=== PATIENT | male | born 1960 | race Caucasian/White ===

== ENCOUNTER → 2023-04-05 | Outpatient (CLI) | payer BC, SELFPAY ==
[2023-04-05 16:04] LABS: Absolute Lymphocyte Count 1.67 X10^3/uL (0.83-4.51); Absolute Neutrophil Count 5.8 X10^3/uL (2.0-7.7); Basophil# 0.06 X10^3/uL; Basophil% 0.7 % (0-1); Eosinophil# 0.36 X10^3/uL; Eosinophils% 4.2 % (0-5); Hematocrit 50.4 % (40-54); Hemoglobin 16.5 g/dL (13.0-16.5); Lymphocyte # 1.67 X10^3/ul (0.83-4.51); Lymphocyte % 19.3 % (19-41); Mean Corp Hgb Conc 32.7 g/dL (32-36); Mean Corpuscular Volume 97.9 fL (80-94); Mean Platelet Vol. 8.7 fl (6.2-12.0); Monocyte# 0.72 X10^3/uL; Monocyte% 8.3 % (0-10); NRBC Flagged by Analyzer 0 % (0-5); Neutrophil # 5.84 X10^3/uL (2.7-7.7); Neutrophil % 67.3 % (47-70); Platelet Count 215 K/mm3 (150-450); RBC Distribution Width CV 11.4 % (11.6-14.6); RBC Distribution Width SD 41.7 fl (35.1-43.9); Red Blood Count 5.15 M/mm3 (4.6-6.2); White Blood Count 8.7 K/mm3 (4.4-11.0)
[2023-04-05 16:28] LABS: ALB/GLOB Ratio 0.9 RATIO (0.9-2.4); AST(SGOT) 78 U/L (15-37); Alanine Aminotransfer ALT/SGPT 111 U/L (16-61); Albumin, Serum 3.5 g/dL (3.2-5.0); Alkaline Phosphatase 135 U/L (45-117); Anion Gap 4 (5-15); BUN 13 mg/dL (7-18); BUN/Creat Ratio 13.1 RATIO (10-20); Calcium,Total 9.5 mg/dL (8.5-10.1); Chloride 103 mmol/L (98-107); Creatinine, Serum 0.99 mg/dL (0.70-1.30); EST Glomerular Filtration Rate 81 mL/min (>60); Est Glom Filt Rate - Afr Amer 98 mL/min (>60); Globulin 4.1 g/dL (2.2-4.2); Glucose 123 mg/dL (74-106); PSA,Total - Annual Screen 1.31 ng/mL (0.00-4.00); Potassium 4.1 mmol/L (3.5-5.1); Protein, Total 7.6 g/dL (6.4-8.2); Sodium Level 138 mmol/L (136-145)
[2023-04-05 18:06] LABS: Hepatitis C Antibody Non-Reactive (Nonreactive); Vitamin D,25 Hydroxy 21.9 ng/mL
== END | disposition home or self-care (01) ==
PROVIDERS: PCP Family Medicine Geriatric Medicine; Visit Provider Family Medicine Geriatric Medicine
DX: E11.65 Type 2 diabetes mellitus with hyperglycemia (principal); I10 Essential (primary) hypertension
CPT/HCPCS: 36415; 80053; 82306; 84153; 84443; 85025; 86803; G0103

== ENCOUNTER → 2023-10-06 | Outpatient (CLI) | payer BC, SELFPAY ==
[2023-10-06 10:44] LABS: Absolute Lymphocyte Count 1.44 X10^3/uL (0.83-4.51); Absolute Neutrophil Count 4.3 X10^3/uL (2.0-7.7); Basophil# 0.06 X10^3/uL; Basophil% 0.9 % (0-1); Eosinophil# 0.22 X10^3/uL; Eosinophils% 3.3 % (0-5); Hematocrit 48.3 % (40-54); Hemoglobin 16.2 g/dL (13.0-16.5); Lymphocyte # 1.44 X10^3/ul (0.83-4.51); Lymphocyte % 21.8 % (19-41); Mean Corp Hgb Conc 33.5 g/dL (32-36); Mean Corpuscular Hgb 31.2 pg (27.0-32.0); Mean Corpuscular Volume 92.9 fL (80-94); Mean Platelet Vol. 8.9 fl (6.2-12.0); Monocyte# 0.62 X10^3/uL; Monocyte% 9.4 % (0-10); NRBC Flagged by Analyzer 0 % (0-5); Neutrophil # 4.25 X10^3/uL (2.7-7.7); Neutrophil % 64.4 % (47-70); Platelet Count 191 K/mm3 (150-450); RBC Distribution Width CV 11.4 % (11.6-14.6); RBC Distribution Width SD 38.7 fl (35.1-43.9); White Blood Count 6.6 K/mm3 (4.4-11.0)
[2023-10-06 11:25] LABS: AST(SGOT) 40 U/L (15-37); Alanine Aminotransfer ALT/SGPT 53 U/L (16-61); Albumin, Serum 3.8 g/dL (3.2-5.0); Alkaline Phosphatase 134 U/L (45-117); Anion Gap 5 (5-15); BUN 12 mg/dL (7-18); BUN/Creat Ratio 11.1 RATIO (10-20); Calcium,Total 9.4 mg/dL (8.5-10.1); Chloride 98 mmol/L (98-107); Creatinine, Serum 1.08 mg/dL (0.70-1.30); EST Glomerular Filtration Rate 73 mL/min (>60); Est Glom Filt Rate - Afr Amer 88 mL/min (>60); Globulin 3.8 g/dL (2.2-4.2); Glucose 127 mg/dL (74-106); Potassium 3.8 mmol/L (3.5-5.1); Protein, Total 7.6 g/dL (6.4-8.2); Sodium Level 132 mmol/L (136-145); Thyroid Stim Hormone (TSH) 1.97 uIU/mL (0.358-3.74)
== END | disposition home or self-care (01) ==
LOC: LAB 10:10
PROVIDERS: PCP Family Medicine Geriatric Medicine; Visit Provider Family Medicine Geriatric Medicine
DX: I10 Essential (primary) hypertension (principal); E11.65 Type 2 diabetes mellitus with hyperglycemia
CPT/HCPCS: 36415; 80053; 84443; 85025

== ENCOUNTER → 2023-12-19 | Outpatient (CLI) | payer BC, SELFPAY ==
[2023-12-19 11:24] LABS: Absolute Lymphocyte Count 0.96 X10^3/uL (0.83-4.51); Absolute Neutrophil Count 4.2 X10^3/uL (2.0-7.7); Basophil# 0.03 X10^3/uL; Basophil% 0.5 % (0-1); Eosinophil# 0.15 X10^3/uL; Eosinophils% 2.5 % (0-5); Hematocrit 46.8 % (40-54); Hemoglobin 16.1 g/dL (13.0-16.5); Lymphocyte # 0.96 X10^3/ul (0.83-4.51); Lymphocyte % 16.1 % (19-41); Mean Corp Hgb Conc 34.4 g/dL (32-36); Mean Corpuscular Hgb 32.2 pg (27.0-32.0); Mean Corpuscular Volume 93.6 fL (80-94); Monocyte# 0.55 X10^3/uL; Monocyte% 9.2 % (0-10); NRBC Flagged by Analyzer 0 % (0-5); Neutrophil # 4.23 X10^3/uL (2.7-7.7); Neutrophil % 71.2 % (47-70); Platelet Count 188 K/mm3 (150-450); RBC Distribution Width CV 11.7 % (11.6-14.6); RBC Distribution Width SD 40.3 fl (35.1-43.9)
[2023-12-19 11:49] LABS: AST(SGOT) 37 U/L (15-37); Alanine Aminotransfer ALT/SGPT 50 U/L (16-61); Albumin, Serum 3.7 g/dL (3.2-5.0); Alkaline Phosphatase 130 U/L (45-117); Anion Gap 7 (5-15); BUN 13 mg/dL (7-18); BUN/Creat Ratio 11.9 RATIO (10-20); Calcium,Total 9.5 mg/dL (8.5-10.1); Chloride 102 mmol/L (98-107); Creatinine, Serum 1.09 mg/dL (0.70-1.30); EST Glomerular Filtration Rate 72 mL/min (>60); Est Glom Filt Rate - Afr Amer 87 mL/min (>60); Globulin 3.7 g/dL (2.2-4.2); Glucose 141 mg/dL (74-106); Potassium 3.9 mmol/L (3.5-5.1); Protein, Total 7.4 g/dL (6.4-8.2); Sodium Level 136 mmol/L (136-145); Thyroid Stim Hormone (TSH) 2.19 uIU/mL (0.358-3.74)
== END | disposition home or self-care (01) ==
LOC: POLAB3 10:20
PROVIDERS: PCP Family Medicine Geriatric Medicine; Visit Provider Family Medicine Geriatric Medicine
DX: I10 Essential (primary) hypertension (principal); E11.65 Type 2 diabetes mellitus with hyperglycemia
CPT/HCPCS: 36415; 80053; 84443; 85025

== ENCOUNTER → 2024-06-06 | Outpatient (CLI) | payer BC, SELFPAY ==
[2024-06-06 10:29] LABS: Absolute Lymphocyte Count 1.24 X10^3/uL (0.83-4.51); Absolute Neutrophil Count 3.7 X10^3/uL (2.0-7.7); Basophil# 0.04 X10^3/uL; Basophil% 0.7 % (0-1); Eosinophil# 0.16 X10^3/uL; Eosinophils% 2.9 % (0-5); Hematocrit 48.4 % (40-54); Hemoglobin 16.7 g/dL (13.0-16.5); Lymphocyte # 1.24 X10^3/ul (0.83-4.51); Lymphocyte % 22.4 % (19-41); Mean Corp Hgb Conc 34.5 g/dL (32-36); Mean Corpuscular Hgb 32.8 pg (27.0-32.0); Mean Corpuscular Volume 95.1 fL (80-94); Mean Platelet Vol. 8.6 fl (6.2-12.0); Monocyte# 0.35 X10^3/uL; Monocyte% 6.3 % (0-10); NRBC Flagged by Analyzer 0 % (0-5); Neutrophil # 3.72 X10^3/uL (2.7-7.7); Neutrophil % 67.3 % (47-70); Platelet Count 206 K/mm3 (150-450); RBC Distribution Width CV 11.3 % (11.6-14.6); RBC Distribution Width SD 39.8 fl (35.1-43.9); Red Blood Count 5.09 M/mm3 (4.6-6.2); White Blood Count 5.5 K/mm3 (4.4-11.0)
[2024-06-06 11:05] LABS: ALB/GLOB Ratio 0.9 RATIO (0.9-2.4); AST(SGOT) 35 U/L (15-37); Alanine Aminotransfer ALT/SGPT 64 U/L (16-61); Albumin, Serum 3.5 g/dL (3.2-5.0); Alkaline Phosphatase 126 U/L (45-117); Anion Gap 5 (5-15); BUN 7 mg/dL (7-18); BUN/Creat Ratio 6.8 RATIO (10-20); Calcium,Total 9.4 mg/dL (8.5-10.1); Chloride 101 mmol/L (98-107); Creatinine, Serum 1.03 mg/dL (0.70-1.30); EST Glomerular Filtration Rate 77 mL/min (>60); Est Glom Filt Rate - Afr Amer 93 mL/min (>60); Globulin 3.8 g/dL (2.2-4.2); Glucose 140 mg/dL (74-106); Potassium 4.3 mmol/L (3.5-5.1); Protein, Total 7.3 g/dL (6.4-8.2); Sodium Level 136 mmol/L (136-145)
[2024-06-07 00:34] LABS: Vitamin D,25 Hydroxy 19.4 ng/mL
== END | disposition home or self-care (01) ==
LOC: POLAB3 10:11
PROVIDERS: PCP Family Medicine Geriatric Medicine; Visit Provider Family Medicine Geriatric Medicine
DX: E11.65 Type 2 diabetes mellitus with hyperglycemia (principal); I10 Essential (primary) hypertension; E55.9 Vitamin D deficiency, unspecified; Z12.5 Encounter for screening for malignant neoplasm of prostate
CPT/HCPCS: 36415; 80053; 82306; 84153; 84443; 85025; G0103

== ENCOUNTER → 2024-07-17 | Outpatient (CLI) | payer MEDICARE, SELFPAY ==
--- NOTE | 2024-07-17 07:37 | CT_ITS ---
EXAM: CT CHEST, LUNG CANCER SCREENING WITHOUT INTRAVENOUS CONTRAST CLINICAL INDICATION: NICOTINE DEPENDENCE-CURRENT SMOKER X 1 PPD, USE TO SMOKE 4 PPD, HTN, COPD TECHNIQUE: Helically acquired images were obtained of the chest without intravenous contrast using low dose (LDCT) lung cancer screening protocol. This CT exam was performed using one or more of the following dose reduction techniques: automated exposure control, adjustment of the mA and/or kV according to patient size, and/or use of iterative reconstruction technique. COMPARISON: No relevant prior studies available. FINDINGS: LUNGS AND PLEURAL SPACES: There are emphysematous bulla in the lung apices with minimal biapical scarring. There is a 4 mm subpleural nodule in the right upper lobe laterally seen on series 2 image 143. There is a small pleural-based nodule in the right middle lobe that measures 2 mm. No pneumothorax. HEART: Unremarkable. Heart size is normal. No pericardial effusion. No significant coronary artery calcifications. MEDIASTINUM: Unremarkable. No mediastinal or hilar adenopathy. Esophagus is unremarkable. No hiatal hernia. THYROID: Unremarkable. No thyroid lesions. BONES/JOINTS: Unremarkable. No suspicious lytic or blastic abnormality. VASCULATURE: Unremarkable. Thoracic aorta is non-dilated. LYMPH NODES: Unremarkable. No enlarged lymph nodes. CT/Low Dose CT Lung Screening IMPRESSION: Noncalcified nodule in the right upper lobe. There are emphysematous changes in the lung apices with pleural scarring. There is no acute abnormality in the chest. Lung-RADS score: 3 - Probably Benign. Recommend low-dose CT (LDCT) in 6 months. Electronically Signed: Shane Garland MD at 0:00 [facility] ,
== END | disposition home or self-care (01) ==
PROVIDERS: PCP Family Medicine Geriatric Medicine; Referring Provider Family Medicine Geriatric Medicine; Visit Provider Family Medicine Geriatric Medicine
DX: Z12.2 Encounter for screening for malignant neoplasm of respiratory organs (principal); F17.210 Nicotine dependence, cigarettes, uncomplicated
CPT/HCPCS: 71271

== ENCOUNTER → 2024-12-19 | Outpatient (CLI) | payer MEDICARE, SELFPAY ==
[2024-12-19 11:35] LABS: Hematocrit 47.4 % (40-54); Hemoglobin 16.2 g/dL (13.0-16.5); Immature Granulocytes Count 0.040 X10^3/uL (0.0-0.0); Mean Corp Hgb Conc 34.2 g/dL (32-36); Mean Corpuscular Volume 93.3 fL (80-94); Mean Platelet Vol. 9.2 fl (6.2-12.0); NRBC Flagged by Analyzer 0 % (0-5); Platelet Count 208 K/mm3 (150-450); RBC Distribution Width CV 11.5 % (11.6-14.6); RBC Distribution Width SD 39.4 fl (35.1-43.9); Red Blood Count 5.08 M/mm3 (4.6-6.2); White Blood Count 7.1 K/mm3 (4.4-11.0)
[2024-12-19 12:37] LABS: Vitamin D,25 Hydroxy 35.3 ng/mL (30-100)
[2024-12-19 12:42] LABS: Albumin, Serum 4.4 g/dL (3.4-4.8); BUN 16 mg/dL (4-19); BUN/Creat Ratio 16.1 RATIO (10-20); Glucose 162 mg/dL (70-99)
[2024-12-19 12:43] LABS: AST(SGOT) 31 U/L (<=37); Alanine Aminotransfer ALT/SGPT 37 U/L (<=46); Alkaline Phosphatase 131 U/L (40-129); Anion Gap 12 (5-15); Calcium,Total 9.8 mg/dL (7.6-11.0); Carbon Dioxide 26.1 mmol/L (21.0-32.0); Chloride 98 mmol/L (98-108); Globulin 2.9 g/dL (2.2-4.2); Potassium 4.5 mmol/L (3.3-5.1)
== END | disposition home or self-care (01) ==
LOC: LAB 10:20
PROVIDERS: PCP Family Medicine Geriatric Medicine; Referring Provider Family Medicine Geriatric Medicine; Visit Provider Family Medicine Geriatric Medicine
DX: E11.65 Type 2 diabetes mellitus with hyperglycemia (principal); E55.9 Vitamin D deficiency, unspecified; I10 Essential (primary) hypertension
CPT/HCPCS: 36415; 80053; 82306; 84443; 85025

== ENCOUNTER → 2025-02-11 | Outpatient (CLI) | payer MEDICARE, SELFPAY ==
--- NOTE | 2025-02-11 12:22 | RAD_ITS ---
PROCEDURE: FINGER(S) MIN 2 VIEWS 02/11/2025 REASON FOR EXAM: PAIN IN LEFT THUMB TECHNIQUE: FINGER(S) MIN 2 VIEWS Laterality: Left thumb COMPARISON: None FINDINGS: Bones: There is evidence of bony destruction of the distal portion of the distal phalanx of the thumb. Joints: Normal alignment. Soft tissues: Soft tissue swelling overlying the thumb. Other: RAD/Finger(s) Min 2 Views IMPRESSION: Bony destruction of the distal portion of the distal phalanx of the thumb with overlying soft tissue swelling. Osteomyelitis should be ruled out. Reading Location: [id number]
== END | disposition home or self-care (01) ==
LOC: RAD 12:17
PROVIDERS: PCP Family Medicine Geriatric Medicine; Referring Provider Family Medicine Geriatric Medicine; Visit Provider Family Medicine Geriatric Medicine
DX: M79.645 Pain in left finger(s) (principal)
CPT/HCPCS: 73140

== ENCOUNTER 2025-02-13 09:54 | Inpatient (IN) | payer MEDICARE, SELFPAY ==
[2025-02-13] VITALS (7 sets, daily range): BP systolic 148–173; BP diastolic 71–86; PULSE 72–80; RESP 16–18; TEMP 36–36.8; O2SAT 94–100; BMI 24.1; BMI 24.3
--- NOTE | 2025-02-13 10:13 | EDS_ITS ---
HPI History of Present Illness Chief Complaint: Upper Extremity Injury Narrative Narrative: 64-year-old male past medical history of hypertension, [id number], states that he hit his left thumb with a hammer approximately 1 month ago. He had a cut on his hand and underneath his nail that he never had evaluated. It healed, but he states that the tip of his left thumb is swollen, and whenever he hits it on something, he gets pain. He denies any fevers or chills, no nausea or vomiting, no other symptoms. 2 days ago he saw his primary care provider, Dr. Susi Patrick, who put him on 2 antibiotics, and had an x-ray performed as an outpatient. He was called with the results today stating that he needed to come to the emergency department for IV antibiotics. [facility] Medical History HTN (hypertension) Home Medications ?Medication ?Instructions ?Recorded ?Last Taken ?Type albuterol sulfate 90 mcg/actuation inhalation 02/13/25 Unknown History aerosol inhaler atorvastatin 40 mg tablet 40 mg PO QHS 02/13/25 Unknow n History cephalexin 500 mg capsule 500 mg PO TID 02/13/25 Unkno wn History fluticasone 250 mcg-salmeterol 50 1 ea inhalation BID 02/13/25 Unknown History mcg/dose blistr powdr for inhalation metoprolol succinate 50 mg 50 mg PO DAILY 02/13/25 Unk nown History tablet,extended release 24 hr omeprazole 40 mg capsule,delayed 40 mg PO DAILY Unknown History release sertraline 50 mg tablet 50 mg PO DAILY 02/13/25 Unkn own History sulfamethoxazole 800 1 tab PO Q12.TCU 02/13/25 Un known History mg-trimethoprim 160 mg tablet tamsulosin 0.4 mg capsule 0.8 mg PO QHS 02/13/25 Unkno wn History valsartan 320 1 tab PO DAILY 02/13/25 Unkn own History mg-hydrochlorothiazide 25 mg tablet Allergy/AdvReac Type Severity Reaction Status Date / Time No Known Allergies Allergy Verified 02/13/25 09:56 Social History Smoking Status: Never smoker ROS ROS ED ROS Narrative Review of systems positive for left thumb swelling and pain with palpation. No fevers or chills, no purulent drainage, denies other symptoms. EXAM Physical Exam Narrative Exam Narrative: Afebrile. Vital signs noted. Nontoxic-appearing. Cardiovascular examination of is a regular rate and rhythm. Lungs are clear to auscultation bilaterally. Abdomen is soft and nontender with positive bowel sounds. Focused examination of the left thumb does show a subungual hematoma covering most of the nail. There is noted swelling with minimal erythema. Minimal tenderness on the thumb pad. Patient states that with palpation it is more numb. Const Vital Signs: 02/13/25 09:55 02/13/25 09:59 Temperature 96.8 F L 96.8 F L Temperature Source Temporal Temporal Pulse Rate 80 80 Respiratory Rate 17 17 Blood Pressure 173/83 H 173/83 H Blood Pressure Mean 113 113 Pulse Ox 99 99 Oxygen Delivery Method Room Air Room Air MDM MDM MDM Narrative Medical decision making narrative: Differential diagnosis includes but not limited to sepsis versus osteomyelitis versus fracture. I reviewed the outpatient x-rays, and the radiology read states there is bony destruction with concern for osteomyelitis. I started the pursuit of sepsis workup including blood cultures and ordered vancomycin as well as Zosyn. I had a discussion with the patient regarding admission for IV antibiotics as well as need for possible/probable amputation because of the osteomyelitis. Patient states that his is to have a colonoscopy later today. He is agreeable to workup and IV antibiotics, however he states he cannot be admitted today and wishes to sign out AGAINST MEDICAL ADVICE. I do feel he has the capacity to make this decision. He was told of the risk of permanent disability and as well as other endorgan failure from sepsis and loss of limb or life. He acknowledges an understanding. I did order blood work and blood cultures as well as laboratory work and 1 round of IV antibiotics. I informed his primary care provider, Dr. Patrick. He was told that he could change his mind at any time and return to the emergency department for admission and further management. History & Record Review Discussion w/independent historian: Patient Discharge Plan Triage Chief Complaint: Upper Extremity Injury ED Provider: Shad Lancaster Dx/Rx/DC Orders Prescriptions: No Action atorvastatin 40 mg tablet 40 mg PO QHS fluticasone propion-salmeterol 250-50 mcg/dose blister with device 1 ea INHALATION BID metoprolol succinate 50 mg tablet extended release 24 hr 50 mg PO DAILY sulfamethoxazole-trimethoprim 800-160 mg tablet 1 tab PO Q12.TCU omeprazole 40 mg capsule,delayed release(DR/EC) 40 mg PO DAILY tamsulosin 0.4 mg capsule 0.8 mg PO QHS cephalexin 500 mg capsule 500 mg PO TID albuterol sulfate 90 mcg/actuation HFA aerosol inhaler inhalation sertraline 50 mg tablet 50 mg PO DAILY valsartan-hydrochlorothiazide 320-25 mg tablet 1 tab PO DAILY Primary Care Provider: Raul Patrick Chi Referrals: Raul Patrick Chi, MD [Primary Care Provider] - Print Language: Greek
[2025-02-13 10:21] LABS: Hematocrit 45.7 % (40-54); Hemoglobin 16.0 g/dL (13.0-16.5); Immature Granulocytes Count 0.020 X10^3/uL (0.0-0.0); Mean Corp Hgb Conc 35.0 g/dL (32-36); Mean Corpuscular Volume 92.0 fL (80-94); Mean Platelet Vol. 8.3 fl (6.2-12.0); NRBC Flagged by Analyzer 0 % (0-5); Platelet Count 211 K/mm3 (150-450); RBC Distribution Width CV 11.5 % (11.6-14.6); RBC Distribution Width SD 39.0 fl (35.1-43.9); Red Blood Count 4.97 M/mm3 (4.6-6.2); White Blood Count 6.6 K/mm3 (4.4-11.0)
[2025-02-13] MEDS: Piperacil/Tazobactam 3.375 GM in 0.9% Normal Saline (50mL MB+) 50 ML IV ×2 (10:29→21:12)
[2025-02-13 10:49] LABS: AST(SGOT) 29 U/L (<=37); Alanine Aminotransfer ALT/SGPT 30 U/L (<=46); Albumin, Serum 4.5 g/dL (3.4-4.8); Alkaline Phosphatase 130 U/L (40-129); Anion Gap 14 (5-15); BUN 12 mg/dL (4-19); BUN/Creat Ratio 11.6 RATIO (10-20); Calcium,Total 10.0 mg/dL (7.6-11.0); Carbon Dioxide 22.1 mmol/L (21.0-32.0); Chloride 98 mmol/L (98-108); Estimated Creatinine Clearance 68.83 ml/min (50-250); Globulin 3.4 g/dL (2.2-4.2); Glucose 129 mg/dL (70-99); Potassium 4.1 mmol/L (3.3-5.1)
[2025-02-13] MEDS: Vancomycin HCl 1,250 MG in 0.9% Normal Saline (250mL Bag) 250 ML 167 MG IV (11:01)
--- NOTE | 2025-02-13 12:19 | EX.PCM.CON.S ---
Assessment & Plan Assessment/Plan (1) Subungual hematoma of finger of left hand: (2) Osteomyelitis of finger of left hand: PLAN: Plan N.p.o. at midnight (possible nail removal and bone biopsy if exposed bone) Agree with admission and continued antibiotics Recommend infectious disease consultation and an MRI to see the extent of the osteomyelitis for surgical consideration/planning and for definitive diagnosis Plastics will follow HPI Consult Data Date of Consult: 02/13/25 HPI Narrative HPI Narrative: COREY TIRADO is a 64-year-old [id number] male who presents to the emergency department after being referred by Dr. Patrick out of concern for osteomyelitis of the left thumb. Patient reports that he hit his left thumb approximately 1 month ago with a hammer and did not seek medical attention. He subsequently developed a subungual hematoma. He presented to Dr. Patrick's office a few days ago for thumb pain and swelling up to 2 weeks duration, and the x-ray was performed as an outpatient. He was placed on antibiotics which he reports improved the pain over the past couple of days (Bactrim). Today in the emergency department he reports sharp severe pain in the left thumb, worsened by movements and palpation and improved with rest and elevation. He has stable vital signs and is afebrile. He has a normal white blood cell count. Patient reports that he is a pack per day smoker and also drinks beer heavily (this information was relayed to the emergency department physician). [facility] Medical History HTN (hypertension) Home Medications ?Medication ?Instructions ?Recorded ?Last Taken ?Type albuterol sulfate 90 mcg/actuation inhalation 02/13/25 Unknown History aerosol inhaler atorvastatin 40 mg tablet 40 mg PO QHS 02/13/25 Unknown History cephalexin 500 mg capsule 500 mg PO TID 02/13/25 Unknown History fluticasone 250 mcg-salmeterol 50 1 ea inhalation BID 02/13/25 Unknown History mcg/dose blistr powdr for inhalation metoprolol succinate 50 mg 50 mg PO DAILY 02/13/25 Unknown History tablet,extended release 24 hr omeprazole 40 mg capsule,delayed 40 mg PO DAILY 02/13/25 Unknown History release sertraline 50 mg tablet 50 mg PO DAILY 02/13/25 Unknown History sulfamethoxazole 800 1 tab PO Q12.TCU 02/13/25 Unknown History mg-trimethoprim 160 mg tablet tamsulosin 0.4 mg capsule 0.8 mg PO QHS 02/13/25 Unknown History valsartan 320 1 tab PO DAILY 02/13/25 Unknown History mg-hydrochlorothiazide 25 mg tablet Allergy/AdvReac Type Severity Reaction Status Date / Time No Known Allergies Allergy Verified 02/13/25 09:56 Social History Smoking Status: Never smoker Physical Exam Narrative Left upper Extremity Inspection: Subungual hematoma. Distal finger swelling but no fluid collection within the fingertip pulp (there is no felon) . There is no active purulent drainage or any exposed bone on my exam (albeit nail left in place). Palpation: Tenderness to palpation of the distal fingertip Motor: Able to bend and extend all MP, PIP, and DIP joints/IP joints. No pain in the joint of the thumb Sensory: Intact to light touch on the radial and ulnar borders. Vascular: Finger tips are warm and well perfused with <2 second capillary refill. Lab / Micro Data 02/13/25 10:05 02/13/25 10:05 Labs: Laboratory Results - last 24 hr 02/13/25 10:05: WBC 6.6, RBC 4.97, Hgb 16.0, Hct 45.7, MCV 92.0, MCH 32.2 H, MCHC 35.0, RDW Std Deviation 39.0, RDW Coeff of [place] 11.5 L, Plt Count 211, MPV 8.3, Immature Gran % (Auto) 0.300, Neut % (Auto) 64.6, Lymph % (Auto) 22.3, [place] % (Auto) 9.3, Eos % (Auto) 2.7, Baso % (Auto) 0.8, Absolute Neuts (auto) 4.3, Absolute Lymphs (auto) 1.47, Nucleated RBC % 0, Sodium 134, Potassium 4.1, Chloride 98, Carbon Dioxide 22.1, Anion Gap 14, BUN 12, Creatinine 1.07, Estim Creat Clear Calc 68.83, Est GFR (MDRD) Non-Af 77, BUN/Creatinine Ratio 11.6, Glucose 129 H, Lactic Acid 1.5, Calcium 10.0, Total Bilirubin 0.72, AST 29, ALT 30, Alkaline Phosphatase 130 H, Total Protein 7.9, Albumin 4.5, Globulin 3.4, Albumin/Globulin Ratio 1.3 Imaging X-ray of the thumb reviewed and demonstrates lytic distal tuft lesion underneath the zone of injury consistent with osteomyelitis Charges/Coding Visit Charges Office Visits / Consults: 46147 OV L3 New 30min
--- NOTE | 2025-02-13 12:47 | PCM.HP.STD ---
HPI - General General Date of Admission: 02/13/25 HPI Narrative COREY TIRADO, is a 64 M who presents approximately 1 month after hitting his left thumb with a hammer. He did have a cut on his hand and had a hematoma under his left nail. He went to his PCP who put him on Keflex and Bactrim 2 days ago. During that appointment he had an x-ray obtained which demonstrates bony destruction on his distal phalanx of his left thumb consistent with osteomyelitis. No leukocytosis or signs of sepsis however plastic surgery was consulted recommending an MRI with IV antibiotics for evaluation of possible debridement versus amputation. [facility] Medical History (Updated 02/13/25 @ 11:46 by Shad Lancaster MD) HTN (hypertension) Home Medications ?Medication ?Instructions ?Recorded ?Last Taken ?Type albuterol sulfate 90 mcg/actuation 2 puff inhalation Q4H PRN copd 02/13/25 Unknown History aerosol inhaler atorvastatin 40 mg tablet 40 mg PO QHS 02/13/25 Unknown History cephalexin 500 mg capsule 500 mg PO TID 02/13/25 Unknown History fluticasone 250 mcg-salmeterol 50 1 ea inhalation BID 02/13/25 Unknown History mcg/dose blistr powdr for inhalation metoprolol succinate 50 mg 50 mg PO DAILY 02/13/25 Unknown History tablet,extended release 24 hr omeprazole 40 mg capsule,delayed 40 mg PO DAILY 02/13/25 Unknown History release sertraline 50 mg tablet 50 mg PO DAILY 02/13/25 Unknown History sulfamethoxazole 800 1 tab PO Q12.TCU 02/13/25 Unknown History mg-trimethoprim 160 mg tablet tamsulosin 0.4 mg capsule 0.8 mg PO QHS 02/13/25 Unknown History valsartan 320 1 tab PO DAILY 02/13/25 Unknown History mg-hydrochlorothiazide 25 mg tablet Allergy/AdvReac Type Severity Reaction Status Date / Time No Known Allergies Allergy Verified 02/13/25 09:56 Family History (Updated 02/13/25 @ 13:[address] Eric Nichols MD) Other Diabetes Surgical History (Updated 02/13/25 @ 13:[address] Eric Nichols MD) History of back surgery Social History (Updated 02/13/25 @ 13:[address] Eric Nichols MD) Smoking Status: Current every day smoker tobacco type: cigarettes alcohol intake: current alcohol intake frequency: 3 or more drinks per day Alcohol type: beer ROS Constitutional Constitutional: Denies chills, fatigue, fever(s) or malaise Eyes Eyes: Denies blurry vision ENT HEENT: Denies headache(s) or nasal discharge Cardiovascular Cardiovascular: Denies chest pain, dyspnea on exertion or syncope Respiratory/Chest Respiratory/Chest: Denies cough, shortness of breath at rest or shortness of breath with exertion Gastrointestinal Gastrointestinal: Denies constipation, diarrhea, nausea or vomiting Genitourinary Genitourinary: Denies dysuria Musculoskeletal Musculoskeletal: Reports other Details: Left thumb swelling Neurologic Neurologic: Denies focal weakness, numbness or tremor(s) Psychiatric Psychiatric: Denies anxiety or depression Vital Signs Vital Signs Vital Signs: 02/13/25 09:55 02/13/25 09:59 02/13/25 11:04 Temperature 96.8 F L 96.8 F L 97 F L Temperature Source Temporal Temporal Temporal Pulse Rate 80 80 72 Respiratory Rate 17 17 18 Blood Pressure 173/83 H 173/83 H 161/75 H Blood Pressure Mean 113 113 103 Pulse Ox 99 99 96 Oxygen Delivery Method Room Air Room Air 02/13/25 11:33 Temperature 98.1 F Temperature Source Pulse Rate 78 Respiratory Rate 16 Blood Pressure 152/75 H Blood Pressure Mean 100 Pulse Ox 100 Oxygen Delivery Method Weight Weight: 166 lb Body Mass Index (BMI) 24.1 Physical Exam Narrative General: Alert, Oriented x3, Cooperative, No apparent distress HEENT: Atraumatic, PERRLA, EOMI, Normocephalic Oral: Moist Mucosa Neck: Supple, No JVD Lungs: Clear to auscultation, Normal air movement, No rhonchi, No wheeze, No rales Cardiovascular: Regular rate, Regular Rhythm, Normal S1, Normal S2, No murmurs Abdomen: Soft, Non Tender, Non-Distended, No Hepato-splenomegaly Extremities: No edema, Capillary Refill Less than 3 Seconds Skin: No rashes, No breakdown Musculoskeletal: Left thumb is swollen and red with subungual hematoma Neurological: No focal neurological deficits, Motor Exam 5/5 strength throughout, Sensory exam intact to light touch and pain Psych/Mental Status: Normal Affect, Appropriate Results Lab / Micro Data 02/13/25 10:05 02/13/25 10:05 Labs: Laboratory Results - last 24 hr 02/13/25 10:05: WBC 6.6, RBC 4.97, Hgb 16.0, Hct 45.7, MCV 92.0, MCH 32.2 H, MCHC 35.0, RDW Std Deviation 39.0, RDW Coeff of Roseanna 11.5 L, Plt Count 211, MPV 8.3, Immature Gran % (Auto) 0.300, Neut % (Auto) 64.6, Lymph % (Auto) 22.3, [place] % (Auto) 9.3, Eos % (Auto) 2.7, Baso % (Auto) 0.8, Absolute Neuts (auto) 4.3, Absolute Lymphs (auto) 1.47, Nucleated RBC % 0, Sodium 134, Potassium 4.1, Chloride 98, Carbon Dioxide 22.1, Anion Gap 14, BUN 12, Creatinine 1.07, Estim Creat Clear Calc 68.83, Est GFR (MDRD) Non-Af 77, BUN/Creatinine Ratio 11.6, Glucose 129 H, Lactic Acid 1.5, Calcium 10.0, Total Bilirubin 0.72, AST 29, ALT 30, Alkaline Phosphatase 130 H, Total Protein 7.9, Albumin 4.5, Globulin 3.4, Albumin/Globulin Ratio 1.3 Assessment & Plan Assessment/Plan (1) Subungual hematoma of finger of left hand: (2) Osteomyelitis of finger of left hand: PLAN: Plan 1. Subungual hematoma with osteomyelitis of the left hand ? Will get an MRI to confirm osteomyelitis ? Appreciate plastic surgery's assistance ? Continue with IV Zosyn and vancomycin ? If it demonstrates osteomyelitis on the MRI then will obtain consultation by infectious disease for outpatient antibiotics if necessary 2. Essential HTN/HLD ? Blood pressure stable?continue with his home blood pressure medications ? Will monitor and make adjustments as necessary?continue Lipitor 3. Anxiety/depression ? Stable ? Continue with his home medications 4. GERD ? Stable ? 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 Continue with Flomax DVT: Lovenox 75 minutes was spent on direct patient care, including documentation as well as chart review and collaboration with colleagues Charges/Coding Visit Charges Inpatient E&M: 25004 Init Hosp L3
--- NOTE | 2025-02-13 12:48 | MRI_ITS ---
PROCEDURE: UPPER EXT NO JOINT W/WO CONT 02/13/2025 REASON FOR EXAM: LEFT THUMB osteomyelitis CONCERN TECHNIQUE: UPPER EXT NO JOINT W/WO CONT CONTRAST: Clariscan VOLUME: 14 mL intravenous COMPARISON: Left thumb series of 02/11/2025. FINDINGS: Examination somewhat limited by metallic artifact at the dorsal and distal aspects of the left 1st distal phalanx. Additionally, this results in loss of fat suppression on fat suppressed images. Marked osseous edema as well as postcontrast enhancement is seen throughout large portions of the distal phalanx, extending from the distal portion thereof, concerning for the presence of osteomyelitis of the left 1st distal phalanx. Adjacent areas of soft tissue enhancement are seen, concerning for soft tissue extension of this process. In visualized areas, no additional area of acute osseous signal changes are seen. No joint effusion is evident. MRI/Upper Ext No Joint W/WO Cont IMPRESSION: Findings concerning for osteomyelitis of the left thumb distal phalanx. Reading Location: [place] [id number]
--- NOTE | 2025-02-13 13:19 | PHA.PHARE_ITS ---
Consult Antibiotic Management Pharmacy has been consulted to manage selected antibiotic: Vancomycin Type of Intervention Type of Consult: New start Suspected Infection Suspected Infection: Osteomyelitis Prior Doses of Antibiotics Prior Doses of Antibiotics Received/Current Regimen: received vanc 1250mg IV x1 in E.R. today starting at 11:01 Labs Labs: Sodium 134 mmol/L (133-145) 02/13/25 10:05 Potassium 4.1 mmol/L (3.3-5.1) 02/13/25 10:05 Chloride 98 mmol/L (98-108) 02/13/25 10:05 Carbon Dioxide 22.1 mmol/L (21.0-32.0) 02/13/25 10:05 Anion Gap 14 (5-15) 02/13/25 10:05 BUN 12 mg/dL (4-19) 02/13/25 10:05 Creatinine 1.07 mg/dL (0.70-1.20) 02/13/25 10:05 Est GFR (MDRD) Non-Af 77 (>60) 02/13/25 10:05 BUN/Creatinine Ratio 11.6 RATIO (10-20) 02/13/25 10:05 Glucose 129 mg/dL (70-99) H 02/13/25 10:05 Dosing Weight Weight used for dosin lb 5.547 oz Estimated Creatinine Clearance Estimated Creatinine Clearance: 69ml/min Goal Trough Goal Trough: 15-20 mcg/mL Pharmacy Plan for Drug Dosing Pharmacy Plan for Drug Dosing: Starting 12 hours after the E.R. dose, continue with vanc 1000mg IV q12h per [facility] dosing protocol. Check a trough before the 4th overall dose tomorrow night. Pharmacy Service will continue to monitor and adjust dosing as required. Follow-Up Labs Follow-Up Labs: Trough: Vancomycin Date/Time Labs Ordered Labs to be done on [date and time ordered]: 02/14/25 22:30
[2025-02-13] MEDS: 0.9% Saline Lock 10 ML Syringe IV (21:11)
[2025-02-13] MEDS: 0.9% Normal Saline (250mL Bag) 250 ML 15 ML IV (21:12)
--- OUTSIDE RECORDS SUMMARY | 2025-02-13 21:38 | XMS RPT_ITS | CCD ---
Author Organization [facility]ini[facility] Care Team Providers Care Traffic Administrator Name Role Phone Carine Canales PA-C Primary Care Provider Carine CANALES Referring Unavailable CANALESCarine Primary Care Unavailable Carnie CANALES Referring Unavailable CANALESCarine Primary Care Unavailable CANALESCarine Attending Unavailable CANALESCarine Primary Care Unavailable CANALESCarine Referring Unavailable CANALES, Carine NICOLE Primary Care Unavailable Canales Carine BARAJAS Primary Care Provider [phone] Darnell MORGAN, Dr. Raul Strong Primary Care Provider Darnell MORGAN, Dr. Raul Strong Attending Provider Darnell MORGAN, Dr. Raul Strong Referring Provider Darnell, Raul Chi Attending Unavailable Darnell, Raul Chi Primary Care Unavailable Darnell, Raul Chi Attending Unavailable Darnell, Raul Chi Referring Unavailable Darnell, Raul Chi Primary Care Unavailable Darnell, Raul Chi Attending Unavailable Darnell, Raul Chi Referring Unavailable Darnell, Raul Chi Primary Care Unavailable Darnell, Raul Chi Referring Unavailable Darnell, Raul Chi Primary Care Unavailable Darnell, Raul Chi Attending Unavailable Shad Lancaster MD Emergency Provider Simone MORGAN, Dr. Eric Morgan Admit Provider Dr. Eric Nichols MD Attending Provider Dr. Eric Nichols MD Other Provider Dr. Pranay Light MD Attending Provider Medications Current Medications Medication Drug Class(es) Dates Sig (Normalized) Sig (Original) [id number] 200 actuat albuterol 0.09 mg/actuat metered dose inhaler (17 sources) beta2-Adrenergic Agonist Start: 02-13-2025 Albuterol Sulfate 90 mcg/actuation HFA aerosol inhaler Active INHALATION February 13, 2025 12:00am Start: 02-26-2021 End: 01-11-2022 take 2 puff(s) by inhalation every six hours as needed albuterol HFA (PROVENTIL HFA, VENTOLIN HFA) 90 mcg/actuation inhaler Indications: COPD with chronic bronchitis (HCC) Inhale 2 Puffs as instructed every 6 hours as needed. 18 g 1 01/11/2022 Active Comment on above: Inhale 2 Puffs as in structed every 6 hours as needed. atorvastatin 40 mg oral tablet (1 source) HMG-CoA Reductase Inhibitor Start: 02-14-20 take 1 tablet by mouth at bedtime Atorvastatin 40 mg tablet Active 40 mg PO AT BEDTIME February 13, 2025 12:00am cephalexin 500 mg oral capsule (1 source) Cephalosporin Antibacterial Start: 02-14-20 take 1 capsule by mouth three times daily Cephalexin 500 mg capsule Active 500 mg PO THREE TIMES A DAY February 13, 2025 12:00am Fluticasone Propion-Salmeterol (17 sources) Corticosteroid, beta2-Adrenergic Agonist Start: 02-14-20 Fluticasone Propion-Salmeterol 250-50 mcg/dose blister with device Active 1 NMA INHALATION TWICE A DAY February 13, 2025 12:00am Start: 01-11-2022 take 1 puff(s) by in halation twice daily fluticasone-salmeterol (ADVAIR, WIXELA) 250-50 mcg/dose inhaler Indications: COPD with chronic bronchitis (HCC) Inhale 1 Puff as instructed twice daily. 1 Each 5 01/11/2022 Active Start: 02-26-2021 End: 01-11-2022 take 1 puff(s) by inhalation twice daily fluticasone-salmeterol (ADVAIR, WIXELA) 250-50 mcg/dose inhaler Indications: COPD with chronic bronchitis (HCC) Inhale 1 Puff as instructed twice daily. 1 Each 5 02/26/2021 01/11/2022 Discontinued Start: 02-26-2021 take 1 puff(s) by in halation twice daily fluticasone-salmeterol (ADVAIR, WIXELA) 250-50 mcg/dose inhaler Indications: COPD with chronic bronchitis (HCC) Inhale 1 Puff as instructed twice daily. 1 Each 5 02/26/2021 Active Comment on above: Inhale 1 Puff as ins tructed twice daily. hydroCHLOROthiazide 25 mg / valsartan 320 mg oral tablet (1 source) Thiazide Diuretic, Angiotensin 2 Receptor Kim Start: Valsartan-Hydrochl orothiazide 320-25 mg tablet Active 1 {tbl} PO DAILY February 13, 2025 12:00am metFORMIN hydrochloride 1000 mg oral tablet (4 sources) Biguanide Start: End: take 1 tablet by mouth once daily at breakfast metFORMIN (GLUCOPHAGE) 1,000 mg tablet Take 1 tablet by mouth daily with breakfast. 90 tablet 1 02/01/2022 04/08/2022 Discontinued Comment on above: Take 1 tablet by ariel daily with breakfast. 24 hr metoprolol succinate 50 mg extended release oral tablet (19 sources) beta-Adrenergic Kim Start: take 1 tablet by mouth once daily Metoprolol Succinate 50 mg tablet extended release 24 hr Active 50 mg PO DAILY February 13, 2025 12:00am Start: 02-26-2021 End: 12-02-2022 take 1 tablet by mouth once daily metoprolol succinate ER (TOPROL XL) 50 mg 24 hr tablet Indications: Essential hypertension Take 1 tablet by mouth once daily. 30 tablet 5 12/02/2022 Active Comment on above: Take 1 tablet by ariel once daily. omeprazole 40 mg delayed release oral capsule (17 sources) Proton Pump Inhibitor Start: 02-13-2025 take 1 capsule by mouth once daily Omeprazole 40 mg capsule,delayed release(DR/EC) Active 40 mg PO DAILY February 13, 2025 12:00am Start: 04-14-2021 End: 01-11-2022 take 1 capsule by mouth once daily omeprazole (PRILOSEC) 40 mg capsule Take 1 capsule by mouth once daily. 90 capsule 3 01/11/2022 Active Comment on above: Take 1 capsule by mo [facility] once daily. sertraline 50 mg oral tablet (19 sources) Serotonin Reuptake Inhibitor Start: 02-13-2025 take 1 tablet by mouth once daily Sertraline 50 mg tablet Active 50 mg PO DAILY February 13, 2025 12:00am Start: 04-23-2022 End: 05-01-2023 take 1 tablet by mouth once daily sertraline (ZOLOFT) 50 mg tablet Indications: Adjustment disorder with other symptom Take 1 tablet by mouth once daily. 90 tablet 1 11/02/2022 05/01/2023 Active Start: 02-26-2021 End: 04-21-2022 take 1 tablet by mouth once daily sertraline (ZOLOFT) 50 mg tablet Indications: Adjustment disorder with other symptom Take 1 tablet by mouth once daily. 90 tablet 1 10/15/2021 04/21/2022 Discontinued Comment on above: Take 1 tablet by ariel th once daily. sulfamethoxazole 800 mg / trimethoprim 160 mg oral tablet (1 source) Dihydrofolate Reductase Inhibitor Antibacterial, Sulfonamide Antimicrobial Start: 02-14-20 Sulfamethoxazole- Trimethoprim 800-160 mg tablet Active 1 {tbl} PO Q12 February 13, 2025 12:00am tamsulosin hydrochloride 0.4 mg oral capsule (1 source) alpha-Adrenergic Kim Start: 02-14-20 take 2 capsules by mouth at bedtime Tamsulosin 0.4 mg capsule Active 0.8 mg PO AT BEDTIME February 13, 2025 12:00am Completed/Discontinued Medications Medication Drug Class(es) Dates Sig (Normalized) Sig (Original) glipiZIDE 5 mg oral tablet (3 sources) Sulfonylurea Start: 04-08-2022 End: 05-31-2022 take 1 tablet by mouth once daily glipiZIDE (GLUCOTROL) 5 mg tablet Take 1 tablet by mouth once daily. 30 tablet 5 04/08/2022 05/31/2022 Discontinued (Side Effects) Comment on above: Take 1 tablet by ariel th once daily. hydroCHLOROthiazide 25 mg / lisinopril 20 mg oral tablet (17 sources) Thiazide Diuretic, Angiotensin Converting Enzyme Inhibitor Start: 07-26-2022 End: 11-16-2022 take 1 tablet by mouth once daily lisinopril-hydroC HLOROthiazide (ZESTORETIC) 20-25 mg per tablet Indications: Essential hypertension Take 1 tablet by mouth once daily. 30 tablet 5 11/17/2022 Active Start: 02-26-2021 End: 01-11-2022 take 1 tablet by mouth once daily lisinopril-hydroCHLOROthiazide (PRINZIDE , ZESTORETIC) 20-25 mg per tablet Indications: Essential hypertension Take 1 tablet by mouth once daily. 30 tablet 5 01/11/2022 Active Comment on above: Take 1 tablet by ariel th once daily. meloxicam 15 mg oral tablet (4 sources) Nonsteroidal Anti-inflammatory Drug Start: 09-29-19 End: 02-02-20 22 take 1 tablet by mouth once daily at mealtime meloxicam (MOBIC) 15 mg tablet Indications: Pain in both hands Take 1 tablet by mouth once daily. With food. 20 tablet 0 09/28/2018 02/01/2022 Discontinued (Course of therapy completed) Comment on above: Take 1 tablet by ariel th once daily. With food. SITagliptin 25 mg oral tablet (8 sources) Dipeptidyl Peptidase 4 Inhibitor Start: 01-18-20 23 take 1 tablet by mouth once daily SITagliptin phosphate (JANUVIA) 25 mg tablet Take 1 tablet by mouth once daily. 90 tablet 0 01/17/2023 Active Start: 05-31-2022 End: 01-15-2023 take 1 tablet by mouth once daily SITagliptin phosphate (JANUVIA) 25 mg tablet Take 1 tablet by mouth once daily. 90 tablet 1 05/31/2022 01/15/2023 Discontinued Comment on above: Take 1 tablet by ariel th once daily. Problems Active Problems Problem Classification Problem Date Documented Date Episodic/Chronic Adjustment disorders (6 sources) Adjustment disorder; Translations: [Adjustment disorder with other symptoms] Onset: 02-01-2022 Chronic Alcohol-related disorders (3 sources) Alcohol abuse; Translations: [Alcohol abuse, uncomplicated] Onset: 04-03-2022 Chronic Chronic obstructive pulmonary disease and bronchiectasis (18 sources) Emphysematous bronchitis; Translations: [Chronic obstructive pulmonary disease, unspecified] Onset: 12-17-2015 12-17-2015 Chronic Diabetes mellitus with complications (1 source) Type 2 diabetes mellitus with hyperglycemia; Translations: [Type 2 diabetes mellitus with hyperglycemia] Onset: 12-24-2024 Chronic Disorders of lipid metabolism (3 sources) Mixed hyperlipidemia; Translations: [Mixed hyperlipidemia] Onset: 01-26-2022 Chronic Esophageal disorders (17 sources) Gastroesophageal reflux disease without esophagitis; Translations: [Gastro-esophageal reflux disease without esophagitis] Onset: 02-27-2021 02-26-2021 Chronic Essential hypertension (9 sources) Essential hypertension; Translations: [Essential (primary) hypertension] Onset: 01-26-2022 Chronic Infective arthritis and osteomyelitis (except that caused by tuberculosis or sexually transmitted disease) (2 sources) Osteomyelitis of left hand; Translations: [Osteomyelitis, unspecified] 02-13-2025 Chronic Other aftercare (1 source) Drug therapy finding; 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] Episodic Other and unspecified benign neoplasm (16 sources) History of polyp of colon; Translations: [Personal history of colonic polyps] 02-26-2021 Episodic Other connective tissue disease (1 source) Pain in left finger(s); Translations: [Pain in left finger(s)] Onset: 02-11-2025 Episodic Other liver diseases (2 sources) Elevated liver enzymes level; Translations: [Abnormal levels of other serum enzymes] Episodic Other lower respiratory disease (16 sources) Nodule of lung; Translations: [Solitary pulmonary nodule] 03-29-2018 Episodic Other non-traumatic joint disorders (1 source) Shoulder pain; Translations: [Pain in right shoulder] Episodic Superficial injury; contusion (2 sources) Subungual hematoma, hand; Translations: [Contusion of unspecified finger with damage to nail, initial encounter] 02-13-2025 Episodic Past or Other Problems Problem Classification Problem Date Documented Da te Episodic/Chronic Diabetes mellitus without complication (20 sources) Hyperglycemia; Translations: [Hyperglycemia, unspecified] Onset: 03-26-2016 03-26-2016 Episodic Other aftercare (1 source) Other fdc (current) drug therapy; Translations: [Current use of proton pump inhibitor] Onset: 01-26-2022 Episodic Other and unspecified benign neoplasm (1 source) Personal history of colonic polyps; Translations: [History of colon polyps] Onset: 02-27-2021 Episodic Other disorders of stomach and duodenum (15 sources) Nonulcer dyspepsia; Translations: [Functional dyspepsia] Onset: 10-31-2017 10-31-2017 Episodic Other liver diseases (1 source) Abnormal levels of other serum enzymes; Translations: [Elevated liver enzymes] Onset: 04-03-2022 Episodic Other lower respiratory disease (1 source) Solitary pulmonary nodule; Translations: [Pulmonary nodule, left] Onset: 03-29-2018 Episodic Other screening for suspected conditions (not mental disorders or infectious disease) (1 source) Encounter for screening for malignant neoplasm of respiratory organs; Translations: [Encounter for screening for malignant neoplasm of respiratory organs] Onset: 07-31-2024 Episodic Pneumonia (except that caused by tuberculosis or sexually transmitted disease) (15 sources) Infective pneumonia; Translations: [Pneumonia, unspecified organism] Onset: 12-17-2015 09-21-2017 Episodic Results Test Name Value Interpretation Reference Range Facility Absolute lymphocyte countOrd ered By: Shad Lancaster on 02-13-2025 Lymphocytes Auto (Unsp spec) [#/Vol] 1.47 10*3/uL 0.83-4.51 [facility] Absolute neutrophil countOrd ered By: Shad Lancaster on 02-13-2025 Neutrophils (Bld) [#/Vol] 4.3 10*3/uL 2.0-7.7 [facility] Anion gap in Serum or Plasma Ordered By: Shad Lancaster on 02-13-2025 Anion gap [Moles/Vol] 14 mmol/L 5-15 [facility] Automated lymphocyte count a s percentage of total leukocytesOrdered By: Shad Lancaster on 02-13-2025 Lymphocytes/100 WBC Auto (Unsp spec) 22.3 % 19-41 [facility] BUN/creatinine ratioOrdered By: Shad Lancaster on 02-13-2025 Urea nitrogen/Creatinine [Mass ratio] 11.6 mg/mg 10-20 [facility] Basophil percentageOrdered B y: Shad Lancaster on 02-13-2025 Basophils/100 WBC (Bld) 0.8 % 0-1 [facility] Bilirubin, totalOrdered By: Shad Lancaster on 02-13-2025 Bilirubin [Mass/Vol] 0.72 mg/dL 0.00-1.30 [facility] Carbon dioxide, total [Moles /volume] in Central venous bloodOrdered By: Shad Lancaster on 02-13-2025 CO2 [Moles/Vol] 22.1 mmol/L 21.0-32.0 [facility] Chloride assayOrdered By: Alok Lancaster on 02-13-2025 Chloride [Moles/Vol] 98 mmol/L 98-108 [facility] Eosinophil percentageOrdered By: Shad Lancaster on 02-13-2025 Eosinophils/100 WBC (Bld) 2.7 % 0-5 [facility] Erythrocyte distribution wid th ratioOrdered By: Shad Lancaster on 02-13-2025 Erythrocyte distribution width (RBC) [Ratio] 11.5 % Low 11.6-14.6 [facility] Erythrocyte distribution wid th standard deviationOrdered By: Shad Lancaster on 02-13-2025 Erythrocyte distribution width (RBC) [Ratio] 39.0 fl 35.1-43.9 [facility] Glomerular filtration rate ( GFR) estimation/1.73 sq m using serum, plasma, or whole bOrdered By: Shad Lancaster on 02-13-2025 GFR/1.73 sq M.predicted among non-blacks MDRD (S/P/Bld) [Vol rate/Area] 77 mL/min/{1.73_m2} >60 [facility] Comment on above: mL/min/1.73m2 CKD-EP I Creatinine Equation (2020) Hematocrit Auto (Bld) [Volum e fraction]Ordered By: Shad Lancaster on 02-13-2025 Hematocrit (Bld) [Volume fraction] 45.7 % 40-54 [facility] Hemoglobin measurementOrdere d By: Shad Lancaster on 02-13-2025 Hemoglobin (Bld) [Mass/Vol] 16.0 g/dL 13.0-16.5 [facility] Immature granulocytes/100 WB C Auto (Bld)Ordered By: Shad Lancaster on 02-13-2025 Immature granulocytes/100 WBC (Bld) 0.300 % 0.0-0.9 [facility] Comment on above: IG% - Immature Granu locytes (promyelocytes, myelocytes and metamyelocytes) > 1% indicates that a LEFT SHIFT is Present. Laboratory - Chemistry and C hemistry - challengeOrdered By: Shad Lancaster on 02-13-2025 AST [Catalytic activity/Vol] 29 U/L <38 [facility] Lactic acid measurementOrder ed By: Shad Lancaster on 02-13-2025 Lactate [Moles/Vol] 1.5 mmol/L 0.0-2.0 [facility] MCV (mean corpuscular volume ) determinationOrdered By: Shad Lancaster on 02-13-2025 MCV (RBC) [Entitic vol] 92.0 fL 80-94 [facility] Mean corpuscular hemoglobin (MCH) determinationOrdered By: Shad Lancaster on 02-13-2025 MCH (RBC) [Entitic mass] 32.2 pg High 27.0-32.0 [facility] Mean corpuscular hemoglobin concentration (MCHC) determinationOrdered By: Shad Lancaster on 02-13-2025 MCHC (RBC) [Mass/Vol] 35.0 g/dL 32-36 [facility] Mean platelet volume determi nationOrdered By: Shad Lancaster on 02-13-2025 Platelet mean volume (Bld) [Entitic vol] 8.3 fL 6.2-12.0 [facility] Monocyte percentageOrdered B y: Shad Lancaster on 02-13-2025 Monocytes/100 WBC (Bld) 9.3 % 0-10 [facility] Neutrophil percentageOrdered By: Shad Lancaster on 02-13-2025 Neutrophils/100 WBC (Bld) 64.6 % 47-70 [facility] Nucleated red blood cell per centageOrdered By: Shad Lancaster on 02-13-2025 Nucleated RBC/100 WBC (Bld) [Ratio] 0 % 0-5 [facility] Platelet countOrdered By: Alok Lancaster on 02-13-2025 Platelets (Bld) [#/Vol] 211 10*3/uL 150-450 [facility] Potassium measurement (mass/ volume)Ordered By: Shad Lancaster on 02-13-2025 Potassium (Unsp spec) [Mass/Vol] 4.1 mmol/L 3.3-5.1 [facility] RBC Auto (Bld) [#/Vol]Ordere d By: Shad Lancaster on 02-13-2025 RBC (Bld) [#/Vol] 4.97 10*6/uL 4.6-6.2 [facility] Serum creatinine measurement (mass/volume)Ordered By: Shad Lancaster on 02-13-2025 Creatinine [Mass/Vol] 1.07 mg/dL 0.70-1.20 [facility] Serum globulin measurementOr dered By: Shad Lancaster on 02-13-2025 Globulin (S) [Mass/Vol] 3.4 g/dL 2.2-4.2 [facility] Serum glucose measurement (m ass/volume)Ordered By: Shad Lancaster on 02-13-2025 Glucose [Mass/Vol] 129 mg/dL High 70-99 [facility] Serum or plasma alanine mcwilliams otransferase (ALT) measurementOrdered By: Shad Lancaster on 02-13-2025 ALT [Catalytic activity/Vol] 30 U/L <47 [facility] Serum or plasma albumin primo urement (mass/volume)Ordered By: Shad Lancaster on 02-13-2025 Albumin [Mass/Vol] 4.5 g/dL 3.4-4.8 [facility] Serum or plasma albumin/glob ulin mass ratioOrdered By: Shad Lancaster on 02-13-2025 Albumin/Globulin [Mass ratio] 1.3 {ratio} 0.9-2.4 [facility] Serum or plasma alkaline kristina sphatase measurementOrdered By: Shad Lancaster on 02-13-2025 ALP [Catalytic activity/Vol] 130 U/L High 40-129 [facility] Serum or plasma calcium primo urement (mass/volume)Ordered By: Shad Lancaster on 02-13-2025 Calcium [Mass/Vol] 10.0 mg/dL 7.6-11.0 [facility] Serum or plasma urea nitroge n measurement (mass/volume)Ordered By: Shad Lancaster on 02-13-2025 Urea nitrogen [Mass/Vol] 12 mg/dL 4-19 [facility] Sodium levelOrdered By: Shad Lancaster on 02-13-2025 Sodium [Moles/Vol] 134 mmol/L 133-145 [facility] Total proteinOrdered By: Karolyn Lancaster on 02-13-2025 Protein [Mass/Vol] 7.9 g/dL 5.9-8.4 [facility] White blood cell (WBC) count Ordered By: Shad Lancaster on 02-13-2025 WBC (Bld) [#/Vol] 6.6 10*3/uL 4.4-11.0 [facility] Finger(s) Min 2 Viewson 01-19 Finger(s) Min 2 Views [facility] [address] [place], [place] [address] ([phone] Finger(s) Min 2 Views MR#: [id number] Acct: [id number] Name: COREY NEVILLE Rep #: [id number] : 1960 M 64 From: Darvin sahni MD PCP: Dr. Raul Patrick MD Status: REG CLI Study: Finger(s) Min 2 Views Date of Exam: 02/11/25 Exam# [id number] Ordering Dr: Raul Patrick MD PROCEDURE: FINGER(S) MIN 2 VIEWS 02/11/2025 REASON FOR EXAM: PAIN IN LEFT THUMB TECHNIQUE: FINGER(S) MIN 2 VIEWS Laterality: Left thumb COMPARISON: None FINDINGS: Bones: There is evidence of bony destruction of the distal portion of the distal phalanx of the thumb. Joints: Normal alignment. Soft tissues: Soft tissue swelling overlying the thumb. Other: RAD/Finger(s) Min 2 Views IMPRESSION: Bony destruction of the distal portion of the distal phalanx of the thumb with overlying soft tissue swelling. Osteomyelitis should be ruled out. Reading Location: [facility] CC: Dr. Raul Patrick MD Repairer Maintenance Building: Signed Normal [facility] Absolute lymphocyte countOrd ered By: Raul Patrick on 12-19-2024 Lymphocytes Auto (Unsp spec) [#/Vol] 1.47 10*3/uL 0.83-4.51 [facility] Absolute neutrophil countOrd ered By: Raul Patrick on 12-19-2024 Neutrophils (Bld) [#/Vol] 4.8 10*3/uL 2.0-7.7 [facility] Anion gap in Serum or Plasma Ordered By: Raul Patrick on 12-19-2024 Anion gap [Moles/Vol] 12 mmol/L 5-15 [facility] Automated lymphocyte count a s percentage of total leukocytesOrdered By: Raul Patrick on 12-19-2024 Lymphocytes/100 WBC Auto (Unsp spec) 20.7 % 19- [facility] BUN/creatinine ratioOrdered By: Raul Patrick on 12-19-2024 Urea nitrogen/Creatinine [Mass ratio] 16.1 mg/mg 10-20 [facility] Basophil percentageOrdered B y: Raul Darnell on 12-19-2024 Basophils/100 WBC (Bld) 0.7 % 0-1 [facility] Bilirubin, totalOrdered By: Raul Darnell on 12-19-2024 Bilirubin [Mass/Vol] 0.33 mg/dL 0.00-1.30 [facility] CBC W/Diff, Automatedon Absolute Lymph 1.47 X10 3/uL Normal 0.83-4.51 [facility] Comment on above: Performed By: #### L 506.1001, L501.9520, L100.0100, L500.4050 #### [facility] [address] [place], [address] Absolute Neut 4.8 X10 3/uL Normal 2.0-7.7 [facility] Comment on above: Performed By: #### L 506.1001, L501.9520, L100.0100, L500.4050 #### [facility] [address] [place], [address] Basophils/100 WBC (Bld) 0.7 % Normal 0-1 [facility] Comment on above: Performed By: #### L 506.1001, L501.9520, L100.0100, L500.4050 #### [facility] [address] [place], [address] Eosinophils/100 WBC (Bld) 3.2 % Normal 0-5 [facility] Comment on above: Performed By: #### L 506.1001, L501.9520, L100.0100, L500.4050 #### [facility] [address] [place], [address] Erythrocyte distribution width (RBC) [Ratio] 11.5 % Low 11.6-14.6 [facility] Comment on above: Performed By: #### L 506.1001, L501.9520, L100.0100, L500.4050 #### [facility] [address] [place], [address] Hematocrit (Bld) [Volume fraction] 47.4 % Normal 40-54 [facility] Comment on above: Performed By: #### L 506.1001, L501.9520, L100.0100, L500.4050 #### [facility] [address] [place], [address] Hemoglobin (Bld) [Mass/Vol] 16.2 g/dL Normal 13.0-16.5 [facility] Comment on above: Performed By: #### L 506.1001, L501.9520, L100.0100, L500.4050 #### [facility] [address] [place], [address] IG% 0.600 Normal 0.0-0.9 [facility] Comment on above: Result Comment: IG% - Immature Granulocytes (promyelocytes, myelocytes and metamyelocytes) > 1% indicates that a LEFT SHIFT is Present. Performed By: #### L 506.1001, L501.9520, L100.0100, L500.4050 #### [facility] [address] [place], [address] Lymphocytes/100 WBC (Bld) 20.7 % Normal 19-41 [facility] Comment on above: Performed By: #### L 506.1001, L501.9520, L100.0100, L500.4050 #### [facility] [address] [place], [address] MCH (RBC) [Entitic mass] 31.9 pg Normal 27.0-32.0 [facility] Comment on above: Performed By: #### L 506.1001, L501.9520, L100.0100, L500.4050 #### [facility] [address] [place], [address] MCHC (RBC) [Mass/Vol] 34.2 g/dL Normal 32-36 [facility] Comment on above: Performed By: #### L 506.1001, L501.9520, L100.0100, L500.4050 #### [facility] [address] [place], [address] MCV (RBC) [Entitic vol] 93.3 fL Normal 80-94 [facility] Comment on above: Performed By: #### L 506.1001, L501.9520, L100.0100, L500.4050 #### [facility] [address] [place], [address] Monocytes/100 WBC (Bld) 6.6 % Normal 0-10 [facility] Comment on above: Performed By: #### L 506.1001, L501.9520, L100.0100, L500.4050 #### [facility] [address] [place], [address] Neutrophils/100 WBC (Bld) 68.2 % Normal 47-70 [facility] Comment on above: Performed By: #### L 506.1001, L501.9520, L100.0100, L500.4050 #### [facility] [address] [place], [address] Nucleated RBC (Bld) [#/Vol] 0 10*3/uL Normal 0-5 [facility] Comment on above: Performed By: #### L 506.1001, L501.9520, L100.0100, L500.4050 #### [facility] [address] [place], [address] Platelet mean volume (Bld) [Entitic vol] 9.2 fL Normal 6.2-12.0 [facility] Comment on above: Performed By: #### L 506.1001, L501.9520, L100.0100, L500.4050 #### [facility] [address] [place], [address] Platelets (Bld) [#/Vol] 208 10*3/uL Normal 150-450 [facility] Comment on above: Performed By: #### L 506.1001, L501.9520, L100.0100, L500.4050 #### [facility] [address] [place], [address] RBC (Bld) [#/Vol] 5.08 10*6/uL Normal 4.6-6.2 [facility] Comment on above: Performed By: #### L 506.1001, L501.9520, L100.0100, L500.4050 #### [facility] [address] [place], [address] RDW SD 39.4 fl Normal 35.1-43.9 [facility] Comment on above: Performed By: #### L 506.1001, L501.9520, L100.0100, L500.4050 #### [facility] [address] [place], [address] WBC (Bld) [#/Vol] 7.1 10*3/uL Normal 4.4-11.0 [facility] Comment on above: Performed By: #### L 506.1001, L501.9520, L100.0100, L500.4050 #### [facility] [address] [place], [address] Carbon dioxide, total [Moles /volume] in Central venous bloodOrdered By: Raul Patrick on 12-19-2024 CO2 [Moles/Vol] 26.1 mmol/L 21.0-32.0 [facility] Chloride assayOrdered By: Onofre Patrick on 12-19-2024 Chloride [Moles/Vol] 98 mmol/L 98-108 [facility] Comprehensive Metabolic Prof ilon 12-19-2024 Albumin/Globulin [Mass ratio] 1.5 {ratio} Normal 0.9-2.4 [facility] Comment on above: Performed By: #### L 506.1001, L501.9520, L100.0100, L500.4050 #### [facility] [address] [place], [address] ALK PHOS 131 U/L High 40-129 [facility] Comment on above: Performed By: #### L 506.1001, L501.9520, L100.0100, L500.4050 #### [facility] [address] [place], [address] ALT [Catalytic activity/Vol] 37 U/L Normal <=46 [facility] Comment on above: Performed By: #### L 506.1001, L501.9520, L100.0100, L500.4050 #### [facility] [address] [place], [address] AST [Catalytic activity/Vol] 31 U/L Normal <=37 [facility] Comment on above: Result Comment: Hemo lysis present, Results??could be affected. ?? Performed By: #### L 506.1001, L501.9520, L100.0100, L500.4050 #### [facility] [address] [place], [address] Bilirubin [Mass/Vol] 0.33 mg/dL Normal 0.00-1.30 [facility] Comment on above: Performed By: #### L 506.1001, L501.9520, L100.0100, L500.4050 #### [facility] [address] [place], [address] Calcium [Mass/Vol] 9.8 mg/dL Normal 7.6-11.0 [facility] Comment on above: Performed By: #### L 506.1001, L501.9520, L100.0100, L500.4050 #### [facility] [address] [place], [address] Chloride [Moles/Vol] 98 mmol/L Normal 98-108 [facility] Comment on above: Performed By: #### L 506.1001, L501.9520, L100.0100, L500.4050 #### [facility] [address] [place], [address] CO2 [Moles/Vol] 26.1 mmol/L Normal 21.0-32.0 [facility] Comment on above: Performed By: #### L 506.1001, L501.9520, L100.0100, L500.4050 #### [facility] [address] [place], [address] GAP 12 Normal 5-15 [facility] Comment on above: Performed By: #### L 506.1001, L501.9520, L100.0100, L500.4050 #### [facility] [address] [place], [address] Globulin (S) [Mass/Vol] 2.9 g/dL Normal 2.2-4.2 [facility] Comment on above: Performed By: #### L 506.1001, L501.9520, L100.0100, L500.4050 #### [facility] [address] [place], [address] Potassium [Moles/Vol] 4.5 mmol/L Normal 3.3-5.1 [facility] Comment on above: Result Comment: Hemo lysis present, Results??could be affected. ?? Performed By: #### L 506.1001, L501.9520, L100.0100, L500.4050 #### [facility] [address] [place], [address] Sodium [Moles/Vol] 136 mmol/L Normal 133-145 [facility] Comment on above: Performed By: #### L 506.1001, L501.9520, L100.0100, L500.4050 #### [facility] [address] [place], [address] Albumin [Mass/Vol] 4.4 g/dL Normal 3.4-4.8 [facility] Comment on above: Performed By: #### L 506.1001, L501.9520, L100.0100, L500.4050 #### [facility] [address] [place], [address] BUN/CRE 16.1 RATIO Normal 10-20 [facility] Comment on above: Performed By: #### L 506.1001, L501.9520, L100.0100, L500.4050 #### [facility] [address] [place], [address] Creatinine [Mass/Vol] 1.00 mg/dL Normal 0.70-1.20 [facility] Comment on above: Performed By: #### L 506.1001, L501.9520, L100.0100, L500.4050 #### [facility] [address] [place], [address] GFR/1.73 sq M.predicted among non-blacks MDRD (S/P/Bld) [Vol rate/Area] 84 mL/min/{1.73_m2} Normal >60 [facility] Comment on above: Result Comment: mL/m in/1.73m2 CKD-EPI Creatinine Equation (2020) Performed By: #### L 506.1001, L501.9520, L100.0100, L500.4050 #### [facility] [address] [place], [address] Glucose [Mass/Vol] 162 mg/dL High 70-99 [facility] Comment on above: Performed By: #### L 506.1001, L501.9520, L100.0100, L500.4050 #### [facility] [address] [place], [address] T PROT 7.3 g/dL Normal 5.9-8.4 [facility] Comment on above: Performed By: #### L 506.1001, L501.9520, L100.0100, L500.4050 #### [facility] [address] [place], [address] Urea nitrogen [Mass/Vol] 16 mg/dL Normal 4-19 [facility] Comment on above: Performed By: #### L 506.1001, L501.9520, L100.0100, L500.4050 #### [facility] [address] [place], [address] Eosinophil percentageOrdered By: Raul Patrick on 12-19-2024 Eosinophils/100 WBC (Bld) 3.2 % 0-5 [facility] Erythrocyte distribution wid th ratioOrdered By: Raul Patrick on 12-19-2024 Erythrocyte distribution width (RBC) [Ratio] 11.5 % Low 11.6-14.6 [facility] Erythrocyte distribution wid th standard deviationOrdered By: Raul Patrick on 12-19-2024 Erythrocyte distribution width (RBC) [Ratio] 39.4 fl 35.1-43.9 [facility] Glomerular filtration rate ( GFR) estimation/1.73 sq m using serum, plasma, or whole bOrdered By: Raul Patrick on 12-19-2024 GFR/1.73 sq M.predicted among non-blacks MDRD (S/P/Bld) [Vol rate/Area] 84 mL/min/{1.73_m2} >60 [facility] Comment on above: mL/min/1.73m2 CKD-EP I Creatinine Equation (2020) Hematocrit Auto (Bld) [Volum e fraction]Ordered By: Raul Patrick on 12-19-2024 Hematocrit (Bld) [Volume fraction] 47.4 % 40-54 [facility] Hemoglobin measurementOrdere d By: Raul Patrick on 12-19-2024 Hemoglobin (Bld) [Mass/Vol] 16.2 g/dL 13.0-16.5 [facility] Immature granulocytes/100 WB C Auto (Bld)Ordered By: Raul Patrick on 12-19-2024 Immature granulocytes/100 WBC (Bld) 0.600 % 0.0-0.9 [facility] Comment on above: IG% - Immature Granu locytes (promyelocytes, myelocytes and metamyelocytes) > 1% indicates that a LEFT SHIFT is Present. Laboratory - Chemistry and C hemistry - challengeOrdered By: Raul Patrick on 12-19-2024 AST [Catalytic activity/Vol] 31 U/L <38 [facility] Comment on above: Hemolysis present, R esults could be affected. MCV (mean corpuscular volume ) determinationOrdered By: Raul Patrick on 12-19-2024 MCV (RBC) [Entitic vol] 93.3 fL 80-94 [facility] Mean corpuscular hemoglobin (MCH) determinationOrdered By: Raul Patrick 12-19-2024 MCH (RBC) [Entitic mass] 31.9 pg 27.0-32.0 [facility] Mean corpuscular hemoglobin concentration (MCHC) determinationOrdered By: Raul Patrick 12-19-2024 MCHC (RBC) [Mass/Vol] 34.2 g/dL 32-36 [facility] Mean platelet volume determi nationOrdered By: Raul Patrick on 12-19-2024 Platelet mean volume (Bld) [Entitic vol] 9.2 fL 6.2-12.0 [facility] Monocyte percentageOrdered B y: Raul Patrick on 12-19-2024 Monocytes/100 WBC (Bld) 6.6 % 0-10 [facility] Neutrophil percentageOrdered By: Raul Patrick on 12-19-2024 Neutrophils/100 WBC (Bld) 68.2 % 47-70 [facility] Nucleated red blood cell per centageOrdered By: Raul Patrick on 12-19-2024 Nucleated RBC/100 WBC (Bld) [Ratio] 0 % 0-5 [facility] Platelet countOrdered By: Onofre Patrick on 12-19-2024 Platelets (Bld) [#/Vol] 208 10*3/uL 150-450 [facility] Potassium measurement (mass/ volume)Ordered By: Raul Patrick on 12-19-2024 Potassium (Unsp spec) [Mass/Vol] 4.5 mmol/L 3.3-5.1 [facility] Comment on above: Hemolysis present, R esults could be affected. RBC Auto (Bld) [#/Vol]Ordere d By: Raul Patrick on 12-19-2024 RBC (Bld) [#/Vol] 5.08 10*6/uL 4.6-6.2 [facility] Serum creatinine measurement (mass/volume)Ordered By: Raul Patrick on 12-19-2024 Creatinine [Mass/Vol] 1.00 mg/dL 0.70-1.20 [facility] Serum globulin measurementOr dered By: Raul Patrick on 12-19-2024 Globulin (S) [Mass/Vol] 2.9 g/dL 2.2-4.2 [facility] Serum glucose measurement (m ass/volume)Ordered By: Raul Patrick on 12-19-2024 Glucose [Mass/Vol] 162 mg/dL High 70-99 [facility] Serum or plasma alanine mcwilliams otransferase (ALT) measurementOrdered By: Raul Patrick 12-19-2024 ALT [Catalytic activity/Vol] 37 U/L <47 [facility] Serum or plasma albumin primo urement (mass/volume)Ordered By: Raul Patrick on 12-19-2024 Albumin [Mass/Vol] 4.4 g/dL 3.4-4.8 [facility] Serum or plasma albumin/glob ulin mass ratioOrdered By: Raul Patrick 12-19-2024 Albumin/Globulin [Mass ratio] 1.5 {ratio} 0.9-2.4 [facility] Serum or plasma alkaline kristina sphatase measurementOrdered By: Raul Patrick 12-19-2024 ALP [Catalytic activity/Vol] 131 U/L High 40-129 [facility] Serum or plasma calcium primo urement (mass/volume)Ordered By: Raul Patrick on 12-19-2024 Calcium [Mass/Vol] 9.8 mg/dL 7.6-11.0 [facility] Serum or plasma urea nitroge n measurement (mass/volume)Ordered By: Raul Patrick on 12-19-2024 Urea nitrogen [Mass/Vol] 16 mg/dL 4-19 [facility] Sodium levelOrdered By: Raul Patrick on 12-19-2024 Sodium [Moles/Vol] 136 mmol/L 133-145 [facility] TSH DL <= 0.005 mIU/L QnOrde red By: Raul Patrick on 12-19-2024 TSH Qn 1.660 uIU/mL 0.300-4.200 [facility] Thyroid Stim Hormone (TSH)on 12-19-2024 TSH 1.660 uIU/mL Normal 0.300-4.200 [facility] Comment on above: Performed By: #### L 506.1001, L501.9520, L100.0100, L500.4050 #### [facility] [address] [place], [place], [address] Total proteinOrdered By: Raul Patrick on 12-19-2024 Protein [Mass/Vol] 7.3 g/dL 5.9-8.4 [facility] Vitamin D,25 Hydroxyon 12-19 Vitamin D 25-OH 35.3 ng/mL Normal 30-100 [facility] Comment on above: Result Comment: Sherri min D Status Deficiency: <20 ng/mL (50nmol/L) Insufficiency: 20-30 ng/mL (50-75 nmol/L) Sufficiency: 30-100 ng/mL (75-250 nmol/L) Toxicity: >100 ng/mL (>250 nmol/L) Performed By: #### L 506.1001, L501.9520, L100.0100, L500.4050 #### [facility] [address] [place], [address] White blood cell (WBC) count Ordered By: Raul Patrick on 12-19-2024 WBC (Bld) [#/Vol] 7.1 10*3/uL 4.4-11.0 [facility] Low Dose CT Lung Screeningon 07-17-[address] Lung Screening [facility] [address] [place] [address] Lung Screening MR#: [id number] Acct: [id number] Name: COREY NEVILLE Rep #: [id number] : 1960 M 64 From: Shane Garland MD PCP: Dr. Raul Patrick MD Status: REG CL Study: Low Dose CT Lung Screening Date of Exam: 07/17 Exam# [id number] Ordering Dr: Raul Patrick MD [id number] EXAM: CT CHEST, LUNG CANCER SCREENING WITHOUT INTRAVENOUS CONTRAST CLINICAL INDICATION: NICOTINE DEPENDENCE-CURRENT SMOKER X 1 PPD, USE TO SMOKE 4 PPD, HTN, COPD TECHNIQUE: Helically acquired images were obtained of the chest without intravenous contrast using low dose (LDCT) lung cancer screening protocol. This CT exam was performed using one or more of the following dose reduction techniques: automated exposure control, adjustment of the mA and/or kV according to patient size, and/or use of iterative reconstruction technique. COMPARISON: No relevant prior studies available. FINDINGS: LUNGS AND PLEURAL SPACES: There are emphysematous bulla in the lung apices with minimal biapical scarring. There is a 4 mm subpleural nodule in the right upper lobe laterally seen on series 2 image 143. There is a small pleural-based nodule in the right middle lobe that measures 2 mm. No pneumothorax. HEART: Unremarkable. Heart size is normal. No pericardial effusion. No significant coronary artery calcifications. MEDIASTINUM: Unremarkable. No mediastinal or hilar adenopathy. Esophagus is unremarkable. No hiatal hernia. THYROID: Unremarkable. No thyroid lesions. BONES/JOINTS: Unremarkable. No suspicious lytic or blastic abnormality. VASCULATURE: Unremarkable. Thoracic aorta is non-dilated. LYMPH NODES: Unremarkable. No enlarged lymph nodes. CT/Low Dose CT Lung Screening IMPRESSION: Noncalcified nodule in the right upper lobe. There are emphysematous changes in the lung apices with pleural scarring. There is no acute abnormality in the chest. Lung-RADS score: 3 - Probably Benign. Recommend low-dose CT (LDCT) in 6 months. Electronically Signed: Shane Garland MD at 0:00 EST , CC: Dr. Raul Patrick MD [employer]: Signed Normal [facility] Vitamin D,25 Hydroxyon 06-07 Vitamin D 25-OH 19.4 ng/mL Normal [facility] Comment on above: Result Comment: Sherri min D 25(OH) Status Range Deficiency <20 ng/mL (50nmol/L) Insufficiency 20 - 30 ng/mL (50 - 75 nmol/L) Sufficiency 30 - 100 ng/mL (75 - 250 nmol/L) Toxicity >100 ng/mL (>250 nmol/L) Performed By: #### L 501.9910, L506.1000, L500.4050, L100.0100, L501.9520 #### [facility] [address] [place], [address] CBC W/Diff, Automatedon 05-20 Absolute Lymph 1.24 X10 3/uL Normal 0.83-4.51 [facility] Comment on above: Performed By: #### L 501.9910, L506.1000, L500.4050, L100.0100, L501.9520 #### [facility] [address] [place], [address] Absolute Neut 3.7 X10 3/uL Normal 2.0-7.7 [facility] Comment on above: Performed By: #### L 501.9910, L506.1000, L500.4050, L100.0100, L501.9520 #### [facility] [address] [place], [address] Basophils/100 WBC (Bld) 0.7 % Normal 0-1 [facility] Comment on above: Performed By: #### L 501.9910, L506.1000, L500.4050, L100.0100, L501.9520 #### [facility] [address] [place], [address] Eosinophils/100 WBC (Bld) 2.9 % Normal 0-5 [facility] Comment on above: Performed By: #### L 501.9910, L506.1000, L500.4050, L100.0100, L501.9520 #### [facility] [address] [place], [address] Erythrocyte distribution width (RBC) [Ratio] 11.3 % Low 11.6-14.6 [facility] Comment on above: Performed By: #### L 501.9910, L506.1000, L500.4050, L100.0100, L501.9520 #### [facility] [address] [place], [address] Hematocrit (Bld) [Volume fraction] 48.4 % Normal 40-54 [facility] Comment on above: Performed By: #### L 501.9910, L506.1000, L500.4050, L100.0100, L501.9520 #### [facility] [address] [place], [address] Hemoglobin (Bld) [Mass/Vol] 16.7 g/dL High 13.0-16.5 [facility] Comment on above: Performed By: #### L 501.9910, L506.1000, L500.4050, L100.0100, L501.9520 #### [facility] [address] [place], [address] IG% 0.400 Normal 0.0-0.9 [facility] Comment on above: Result Comment: IG% - Immature Granulocytes (promyelocytes, myelocytes and metamyelocytes) > 1% indicates that a LEFT SHIFT is Present. Performed By: #### L 501.9910, L506.1000, L500.4050, L100.0100, L501.9520 #### [facility] [address] [place], [address] Lymphocytes/100 WBC (Bld) 22.4 % Normal 19-41 [facility] Comment on above: Performed By: #### L 501.9910, L506.1000, L500.4050, L100.0100, L501.9520 #### [facility] [address] [place], [address] MCH (RBC) [Entitic mass] 32.8 pg High 27.0-32.0 [facility] Comment on above: Performed By: #### L 501.9910, L506.1000, L500.4050, L100.0100, L501.9520 #### [facility] [address] [place], [address] MCHC (RBC) [Mass/Vol] 34.5 g/dL Normal 32-36 [facility] Comment on above: Performed By: #### L 501.9910, L506.1000, L500.4050, L100.0100, L501.9520 #### [facility] [address] [place], [address] MCV (RBC) [Entitic vol] 95.1 fL High 80-94 [facility] Comment on above: Performed By: #### L 501.9910, L506.1000, L500.4050, L100.0100, L501.9520 #### [facility] [address] [place], [address] Monocytes/100 WBC (Bld) 6.3 % Normal 0-10 [facility] Comment on above: Performed By: #### L 501.9910, L506.1000, L500.4050, L100.0100, L501.9520 #### [facility] [address] [place], [address] Neutrophils/100 WBC (Bld) 67.3 % Normal 47-70 [facility] Comment on above: Performed By: #### L 501.9910, L506.1000, L500.4050, L100.0100, L501.9520 #### [facility] [address] [place], [address] Nucleated RBC (Bld) [#/Vol] 0 10*3/uL Normal 0-5 [facility] Comment on above: Performed By: #### L 501.9910, L506.1000, L500.4050, L100.0100, L501.9520 #### [facility] [address] [place], [address] Platelet mean volume (Bld) [Entitic vol] 8.6 fL Normal 6.2-12.0 [facility] Comment on above: Performed By: #### L 501.9910, L506.1000, L500.4050, L100.0100, L501.9520 #### [facility] [address] [place], [address] Platelets (Bld) [#/Vol] 206 10*3/uL Normal 150-450 [facility] Comment on above: Performed By: #### L 501.9910, L506.1000, L500.4050, L100.0100, L501.9520 #### [facility] [address] [place], [address] RBC (Bld) [#/Vol] 5.09 10*6/uL Normal 4.6-6.2 [facility] Comment on above: Performed By: #### L 501.9910, L506.1000, L500.4050, L100.0100, L501.9520 #### [facility] [address] [place], [address] RDW SD 39.8 fl Normal 35.1-43.9 [facility] Comment on above: Performed By: #### L 501.9910, L506.1000, L500.4050, L100.0100, L501.9520 #### [facility] [address] [place], [address] WBC (Bld) [#/Vol] 5.5 10*3/uL Normal 4.4-11.0 [facility] Comment on above: Performed By: #### L 501.9910, L506.1000, L500.4050, L100.0100, L501.9520 #### [facility] [address] [place], [address] Comprehensive Metabolic [facility] 06-06-2024 Albumin [Mass/Vol] 3.5 g/dL Normal 3.2-5.0 [facility] Comment on above: Performed By: #### L 501.9910, L506.1000, L500.4050, L100.0100, L501.9520 #### [facility] [address] [place], [address] Albumin/Globulin [Mass ratio] 0.9 {ratio} Normal 0.9-2.4 [facility] Comment on above: Performed By: #### L 501.9910, L506.1000, L500.4050, L100.0100, L501.9520 #### [facility] [address] [place], [address] ALK P 126 U/L High 45-117 [facility] Comment on above: Performed By: #### L 501.9910, L506.1000, L500.4050, L100.0100, L501.9520 #### [facility] [address] [place], [address] ALT [Catalytic activity/Vol] 64 U/L High 16-61 [facility] Comment on above: Performed By: #### L 501.9910, L506.1000, L500.4050, L100.0100, L501.9520 #### [facility] [address] [place], [address] AST [Catalytic activity/Vol] 35 U/L Normal 15-37 [facility] Comment on above: Performed By: #### L 501.9910, L506.1000, L500.4050, L100.0100, L501.9520 #### [facility] [address] [place], [address] Bilirubin [Mass/Vol] 0.50 mg/dL Normal 0.20-1.00 [facility] Comment on above: Result Comment: For patients on eltrombopag therapy, use of Dimension [place] TBIL is not recommended. Performed By: #### L 501.9910, L506.1000, L500.4050, L100.0100, L501.9520 #### [facility] [address] [place], [address] BUN/CRE 6.8 RATIO Low 10-20 [facility] Comment on above: Performed By: #### L 501.9910, L506.1000, L500.4050, L100.0100, L501.9520 #### [facility] [address] [place], [address] CA,Total 9.4 mg/dL Normal 8.5-10.1 [facility] Comment on above: Performed By: #### L 501.9910, L506.1000, L500.4050, L100.0100, L501.9520 #### [facility] [address] [place], [address] Chloride [Moles/Vol] 101 mmol/L Normal 98-107 [facility] Comment on above: Performed By: #### L 501.9910, L506.1000, L500.4050, L100.0100, L501.9520 #### [facility] [address] [place], [address] CO2 [Moles/Vol] 30.0 mmol/L Normal 21.0-32.0 [facility] Comment on above: Performed By: #### L 501.9910, L506.1000, L500.4050, L100.0100, L501.9520 #### [facility] [address] [place], [address] Creatinine [Mass/Vol] 1.03 mg/dL Normal 0.70-1.30 [facility] Comment on above: Result Comment: The validity of the calculated GFR GFRAA in patients over 70 years has not been determined. Clinical correlation is essential. Performed By: #### L 501.9910, L506.1000, L500.4050, L100.0100, L501.9520 #### [facility] [address] [place], [address] EST GFR - AA 93 mL/min Normal >60 [facility] Comment on above: Result Comment: Afri can Swazi GFR Calc Performed By: #### L 501.9910, L506.1000, L500.4050, L100.0100, L501.9520 #### [facility] [address] [place], [address] GAP 5 Normal 5-15 [facility] Comment on above: Performed By: #### L 501.9910, L506.1000, L500.4050, L100.0100, L501.9520 #### [facility] [address] [place], [address] GFR/1.73 sq M.predicted among non-blacks MDRD (S/P/Bld) [Vol rate/Area] 77 mL/min/{1.73_m2} Normal >60 [facility] Comment on above: Result Comment: Non- GFR Calc Performed By: #### L 501.9910, L506.1000, L500.4050, L100.0100, L501.9520 #### [facility] [address] [place], [address] Globulin (S) [Mass/Vol] 3.8 g/dL Normal 2.2-4.2 [facility] Comment on above: Performed By: #### L 501.9910, L506.1000, L500.4050, L100.0100, L501.9520 #### [facility] [address] [place], [address] Glucose [Mass/Vol] 140 mg/dL High 74-106 [facility] Comment on above: Result Comment: Fast ing Glucose result greater than or equal to 126 mg/dL suggests DIABETES MELLITUS per A.D.A. criteria. Performed By: #### L 501.9910, L506.1000, L500.4050, L100.0100, L501.9520 #### [facility] [address] [place], [address] Potassium [Moles/Vol] 4.3 mmol/L Normal 3.5-5.1 [facility] Comment on above: Performed By: #### L 501.9910, L506.1000, L500.4050, L100.0100, L501.9520 #### [facility] [address] [place], [address] Sodium [Moles/Vol] 136 mmol/L Normal 136-145 [facility] Comment on above: Performed By: #### L 501.9910, L506.1000, L500.4050, L100.0100, L501.9520 #### [facility] [address] [place], [address] T PROT 7.3 g/dL Normal 6.4-8.2 [facility] Comment on above: Performed By: #### L 501.9910, L506.1000, L500.4050, L100.0100, L501.9520 #### [facility] [address] [place], [address] Urea nitrogen [Mass/Vol] 7 mg/dL Normal 7-18 [facility] Comment on above: Performed By: #### L 501.9910, L506.1000, L500.4050, L100.0100, L501.9520 #### [facility] [address] [place], [address] PSA,Total - Annual Screenon 06-06-2024 PSA,TOT SCREEN 1.40 ng/mL Normal 0.00-4.00 [facility] Comment on above: Result Comment: This test was performed using the TPSA assay method for the Praedicat chemistry system. Values obtained with different assay methods cannot be used interchangably. When changing PSA assays in the course of monitoring a patient, additional sequential testing should be carried out to confirm baseline values. Performed By: #### L 501.9910, L506.1000, L500.4050, L100.0100, L501.9520 #### [facility] [address] [place], [address] Thyroid Stim Hormone (TSH)on 06-06-2024 TSH 1.980 uIU/mL Normal 0.358-3.740 [facility] Comment on above: Performed By: #### L 501.9910, L506.1000, L500.4050, L100.0100, L501.9520 #### [facility] [address] [place], [address] Absolute lymphocyte countOrd ered By: Raul Patrick on 10-06-2023 Lymphocytes Auto (Unsp spec) [#/Vol] 1.44 10*3/uL 0.83-4.51 [facility] Automated lymphocyte count a s percentage of total leukocytesOrdered By: Raul Patrick on 10-06-2023 Lymphocytes/100 WBC Auto (Unsp spec) 21.8 % 19-41 [facility] Basophil percentageOrdered B y: Raul Patrick on 10-06-2023 Basophils/100 WBC (Bld) 0.9 % 0-1 [facility] Bilirubin [Mass/Vol] 1.00 mg/dL 0.20-1.00 [facility] Comment on above: For patients on eltr ombopag therapy, use of Dimension [place] TBIL is not recommended. Chloride [Moles/Vol] 98 mmol/L 98-107 [facility] Eosinophils/100 WBC (Bld) 3.3 % 0-5 [facility] Glucose [Mass/Vol] 127 mg/dL 74-106 [facility] Comment on above: Fasting Glucose resu lt greater than or equal to 126 mg/dL suggests DIABETES MELLITUS per A.D.A. criteria. Hemoglobin (Bld) [Mass/Vol] 16.2 g/dL 13.0-16.5 [facility] Monocytes/100 WBC (Bld) 9.4 % 0-10 [facility] Neutrophils (Bld) [#/Vol] 4.3 10*3/uL 2.0-7.7 [facility] Neutrophils/100 WBC (Bld) 64.4 % 47-70 [facility] Potassium [Moles/Vol] 3.8 mmol/L 3.5-5.1 [facility] Protein [Mass/Vol] 7.6 g/dL 6.4-8.2 [facility] Sodium [Moles/Vol] 132 mmol/L 136-145 [facility] WBC (Bld) [#/Vol] 6.6 10*3/uL 4.4-11.0 [facility] Determination of erythrocyte mean corpuscular volume (MCV)Ordered By: Raul Patrick on 10-06-2023 MCV (RBC) [Entitic vol] 92.9 fL 80-94 [facility] Erythrocyte distribution wid th ratioOrdered By: Raul Casperok on 10-06-2023 Erythrocyte distribution width (RBC) [Ratio] 11.4 % 11.6-14.6 [facility] Erythrocyte distribution wid th standard deviationOrdered By: Raul Patrick on 10-06-2023 Erythrocyte distribution width (RBC) [Entitic vol] 38.7 fL 35.1-43.9 [facility] Hematocrit Auto (Bld) [Volum e fraction]Ordered By: Raul Patrick on 10-06-2023 Hematocrit (Bld) [Volume fraction] 48.3 % 40-54 [facility] Immature granulocytes/100 WB C Auto (Bld)Ordered By: Raul Patrick on 10-06-2023 Immature granulocytes/100 WBC (Bld) 0.200 % 0.0-0.9 [facility] Comment on above: IG% - Immature Granu locytes (promyelocytes, myelocytes and metamyelocytes) > 1% indicates that a LEFT SHIFT is Present. Laboratory - Chemistry and C hemistry - challengeOrdered By: Raul Patrick on 10-06-2023 Albumin/Globulin [Mass ratio] 1.0 {ratio} 0.9-2.4 [facility] ALP [Catalytic activity/Vol] 134 U/L 45-117 [facility] ALT [Catalytic activity/Vol] 53 U/L 16-61 [facility] CO2 [Moles/Vol] 29.0 mmol/L 21.0-32.0 [facility] Globulin (S) [Mass/Vol] 3.8 g/dL 2.2-4.2 [facility] Urea nitrogen/Creatinine [Mass ratio] 11.1 mg/mg 10-20 [facility] - Hematology and Cell countsOrdered By: Raul Patrick on 10-06-2023 MCH (RBC) [Entitic mass] 31.2 pg 27.0-32.0 [facility] MCHC (RBC) [Mass/Vol] 33.5 g/dL 32-36 [facility] Nucleated RBC/100 WBC (Bld) [Ratio] 0 % 0-5 [facility] Platelet mean volume (Bld) [Entitic vol] 8.9 fL 6.2-12.0 [facility] Platelets (Bld) [#/Vol] 191 10*3/uL 150-450 [facility] No Panel InformationOrdered By: Raul Patrick on 10-06-2023 Estimated GFR (MDRD) Amer 88 mL/min >60 [facility] Comment on above: GFR Calc Estimated GFR (MDRD) Non-Af Amer 73 mL/min >60 [facility] Comment on above: Non- GFR Calc RBC Auto (Bld) [#/Vol]Ordere d By: Raul Patrick on 10-06-2023 RBC (Bld) [#/Vol] 5.20 10*6/uL 4.6-6.2 [facility] Serum or plasma calcium primo urement (mass/volume)Ordered By: Raul Patrick on 10-06-2023 Calcium [Mass/Vol] 9.4 mg/dL 8.5-10.1 [facility] Serum or plasma creatinine m easurement (mass/volume)Ordered By: Raul Patrick on 10-06-2023 Creatinine [Mass/Vol] 1.08 mg/dL 0.70-1.30 [facility] Comment on above: The validity of the calculated GFR & GFRAA in patients over 70 years has not been determined. Clinical correlation is essential. Serum or plasma thyroid stim ulating hormone (TSH) measurement (units/volume)Ordered By: Raul Patrick on 10-06-2023 TSH Qn 1.97 uIU/mL 0.358-3.74 [facility] Serum or plasma urea nitroge n measurement (mass/volume)Ordered By: Raul Patrick on 10-06-2023 Urea nitrogen [Mass/Vol] 12 mg/dL 7-18 [facility] Thin prep Papanicolaou smear with manual screeningOrdered By: Raul Patrick on 10-06-2023 Thin prep Papanicolaou smear with manual screening 3.8 g/dL 3.2-5.0 [facility] Thin prep Papanicolaou smear with manual screening 40 U/L 15-37 [facility] Thin prep Papanicolaou smear with manual screening 5 5-15 [facility] Absolute lymphocyte countOrd ered By: Raul Patrick on 04-05-2023 Lymphocytes Auto (Unsp spec) [#/Vol] 1.67 10*3/uL 0.83-4.51 [facility] Basophil percentageOrdered B y: Raul Patrick on 04-05-2023 Basophils/100 WBC (Bld) 0.7 % 0-1 [facility] Bilirubin [Mass/Vol] 0.50 mg/dL 0.20-1.00 [facility] Comment on above: For patients on eltr ombopag therapy, use of Dimension [place] TBIL is not recommended. Chloride [Moles/Vol] 103 mmol/L 98-107 [facility] Eosinophils/100 WBC (Bld) 4.2 % 0-5 [facility] Glucose [Mass/Vol] 123 mg/dL 74-106 [facility] Comment on above: Fasting Glucose resu lt from 100 to 125 mg/dL suggests IMPAIRED HOMEOSTASIS per A.D.A. criteria. Neutrophils (Bld) [#/Vol] 5.8 10*3/uL 2.0-7.7 [facility] Neutrophils/100 WBC (Bld) 67.3 % 47-70 [facility] Potassium [Moles/Vol] 4.1 mmol/L 3.5-5.1 [facility] Protein [Mass/Vol] 7.6 g/dL 6.4-8.2 [facility] Sodium [Moles/Vol] 138 mmol/L 136-145 [facility] WBC (Bld) [#/Vol] 8.7 10*3/uL 4.4-11.0 [facility] Blood erythrocytes count (nu mber/volume)Ordered By: Raul Patrick on 04-05-2023 RBC (Bld) [#/Vol] 5.15 10*6/uL 4.6-6.2 [facility] Blood hemoglobin measurement (mass/volume)Ordered By: Raul Patrick on 04-05-2023 Hemoglobin (Bld) [Mass/Vol] 16.5 g/dL 13.0-16.5 [facility] Blood lymphocytes/100 leukoc ytesOrdered By: Raul Patrick on 04-05-2023 Lymphocytes/100 WBC (Bld) 19.3 % 19-41 [facility] Blood monocytes/100 leukocyt esOrdered By: Raul Patrick on 04-05-2023 Monocytes/100 WBC (Bld) 8.3 % 0-10 [facility] Blood platelet mean volumeOr dered By: Raul Patrick on 04-05-2023 Platelet mean volume (Bld) [Entitic vol] 8.7 fL 6.2-12.0 [facility] Determination of erythrocyte mean corpuscular volume (MCV)Ordered By: Raul Patrick on 04-05-2023 MCV (RBC) [Entitic vol] 97.9 fL 80-94 [facility] Hematocrit Auto (Bld) [Volum e fraction]Ordered By: Raul Patrick on 04-05-2023 Hematocrit (Bld) [Volume fraction] 50.4 % 40-54 [facility] - Chemistry and C hemistry - challengeOrdered By: Raul Patrick on 04-05-2023 ALP [Catalytic activity/Vol] 135 U/L 45-117 [facility] ALT [Catalytic activity/Vol] 111 U/L 16-61 [facility] CO2 [Moles/Vol] 31.0 mmol/L 21.0-32.0 [facility] Globulin (S) [Mass/Vol] 4.1 g/dL 2.2-4.2 [facility] Urea nitrogen/Creatinine [Mass ratio] 13.1 mg/mg 10-20 [facility] - Hematology and Cell countsOrdered By: Raul Patrick on 04-05-2023 Erythrocyte distribution width (RBC) [Entitic vol] 41.7 fL 35.1-43.9 [facility] Erythrocyte distribution width (RBC) [Ratio] 11.4 % 11.6-14.6 [facility] Immature granulocytes/100 WBC (Bld) 0.200 % 0.0-0.9 [facility] Comment on above: IG% - Immature Granu locytes (promyelocytes, myelocytes and metamyelocytes) > 1% indicates that a LEFT SHIFT is Present. MCH (RBC) [Entitic mass] 32.0 pg 27.0-32.0 [facility] Nucleated RBC/100 WBC (Bld) [Ratio] 0 % 0-5 [facility] MCHC Auto (RBC) [Mass/Vol]Or dered By: Raul Patrick on 04-05-2023 MCHC (RBC) [Mass/Vol] 32.7 g/dL 32-36 [facility] No Panel InformationOrdered By: Raul Patrick on 04-05-2023 Estimated GFR (MDRD) Amer 98 mL/min >60 [facility] Comment on above: GFR Calc Estimated GFR (MDRD) Non-Af Amer 81 mL/min >60 [facility] Comment on above: Non- GFR Calc Hepatitis C Antibody Non-Reactive Nonreactive [facility] Comment on above: Non Reactive: < 0.8 Equivocal: >/= 0.8 to < 1.0 Reactive: >/= 1.0The CDC recommends that a reactive/equivocal HCV antibody result be followed up by the HCV Nucleic Acid Amplificationtest (990501) Prostate Specific Antigen Screen 1.31 ng/mL 0.00-4.00 [facility] Comment on above: This test was perfor med using the TPSA assay method for thePraedicat chemistry system. Values obtained with differentassay methods cannot be used interchangably.When changing PSA assays in the course of monitoring apatient, additional sequential testing should be carriedout to confirm baseline values. Thyroid Stimulating Hormone (TSH) 1.90 uIU/mL 0.358-3.74 [facility] Vitamin D 25-Hydroxy 21.9 ng/mL [facility] Comment on above: Vitamin D 25(OH) Sta tus Range Deficiency <20 ng/mL (50nmol/L) Insufficiency 20 - 30 ng/mL (50 - 75 nmol/L) Sufficiency 30 - 100 ng/mL (75 - 250 nmol/L) Toxicity >100 ng/mL (>250 nmol/L) Platelets bldOrdered By: Raul Patrick on 04-05-2023 Platelets (Bld) [#/Vol] 215 10*3/uL 150-450 [facility] Serum or plasma albumin primo urement (mass/volume)Ordered By: Raul Patrick 04-05-2023 Albumin [Mass/Vol] 3.5 g/dL 3.2-5.0 [facility] Serum or plasma albumin/glob ulin mass ratioOrdered By: Raul Patrick 04-05-2023 Albumin/Globulin [Mass ratio] 0.9 {ratio} 0.9-2.4 [facility] Serum or plasma calcium primo urement (mass/volume)Ordered By: Raul Patrick on 04-05-2023 Calcium [Mass/Vol] 9.5 mg/dL 8.5-10.1 [facility] Serum or plasma creatinine m easurement (mass/volume)Ordered By: Raul Patrick 04-05-2023 Creatinine [Mass/Vol] 0.99 mg/dL 0.70-1.30 [facility] Comment on above: The validity of the calculated GFR & GFRAA in patients over 70 years has not been determined. Clinical correlation is essential. Serum or plasma urea nitroge n measurement (mass/volume)Ordered By: Raul Patrick on 04-05-2023 Urea nitrogen [Mass/Vol] 13 mg/dL - [facility] Thin prep Papanicolaou smear with manual screeningOrdered By: Raul Patrick on 04-05-2023 Thin prep Papanicolaou smear with manual screening 78 U/L [facility] Thin prep Papanicolaou smear with manual screening 4 5-15 [facility] CNPNon 07-08-2022 [facility] Telephone (FAMWS) MARKO NEVILLE ([id number]) 1960 Carine Date Time Provider Department 07/08/22 Carine CANALES [facility] During your visit today, we recorded the following information about you: Lorie Tian Ma 07/08/2022 11:23 AM Signed Electronic PA generated for Silver Tian Ma 07/08/2022 11:23 AM Signed PA approved and patient notified Lorie Tian Ma Allergies As of Date: 07/08/2022 (No Known Allergies) Date Reviewed: 02/26/2021 Reviewed by: Sherice Orlando Ma - Fully Assessed Reason for Visit: Insurance Authorization [[id number]] Cmt: Januvia Prescriptions as of 07/08/2022 - SITagliptin phosphate (JANUVIA) 25 mg tablet Take 1 tablet by mouth once daily. - sertraline (ZOLOFT) 50 mg tablet Take 1 tablet by mouth once daily. - metoprolol succinate ER (TOPROL XL) 50 mg 24 hr tablet Take 1 tablet by mouth once daily. - lisinopril-hydroCHLORO thiazide (PRINZIDE, ZESTORETIC) 20-25 mg per tablet Take 1 tablet by mouth once daily. - fluticasone-salmeterol (ADVAIR, WIXELA) 250-50 mcg/dose inhaler Inhale 1 Puff as instructed twice daily. - albuterol HFA (PROVENTIL HFA, VENTOLIN HFA) 90 mcg/actuation inhaler Inhale 2 Puffs as instructed every 6 hours as needed. - omeprazole (PRILOSEC) 40 mg capsule Take 1 capsule by mouth once daily. Problem List As Of Date 07/08/2022 Noted Resolved COPD with chronic bronchitis (HCC) [J44.9] 12/17/2015 Gastroesophageal reflux disease without esophag* Pneumonia due to infectious organism [J18.9] 12/17/2015 Elevated blood sugar [R73.9] 03/26/2016 Pulmonary nodule, left [R91.1] History of colon polyps [Z86.010] Functional dyspepsia [K30] 10/31/2017 Encounter Status:Closed by LORIE TIAN MA on 07/08/22 [facility] 05-31[facility]2022 [facility] MARKO NEVILLE ([id number]) 1960 Date Time Provider Department 05/31/22 Carine CANALES [facility] During your visit today, we recorded the following information about you: Marisol Thornton RN 05/31/2022 11:24 AM Signed Patient calls and is asking if there is something else other than glipizide he can take. Patient reports that he had episodes where he would get hot and his legs would get weak and shaky. This would last for half hour. Patient reports that he quit taking glipizide 5 days ago and these episodes have stopped. Please review and advise, SINGH Garcia PA-C 05/31/2022 12:55 PM Signed The following approved medication requests have been transmitted electronically. Requested Prescriptions Signed Prescriptions Disp Refills SITagliptin phosphate (JANUVIA) 25 mg tablet 90 tablet 1 Sig: Take 1 tablet by mouth once daily. Authorizing Provider: Carine CANALES PA-C Lisa Harn Ma 05/31/2022 5:05 PM Signed Patient notified of new prescription Allergies As of Date: 05/31/2022 (No Known Allergies) Date Reviewed: 02/26/2021 Reviewed by: Sherice Orlando Ma - Fully Assessed Reason for Visit: Patient Update [1234] Order(s):SITagliptin phosphate (JANUVIA) 25 mg tabletTake 1 tablet by mouth once daily.Disp: 90 tabletRfl: 1 Prescriptions as of 05/31/2022 - SITagliptin phosphate (JANUVIA) 25 mg tablet Take 1 tablet by mouth once daily. - sertraline (ZOLOFT) 50 mg tablet Take 1 tablet by mouth once daily. - metoprolol succinate ER (TOPROL XL) 50 mg 24 hr tablet Take 1 tablet by mouth once daily. - lisinopril-hydroCHLORO thiazide (PRINZIDE, ZESTORETIC) 20-25 mg per tablet Take 1 tablet by mouth once daily. - fluticasone-salmeterol (ADVAIR, WIXELA) 250-50 mcg/dose inhaler Inhale 1 Puff as instructed twice daily. - albuterol HFA (PROVENTIL HFA, VENTOLIN HFA) 90 mcg/actuation inhaler Inhale 2 Puffs as instructed every 6 hours as needed. - omeprazole (PRILOSEC) 40 mg capsule Take 1 capsule by mouth once daily. Medication notes this encounter GLIPIZIDE 5 MG TABLET >> M Corey Canales PA-C 05/31/2022 12:55 PM shaky, low sugars Problem List As Of Date 05/31/2022 Noted Resolved COPD with chronic bronchitis (HCC) [J44.9] 12/17/2015 Gastroesophageal reflux disease without esophag* Pneumonia due to infectious organism [J18.9] 12/17/2015 Elevated blood sugar [R73.9] 03/26/2016 Pulmonary nodule, left [R91.1] History of colon polyps [Z86.010] Functional dyspepsia [K30] 10/31/2017 Prescriptions ordered this encounter Disp Refills Start End SITAGLIPTIN PHOSPHATE 25 MG TABLET 90 t* 1 05/31/2022 Route: ORAL Sig: Take 1 tablet by mouth once daily. Medications Discontinued During This Encounter Prescriptions - glipiZIDE (GLUCOTROL) 5 mg tablet (Discontinued) Take 1 tablet by mouth once daily. - glipiZIDE (GLUCOTROL) 5 mg tablet (Discontinued) Take 1 tablet by mouth once daily. Encounter Status:Closed by SHERICE ORLANDO MA [facility] 05[facility]31/[facility] (FAMPWS[facility] MARKO NEVILLE ([id number]) 1960 Date Time Provider Department 04/07/22 [facility] During your visit today, we recorded the following information about you: Myesha Peng Ma 04/07/2022 10:02 AM Signed ----- Message from Carine Canales PA-C sent at 04/07/2022 9:53 AM EDT ----- Please advise also antitrypsin 1 was negative for genetic markers to cause his lung disease. Checks for viral hepatitis were negative. Diabetes is in great control, hemoglobin A1c 5.8 in prediabetic range. Great job. Liver enzymes have greatly improved: He needs to stay away from alcohol. Pancreatic enzyme was normal. Thanks, KARL Ibarra Ma 04/07/2022 10:05 AM Signed Call to pt and notified him of message below. Pt verbalized understanding. Pt notes he's not happy with the Metformin and causing GI issues/diarrhea. Reports he had an US that showed gallstones. Having cramping frequently. Unsure if related to medication or gallstones. Wants this to go away. Please advise. Myesha Canales PA-C 04/08/2022 9:12 AM Signed Top metformin Start glipizide Update progress in 4 weeks if not improving. Glipizide can cause hypoglycemia Notify if any problems. Thanks, KARL Ibarra LPN 04/08/2022 9:39 AM Signed Patient notified. Verbalized understanding. Allergies As of Date: 04/07/2022 (No Known Allergies) Date Reviewed: 02/26/2021 Reviewed by: Sherice Orlando Ma - Fully Assessed Reason for Visit: Results [95] Order(s):glipiZIDE (GLUCOTROL) 5 mg tabletTake 1 tablet by mouth once daily.Disp: 30 tabletRfl: 5 Prescriptions as of 04/08/2022 - glipiZIDE (GLUCOTROL) 5 mg tablet Take 1 tablet by mouth once daily. - metoprolol succinate ER (TOPROL XL) 50 mg 24 hr tablet Take 1 tablet by mouth once daily. - lisinopril-hydroCHLORO thiazide (PRINZIDE, ZESTORETIC) 20-25 mg per tablet Take 1 tablet by mouth once daily. - fluticasone-salmeterol (ADVAIR, WIXELA) 250-50 mcg/dose inhaler Inhale 1 Puff as instructed twice daily. - albuterol HFA (PROVENTIL HFA, VENTOLIN HFA) 90 mcg/actuation inhaler Inhale 2 Puffs as instructed every 6 hours as needed. - omeprazole (PRILOSEC) 40 mg capsule Take 1 capsule by mouth once daily. - sertraline (ZOLOFT) 50 mg tablet Take 1 tablet by mouth once daily. Medication notes this encounter METFORMIN 1,000 MG TABLET >> M Corey Canales PA-C 04/08/2022 9:09 AM diarrhea Problem List As Of Date 04/07/2022 Noted Resolved COPD with chronic bronchitis (HCC) [J44.9] 12/17/2015 Gastroesophageal reflux disease without esophag* Pneumonia due to infectious organism [J18.9] 12/17/2015 Elevated blood sugar [R73.9] 03/26/2016 Pulmonary nodule, left [R91.1] History of colon polyps [Z86.010] Functional dyspepsia [K30] 10/31/2017 Prescriptions ordered this encounter Disp Refills Start End GLIPIZIDE 5 MG TABLET 30 t* 5 04/08/2022 Route: ORAL Sig: Take 1 tablet by mouth once daily. Medications Discontinued During This Encounter Prescriptions - metFORMIN (GLUCOPHAGE) 1,000 mg tablet (Discontinued) Take 1 tablet by mouth daily with breakfast. Encounter Status:Closed by KENYETTA ESPAÑA on 04/08/[address] [facility] A1AT SerPl-mCncon 04-03-2022 Alpha 1 antitrypsin [Mass/Vol] 156 mg/dL Normal 90-200 [facility] Comment on above: Order Comment: Speci men Type: BLOOD SPECIMEN Ordering Facility: [facility] Address: [address] [place] [address] Performed By: #### 3 [id number], 65786-6, 1825-9 #### [facility] CLIA [id number] [address] [place] [address] STATES OF [facility] ALPHA 1 ANTITRYP PHEN/GENOTY PEon 04-03-[address] [facility] Comment on above: Order Comment: Speci men Type: BLOOD SPECIMEN Ordering Facility: [facility] [place] Address: [address] [place] [address] Result Comment: Alph a 1 Antitrypsin Phenotype and Genotype Laboratory Accession Number: [id number] Result: No Variant Detected in SERPINA1 (PI*MM) Interpretation: DNA testing indicates that this patient does not have the S, Z, F, or I alleles of SERPINA1, the alpha-1 antitrypsin gene. Guidance: Genetic consultation and counseling of at risk family members regarding this laboratory testing may be considered as clinically appropriate. Patients with no variants of SERPINA1 typically have serum alpha-1 antitrypsin levels between 102-254 mg/dL. If this patient has a serum alpha-1 antitrypsin level that is not consistent with this genotype and alpha-1 antitrypsin deficiency caused by a rare variant is clinically suspected, consider performing SERPINA1 gene sequencing. Methodology: Isolated genomic DNA from the patient's blood specimen is evaluated for four variants in the alpha-1 antitrypsin gene SERPINA1 (RefSeq [id number]; GRCh38/hg38) by multiplex polymerase chain reaction (PCR) followed by melting curve analysis. These included the two most common pathogenic variants: S (c.863A>T, p.Lou378Sxq, g.[id number]), Z (c.1096G>A, p.Aon447Age, g.[id number]), and the rarer variants: F (c.739C>T, p.Woe249Kuw, g.[id number]), I (c.187C>T, p.Kpi78Nnb, g.[id number]). Limitations: This Laboratory Developed Test (LDT) is designed to detect the S, Z, F and I alleles. The S and Z alleles comprise 95% of non-wild type genotypes. Uncommon variants or Single Nucleotide Polymorphisms may affect binding of LightMix or LightSNiP probes and may result in a false negative, false positive, or indeterminate result. Absence of the S, Z, F, and I alleles is interpreted as PI*MM genotype. However, there are over 100 known rare variants of SERPINA1 that are not detected by this LDT. Therefore, correlation of the genotype with the patient's serum alpha-1 antitrypsin level and clinical manifestations is strongly recommended. Frequency of S, Z, F and I Alleles in the general population: S: Heterozygous 2%; Homozygous 0.04% Z: Heterozygous 1%; Homozygous 0.01% F: Heterozygous 0.3%; Homozygous 0.001% I: Heterozygous 0.1%; Homozygous unknown Allele frequency information was gathered from the [employer] ([employer]) and includes data from , , , and populations (supporting data in references). Disclaimer: This test was developed and its performance characteristics determined by [facility]'s [facility] [place] ([facility] It has not been cleared or approved by the FDA. -[facility] is regulated under CLIA as certified to perform high- complexity testing. This test is used for clinical purposes. It should not be regarded as investigational or for research. Testing and interpretation performed at [facility], [address] [place] [id number]. CLIA Number: [id number] References: 1) Cayden RA, Veronica G, Ifeanyi ML, Otis M, Milan CE, K, Matilda DK, Tanvir SL, Mallika JM, Chava PompaK, Leon Finch, Ha Pompa. The Diagnosis and Management of Alpha-1 Antritrypsin Deficiency in the Adult. Chronic Obstr Pulm Dis. 2016 Nov 23;3:668-682. 2) Mohamud JA, Denise ON, Emil ER, Becka DG. a1-Antitrypsin phenotypes and associated serum protein concentrations in a large clinical population. Chest.2013 Sep;143(4):1000-8. 3) Manolo A, Essie NA, Marquis CR, Vin FJ, Christo SJ, Darshan AF. Molecular characterisation of three onvuf-8-evanitpempq deficiency variants: proteinase inhibitor (Pi) nullcardiff (Zlr006----Pei); PiMmalton (Dxi49----knrqohvs) and PiI (Jnb67----Mfb). Hum Angeline. 1988;84(1):55-8. 4) Roxann EK and Cayden RA. Clinical practice. Alpha1-antitrypsin deficiency. N Engl J Med. 2008Dec 12;360(77)6062-22. 5) Murtaza NJ, Julia F, Adela RA. The significance of the F variant of pkpgo-7-brhofbbtbqd and unique case report of a PiFF homozygote. [facility] Pulm Med. 2014 Jan 24;14:132. 6) Chava GARCIA, Adeola FL, and Dianelys Wilson. Alpha-1 Antitrypsin Deficiency. 2005Apr 15 [Updated 2017 July 08]. In: Phuc RA, Jacques MP, Sal TO, et al., editors. GeneReviews [Internet]. [place] ([place]): formerly [facility], [place]; 7017-1703. Available from: http://www.ncbi.nlm.nih.gov/books/OHS5711/ As reviewed by Vilma Mattson MD, PhD Performed By: #### A 1ATPG #### CLARITY KOSTAS ROMERO [id number] [address] [place] [address] [place] HBV core Ab Ser Qlon 10-15-2 022 HBV core Ab Ql (S) Negative Normal Negative [facility] Comment on above: Order Comment: Speci men Type: BLOOD SPECIMEN Ordering Facility: [facility] [place] Address: [address] [place] [address] Result Comment: No e vidence of current or past infection with Hepatitis B virus. Should recent infection be suspected, repeat testing may be considered 3-4 weeks after this draw. Performed By: #### 3 040-3, 07727-8, 1825-02 #### [facility] CLIA [id number] [address] [place] [address] HBV surface Ab IA Ql (S)on 1 HBV surface Ag Ql (S) Negative Normal Negative [facility] Comment on above: Order Comment: Speci men Type: BLOOD SPECIMEN Ordering Facility: [facility] [place] Address: [address] [place] [address] Performed By: #### 3 040-3, 38080-4, 1825-02 #### [facility] CLIA [id number] [address] [place] [address] HBV surface Ab Ser Qlon 03-20 HBV surface Ab Ql (S) Negative Normal Negative [facility] Comment on above: Order Comment: Speci men Type: BLOOD SPECIMEN Ordering Facility: [facility] [place] Address: [address] [place] [address] Result Comment: No e vidence of antibodies to Hepatitis B surface antigen. Performed By: #### 3 040-3, 45963-8, 1825-02 #### [facility] CLIA [id number] [address] [place] [address] HCV Ab Ser Qlon 04-03-2022 HCV Ab Ql (S) Negative Normal Negative [facility] Comment on above: Order Comment: Daisyi men Type: BLOOD SPECIMEN Ordering Facility: [facility] [place] Address: [address] [place] [address] Result Comment: The result suggests no evidence of active infection with Hepatitis C virus. Should recent infection be suspected, repeat testing may be considered 4-6 weeks after this draw. Performed By: #### 3 040-3, 34468-9, 1825-02 #### [facility] CLIA [id number] [address] [place] [address] [place] HbA1c (Bld)on 04-03-2022 Average glucose Estimated from glycated hemoglobin (Bld) [Mass/Vol] 120 mg/dL Normal [facility] Comment on above: Order Comment: Johanna mccoy Type: BLOOD SPECIMEN Ordering Facility: [facility] [place] Address: [address] [place] [address] Result Comment: eAG: (Estimated average glucose) is a calculated value from HgbA1c and is passenger relations representative of the average blood glucose level in the last 2-3 month period. Performed By: #### 5 5454-3 #### [facility] CLIA [id number] [address] [place] [address] [place] HbA1c (Bld) [Mass fraction] 5.8 % High 4.3-5.6 [facility] Comment on above: Order Comment: Johanna mccoy Type: BLOOD SPECIMEN Ordering Facility: [facility] [place] Address: [address] [place] [address] Result Comment: Amer ican Diabetes Association guidelines indicate that patients with HgbA1c in the range 5.7-6.4% are at increased risk for development of diabetes, and intervention by lifestyle modification may be beneficial. HgbA1c greater or equal to 6.5% is considered diagnostic of diabetes. Performed By: #### 5 5454-3 #### [facility] CLIA [id number] [address] [place] [address] OF [place] Hepatic function 2000 panelo n 04-03-2022 Albumin [Mass/Vol] 4.4 g/dL Normal 3.9-4.[address] [facility] Comment on above: Order Comment: Johanna mccoy Type: BLOOD SPECIMEN Ordering Facility: [facility] [place] Address: [address] [place] [address] Performed By: #### 3 040-3, 77327-1, 1825-02 #### [facility] CLIA [id number] [address] [place] [address] [place] ALP [Catalytic activity/Vol] 121 U/L High 38-113 [facility] Comment on above: Order Comment: Speci men Type: BLOOD SPECIMEN Ordering Facility: [facility] [place] Address: [address] [place] [address] Performed By: #### 3 040-3, 59623-9, 1825-02 #### [facility] CLIA [id number] [address] [place] [address] [place] ALT [Catalytic activity/Vol] 70 U/L High 10-54 [facility] Comment on above: Order Comment: Speci men Type: BLOOD SPECIMEN Ordering Facility: [facility] [place] Address: [address] [place] [address] Performed By: #### 3 040-3, 93514-8, 1825-02 #### [facility] CLIA [id number] [address] [place] [address] [place] AST [Catalytic activity/Vol] 58 U/L High 14-40 [facility] Comment on above: Order Comment: Speci men Type: BLOOD SPECIMEN Ordering Facility: [facility] [place] Address: [address] [place] [address] Performed By: #### 3 040-3, 03975-5, 1825-02 #### [facility] CLIA [id number] [address] [place] [address] [place] Bilirubin [Mass/Vol] 0.6 mg/dL Normal 0.2-1.3 [facility] Comment on above: Order Comment: Speci men Type: BLOOD SPECIMEN Ordering Facility: [facility] [place] Address: [address] [place] [address] Performed By: #### 3 040-3, 52904-8, 1825-02 #### [facility] CLIA [id number] [address] [place] [address] [facility] Bilirubin.conjugated [Mass/Vol] mg/dL Normal <0.2 [facility] Comment on above: Order Comment: Johanna mccoy Type: BLOOD SPECIMEN Ordering Facility: [facility] [place] Address: [address] [place] [address] Performed By: #### 3 040-3, 57163-8, 1825-9 #### [facility] CLIA [id number] [address] [place] [address] OF [facility] Protein [Mass/Vol] 7.1 g/dL Normal 6.3-8.[address] [facility] Comment on above: Order Comment: Johanna mccoy Type: BLOOD SPECIMEN Ordering Facility: [facility] [place] Address: [address] [place] [address] Performed By: #### 3 040-3, 17624-1, 182-9 #### [facility] CLIA [id number] [address] [place] [address] [place] Lipase SerPl-cCncon 10-15-20 22 Lipase [Catalytic activity/Vol] 36 U/L Normal 16-61 [facility] Comment on above: Order Comment: Johanna mccoy Type: BLOOD SPECIMEN Ordering Facility: [facility] [place] Address: [address] [place] [address] Performed By: #### 3 040-3, 18909-0, 182-9 #### [facility] CLIA [id number] [address] [place] [address] [place] CNPNon 02-08-2022 CNPN Telephone (FAMPWS) MARKO NEVILLE ([id number]) 1960 Carine Date Time Provider Department 02/08/22 Carine CANALES During your visit today, we recorded the following information about you: Sherice Orlando Ma 02/08/2022 11:49 AM Signed ----- Message from Carine Canales PA-C sent at 02/07/2022 9:25 PM EDT ----- Please advise GB US shows fatty liver, possible gallbladder sludge though stones not ruled out. Thanks, KARL Ibarra Ma 02/08/2022 11:53 AM Signed Attempted to reach pt, no answer and no voicemail. Sherice Thornton RN 02/08/2022 12:32 PM Signed Patient notified of results. Patient verbalizes understanding. Marisol Thornton RN Allergies As of Date: 02/08/2022 (No Known Allergies) Date Reviewed: 02/26/2021 Reviewed by: Sherice Orlando Ma - Fully Assessed Reason for Visit: Results [95] Prescriptions as of 02/08/2022 - metFORMIN (GLUCOPHAGE) 1,000 mg tablet Take 1 tablet by mouth daily with breakfast. - metoprolol succinate ER (TOPROL XL) 50 mg 24 hr tablet Take 1 tablet by mouth once daily. - lisinopril-hydroCHLORO thiazide (PRINZIDE, ZESTORETIC) 20-25 mg per tablet Take 1 tablet by mouth once daily. - fluticasone-salmeterol (ADVAIR, WIXELA) 250-50 mcg/dose inhaler Inhale 1 Puff as instructed twice daily. - albuterol HFA (PROVENTIL HFA, VENTOLIN HFA) 90 mcg/actuation inhaler Inhale 2 Puffs as instructed every 6 hours as needed. - omeprazole (PRILOSEC) 40 mg capsule Take 1 capsule by mouth once daily. - sertraline (ZOLOFT) 50 mg tablet Take 1 tablet by mouth once daily. Problem List As Of Date 02/08/2022 Noted Resolved COPD with chronic bronchitis (HCC) [J44.9] 12/17/2015 Gastroesophageal reflux disease without esophag* Pneumonia due to infectious organism [J18.9] 12/17/2015 Elevated blood sugar [R73.9] 03/26/2016 Pulmonary nodule, left [R91.1] History of colon polyps [Z86.010] Functional dyspepsia [K30] 10/31/2017 Encounter Status:Closed by MARISOL THORNTON on 02/08/[address] [facility] No Panel Informationon 02-05 [facility] US ABD RIGHT UPPER QUADRANTo n 02-05-2022 US ABD RIGHT UPPER QUADRANT * * *Final Report* * * DATE OF EXAM: Feb 05 2022 8:00AM WRU 1032 - US ABD RIGHT UPPER QUADRANT / PROCEDURE REASON: multiple diagnoses * * * * Physician Interpretation * * * * RIGHT UPPER QUADRANT AND SPLEEN ULTRASOUND CLINICAL HISTORY: Abnormal liver function tests TECHNIQUE: Sonography of the right upper quadrant and spleen was performed. Images were obtained and stored in a permanent archive. MQ: URUQ_2 COMPARISON: None. RESULT: Assessment somewhat limited by bowel gas. Pancreas: Normal sonographic appearance. Portions obscured: tail Liver: Echotexture: Normal, homogeneous. Echogenicity: Increased Surface contour: Smooth Lesions: None. Biliary: No intrahepatic biliary duct dilation. CBD: 0.4 cm at the hilum. Normal Gallbladder: There is irregular heterogeneous increased density adjacent to or within the gallbladder wall near the gallbladder neck. Equivocal shadowing on some of the axial images possibly technical. In addition there is a 2 mm hyperechoic focus in the gallbladder fundus. Some of the images suggest borderline wall thickening of the gallbladder fundus. No definite discrete calculus. Right Kidney: No hydronephrosis. Ascites: None. Spleen: Unremarkable with length 12.8 cm. IMPRESSION: Hepatic steatosis. Nonspecific findings in gallbladder neck. This could represent adenomyomatosis. Other possibilities include gallbladder sludge or, less likely, small gallstones. Hyperechoic focus gallbladder fundus may represent a gallbladder polyp or less likely a tiny gallstone. Equivocal borderline gallbladder wall thickening in the gallbladder fundus. No biliary dilatation. Repairer Maintenance Building: [facility] Transcribe Date/Time: Feb 05 2022 3:22P Dictated by : LUIS AMAYA MD This examination was interpreted and the report reviewed and electronically signed by: LUIS AMAYA MD on Feb 05 2022 3:29PM EST [id number] Normal [facility] US ABD SPLEEN -NBon 02-06-20 US ABD SPLEEN -NB * * *Final Report* * * DATE OF EXAM: Feb 05 2022 8:00AM WRU 1232 - US ABD SPLEEN -NB / PROCEDURE REASON: multiple diagnoses * * * * Physician Interpretation * * * * RIGHT UPPER QUADRANT AND SPLEEN ULTRASOUND CLINICAL HISTORY: Abnormal liver function tests TECHNIQUE: Sonography of the right upper quadrant and spleen was performed. Images were obtained and stored in a permanent archive. MQ: URUQ_2 COMPARISON: None. RESULT: Assessment somewhat limited by bowel gas. Pancreas: Normal sonographic appearance. Portions obscured: tail Liver: Echotexture: Normal, homogeneous. Echogenicity: Increased Surface contour: Smooth Lesions: None. Biliary: No intrahepatic biliary duct dilation. CBD: 0.4 cm at the hilum. Normal Gallbladder: There is irregular heterogeneous increased density adjacent to or within the gallbladder wall near the gallbladder neck. Equivocal shadowing on some of the axial images possibly technical. In addition there is a 2 mm hyperechoic focus in the gallbladder fundus. Some of the images suggest borderline wall thickening of the gallbladder fundus. No definite discrete calculus. Right Kidney: No hydronephrosis. Ascites: None. Spleen: Unremarkable with length 12.8 cm. IMPRESSION: Hepatic steatosis. Nonspecific findings in gallbladder neck. This could represent adenomyomatosis. Other possibilities include gallbladder sludge or, less likely, small gallstones. Hyperechoic focus gallbladder fundus may represent a gallbladder polyp or less likely a tiny gallstone. Equivocal borderline gallbladder wall thickening in the gallbladder fundus. No biliary dilatation. Repairer Maintenance Building: [facility] Transcribe Date/Time: Feb 05 2022 3:22P Dictated by : LUIS AMAYA MD This examination was interpreted and the report reviewed and electronically signed by: LUIS AMAYA MD on Feb 05 2022 3:29PM EST [id number] Normal [facility] CNOVon 02-01-2022 CNOV Office Visit (FAMPWS ) MARKO NEVILLE ([id number]) 1960 Carine Date Time Provider Department 8/15/22 10:20 AM Carine CANALES During your visit today, we recorded the following information about you: Pulse Respiration Blood pressure Weight 84/minute 20/minute 158/78 78.5 kg M Corey Canales PA-C 02/01/2022 1:15 PM Signed 61 year old male with c/o: Current concerns: Woke Tuesday 3 weeks ago with shoulder pain after chain sawing. Unable to lift to side but can lift to front. 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 Essential hypertension (primary encounter diagnosis) HTN: Current meds: Metoprolol succinate ER 50 mg daily Lisinopril hydrochlorothiazide 20-25 mg 1 tablet daily Patient is compliant with meds No Monitors bp at home: No. If yes, readings: Denies side effects: No. Cough: yes, chronically Chest pain: No. Dyspnea: No. Edema: No. Palpitations: Yes. Syncope: Yes. Headache: No. Dizziness: No. Last 3 Encounter BP Readings: Date: BP: 02/26/2021 128/70 06/03/2020 130/82 03/04/2020 130/80 Last 2 Encounter Wt Readings: Date: Wt: 02/26/2021 78 kg (172 lb) 06/03/2020 78.5 kg (173 lb) Hyperlipidemia, mixed Hyperlipidemia: Current medication none Taking medication consistently n/a Observing low cholesterol high fiber diet No Muscle aches No Stomach complaints/ diarrhea No Last 2 Lipids: Component Latest Ref Rng AND Units 03/05/2020 01/26/2022 Cholesterol, Total <200 mg/dL 180 215 (H) Triglyceride <150 mg/dL 143 198 (H) HDL Cholesterol >39 mg/dL 43 45 LDL Cholesterol <100 mg/dL 108 (H) 130 (H) Non HDL Cholesterol <130 mg/dL 137 (H) 170 (H) Fasting Time hrs 10 12 VLDL Cholesterol <30 mg/dL 29 40 (H) TC:HDL Ratio <5.10 4.19 4.78 LDL:HDL Ratio <2.54 2.51 2.89 (H) Prediabetes Diabetes Mellitus Type 2: Current medications: none Watching diet? No Physical Activity: Regular Hypoglycemic spells? No Any visual disturbance? No Chest pain? No New numbness, tingling or loss of sensation? No Any recent foot problems, sores or rashes? No Any recent or sudden weight loss? No Change in urination? No. If yes: Any recent illness? No Last eye exam: up to date. Last foot exam: up to date. HBA1C: Hemoglobin A1C (%) Date Value 01/26/2022 6.5 02/26/2021 5.9 03/05/2020 5.7 ) CMP: Glucose 119 01/26/2022 BUN 12 01/26/2022 Creatinine 1.02 01/26/2022 Sodium 133 01/26/2022 Potassium 3.9 01/26/2022 Chloride 97 01/26/2022 CO2 27 01/26/2022 Protein, Total 7.0 01/26/2022 Albumin 4.3 01/26/2022 Calcium 9.8 01/26/2022 Alkaline Phosphatase 132 01/26/2022 Bilirubin, Total 0.7 01/26/2022 AST 106 01/26/2022 ALT 143 01/26/2022 Last 2 Encounter Wt Readings: Date: Wt: 02/26/2021 78 kg (172 lb) 06/03/2020 78.5 kg (173 lb) Copd with chronic bronchitis (hcc) Pulmonary nodule, left Safety Scientist: none. Interval history: no new testing. Current medications: Fluticasone-salmeterol 2 50-50 MCG per dose 1 puff twice daily Albuterol HFA 2 puffs every 6 hours as needed Worsening shortness of breath: No. Has to sptop every once in awhile to catch breath. Cough: Yes. Wheezing: a little. Smokin PPD. Compliant with medications: Yes. Using rescue inhaler: 5 times a week max. Adjustment disorder with other symptom Current meds: Sertraline 50 mg daily Change in medication Yes. Currently in counseling? Yes. Any Medication side effects? No. Sleep disturbance? No- good. Racing thoughts? No. Interpersonal/ family conflicts? No. PHQ-9 02/26/2021 02/01/2022 Score 0 4 Gastroesophageal reflux disease without esophagitis History of colon polyps Current medication: Omeprazole 40 mg daily AC. Current symptoms: none. Last Mg level if on PPI chronically: 01/26/2022 Mg 1.9. Heartburn is controlled: No. Dysphagia: No. Bloody or black stools: No. Bowel changes: No. Every morning to a few times Last EGD and/or colonoscopy: 12/26/2017: 12/26/2017 EGD/colonoscopy: stomach: oxyntic -type gastric mucosa, - HP. Ascending colon: 7mm polyp ascending colon, bx = tubular adenoma: 5 year surveillance Alcohol abuse Elevated liver enzymes Current ETOH intake: Stopped drinking beer- stopped 4 weeks ago Drinking Twisted Tea 5-6 Component Latest Ref Rng AND Units 02/26/2021 01/26/2022 Protein, Total 6.3 - 8.0 g/dL 7.1 7.0 Albumin 3.9 - 4.9 g/dL 4.2 4.3 Calcium 8.5 - 10.2 mg/dL 9.5 9.8 Bilirubin, Total 0.2 - 1.3 mg/dL 0.3 0.7 Alkaline Phosphatase 38 - 113 U/L 102 132 (H) AST 14 - 40 U/L 25 106 (H) Glucose 74 - 99 mg/dL 89 119 (H) BUN 9 - 24 mg/dL 16 12 Creatinine 0.73 - 1.22 mg/dL 0.82 1.02 Sodium 136 - 144 mmol/L 135 (L) 133 (L) Potassium 3.7 - 5.1 mmol/L 4.1 3.9 Chloride 97 - 105 mmol/L 100 97 CO2 22 - 30 mmol/L 23 27 Anion Gap 9 - 18 mmol/L 12 9 ALT 10 - 54 U/L 31 143 (H) eGFR- >60 (more content not included)... Normal [facility] CBC W Auto Differential pane l (Bld)on 01-26-2022 Basophils (Bld) [#/Vol] 0.06 10*3/uL Normal <0.11 [facility] Comment on above: Order Comment: Speci men Type: BLOOD SPECIMEN Ordering Facility: [facility] [place] Address: [address] [place] [address] Performed By: #### 3 040-3, 28694-7, 0918-9 #### [facility] CLIA [id number] [address] [place] [address] [place] [address] [place] Basophils/100 WBC (Bld) 0.8 % Normal [facility] Comment on above: Order Comment: Speci men Type: BLOOD SPECIMEN Ordering Facility: [facility] [place] Address: [address] [place] [address] Performed By: #### 3 040-3, 60527-2, 1825-02 #### [facility] CLIA [id number] [address] [place] [address] [place] Differential cell count method Nom (Bld) Auto Normal [facility] Comment on above: Order Comment: Speci men Type: BLOOD SPECIMEN Ordering Facility: [facility] [place] Address: [address] [place] [address] Performed By: #### 3 040-3, 05931-0, 1825-02 #### [facility] CLIA [id number] [address] [place] [address] [place] Eosinophils (Bld) [#/Vol] 0.24 10*3/uL Normal <0.46 [facility] Comment on above: Order Comment: Speci men Type: BLOOD SPECIMEN Ordering Facility: [facility] [place] Address: [address] [place] [address] Performed By: #### 3 040-3, 37311-7, 1825-02 #### [facility] CLIA [id number] [address] [place] [address] [place] Eosinophils/100 WBC (Bld) 3.3 % Normal [facility] Comment on above: Order Comment: Speci men Type: BLOOD SPECIMEN Ordering Facility: [facility] [place] Address: [address] [place] [address] Performed By: #### 3 040-3, 85779-4, 1825-02 #### [facility] CLIA [id number] [address] [place] [address] [place] Erythrocyte distribution width (RBC) [Ratio] 11.4 % Low 11.5-15.0 [facility] Comment on above: Order Comment: Speci men Type: BLOOD SPECIMEN Ordering Facility: [facility] [place] Address: [address] [place] [address] Performed By: #### 3 040-3, 58504-0, 1825-02 #### [facility] CLIA [id number] [address] [place] [address] [place] Hematocrit (Bld) [Volume fraction] 46.2 % Normal 39.0-51.0 [facility] Comment on above: Order Comment: Speci men Type: BLOOD SPECIMEN Ordering Facility: [facility] [place] Address: [address] [place] [phone] Performed By: #### 3 040-3, 93258-1, 1825-02 #### [facility] CLIA [id number] [address] [place] [address] [place] Hemoglobin (Bld) [Mass/Vol] 15.6 g/dL Normal 13.0-17.0 [facility] Comment on above: Order Comment: Speci men Type: BLOOD SPECIMEN Ordering Facility: [facility] [place] Address: [address] [place] [phone] Performed By: #### 3 040-3, 84115-8, 1825-02 #### [facility] CLIA [id number] [address] [place] [address] [place] IMMATURE GRAN % 0.1 % Normal [facility] Comment on above: Order Comment: Speci men Type: BLOOD SPECIMEN Ordering Facility: [facility] [place] Address: [address] [place] [phone] Performed By: #### 3 040-3, 08295-5, 1825-02 #### [facility] CLIA [id number] [address] [place] [address] [place] IMMATURE GRAN ABS <0.03 Normal <0.10 [facility] Comment on above: Order Comment: Speci men Type: BLOOD SPECIMEN Ordering Facility: [facility] [place] Address: [address] [place] [phone] Performed By: #### 3 040-3, 38774-8, 1825-02 #### [facility] CLIA [id number] [address] [place] [address] [place] Lymphocytes (Bld) [#/Vol] 1.72 10*3/uL Normal 1.00-4.00 [facility] Comment on above: Order Comment: Speci men Type: BLOOD SPECIMEN Ordering Facility: [facility] [place] Address: [address] [place] [address] Performed By: #### 3 040-3, 96008-2, 1825-02 #### [facility] CLIA [id number] [address] [place] [address] [place] Lymphocytes/100 WBC (Bld) 23.8 % Normal [facility] Comment on above: Order Comment: Speci men Type: BLOOD SPECIMEN Ordering Facility: [facility] [place] Address: [address] [place], [place] [phone] Performed By: #### 3 040-3, 93516-6, 1825-02 #### [facility] CLIA [id number] [address] [place] [address] [place] MCH (RBC) [Entitic mass] 31.6 pg Normal 26.0-34.0 [facility] Comment on above: Order Comment: Speci men Type: BLOOD SPECIMEN Ordering Facility: [facility] [place] Address: [address] [place] [address] Performed By: #### 3 040-3, 43548-8, 1825-02 #### [facility] CLIA [id number] [address] [place] [address] [place] MCHC (RBC) [Mass/Vol] 33.8 g/dL Normal 30.5-36.0 [facility] Comment on above: Order Comment: Speci men Type: BLOOD SPECIMEN Ordering Facility: [facility] [place] Address: [address] [place] [address] Performed By: #### 3 040-3, 14916-0, 1825-02 #### [facility] CLIA [id number] [address] [place] [address] [place] MCV (RBC) [Entitic vol] 93.5 fL Normal 80.0-100.0 [facility] Comment on above: Order Comment: Speci men Type: BLOOD SPECIMEN Ordering Facility: [facility] [place] Address: [address] [place] [phone] Performed By: #### 3 040-3, 31311-1, 1825-02 #### [facility] CLIA [id number] [address] [place] [address] [place] Monocytes (Bld) [#/Vol] 0.62 10*3/uL Normal <0.87 [facility] Comment on above: Order Comment: Speci men Type: BLOOD SPECIMEN Ordering Facility: [facility] [place] Address: [address] [place] [phone] Performed By: #### 3 040-3, 40937-4, 1825-02 #### [facility] CLIA [id number] [address] [place] [address] [place] Monocytes/100 WBC (Bld) 8.6 % Normal [facility] Comment on above: Order Comment: Speci men Type: BLOOD SPECIMEN Ordering Facility: [facility] [place] Address: [address] [place] [phone] Performed By: #### 3 040-3, 11277-1, 1825-02 #### [facility] CLIA [id number] [address] [place] [address] [place] Neutrophils (Bld) [#/Vol] 4.59 10*3/uL Normal 1.45-7.50 [facility] Comment on above: Order Comment: Speci men Type: BLOOD SPECIMEN Ordering Facility: [facility] [place] Address: [address] [place] [address] Performed By: #### 3 040-3, 87539-0, 1825-02 #### [facility] CLIA [id number] [address] [place] [address] [place] Neutrophils/100 WBC (Bld) 63.4 % Normal [facility] Comment on above: Order Comment: Speci men Type: BLOOD SPECIMEN Ordering Facility: [facility] [place] Address: [address] [place] [phone] Performed By: #### 3 040-3, 31541-0, 1825-02 #### [facility] CLIA [id number] [address] [place] [address] [place] Nucleated RBC (Bld) [#/Vol] 10*3/uL Normal <0.01 [facility] Comment on above: Order Comment: Speci men Type: BLOOD SPECIMEN Ordering Facility: [facility] [place] Address: [address] [place] [phone] Performed By: #### 3 040-3, 28953-4, 1825-02 #### [facility] CLIA [id number] [address] [place] [address] [place] Nucleated RBC/100 WBC (Bld) [Ratio] 0.0 /[address] [facility] Comment on above: Order Comment: Speci men Type: BLOOD SPECIMEN Ordering Facility: [facility] [place] Address: [address] [place] [address] Performed By: #### 3 040-3, 00943-4, 1825-02 #### [facility] CLIA [id number] [address] [place], [place] [address] [place] Platelet mean volume (Bld) [Entitic vol] 9.9 fL Normal 9.0-12.7 [facility] Comment on above: Order Comment: Speci men Type: BLOOD SPECIMEN Ordering Facility: [facility] [place] Address: [address] [place] [phone] Performed By: #### 3 040-3, 97798-7, 1825-02 #### [facility] CLIA [id number] [address] [place] [address] [place] Platelets (Bld) [#/Vol] 210 10*3/uL Normal 150-400 [facility] Comment on above: Order Comment: Speci men Type: BLOOD SPECIMEN Ordering Facility: [facility] [place] Address: [address] [place] [phone] Performed By: #### 3 040-3, 70634-3, 1825-02 #### [facility] CLIA [id number] [address] [place] [address] [place] RBC (Bld) [#/Vol] 4.94 10*6/uL Normal 4.20-6.00 [facility] Comment on above: Order Comment: Speci men Type: BLOOD SPECIMEN Ordering Facility: [facility] [place] Address: [address] [place] [phone] Performed By: #### 3 040-3, 40499-6, 1825-02 #### [facility] CLIA [id number] [address] [place] [address] [place] WBC (Bld) [#/Vol] 7.24 10*3/uL Normal 3.70-11.00 [facility] Comment on above: Order Comment: Speci men Type: BLOOD SPECIMEN Ordering Facility: [facility] [place] Address: [address] [place] [phone] Performed By: #### 3 040-3, 43638-9, 1825-02 #### [facility] CLIA [id number] [address] [place] [address] [place] Comprehensive metabolic 2000 panelon 01-26-2022 Albumin [Mass/Vol] 4.3 g/dL Normal 3.9-4.[address] [facility] Comment on above: Order Comment: Speci men Type: BLOOD SPECIMEN Ordering Facility: [facility] [place] Address: [address] [place] [phone] Performed By: #### 3 040-3, 37671-8, 1825-02 #### [facility] CLIA [id number] [address] [place] [address] [place] ALP [Catalytic activity/Vol] 132 U/L High 38-113 [facility] Comment on above: Order Comment: Speci men Type: BLOOD SPECIMEN Ordering Facility: [facility] [place] Address: [address] [place] [phone] Performed By: #### 3 040-3, 11454-2, 1825-02 #### [facility] CLIA [id number] [address] [place] [address] [place] ALT [Catalytic activity/Vol] 143 U/L High 10-54 [facility] Comment on above: Order Comment: Speci men Type: BLOOD SPECIMEN Ordering Facility: [facility] [place] Address: [address] [place] [phone] Performed By: #### 3 040-3, 95097-9, 1825-02 #### [facility] CLIA [id number] [address] [place] [address] [place] Anion gap [Moles/Vol] 9 mmol/L Normal 9-18 [facility] Comment on above: Order Comment: Speci men Type: BLOOD SPECIMEN Ordering Facility: [facility] [place] Address: [address] [place] [address] Performed By: #### 3 040-3, 94192-0, 1825-02 #### [facility] CLIA [id number] [address] [place], [place] [address] [place] AST [Catalytic activity/Vol] 106 U/L High 14-40 [facility] Comment on above: Order Comment: Speci men Type: BLOOD SPECIMEN Ordering Facility: [facility] [place] Address: [address] [place] [address] Performed By: #### 3 040-3, 01405-9, 1825-02 #### [facility] CLIA [id number] [address] [place] [address] [place] Bilirubin [Mass/Vol] 0.7 mg/dL Normal 0.2-1.3 [facility] Comment on above: Order Comment: Speci men Type: BLOOD SPECIMEN Ordering Facility: [facility] [place] Address: [address] [place] [phone] Performed By: #### 3 040-3, 30299-5, 1825-02 #### [facility] CLIA [id number] [address] [place] [address] [place] Calcium [Mass/Vol] 9.8 mg/dL Normal 8.5-10.[address] [facility] Comment on above: Order Comment: Speci men Type: BLOOD SPECIMEN Ordering Facility: [facility] [place] Address: [address] [place] [phone] Performed By: #### 3 040-3, 67092-6, 1825-02 #### [facility] CLIA [id number] [address] [place] [address] [place] Chloride [Moles/Vol] 97 mmol/L Normal 97-105 [facility] Comment on above: Order Comment: Speci men Type: BLOOD SPECIMEN Ordering Facility: [facility] [place] Address: [address] [place] [phone] Performed By: #### 3 040-3, 49775-7, 1825-02 #### [facility] CLIA [id number] [address] [place], [place] [address] [place] CO2 [Moles/Vol] 27 mmol/L Normal 22-30 [facility] Comment on above: Order Comment: Speci men Type: BLOOD SPECIMEN Ordering Facility: [facility] [place] Address: [address] [place] [address] Performed By: #### 3 040-3, 14193-4, 1825-02 #### [facility] CLIA [id number] [address] [place] [address] [place] Creatinine [Mass/Vol] 1.02 mg/dL Normal 0.73-1.22 [facility] Comment on above: Order Comment: Johanna mccoy Type: BLOOD SPECIMEN Ordering Facility: [facility] [place] Address: [address] [place] [address] Performed By: #### 3 040-3, 77846-6, 1825-02 #### [facility] CLIA [id number] [address] [place] [address] [place] ESTIMATED GLOMERULAR FILTRATION RATE 83 mL/min/1.73m??? Normal >=60 [facility] Comment on above: Order Comment: Johanna mccoy Type: BLOOD SPECIMEN Ordering Facility: [facility] [place] Address: [address] [place] [address] Result Comment: Pippa mated Glomerular Filtration Rate (eGFR) is calculated using the 2020 CKD-EPI creatinine equation. This equation utilizes serum creatinine, sex, and age as parameters. The creatinine assay has traceable calibration to isotope dilution-mass spectrometry. Refer to KDIGO guidelines for clinical interpretation. In patients with unstable renal function, e.g. those with acute kidney injury, the eGFR may not accurately reflect actual GFR. Performed By: #### 3 040-3, 06454-3, 1825-02 #### [facility] CLIA [id number] [address] [place] [address] [place] Glucose [Mass/Vol] 119 mg/dL High 74-[address] [facility] Comment on above: Order Comment: Johanna mccoy Type: BLOOD SPECIMEN Ordering Facility: [facility] [place] Address: [address] [place] [address] Result Comment: The [place] Diabetes Association (ADA) provides guidance for cutoff values for fasting glucose and random glucose. The ADA defines fasting as no caloric intake for at least 8 hours. Fasting plasma glucose results between 100 to 125 mg/dL indicate increased risk for diabetes (prediabetes). Fasting plasma glucose results greater than or equal to 126 mg/dL meet the criteria for diagnosis of diabetes. In the absence of unequivocal hyperglycemia, results should be confirmed by repeat testing. In a patient with classic symptoms of hyperglycemia or hyperglycemic crisis, random plasma glucose results greater than or equal to 200 mg/dL meet the criteria for diagnosis of diabetes. Reference: Standards of Medical Care in Diabetes 2016, [place] Diabetes Association. Diabetes Care. 2016.39(Suppl 1). Performed By: #### 3 040-3, 17953-5, 1825-02 #### [facility] CLIA [id number] [address] [place] [address] [place] Potassium [Moles/Vol] 3.9 mmol/L Normal 3.7-5.1 [facility] Comment on above: Order Comment: Speci men Type: BLOOD SPECIMEN Ordering Facility: [facility] [place] Address: [address] [place] [address] Performed By: #### 3 040-3, 01345-8, 1825-02 #### [facility] CLIA [id number] [address] [place] [address] [place] Protein [Mass/Vol] 7.0 g/dL Normal 6.3-8.[address] [facility] Comment on above: Order Comment: Speci men Type: BLOOD SPECIMEN Ordering Facility: [facility] [place] Address: [address] [place] [address] Performed By: #### 3 040-3, 48393-3, 1825-02 #### [facility] CLIA [id number] [address] [place] [address] [place] Sodium [Moles/Vol] 133 mmol/L Low 136-[address] [facility] Comment on above: Order Comment: Speci men Type: BLOOD SPECIMEN Ordering Facility: [facility] [place] Address: [address] [place] [address] Performed By: #### 3 040-3, 71837-9, 1825-02 #### [facility] CLIA [id number] [address] [place], [place] [address] [place] Urea nitrogen [Mass/Vol] 12 mg/dL Normal 9-24 [facility] Comment on above: Order Comment: Johanna mccoy Type: BLOOD SPECIMEN Ordering Facility: [facility] [place] Address: [address] [place] [address] Performed By: #### 3 040-3, 75997-0, 1825-9 #### [facility] CLIA [id number] [address] [place] [address] [place] HbA1c (Bld)on 01-26-2022 Average glucose Estimated from glycated hemoglobin (Bld) [Mass/Vol] 140 mg/dL Normal [facility] Comment on above: Order Comment: Johanna mccoy Type: BLOOD SPECIMEN Ordering Facility: [facility] [place] Address: [address] [place] [address] Result Comment: eAG: (Estimated average glucose) is a calculated value from HgbA1c and is passenger relations representative of the average blood glucose level in the last 2-3 month period. Performed By: #### 5 5454-3 #### [facility] CLIA [id number] [address] [place] [address] [place] OF [facility] HbA1c (Bld) [Mass fraction] 6.5 % High 4.3-5.6 [facility] Comment on above: Order Comment: Johanna mccoy Type: BLOOD SPECIMEN Ordering Facility: [facility] [place] Address: [address] [place] [address] Result Comment: [place] Diabetes Association guidelines indicate that patients with HgbA1c in the range 5.7-6.4% are at increased risk for development of diabetes, and intervention by lifestyle modification may be beneficial. HgbA1c greater or equal to 6.5% is considered diagnostic of diabetes. Performed By: #### 5 5454-3 #### [facility] CLIA [id number] [address] [place] [address] [place] Lipid 1996 panelon 2 Cholesterol [Mass/Vol] 215 mg/dL High <200 [facility] Comment on above: Order Comment: Johanna mccoy Type: BLOOD SPECIMEN Ordering Facility: [facility] [place] Address: [address] [id number] Result Comment: <200 mg/dL, Desirable 200-239 mg/dL, Borderline high >239 mg/dL, High Performed By: #### 3 040-3, 44696-5, 1825-02 #### [facility] CLIA [id number] [address] [place], [place] [address] [place] Cholesterol in HDL [Mass/Vol] 45 mg/dL Normal >39 [facility] Comment on above: Order Comment: Johanna men Type: BLOOD SPECIMEN Ordering Facility: [facility] [place] Address: [address] [place] [phone] Result Comment: 40-5 9 mg/dL, Acceptable >59 mg/dL, High: Negative risk factor for coronary heart disease <40 mg/dL, Low: Positive risk factor for coronary heart disease Performed By: #### 3 040-3, 02887-5, 1825-02 #### [facility] CLIA [id number] [address] [place] [address] [place] Cholesterol in LDL [Mass/Vol] 130 mg/dL High <100 [facility] Comment on above: Order Comment: Johanna mccoy Type: BLOOD SPECIMEN Ordering Facility: [facility] [place] Address: [address] [place] [address] Result Comment: <100 mg/dL, Optimal 100-129 mg/dL, Near optimal/above optimal 130-159 mg/dL, Borderline high 160-189 mg/dL, High >189 mg/dL, Very high Secondary prevention optimal LDL Cholesterol levels are recommended to be < 70 mg/dL Performed By: #### 3 040-3, 52428-8, 1825-02 #### [facility] CLIA [id number] [address] [place] [address] [place] Cholesterol in LDL/Cholesterol in HDL [Mass ratio] 2.89 {ratio} High <2.54 [facility] Comment on above: Order Comment: Johanna men Type: BLOOD SPECIMEN Ordering Facility: [facility] [place] Address: [address] [place] [address] Result Comment: Allison dial: 1. National Cholesterol Education Program ATP III Guideline At-A-Glance Quick Desk Reference: National Heart, Lung, and Blood [place]. National Institutes of Health. 2001: NIH Publication No. 01-3305. 2. An International Atherosclerosis Society position paper: global recommendations for the management of dyslipidemia: executive summary, Atherosclerosis. 2014: 232(2):410-413. Performed By: #### 3 040-3, 32486-9, 1825-02 #### [facility] CLIA [id number] [address] [place] [address] [place] Cholesterol in VLDL [Mass/Vol] 40 mg/dL High <30 [facility] Comment on above: Order Comment: Johanna mccoy Type: BLOOD SPECIMEN Ordering Facility: [facility] [place] Address: [address] [place] [address] Performed By: #### 3 040-3, 42916-6, 1825-02 #### [facility] CLIA [id number] [address] [place] [address] [place] Cholesterol non HDL [Mass/Vol] 170 mg/dL High <130 [facility] Comment on above: Order Comment: Johanna mccoy Type: BLOOD SPECIMEN Ordering Facility: [facility] [place] Address: [address] [place] [address] Result Comment: <130 mg/dL, Optimal 130-159 mg/dL, Near optimal/above optimal 160-189 mg/dL, Borderline high 190-219 mg/dL, High >219 mg/dL, Very high Secondary prevention optimal non HDL Cholesterol levels are recommended to be <100 mg/dL Performed By: #### 3 040-3, 08141-5, 1825-02 #### [facility] CLIA [id number] [address] [place] [address] [place] Cholesterol.total/Gayle sterol in HDL [Mass ratio] 4.78 {ratio} Normal <5.10 [facility] Comment on above: Order Comment: Johanna mccoy Type: BLOOD SPECIMEN Ordering Facility: [facility] [place] Address: [address] [place], [place] [phone] Performed By: #### 3 040-3, 54508-0, 1825-02 #### [facility] CLIA [id number] [address] [place] [address] [place] FASTING TIME [address] [facility] Comment on above: Order Comment: Speci men Type: BLOOD SPECIMEN Ordering Facility: [facility] [place] Address: [address] [place] [address] Performed By: #### 3 040-3, 23382-9, 1825-02 #### [facility] CLIA [id number] [address] [place] [address] [place] Triglyceride [Mass/Vol] 198 mg/dL High <150 [facility] Comment on above: Order Comment: Speci men Type: BLOOD SPECIMEN Ordering Facility: [facility] [place] Address: [address] [place] [phone] Result Comment: <150 mg/dL, Normal 150-199 mg/dL, Borderline high 200-499 mg/dL, High >499 mg/dL, Very high Performed By: #### 3 040-3, 74171-7, 1825-02 #### [facility] CLIA [id number] [address] [place] [address] [place] Magnesium SerPl-mCncon 01-26 Magnesium [Mass/Vol] 1.9 mg/dL Normal 1.7-2.3 [facility] Comment on above: Order Comment: Speci men Type: BLOOD SPECIMEN Ordering Facility: [facility] Address: [address] [place], [place] [id number] Performed By: #### 3 040-3, 62995-9, 1825-02 #### [facility] CLIA [id number] [address] [place] [address] [place] Marilyn 01-18-2022 CNPN [facility] HO[place]MARKO Reyes ([id number]) 1960 M Date Time Provider Department 01/18/22 Carine CANALES During your visit today, we recorded the following information about you: Carine Esquivel RN 01/18/2022 12:04 PM Signed Patient scheduled appt with pcp for 8-15. Asking a provider to please place lab orders and let patient know when they are ordered. Pended the requested labs. Ivis Pope APRN.MARIE 01/18/2022 4:56 PM Signed Orders placed for fasting labs. Can please let patient know and close encounter. Ivis Pope APRN.MARIE Benavidez LPN 01/18/2022 5:01 PM Signed Pt notified. He verbalized understanding. Agus Benavidez LPN Allergies As of Date: 01/18/2022 (No Known Allergies) Date Reviewed: 02/26/2021 Reviewed by: Sherice Orlando Ma - Fully Assessed Reason for Visit: Lab orders for appt [Other] Primary Visit Diagnosis:Essential hypertension [I10] Other Visit Diagnoses:Elevated blood sugar [R73.9] Current use of proton pump inhibitor [Z79.899] Hyperlipidemia, mixed [E78.2] Prediabetes [R73.03] Order(s):CBC + DIFF [SQCBCDIF] Order #: [id number] FUTURE HGB A1C [IETIT3G] Order #: [id number] FUTURE LIPID PANEL BASIC [SQLIPB] Order #: [id number] FUTURE COMP METABOLIC PANEL [SQCMP] Order #: [id number] FUTURE MAGNESIUM BLD [SQMG1] Order #: [id number] FUTURE Prescriptions as of 01/18/2022 - metoprolol succinate ER (TOPROL XL) 50 mg 24 hr tablet Take 1 tablet by mouth once daily. - lisinopril-hydroCHLORO thiazide (PRINZIDE, ZESTORETIC) 20-25 mg per tablet Take 1 tablet by mouth once daily. - fluticasone-salmeterol (ADVAIR, WIXELA) 250-50 mcg/dose inhaler Inhale 1 Puff as instructed twice daily. - albuterol HFA (PROVENTIL HFA, VENTOLIN HFA) 90 mcg/actuation inhaler Inhale 2 Puffs as instructed every 6 hours as needed. - omeprazole (PRILOSEC) 40 mg capsule Take 1 capsule by mouth once daily. - sertraline (ZOLOFT) 50 mg tablet Take 1 tablet by mouth once daily. - meloxicam (MOBIC) 15 mg tablet Take 1 tablet by mouth once daily. With food. Problem List As Of Date 01/18/2022 Noted Resolved COPD with chronic bronchitis (HCC) [J44.9] 12/17/2015 Gastroesophageal reflux disease without esophag* Pneumonia due to infectious organism [J18.9] 12/17/2015 Elevated blood sugar [R73.9] 03/26/2016 Pulmonary nodule, left [R91.1] History of colon polyps [Z86.010] Functional dyspepsia [K30] 10/31/2017 Encounter Status:Closed by AGUS BENAVIDEZ LPN on 01/18/[address] [facility] Vital Signs Date Time Vital Sign Value Performing Clinician Stan ignacio 02-13-2025 11:33-0400 Body temperature 98.1 [degF] Dr. Raul Patrick MD Work Phone: [facility] 02-13-2025 11:33-0400 Diastolic blood pressure 75 mm[Hg] Dr. Raul Patrick MD Work Phone: [facility] 02-13-2025 11:33-0400 Heart rate 78 /min Dr. Raul Patrick MD Work Phone: [facility] 02-13-2025 11:33-0400 Respiratory rate 16 /min Dr. Raul Patrick MD Work Phone: [facility] 02-13-2025 11:33-0400 SaO2% (BldA) [Mass fraction] 100 % Dr. Raul Patrick MD Work Phone: [facility] 02-13-2025 11:33-0400 Systolic blood pressure 152 mm[Hg] Dr. Raul Patrick MD Work Phone: [facility] 02-13-2025 09:55-0400 Body height 176.[address] Raul Patrick MD Work Phone: [facility] 02-13-2025 09:55-0400 Body mass index (BMI) [Ratio] 24.1 kg/m2 Dr. Raul Patrick MD Work Phone: [facility] 02-13-2025 09:55-0400 Body weight 75.[address] Raul Patrick MD Work Phone: [facility] 02-01-2022 10:39-0400 Body weight 78.47 kg NA Canales PA-C Work Phone: [facility] 02-01-2022 10:39-0400 Diastolic blood pressure 78 mm[Hg] NA Canales PA-C Work Phone: [facility] 02-01-2022 10:39-0400 Heart rate 84 /min NA Canales PA-C Work Phone: [facility] 02-01-2022 10:39-0400 Respiratory rate 20 /min NA Canales PA-C Work Phone: [facility] 02-01-2022 10:39-0400 SaO2% (BldA) [Mass fraction] 98 % NA Canales PA-C Work Phone: [facility] 02-01-2022 10:39-0400 Systolic blood pressure 158 mm[Hg] NA Canales PA-C Work Phone: [facility] Encounters Encounter Date Encounter Type Care Provider Facility Start: 02-13-2025 Non-patient / Non-visit Dr. Pranay mathew MD -[facility] Start: 02-13-2025 Evaluation and manag ement of inpatient Dr. Eric Nichols MD -Medical Surgical 3 Work Phone: Start: 02-11-[address] Raul Patrick MD -Radiology [facility] Work Phone: Start: 02-11-2025 ambulatory [facility] Facility:[facility] Start: 12-19-2024 End: 12-19-[address] Raul Patrick MD Work Phone: -Laboratory Start: 12-19-2024 End: 12-19-[address] Raul Patrick MD -Laboratory Work Phone: Start: 12-19-2024 End: 12-19-2024 ambulatory [facility] Facility:[facility] Start: 07-17-2024 End: 07-17-2024 ambulatory [facility] Facility:[facility] Start: 06-06-2024 End: 06-06-2024 ambulatory [facility] Facility:[facility] Start: 10-06-2023 End: 10-06-2023 ambulatory [facility] Work Phone: Start: 10-06-2023 End: 10-06-2023 Patient encounter procedure [facility] Work Phone: Start: 04-05-2023 End: 04-05-2023 ambulatory [facility] Work Phone: Start: 04-05-2023 End: 04-05-2023 Patient encounter procedure [facility] Work Phone: Start: 01-15-2023 Refill Carine Gotti on PA-C Work Phone: [facility] Comment on above: Refill Request Start: 12-02-2022 Refill Leia Greco APRN.MANUAL EQUIPMENT MECHANIC Work Phone: [facility] Comment on above: Refill Request Start: 11-16-2022 Refill Carine Gotti on PA-C Work Phone: [facility] Comment on above: Refill Request Start: 11-02-2022 Refill Carine Gotti on PA-C Work Phone: [facility] Comment on above: Refill Request Start: 08-04-2022 Refill Carine Gotti on PA-C Work Phone: [facility] [place] Comment on above: Refill Request Start: 07-08-2022 Telephone encounter Carine Canales PA-C Work Phone: [facility] [place] Comment on above: Insurance Authorizat ketty (Silver ) Start: 05-31-2022 Telephone encounter Carine Canales PA-C Work Phone: [facility] [place] Comment on above: Patient Update Start: 04-21-2022 Refill Carine avina PA-C Work Phone: [facility] [place] Comment on above: Refill Request Start: 04-07-2022 Telephone encounter Carine Canales PA-C Work Phone: [facility] [place] Comment on above: Results Start: 04-03-2022 End: 04-03-2022 ambulatory Carine CANALES Facility:[facility] Start: 02-08-2022 Telephone encounter Carine Canales PA-C Work Phone: [facility] [place] Comment on above: Results Start: 02-05-2022 End: 02-05-2022 ambulatory Carine CANALES Facility:[facility] Start: 02-05-2022 End: 02-05-2022 Subsequent hospital visit by physician [facility] Work Phone: Radiology Comment on above: Alcohol abuse [F10.1 0] Start: 02-01-2022 End: 02-01-2022 ambulatory Carine CANALES Facility:[facility] Start: 02-01-2022 End: 02-01-2022 Patient encounter procedure Carine Canales PA-C Work Phone: [facility] [place] Comment on above: Essential hypertensi on (Primary Dx); Hyperlipidemia, mixed; Prediabetes; COPD with chronic bronchitis (HCC); Pulmonary nodule, left; Adjustment disorder with other symptom; Gastroesophageal reflux disease without esophagitis; History of colon polyps; Alcohol abuse; Elevated liver enzymes; Acute pain of right shoulder Start: 01-26-2022 End: 01-26-2022 ambulatory Carine CANALES Facility:[facility] Start: 01-18-2022 Telephone encounter Carine Canales PA-C Work Phone: [facility] Comment on above: Lab orders for appt Start: 01-11-2022 Refill Carine Gotti on PA-C Work Phone: [facility] Comment on above: Refill Request Start: 10-15-2021 Refill Carine Gotti on PA-C Work Phone: [facility] [place] Comment on above: Refill Request Procedures Date Procedure Procedure Detail Performing Clinician Start: 02-13-[address] Raul Patrick MD Work Phone: Start: 02-11-2025 Plain X-ray of finger D cecy Patrick MD Work Phone: Start: 12-19-2024 Vitamin D, 25-hydrox y measurement Dr. Raul Patrick MD Work Phone: Comment on above: Vitamin D StatusDefi ciency: <20 ng/mL (50nmol/L)Insufficiency: 20-30 ng/mL (50-75 nmol/L)Sufficiency: 30-100 ng/mL (75-250 nmol/L)Toxicity: >100 ng/mL (>250 nmol/L) Start: 02-05-2022 Us abdominal real ti me w/image limited Carine Canales PA-C Work Phone: Start: 02-01-2022 Adult depression scr eening assessment NA Canales PA-C Work Phone: Start: 02-26-2021 Adult depression scr eening assessment NA Canales PA-C Work Phone: Start: 12-26-2017 Colonoscopy NA Canales PA-C Work Phone: Plan of Treatment Date Care Activity Detail Author Start: 08-09-2028 Urine microalbumin profile DTAP,TDAP,TD (2 - Td or Tdap) [facility] Start: 01-26-2027 LIPID SCREEN LIPID SCREEN [facility] Start: 04-03-2025 DIABETES SCREEN DIABETES SCREEN [facility] Start: 03-05-2025 LIPID SCREEN LIPID SCREEN [facility] Start: 02-13-2025 Bacteria identified in Blood by Culture Blood Culture [facility] Start: 02-13-2025 Verification routine [facility] Start: 02-13-2025 Admission procedure [facility] Start: 02-13-2025 Hospital admission, emergency, from emergency room, medical nature [facility] Start: 02-13-2025 [facility] Start: 01-26-2025 DIABETES SCREEN DIABETES SCREEN [facility] Start: 02-27-2024 DIABETES SCREEN DIABETES SCREEN [facility] Start: 02-20-2024 PNEUMOCOCCAL (3 - PP SV23 if available, else PCV20) PNEUMOCOCCAL (3 - PPSV23 if available, else PCV20) [facility] Start: 02-20-2024 PNEUMOCOCCAL (3 - PP SV23 or PCV20) PNEUMOCOCCAL (3 - PPSV23 or PCV20) [facility] Start: 02-18-2023 Influenza vaccination [facility] Start: 02-01-2023 Adult depression screening assessment DEPRESSION SCREENING [facility] Start: 02-01-2023 ANNUAL PCP TEAM TRAFFIC WORKER JOANNA DISEASE VISIT ANNUAL PCP TEAM CHRONIC DISEASE VISIT [facility] Start: 12-26-2022 Colonoscopy COLONOSCOPY [facility] Start: 12-26-2022 COLORECTAL CANCER SCREENING COLORECTAL CANCER SCREENING [facility] Start: 06-20-2022 DEPRESSION ASSESSMENT DEPRESSION ASS ESSMENT [facility] Start: 05-04-2022 End: 07-04-2022 Hemoglobin A1c in Blood HGB A1C Lab Routine Prediabetes Expected: 05/04/2022, Expires: 07/04/2022 [facility] Work Phone: Comment on above: Expected: 05/04/2022 , Expires: 07/04/2022 Start: 03-04-2022 End: 05-04-2022 Chronic hepatitis differentiation between hepatitis B and C virus panel - Serum or Plasma HEP REMOTE PANEL BL Lab Routine Alcohol abuse Elevated liver enzymes Expected: 03/04/2022, Expires: 05/04/2022 [facility] Work Phone: Comment on above: Expected: 03/04/2022 , Expires: 05/04/2022 Start: 03-04-2022 End: 05-04-2022 Hepatic function 2000 panel - Serum or Plasma HEPATIC FUNCTION PNL Lab Routine Elevated liver enzymes Expected: 03/04/2022, Expires: 05/04/2022 [facility] Work Phone: Comment on above: Expected: 03/04/2022 , Expires: 05/04/2022 Start: 02-27-2022 FECAL OCCULT BLOOD FECAL OCCULT BLOO D [facility] Start: 02-26-2022 Adult depression screening assessment DEPRESSION SCREENING [facility] Start: 02-26-2022 ANNUAL PCP TEAM TRAFFIC WORKER JOANNA DISEASE VISIT ANNUAL PCP TEAM CHRONIC DISEASE VISIT [facility] Start: 02-26-2022 BP CONTROLLED (<130/80) BP CONTROLLE D (<130/80) [facility] Start: 02-26-2022 COVID-19 VACCINE (#1) COVID-19 VACCI NE (#1) [facility] Comment on above: Postponed from 08/19 (Declined at this time) Start: 02-26-2022 COVID-19 VACCINE (1) COVID-19 VACCIN E (1) [facility] Comment on above: Postponed from 02/19 (Declined at this time) Start: 02-26-2022 SHINGRIX VACCINE (1 of 2) BOLAND GRIX VACCINE (1 of 2) [facility] Comment on above: Postponed from 02/19 (Declined at this time) Start: 02-18-2022 Influenza vaccination C [facility] Start: 02-01-2022 End: 04-03-2022 ALPHA 1 ANTITRYP PHEN/GENOTYPE ALPHA 1 ANTITRYP PHEN/GENOTYPE Lab Routine COPD with chronic bronchitis (HCC) Expected: 02/01/2022, Expires: 04/03/2022 [facility] Work Phone: Comment on above: Expected: 02/01/2022 , Expires: 04/03/2022 Start: 02-01-2022 End: 04-03-2022 Lipase [Enzymatic activity/volume] in Serum or Plasma LIPASE BLD Lab Routine Elevated liver enzymes Expected: 02/01/2022, Expires: 04/03/2022 [facility] Work Phone: Comment on above: Expected: 02/01/2022 , Expires: 04/03/2022 Start: 01-18-2022 End: 03-20-2022 CBC W Auto Differential panel - Blood CBC + DIFF Lab Routine Essential hypertension Prediabetes Expected: 01/18/2022, Expires: 03/20/2022 [facility] Work Phone: Comment on above: Expected: 01/18/2022 , Expires: 03/20/2022 Start: 01-18-2022 End: 03-20-2022 Comprehensive metabolic 2000 panel - Serum or Plasma COMP METABOLIC PANEL Lab Routine Essential hypertension Prediabetes Expected: 01/18/2022, Expires: 03/20/2022 [facility] Work Phone: Comment on above: Expected: 01/18/2022 , Expires: 03/20/2022 Start: 01-18-2022 End: 03-20-2022 Hemoglobin A1c in Blood HGB A1C Lab Routine Elevated blood sugar Prediabetes Expected: 01/18/2022, Expires: 03/20/2022 [facility] Work Phone: Comment on above: Expected: 01/18/2022 , Expires: 03/20/2022 Start: 01-18-2022 End: 03-20-2022 Lipid 1996 panel - Serum or Plasma LIPID PANEL BASIC Lab Routine Hyperlipidemia, mixed Expected: 01/18/2022, Expires: 03/20/2022 [facility] Work Phone: Comment on above: Expected: 01/18/2022 , Expires: 03/20/2022 Start: 01-18-2022 End: 03-20-2022 Magnesium [Mass/volume] in Serum or Plasma MAGNESIUM BLD Lab Routine Current use of proton pump inhibitor Expected: 01/18/2022, Expires: 03/20/2022 [facility] Work Phone: Comment on above: Expected: 01/18/2022 , Expires: 03/20/2022 Start: 06-20-2021 DEPRESSION ASSESSMENT DEPRESSION ASS ESSMENT [facility] Start: 2014 PROSTATE CANCER SCRE ENING DISCUSSION PROSTATE CANCER SCREENING DISCUSSION [facility] Start: 2009 SHINGRIX VACCINE (1 of 2) BOLAND GRIX VACCINE (1 of 2) [facility] Start: 02-20-2004 COLOGUARD (FIT-DNA) COLOGUARD (FIT-D NA) [facility] Start: 02-20-[address] COLONOGRAPHY [facility] Start: 02-20-2004 SIGMOIDOSCOPY SIGMOIDOSCOPY [facility] Start: 1989 Zoledronic acid therapy ALPHA- 1 ANTITRYPSIN DEFICIENCY SCREENING [facility] Start: 1977 BP CONTROLLED (<130/80) BP CONTROLLE D (<130/80) [facility] Start: 1977 HIV SCREENING HIV SCREENING [facility] Start: 1977 SPIROMETRY SPIROMETRY [facility] Start: 1959 COVID-19 VACCINE (#1) COVID-19 VACCI NE (#1) [facility] Patient Education [facility] ED Subungual Hematoma [facility] Work Phone: End: 03-03-2023 Us abdominal real time w/image limited US ABD RT UPPER QUADRANT Radiology Routine Alcohol abuse Elevated liver enzymes 1 Occurrences starting 02/01/2022 until 03/03/2023 [facility] Work Phone: Comment on above: 1 Occurrences starti ng 02/01/2022 until 03/03/2023 End: 03-03-2023 XR SHOULDER GENERAL 3V OR MORE AP/TRUE AP/OTHER RIGHT XR SHOULDER GENERAL 3V OR MORE AP/TRUE AP/OTHER RIGHT Radiology Routine Acute pain of right shoulder 1 Occurrences starting 02/01/2022 until 03/03/2023 [facility] Work Phone: Comment on above: 1 Occurrences starti ng 02/01/2022 until 03/03/2023 [facility] Immunizations Immunization Date Immunization Notes Care Provider Lavon carmichael 03-04-2020 influenza, injectabl e, quadrivalent, contains preservative NA Parker BARAJAS Work Phone: [facility] Work Phone: 08-09-2018 tetanus toxoid, redu rogerio diphtheria toxoid, and acellular pertussis vaccine, adsorbed NA Parker BARAJAS Work Phone: [facility] 03-29-2018 influenza, injectabl e, quadrivalent, contains preservative NA Canales PA-C Work Phone: [facility] 03-29-2018 pneumococcal polysaccharide vaccine, 23 valent NA Canales PA-C Work Phone: [facility] 04-04-2017 influenza, injectabl e, quadrivalent, contains preservative NA Canales PA-C Work Phone: [facility] Work Phone: 12-17-2015 pneumococcal conjuga te vaccine, 13 valent NA Canales PA-C Work Phone: [facility] Work Phone: Payers Date Payer Category Payer Self-pay 2024 Unknown [id number] [facility] 2024 Medicare [id number] 2019 Unknown MMO MMO [employer] [id number] 2019-Present [phone] [address] [place] [address] PPO [id number] 2019 Unknown [id number] 2017 Unknown HOSPITAL/MEDICAL GENERIC MEDICAL GENERIC [id number] 2017-Present [phone] [address] [place] [address] Indemnity [id number] 2017 Unknown [id number] 2017 Unknown [id number] Medicare [id number] Unknown ANTHEM [id number] Unknown [id number] Unknown [id number] Unknown [id number] Unknown [id number] Social History Date Type Detail Facility Start: 03-29-2018 End: 02-01-2022 Tobacco smoking status NHIS Smokes tobacco daily [facility] History of tobacco use Cigarette Smoker C [facility] Start: 03-29-2018 End: 02-01-2022 Cigarettes smoked current (pack per day) - Reported 0.3 [facility] Work Phone: Start: 03-29-2018 End: 02-01-2022 Tobacco use and exposure User of smokeless tobacco [facility] History of tobacco use Snuff User [facility] History of tobacco use Chews Tobacco [facility] Start: 02-26-2021 End: 02-01-2022 Alcohol intake Current drinker of alcohol (finding) [facility] Start: 10-31-2017 End: 02-01-2022 Tobacco Comment 2 packs per week [facility] Start: 1960 Sex Assigned At Not on file [facility] Start: 01-08-2022 End: 01-18-2022 Exposure to SARS-CoV-2 (event) Not sure [facility] Start: 02-01-2022 Tobacco use panel [facility] Work Phone: Adult Depression Screening Assessment 2 [facility] Work Phone: Start: 1960 Sex Assigned At [facility] Work Phone: Start: 02-13-2025 [facility] Never [facility] (finding) [facility] Clinical Notes 10-15-2021 to 02-13-2025 Telephone Encounter - Ave Mckinney LPN - 01/17/2023 8:30 AM EDTTelephone Encounter - Ave Mckinney PHYSICIST AC[employer]STICS - 12/02/2022 10:40 AM EDTTelephone Encounter - Agus Benavidez LPN - 11/17/2022 10:27 AM EDT Note Date & Type Note Facility 02-13-2025 Consult note [facility] 02-13-2025 Discharge summary [facility] 01-17-2023 Miscellaneous Notes Patient has been identified by name and date of : Yes Requested Prescriptions Pending Prescriptions Disp Refills SITagliptin phosphate (JANUVIA) 25 mg tablet 90 tablet 0 Sig: Take 1 tablet by mouth once daily. RX INSTRUCTIONS: Mychart request Message sent to schedule follow up. Ave Mckinney LPN documented in this encounter [facility] 12-02-2022 Miscellaneous Notes Patient has been identified by name and date of : Yes Requested Prescriptions Pending Prescriptions Disp Refills metoprolol succinate ER (TOPROL XL) 50 mg 24 hr tablet 30 tablet 5 Sig: Take 1 tablet by mouth once daily. RX INSTRUCTIONS: Patient aware RX will be sent to pharmacy. No need to notify patient. Ave Mckinney LPN documented in this encounter [facility] 11-17-2022 Miscellaneous Notes Patient phones requesting refills as follows: Requested Prescriptions Pending Prescriptions Disp Refills lisinopril-hydroCHLOROthiazide (ZESTORETIC) 20-25 mg per tablet 30 tablet 5 Sig: Take 1 tablet by mouth once daily. ALEXSANDER 02/01/22 NOV no upcoming appt Please review and advise. Agus Benavidez LPN documented in this encounter [facility] 11-02-2022 Miscellaneous Notes Patient has been identified by name and date of : Yes Last office visit in this department: 02/01/2022 RX INSTRUCTIONS: Patient aware RX will be sent to pharmacy. No need to notify patient. Patient phones requesting refills as follows: Requested Prescriptions No prescriptions requested or ordered in this encounter Please review and advise. Estephania Kapadia PT is wanting to know if you are able to up the doseage on this prescription, please assist and advise. documented in this encounter [facility] 08-04-2022 Miscellaneous Notes Patient has been identified by name and date of : Yes Last office visit in this department: 02/01/2022 RX INSTRUCTIONS: Patient aware RX will be sent to pharmacy. No need to notify patient. Patient phones requesting refills as follows: Requested Prescriptions Pending Prescriptions Disp Refills metoprolol succinate ER (TOPROL XL) 50 mg 24 hr tablet 30 tablet 5 Sig: Take 1 tablet by mouth once daily. Please review and advise. Kadie Mckeon documented in this encounter [facility] 07-08-2022 Miscellaneous Notes PA approved and patient notified Lorie Tian Ma Electronic PA generated for Silver Tian Ma documented in this encounter [facility] 05-31-2022 Miscellaneous Notes Patient notified of new prescription The following approved medication requests have been transmitted electronically. Requested Prescriptions Signed Prescriptions Disp Refills SITagliptin phosphate (JANUVIA) 25 mg tablet 90 tablet 1 Sig: Take 1 tablet by mouth once daily. Authorizing Provider: Carine CANAELS PA-C Patient calls and is asking if there is something else other than glipizide he can take. Patient reports that he had episodes where he would get hot and his legs would get weak and shaky. This would last for half hour. Patient reports that he quit taking glipizide 5 days ago and these episodes have stopped. Please review and advise, Marisol Thornton RN documented in this encounter [facility] 04-21-2022 Miscellaneous Notes Patient has been identified by name and date of : Yes Last office visit in this department: 02/01/2022 RX INSTRUCTIONS: Patient aware RX will be sent to pharmacy. No need to notify patient. Patient is out of medication. Patient phones requesting refills as follows: Requested Prescriptions Pending Prescriptions Disp Refills sertraline (ZOLOFT) 50 mg tablet 90 tablet 1 Sig: Take 1 tablet by mouth once daily. Please review and advise. Little Yates documented in this encounter [facility] 04-08-2022 Miscellaneous Notes Patient notified. Verbalized understanding. Top metformin Start glipizide Update progress in 4 weeks if not improving. Glipizide can cause hypoglycemia Notify if any problems. Thanks, Marko Canales PA-C Call to pt and notified him of message below. Pt verbalized understanding. Pt notes he's not happy with the Metformin and causing GI issues/diarrhea. Reports he had an US that showed gallstones. Having cramping frequently. Unsure if related to medication or gallstones. Wants this to go away. Please advise. Myesha Peng Ma ----- Message from Carine Canales PA-C sent at 04/07/2022 9:53 AM EDT ----- Please advise also antitrypsin 1 was negative for genetic markers to cause his lung disease. Checks for viral hepatitis were negative. Diabetes is in great control, hemoglobin A1c 5.8 in prediabetic range. Great job. Liver enzymes have greatly improved: He needs to stay away from alcohol. Pancreatic enzyme was normal. Thanks, Marko Canales PA-C documented in this encounter [facility] 02-08-2022 Miscellaneous Notes Patient notified of results. Patient verbalizes understanding. Marisol Thornton RN Attempted to reach pt, no answer and no voicemail. Sherice Orlando Ma ----- Message from Carine Canales PA-C sent at 02/07/2022 9:25 PM EDT ----- Please advise GB US shows fatty liver, possible gallbladder sludge though stones not ruled out. ThanksMarko PA-C documented in this encounter [facility] 02-05-2022 Note HNO ID: [id number] Author: Madeline Garcia RDMS Service: ? Author Type: Training Program Developer Type: Progress Notes Filed: 02/05/2022 9:33 AM Note Text: Radiology Service Progress Note PATIENT NAME: Marko Neville DATE OF SERVICE: February 05, 2022 TIME: 9:32 AM PATIENT IDENTITY VERIFICATION COMPLETED USING TWO (2) IDENTIFIERS: Name and Date of confirmed by patient verbally. FALL SCREENING: Has the patient had 2 falls in the last year or 1 fall with injury or currently using an Ambulatory Assistive Device (Walker, Cane, Wheelchair, Crutches, etc.)? No PATIENT GENDER DATA: Male PATIENT RELEVANT IMPLANT DATA REVIEWED: Not Applicable RADIOLOGY DEPARTMENT: Ultrasound PERIPHERAL IV DATA: Not applicable SIGNED BY: Madeline Garcia RDMS RVT February 05, 2022 9:[address] [facility] 02-05-2022 History of Present illness Narrative Radiology Service Progress Note PATIENT NAME: Marko Neville DATE OF SERVICE: February 05, 2022 TIME: 9:32 AM PATIENT IDENTITY VERIFICATION COMPLETED USING TWO (2) IDENTIFIERS: Name and Date of confirmed by patient verbally. FALL SCREENING: Has the patient had 2 falls in the last year or 1 fall with injury or currently using an Ambulatory Assistive Device (Walker, Cane, Wheelchair, Crutches, etc.)? No PATIENT GENDER DATA: Male PATIENT RELEVANT IMPLANT DATA REVIEWED: Not Applicable RADIOLOGY DEPARTMENT: Ultrasound PERIPHERAL IV DATA: Not applicable SIGNED BY: Madeline Garcia RDMS RVT February 05, 2022 9:32 AM documented in this encounter [facility] 02-01-2022 Note HNO ID: [id number] Author: Carine Canales PA-C Service: ? Author Type: Physician Sound Tester Type: Progress Notes Filed: 02/01/2022 1:15 PM Note Text: 61 year old male with c/o: Current concerns: Woke Tuesday 3 weeks ago with shoulder pain after chain sawing. Unable to lift to side but can lift to front. 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 Essential hypertension (primary encounter diagnosis) HTN: Current meds: Metoprolol succinate ER 50 mg daily Lisinopril hydrochlorothiazide 20-25 mg 1 tablet daily Patient is compliant with meds No Monitors bp at home: No. If yes, readings: Denies side effects: No. Cough: yes, chronically Chest pain: No. Dyspnea: No. Edema: No. Palpitations: Yes. Syncope: Yes. Headache: No. Dizziness: No. Last 3 Encounter BP Readings: Date: BP: 02/26/2021 128/70 06/03/2020 130/82 03/04/2020 130/80 Last 2 Encounter Wt Readings: Date: Wt: 02/26/2021 78 kg (172 lb) 06/03/2020 78.5 kg (173 lb) Hyperlipidemia, mixed Hyperlipidemia: Current medication none Taking medication consistently n/a Observing low cholesterol high fiber diet No Muscle aches No Stomach complaints/ diarrhea No Last 2 Lipids: Component Latest Ref Rng AND Units 03/05/2020 01/26/2022 Cholesterol, Total <200 mg/dL 180 215 (H) Triglyceride <150 mg/dL 143 198 (H) HDL Cholesterol >39 mg/dL 43 45 LDL Cholesterol <100 mg/dL 108 (H) 130 (H) Non HDL Cholesterol <130 mg/dL 137 (H) 170 (H) Fasting Time hrs 10 12 VLDL Cholesterol <30 mg/dL 29 40 (H) TC:HDL Ratio <5.10 4.19 4.78 LDL:HDL Ratio <2.54 2.51 2.89 (H) Prediabetes Diabetes Mellitus Type 2: Current medications: none Watching diet? No Physical Activity: Regular Hypoglycemic spells? No Any visual disturbance? No Chest pain? No New numbness, tingling or loss of sensation? No Any recent foot problems, sores or rashes? No Any recent or sudden weight loss? No Change in urination? No. If yes: Any recent illness? No Last eye exam: up to date. Last foot exam: up to date. HBA1C: Hemoglobin A1C (%) Date Value 01/26/2022 6.5 02/26/2021 5.9 03/05/2020 5.7 ) CMP: Glucose 119 01/26/2022 BUN 12 01/26/2022 Creatinine 1.02 01/26/2022 Sodium 133 01/26/2022 Potassium 3.9 01/26/2022 Chloride 97 01/26/2022 CO2 27 01/26/2022 Protein, Total 7.0 01/26/2022 Albumin 4.3 01/26/2022 Calcium 9.8 01/26/2022 Alkaline Phosphatase 132 01/26/2022 Bilirubin, Total 0.7 01/26/2022 AST 106 01/26/2022 ALT 143 01/26/2022 Last 2 Encounter Wt Readings: Date: Wt: 02/26/2021 78 kg (172 lb) 06/03/2020 78.5 kg (173 lb) Copd with chronic bronchitis (hcc) Pulmonary nodule, left Safety Scientist: none. Interval history: no new testing. Current medications: Fluticasone-salmeterol 2 50-50 MCG per dose 1 puff twice daily Albuterol HFA 2 puffs every 6 hours as needed Worsening shortness of breath: No. Has to sptop every once in awhile to catch breath. Cough: Yes. Wheezing: a little. Smokin PPD. Compliant with medications: Yes. Using rescue inhaler: 5 times a week max. Adjustment disorder with other symptom Current meds: Sertraline 50 mg daily Change in medication Yes. Currently in counseling? Yes. Any Medication side effects? No. Sleep disturbance? No- good. Racing thoughts? No. Interpersonal/ family conflicts? No. PHQ-9 02/26/2021 02/01/2022 Score 0 4 Gastroesophageal reflux disease without esophagitis History of colon polyps Current medication: Omeprazole 40 mg daily AC. Current symptoms: none. Last Mg level if on PPI chronically: 01/26/2022 Mg 1.9. Heartburn is controlled: No. Dysphagia: No. Bloody or black stools: No. Bowel changes: No. Every morning to a few times Last EGD and/or colonoscopy: 12/26/2017: 12/26/2017 EGD/colonoscopy: stomach: oxyntic -type gastric mucosa, - HP. Ascending colon: 7mm polyp ascending colon, bx = tubular adenoma: 5 year surveillance Alcohol abuse Elevated liver enzymes Current ETOH intake: Stopped drinking beer- stopped 4 weeks ago Drinking Twisted Tea 5-6 Component Latest Ref Rng AND Units 02/26/2021 01/26/2022 Protein, Total 6.3 - 8.0 g/dL 7.1 7.0 Albumin 3.9 - 4.9 g/dL 4.2 4.3 Calcium 8.5 - 10.2 mg/dL 9.5 9.8 Bilirubin, Total 0.2 - 1.3 mg/dL 0.3 0.7 Alkaline Phosphatase 38 - 113 U/L 102 132 (H) AST 14 - 40 U/L 25 106 (H) Glucose 74 - 99 mg/dL 89 119 (H) BUN 9 - 24 mg/dL 16 12 Creatinine 0.73 - 1.22 mg/dL 0.82 1.02 Sodium 136 - 144 mmol/L 135 (L) 133 (L) Potassium 3.7 - 5.1 mmol/L 4.1 3.9 Chloride 97 - 105 mmol/L 100 97 CO2 22 - 30 mmol/L 23 27 Anion Gap 9 - 18 mmol/L 12 9 ALT 10 - 54 U/L 31 143 (H) eGFR- >60 eGFR-All Other Races . >60 eGFR >=60 mL/min/1.73m? 83 HISTORIES FAMILY HISTORY Problem Relation Age of Onset Cancer Mother lung cancer, smoker Coronary Artery Disease Father smoker Diabetes Brother Diabetes Maternal Grandmother PAST M (more content not included)... [facility] 02-01-2022 Instructions Carine Canales PA-C - 02/01/2022 11:13 AM EDT Cut alcohol down by halves over then next week until off. Recheck lab in 3 months. Cholesterol What is cholesterol? Cholesterol is a type of fat that circulates in your blood. Cholesterol comes from two sources: Your body makes some cholesterol on its own, regardless of what you eat. Cholesterol also comes from the foods you eat. Cholesterol is found only in animal products. Foods from plants do not contain cholesterol. How does cholesterol travel in the blood? Cholesterol can't travel in the blood on its own. It's carried by special proteins. Combinations of cholesterol and protein carriers are called lipoproteins. There are two types of lipoproteins: Low-density lipoproteins (LDLs, or bad cholesterol) High-density lipoproteins (HDLs, or good cholesterol) Think of LDLs as delivery trucks and HDLs as garbage trucks. LDLs roller picker cholesterol from the liver and deliver it to cells. HDLs remove excess cholesterol from the blood and take it to the liver. A person's total cholesterol level is a combination of LDL and HDL cholesterol. What's so bad about cholesterol? Your body produces more than enough cholesterol on its own to stay healthy. Most Americans eat far too much cholesterol and fat, which can raise blood cholesterol levels. High levels of cholesterol can lead to heart disease. Excess LDL cholesterol in your blood gets deposited in arteries, the blood vessels that feed the heart and brain. These deposits can join with other substances to form plaque. Plaque is a thick, hard deposit in the blood vessel. The name for build-up of plaque in the arteries is atherosclerosis, or hardening of the arteries. Plaque can narrow the passageway inside the artery and pinch off the flow of blood to the heart muscle. How can I get my cholesterol level checked? Your health care provider can check your cholesterol level by taking a sample of blood. The blood sample will be sent to a lab for testing. The test will show your total cholesterol level. How much cholesterol is too much? A healthy cholesterol level depends on a variety of factors, including: Your level of HDL cholesterol compared with your level of LDL cholesterol Your total cholesterol Your number of risk factors for heart disease Your age and activity level Your current health status Be sure to discuss your test results with your health care provider. High total cholesterol does not always indicate an increased risk for heart disease. If you have high total cholesterol and high HDL cholesterol, you may not have an increased risk. Women, in particular, have higher HDL levels than men. For example, a woman with high HDL levels can have a total cholesterol level of 240 or over without an increased risk. Risk factors for heart disease Diabetes Smoking High blood pressure Poor blood cholesterol Obesity Sedentary lifestyle Age (men, age 45 and older; women, age 55 and older) Family history of heart disease How can I lower my cholesterol? Here are few tips for lowering cholesterol: Eat fewer fats and fried foods. Choose non-fat and low-fat versions of foods, if available. When eating fats, select unsaturated fats. (Unsaturated fats are liquid at room temperature - vegetable oils, for example. Avoid tropical oils, such as palm and coconut oil.) Choose fish and poultry more often than red meat. Limit total amount of meat, fish, poultry, and low-fat cheeses to 7 ounces or less each day. Exercise. If you smoke, quit. Lose extra weight. Eat more soluble fiber. Good sources are fruits, beans, peas, and oats. Limit egg yolks to no more than three per week. (Egg whites are fat-free.) Where can I learn more? National Heart, Lung, and Blood [place] [employer] Health Information Center Attention: Web Site [address] [address] [place], [address] [phone] TTY e-mail: For all correspondence, please indicate that your request results from your visit to the [employer] website, www.nhlbi.nih.gov/health. Copyright 5450-8260 [facility]. All rights reserved. This information is provided by the [facility] and is not intended to replace the medical advice of your doctor or health care provider. Please consult your health care provider for advice about a specific medical condition. For additional written health information, please contact the Health Information Center at the [facility] or toll-free extension [phone]. This document was last reviewed on: 2003 Eating to Lower Your Cholesterol It's fairly easy to lower your blood cholesterol. Here are some simple daily tips: Use up at least as many calories as you take in. Be physically active. Aim for at least 30 minutes of physical activity on most days of the week, if not all. Eat a variety of nutrient-rich foods. Eat a diet rich in vegetables and fruits. Choose whole-grain, high-fiber foods. Eat fish at least twice a week. Eat less of the nutrient-poor foods. Limit how much saturated fat, trans fat and cholesterol you eat. Choose lean meats and poultry without skin and prepare them without added saturated and trans fat. Select fat-free, 1 percent fat, and low-fat dairy products. Cut back on foods containing partially hydrogenated vegetable oils to reduce trans fat in your diet. Cut back on foods high in dietary cholesterol. Choose and prepare foods with little or no salt. If you drink alcohol, drink in moderation. Follow the [place] [employer] recommendations when you eat out. Read the nutrition facts label and ingredients list. Adapted from the [place] [employer]: www.americanheart.org Guidelines for low cholesterol, low triglyceride diets FOODS TO USE MEATS/FISH - Choose lean meats (chicken, turkey, veal, and nonfatty cuts of beef with excess fat trimmed; one serving = 3 oz. of cooked meat). Also, fresh or frozen fish, canned fish packed in water, and shellfish (lobster, crab, shrimp, oysters). Limit use to no more than one serving of one of these per week. Shellfish are high in cholesterol but low in saturated fat and should be used sparingly. Meats and fish should be broiled (reeder or oven) or baked on a rack. EGGS - Egg substitutes and egg whites (use freely). Egg yolks (limit two per week). FRUITS - Eat three servings of fresh fruit per day (1 serving = 1/2 cup). Be sure to have at least one citrus fruit daily. Frozen or canned fruit with no sugar or syrup added may be used. VEGETABLES - Most vegetables are not limited (see Foods to Avoid). One dark green (string beans, escarole) or one deep yellow (squash) vegetable is recommended daily. Cauliflower, broccoli, and celery, as well as potato skins, are recommended for their fiber content (fiber is associated with cholesterol reduction). It is preferable to steam vegetables, but they may be boiled, strained, or braised with polyunsaturated vegetable oil (see below). BEANS - Dried peas or beans (1 serving = 1/2 cup) may be used as a bread substitute. NUTS - Almonds, walnuts, and peanuts may be used sparingly (1 serving = 1 tablespoon). Use pumpkin, sesame, or sunflower seeds. BREADS/GRAINS - One roll or one slice of whole grain or enriched bread may be used, or three soda crackers or four pieces of ronel toast as a substitute. Spaghetti, rice or noodles (1/2 cup) or 1/2 large ear of corn may be used as a bread substitute. In preparing these foods, do not use butter or shortening; use soft margarine. Also use egg and sugar substitutes. Choose high fiber grains, such as oats and whole wheat. CEREALS - Use 1/2 cup of hot cereal or 1/4 cup of cold cereal per day. Add a sugar substitute if desired, with 99% fat-free or skim milk. MILK PRODUCTS - Always use 99% fat-free or skim milk, dairy products such as low-fat cheeses (bahena's, uncreamed diet cottage), low-fat yogurt, and powdered skim milk. FATS/OILS - Use soft (not stick) margarine, vegetable oils that are high in polyunsaturated fats (such as safflower, sunflower, soybean, corn, and cottonseed). Always refrigerate meat drippings to harden the fat and remove it before preparing gravies. DESSERTS/SNACKS - Limit to two servings per day; substitute each serving for a bread/cereal serving; ice milk or water sherbet (1/4 cup); unflavored gelatin or gelatin flavored with sugar substitute (1/2 cup); pudding prepared with skim milk (1/2 cup); egg white souffles; unbuttered popcorn (1 1/2 cups). Substitute carob for chocolate. BEVERAGES - Fresh fruit juices (limit to 4 oz. per day); black coffee; plain or herbal teas; soft drinks with sugar substitutes; club soda, preferably salt-free; cocoa made with skim milk or nonfat dried milk and water (sugar substitute added, if desired); clear broth. Alcohol - limit to two servings per day (see Foods to Avoid). MISCELLANEOUS - You may use the following freely: vinegar; spices; herbs; nonfat bouillon; mustard; Worcestershire sauce; soy sauce; flavoring essence. FOODS TO AVOID MEATS/FISH - Marbled beef, pork, powell, sausage and other pork products; fatty fowl (duck, goose); skin and fat of turkey and chicken; processed meats; luncheon meats (salami, bologna); frankfurters and fast food hambergers (they are loaded with fat); organ meats (kidneys, liver); canned fish packed in oil. EGGS - Limit egg yolks to two per week. FRUITS - Coconuts (rich in saturated fat) VEGETABLES - Avoid avocados. Starchy vegetables (potatoes, corn guadalupe beans, dried peas, beans) may be used only if they are substitutes for a serving of bread or cereal. (Baked potato skin, however, is desirable for its fiber content). BEANS - Commercial baked beans with sugar and/or pork added. NUTS - Avoid nuts. Limit peanuts and walnuts to one tablespoonful per day. BREADS/GRAINS - Any baked goods with shortening and/or sugar. Commercial mixes with dried eggs and whole milk. Avoid sweet rolls, doughnuts, breakfast pastries (Kosovan), and sweetened packaged cereals (the added sugar converts readily to triglycerides). MILK PRODUCTS - Whole milk and whole-milk packaged goods; cream; ice cream; whole-milk puddings, yogurt, or cheeses; nondairy cream substitutes. FATS/OILS - Butter, lard, animal fats, powell drippings, gravies, cream sauces, as well as palm and coconut oils. All these are high in saturated fats. Examine labels on cholesterol free products for hydrogenated fats. (These are oils that have been hardened into solids and in the process have become saturated.) DESSERTS/SNACKS - Fried snack foods like potato chips; chocolate; candies in general; jams, jellies, syrups; whole-milk puddings; ice cream and milk sherberts; hydrogenatd peanut butter. BEVERAGES - Sugared fruit juices and soft drinks; cocoa made with whole milk and/or sugar. When using alcohol (1 oz. liquor, 5 oz. beer, or 2 1/2 oz. dry table wine per serving), one serving must be substituted for one bread or cereal serving (limit two servings of alcohol per day). documented in this encounter [facility] 02-01-2022 History of Present illness Narrative 61 year old male with c/o: Current concerns: Woke Tuesday 3 weeks ago with shoulder pain after chain sawing. Unable to lift to side but can lift to front. 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 Essential hypertension (primary encounter diagnosis) HTN: Current meds: Metoprolol succinate ER 50 mg daily Lisinopril hydrochlorothiazide 20-25 mg 1 tablet daily Patient is compliant with meds No Monitors bp at home: No. If yes, readings: Denies side effects: No. Cough: yes, chronically Chest pain: No. Dyspnea: No. Edema: No. Palpitations: Yes. Syncope: Yes. Headache: No. Dizziness: No. Last 3 Encounter BP Readings: Date: BP: 02/26/2021 128/70 06/03/2020 130/82 03/04/2020 130/80 Last 2 Encounter Wt Readings: Date: Wt: 02/26/2021 78 kg (172 lb) 06/03/2020 78.5 kg (173 lb) Hyperlipidemia, mixed Hyperlipidemia: Current medication none Taking medication consistently n/a Observing low cholesterol high fiber diet No Muscle aches No Stomach complaints/ diarrhea No Last 2 Lipids: Component Latest Ref Rng & Units 03/05/2020 01/26/2022 Cholesterol, Total <200 mg/dL 180 215 (H) Triglyceride <150 mg/dL 143 198 (H) HDL Cholesterol >39 mg/dL 43 45 LDL Cholesterol <100 mg/dL 108 (H) 130 (H) Non HDL Cholesterol <130 mg/dL 137 (H) 170 (H) Fasting Time hrs 10 12 VLDL Cholesterol <30 mg/dL 29 40 (H) TC:HDL Ratio <5.10 4.19 4.78 LDL:HDL Ratio <2.54 2.51 2.89 (H) Prediabetes Diabetes Mellitus Type 2: Current medications: none Watching diet? No Physical Activity: Regular Hypoglycemic spells? No Any visual disturbance? No Chest pain? No New numbness, tingling or loss of sensation? No Any recent foot problems, sores or rashes? No Any recent or sudden weight loss? No Change in urination? No. If yes: Any recent illness? No Last eye exam: up to date. Last foot exam: up to date. HBA1C: Hemoglobin A1C (%) Date Value 01/26/2022 6.5 02/26/2021 5.9 03/05/2020 5.7 ) CMP: Glucose 119 01/26/2022 BUN 12 01/26/2022 Creatinine 1.02 01/26/2022 Sodium 133 01/26/2022 Potassium 3.9 01/26/2022 Chloride 97 01/26/2022 CO2 27 01/26/2022 Protein, Total 7.0 01/26/2022 Albumin 4.3 01/26/2022 Calcium 9.8 01/26/2022 Alkaline Phosphatase 132 01/26/2022 Bilirubin, Total 0.7 01/26/2022 AST 106 01/26/2022 ALT 143 01/26/2022 Last 2 Encounter Wt Readings: Date: Wt: 02/26/2021 78 kg (172 lb) 06/03/2020 78.5 kg (173 lb) Copd with chronic bronchitis (hcc) Pulmonary nodule, left Safety Scientist: none. Interval history: no new testing. Current medications: Fluticasone-salmeterol 2 50-50 MCG per dose 1 puff twice daily Albuterol HFA 2 puffs every 6 hours as needed Worsening shortness of breath: No. Has to sptop every once in awhile to catch breath. Cough: Yes. Wheezing: a little. Smokin PPD. Compliant with medications: Yes. Using rescue inhaler: 5 times a week max. Adjustment disorder with other symptom Current meds: Sertraline 50 mg daily Change in medication Yes. Currently in counseling? Yes. Any Medication side effects? No. Sleep disturbance? No- good. Racing thoughts? No. Interpersonal/ family conflicts? No. PHQ-9 02/26/2021 02/01/2022 Score 0 4 Gastroesophageal reflux disease without esophagitis History of colon polyps Current medication: Omeprazole 40 mg daily AC. Current symptoms: none. Last Mg level if on PPI chronically: 01/26/2022 Mg 1.9. Heartburn is controlled: No. Dysphagia: No. Bloody or black stools: No. Bowel changes: No. Every morning to a few times Last EGD and/or colonoscopy: 12/26/2017: 12/26/2017 EGD/colonoscopy: stomach: oxyntic -type gastric mucosa, - HP. Ascending colon: 7mm polyp ascending colon, bx = tubular adenoma: 5 year surveillance Alcohol abuse Elevated liver enzymes Current ETOH intake: Stopped drinking beer- stopped 4 weeks ago Drinking Twisted Tea 5-6 Component Latest Ref Rng & Units 02/26/2021 01/26/2022 Protein, Total 6.3 - 8.0 g/dL 7.1 7.0 Albumin 3.9 - 4.9 g/dL 4.2 4.3 Calcium 8.5 - 10.2 mg/dL 9.5 9.8 Bilirubin, Total 0.2 - 1.3 mg/dL 0.3 0.7 Alkaline Phosphatase 38 - 113 U/L 102 132 (H) AST 14 - 40 U/L 25 106 (H) Glucose 74 - 99 mg/dL 89 119 (H) BUN 9 - 24 mg/dL 16 12 Creatinine 0.73 - 1.22 mg/dL 0.82 1.02 Sodium 136 - 144 mmol/L 135 (L) 133 (L) Potassium 3.7 - 5.1 mmol/L 4.1 3.9 Chloride 97 - 105 mmol/L 100 97 CO2 22 - 30 mmol/L 23 27 Anion Gap 9 - 18 mmol/L 12 9 ALT 10 - 54 U/L 31 143 (H) eGFR- >60 eGFR-All Other Races . >60 eGFR >=60 mL/min/1.73m 83 HISTORIES FAMILY HISTORY Problem Relation Age of Onset Cancer Mother lung cancer, smoker Coronary Artery Disease Father smoker Diabetes Brother Diabetes Maternal Grandmother PAST MEDICAL HISTORY Diagnosis Date COPD (chronic obstructive pulmonary disease) (HCC) GERD (gastroesophageal reflux disease) History of colon polyps last colonscopy 2013 HTN (hypertension) Prediabetes Pulmonary nodule, left CT 10/15/15 3mm nodule CHEL Right upper lobe pneumonia 08/28/15 consolidated RUL PAST SURGICAL HISTORY Procedure Laterality Date COLONOSCOP W/ OR W/O [facility] SPEC Colonoscopy [facility]2017 Colonoscopy EGD W/O OR W/BRUSH/WASH 12/26/2017 EGD PAST SURGICAL HISTORY OF lumbar microdiscectomy, unsure what level. Social History Tobacco Use Smoking status: Every Day Packs/day: 0.30 Years: 40.00 Pack years: 12.00 Types: Cigarettes Smokeless tobacco: Current Types: Chew, Snuff Tobacco comments: 2 packs per week Substance Use Topics Alcohol use: Yes Alcohol/week: 20.0 standard drinks Types: 20 Cans of beer per week Drug use: No Types: Marijuana Comment: In recieved records it is noted that there was a history of marijuana use ACTIVE PROBLEM LIST Copd With Chronic Bronchitis (Hcc) Gastroesophageal Reflux Disease Without Esophagitis Pneumonia Due to Infectious Organism Elevated Blood Sugar Pulmonary Nodule, Left History of Colon Polyps Functional Dyspepsia Current Outpatient Medications Medication Sig Dispense Refill metoprolol succinate ER (TOPROL XL) 50 mg 24 hr tablet Take 1 tablet by mouth once daily. 30 tablet 5 lisinopril-hydroCHLOROthiazide (PRINZIDE, ZESTORETIC) 20-25 mg per tablet Take 1 tablet by mouth once daily. 30 tablet 5 fluticasone-salmeterol (ADVAIR, WIXELA) 250-50 mcg/dose inhaler Inhale 1 Puff as instructed twice daily. 1 Each 5 albuterol HFA (PROVENTIL HFA, VENTOLIN HFA) 90 mcg/actuation inhaler Inhale 2 Puffs as instructed every 6 hours as needed. 18 g 1 omeprazole (PRILOSEC) 40 mg capsule Take 1 capsule by mouth once daily. 90 capsule 3 sertraline (ZOLOFT) 50 mg tablet Take 1 tablet by mouth once daily. 90 tablet 1 meloxicam (MOBIC) 15 mg tablet Take 1 tablet by mouth once daily. With food. (Patient not taking: Reported on 03/04/2020 ) 20 tablet 0 No current facility-administered medications for this visit. SPIROMETRY Never done HIV SCREENING Never done ALPHA-1 ANTITRYPSIN DEFICIENCY SCREENING Never done PROSTATE CANCER SCREENING DISCUSSION Never done EXAM: BP 158/78 Pulse 84 Resp 20 Wt 78.5 kg (173 lb) SpO2 98% BMI 24.82 kg/m Pleasant tanned, well appearing adult man in no acute distress. Alert and oriented all spheres. Normal affect and cognition. Speech normal. No deficits to learning or comprehension. Skin warm, dry, pink to lips and nailbeds. Normal turgor. Respirations regular and unlabored. Junky cough intermittently. HEENT: NCAT. No scleral icterus or conjunctival injection. TM's clear. Nose and oropharynx free from injection or lesion. Oral membranes moist and pink. No cervical lymph nodes. Thyroid non-tender, no masses, or enlargement. Carotids pulses 2+/4+ without bruits. Chest is normal shape. Lungs are clear to all olivier with good air exchange through out. HRRR without murmur or gallop. No lifts, heaves, or rubs. Abd: flat,active, bowel sounds throughout. No pulsatile masses. Non-tender. No rebound, guarding, or peritoneal signs. No masses. Liver edge 2 fingers below RCM, smooth. No palpable spleen. Ronquillo's punch: negative. No flank pain. No inguinal or axillary lymphadenopathy. ASSESSMENT/PLAN: 1. Essential hypertension - ICD9: 401.9, ICD10: I10 (primary diagnosis) - suboptimal control - Continue current medication(s) - Recommended regular aerobic exercise. - Recommend home blood pressure monitoring, to bring results in on next visit - Follow up in 1 month for BP recheck. - reduce ETOH consumption - Goal of BP <130/80 2. Hyperlipidemia, mixed - ICD9: 272.2, ICD10: E78.2 - suboptimal control - Encouraged following a low fat, low cholesterol diet. - Discussed the benefits of regular aerobic exercise . 3. Prediabetes - ICD9: 790.29, ICD10: R73.03 - HGB A1C 4. COPD with chronic bronchitis (HCC) - ICD9: 491.20, ICD10: J44.9 - ALPHA 1 ANTITRYP PHEN/GENOTYPE 5. Pulmonary nodule, left - ICD9: 793.11, ICD10: R91.1 Stable over 2 years- doesn't want check as insurance gave hassle last time 6. Adjustment disorder with other symptom - ICD9: 309.89, ICD10: F43.29 Doing well 7. Gastroesophageal reflux disease without esophagitis - ICD9: 530.81, ICD10: K21.9 Controlled on med Reduce ETOH 8. History of colon polyps - ICD9: V12.72, ICD10: Z86.010 Surveillance 2022 9. Alcohol abuse - ICD9: 305.00, ICD10: F10.10 Discussed risks, liver enzymes, cirrhosis. Recommend cut by halves every 2 days until off and recheck lab in 3 months. - HEP REMOTE PANEL BL - US ABD RT UPPER QUADRANT 10. Elevated liver enzymes - ICD9: 790.5, ICD10: R74.8 - HEP REMOTE PANEL BL - US ABD RT UPPER QUADRANT - HEPATIC FUNCTION PNL - LIPASE BLD 11. Acute pain of right shoulder - ICD9: 719.41, ICD10: M25.511 Stretching, ice, moist heat- suspect over use from chain saw use Re-evaluate if not improving or worsening - XR SHOULDER GENERAL 3V OR MORE AP/TRUE AP/OTHER RIGHT Carine Canales PA-C Some of this note may have been copied and pasted for the purpose of history context and comparison. documented in this encounter [facility] 01-18-2022 Miscellaneous Notes Pt notified. He verbalized understanding. Agus Benavidez LPN Orders placed for fasting labs. Can please let patient know and close encounter. Ivis Pope APRN.MARIE Patient scheduled appt with pcp for 8-15. Asking a provider to please place lab orders and let patient know when they are ordered. Pended the requested labs. documented in this encounter [facility] 01-11-2022 Miscellaneous Notes Patient has been identified by name and date of : Yes Pending Prescriptions Disp Refills METOPROLOL SUCCINATE ER 50 MG TABLET,EXTENDED RELEASE 24 HR 30 tablet 5 Sig: Take 1 tablet by mouth once daily. ARVIN: No LISINOPRIL 20 MG-HYDROCHLOROTHIAZIDE 25 MG TABLET 30 tablet 5 Sig: Take 1 tablet by mouth once daily. ARVIN: No FLUTICASONE 250 MCG-SALMETEROL 50 MCG/DOSE BLISTR POWDR FOR INHALATION 1 Each 5 Sig: Inhale 1 Puff as instructed twice daily. ARVIN: No ALBUTEROL SULFATE HFA 90 MCG/ACTUATION AEROSOL INHALER 18 g 1 Sig: Inhale 2 Puffs as instructed every 6 hours as needed. ARVIN: No OMEPRAZOLE 40 MG CAPSULE,DELAYED RELEASE 90 capsule 3 Sig: Take 1 capsule by mouth once daily. ARVIN: No SERTRALINE 50 MG TABLET 90 tablet 1 Sig: Take 1 tablet by mouth once daily. ARVIN: No RX INSTRUCTIONS: Patient aware RX will be sent to pharmacy. No need to notify patient. Susi Mathews MA Alexsander: 02/2021 Nov appointment scheduled Last refill: 02/2021 Patient has been identified by name and date of : Yes Pending Prescriptions Disp Refills METOPROLOL SUCCINATE ER 50 MG TABLET,EXTENDED RELEASE 24 HR 30 tablet 5 Sig: Take 1 tablet by mouth once daily. ARVIN: No LISINOPRIL 20 MG-HYDROCHLOROTHIAZIDE 25 MG TABLET 30 tablet 5 Sig: Take 1 tablet by mouth once daily. ARVIN: No FLUTICASONE 250 MCG-SALMETEROL 50 MCG/DOSE BLISTR POWDR FOR INHALATION 1 Each 5 Sig: Inhale 1 Puff as instructed twice daily. ARVIN: No ALBUTEROL SULFATE HFA 90 MCG/ACTUATION AEROSOL INHALER 18 g 1 Sig: Inhale 2 Puffs as instructed every 6 hours as needed. ARVIN: No OMEPRAZOLE 40 MG CAPSULE,DELAYED RELEASE 90 capsule 3 Sig: Take 1 capsule by mouth once daily. ARVIN: No SERTRALINE 50 MG TABLET 90 tablet 1 Sig: Take 1 tablet by mouth once daily. ARVIN: No RX INSTRUCTIONS: Patient is out of medication and needs to get BERENICE Patient aware RX will be sent to pharmacy. No need to notify patient. Sandra Almeida Pss documented in this encounter [facility] 10-15-2021 Miscellaneous Notes Tried to reach pt and spouse by phone no mailboxes set up. Letter sent with information below. Medication sent to the pharmacy. Naya Hodgson LPN Patient stated he originally had wanted to go off of med, but after weaning feels the effects and would like to restart. Pharmacy verified in [facility] Patient has been identified by name and date of : Yes Patient aware RX will be sent to pharmacy. No need to notify patient. Patient phones for refill(s): Pending Prescriptions Disp Refills SERTRALINE 50 MG TABLET 90 tablet 3 Sig: Take 1 tablet by mouth once daily. ARVIN: No Date of last office visit : Visit date not found Date of next office visit : Visit date not found Last 2 Encounter Wt Readings: Date: Wt: 02/26/2021 78 kg (172 lb) 06/03/2020 78.5 kg (173 lb) Please advise. Kadie Covington Pss documented in this encounter [facility] Consult note Note Date/Time February 13, 2025 12:24pm [facility] Medical Records Department [address] [place] [address] Consultation - Surgical 02/13/25 1219 MR#: [id number] Acct: [id number] Name: COREY NEVILLE Rep #:[id number] : 1960 64 From: Pranay Light MD PCP: Dr. Raul Patrick MD Status:ADM I N Location: OR3 [id number] Assessment & Plan Assessment/Plan (1) Subungual hematoma of finger of left hand: (2) Osteomyelitis of finger of left hand: PLAN: Plan N.p.o. at midnight (possible nail removal and bone biopsy if exposed bone) Agree with admission and continued antibiotics Recommend infectious disease consultation and an MRI to see the extent of the osteomyelitis for surgical consideration/planning and for definitive diagnosis Plastics will follow HPI Consult Data Date of Consult: 02/13/25 HPI Narrative HPI Narrative: COREY NEVILLE is a 64-year-old ilhsn-bgrq-kdatjger male who presents to the emergency department after being referred by Dr. Patrick out of concern for osteomyelitis of the left thumb. Patient reports that he hit his left thumb approximately 1 month ago with a hammer and did not seek medical attention. He subsequently developed a subungual hematoma. He presented to Dr. Patrick's office a few days ago for thumb pain and swelling up to 2 weeks duration, and the x-raywas performed as an outpatient. He was placed on antibiotics which he reports improved the pain over the past couple of days (Bactrim). Today in the emergency department he reports sharp severe pain in the left thumb, worsened by movements and palpation and improved with rest and elevation. He has stable vital signs and is afebrile. He has a normal white blood cell count. Patient reports that he is a pack per day smoker and also drinks beer heavily (this information was relayed to the emergency department physician). [facility] Medical History HTN (hypertension) Home Medications ?Medication ?Instructions ?Recorded ?Last Taken ?Type albuterol sulfate 90 mcg/actuation inhalation 02/13/25 Unknown History aerosol inhaler atorvastatin 40 mg tablet 40 mg PO QHS 02/13/25 Unknow n History cephalexin 500 mg capsule 500 mg PO TID 02/13/25 Unkno wn History fluticasone 250 mcg-salmeterol 50 1 ea inhalation BID 02/13/25 Unknown History mcg/dose blistr powdr for inhalation metoprolol succinate 50 mg 50 mg PO DAILY 02/13/25 Unk nown History tablet,extended release 24 hr omeprazole 40 mg capsule,delayed 40 mg PO DAILY Unknown History release sertraline 50 mg tablet 50 mg PO DAILY 02/13/25 Unkn own History sulfamethoxazole 800 1 tab PO Q12.TCU 02/13/25 Un known History mg-trimethoprim 160 mg tablet tamsulosin 0.4 mg capsule 0.8 mg PO QHS 02/13/25 Unkno wn History valsartan 320 1 tab PO DAILY 02/13/25 Unkn own History mg-hydrochlorothiazide 25 mg tablet Allergy/AdvReac Type Severity Reaction Status Date / Time No Known Allergies Allergy Verified 02/13/25 09:56 Social History Smoking Status: Never smoker Physical Exam Narrative Left upper Extremity Inspection: Subungual hematoma. Distal finger swelling but no fluid collection within the fingertip pulp (there is no felon) . There is no active purulent drainage or any exposed bone on my exam (albeit nail left in place). Palpation: Tenderness to palpation of the distal fingertip Motor: Able to bend and extend all MP, PIP, and DIP joints/IP joints. No pain in the joint of the thumb Sensory: Intact to light touch on the radial and ulnar borders. Vascular: Finger tips are warm and well perfused with <2 second capillary refill. Lab / Micro Data 02/13/25 10:05 02/13/25 10:05 Labs: Laboratory Results - last 24 hr 02/13/25 10:05: WBC 6.6, RBC 4.97, Hgb 16.0, Hct 45.7, MCV 92.0, MCH 32.2 H, MCHC 35.0, RDW Std Deviation 39.0, RDW Coeff of Roseanna 11.5 L, Plt Count 211, MPV 8.3, Immature Gran % (Auto) 0.300, Neut % (Auto) 64.6, Lymph % (Auto) 22.3, [place]% (Auto) 9.3, Eos % (Auto) 2.7, Baso % (Auto) 0.8, Absolute Neuts (auto) 4.3, Absolute Lymphs (auto) 1.47, Nucleated RBC % 0, Sodium 134, Potassium 4.1, Chloride 98, Carbon Dioxide 22.1, Anion Gap 14, BUN 12, Creatinine 1.07, Estim Creat Clear Calc 68.83, Est GFR (MDRD) Non-Af 77, BUN/Creatinine Ratio 11.6, Glucose 129 H, Lactic Acid 1.5, Calcium 10.0, Total Bilirubin 0.72, AST 29, ALT 30, Alkaline Phosphatase 130 H, Total Protein 7.9, Albumin 4.5, Globulin 3.4, Albumin/Globulin Ratio 1.3 Imaging X-ray of the thumb reviewed and demonstrates lytic distal tuft lesion underneaththe zone of injury consistent with osteomyelitis Charges/Coding Visit Charges Office Visits / Consults: 92147 OV L3 New 30min 02/13/25 1224 <Electronically signed by Pranay Light MD> Cosigner Signature (if applicable): CC: Dr. Raul Patrick MD~ Signed [facility] Work Phone: Discharge summary Author Shad Lancaster [facility] Note Date/Time February 13, 2025 11 :46am [facility] Medical Records Department [address] [place] [address] Emergency Department Summary 02/13/25 MR#: [id number] Acct: [id number] Name: COREY NEVILLE Rep #:[id number] : 1960 64 From: Shad Lancaster MD PCP: Dr. Raul Patrick MD Status:REG E R Location: ED HPI History of Present Illness Chief Complaint: Upper Extremity Injury Narrative Narrative: 64-year-old male past medical history of hypertension, [id number], states that he hit his left thumb with a hammer approximately 1 month ago. He had a cut on his hand and underneath his nail that he never had evaluated. It healed, but he states that the tip of his left thumb is swollen, and whenever hehits it on something, he gets pain. He denies any fevers or chills, no nausea or vomiting, no other symptoms. 2 days ago he saw his primary care provider, Dr. Susi Patrick, who put him on 2 antibiotics, and had an x-ray performed as anoutpatient. He was called with the results today stating that he needed to cometo the emergency department for IV antibiotics. [facility] Medical History HTN (hypertension) Home Medications ?Medication ?Instructions ?Recorded ?Last Taken ?Type albuterol sulfate 90 mcg/actuation inhalation 02/13/25 Unknown History aerosol inhaler atorvastatin 40 mg tablet 40 mg PO QHS 02/13/25 Unknow n History cephalexin 500 mg capsule 500 mg PO TID 02/13/25 Unkno wn History fluticasone 250 mcg-salmeterol 50 1 ea inhalation BID 02/13/25 Unknown History mcg/dose blistr powdr for inhalation metoprolol succinate 50 mg 50 mg PO DAILY 02/13/25 Unk nown History tablet,extended release 24 hr omeprazole 40 mg capsule,delayed 40 mg PO DAILY Unknown History release sertraline 50 mg tablet 50 mg PO DAILY 02/13/25 Unkn own History sulfamethoxazole 800 1 tab PO Q12.TCU 02/13/25 Un known History mg-trimethoprim 160 mg tablet tamsulosin 0.4 mg capsule 0.8 mg PO QHS 02/13/25 Unkno wn History valsartan 320 1 tab PO DAILY 02/13/25 Unkn own History mg-hydrochlorothiazide 25 mg tablet Allergy/AdvReac Type Severity Reaction Status Date / Time No Known Allergies Allergy Verified 02/13/25 09:56 Social History Smoking Status: Never smoker ROS ROS ED ROS Narrative Review of systems positive for left thumb swelling and pain with palpation. No fevers or chills, no purulent drainage, denies other symptoms. EXAM Physical Exam Narrative Exam Narrative: Afebrile. Vital signs noted. Nontoxic-appearing. Cardiovascular examination of is a regular rate and rhythm. Lungs are clear to auscultation bilaterally. Abdomen is soft and nontender with positive bowel sounds. Focused examination of the left thumb does show a subungual hematoma covering most of the nail. There is noted swelling with minimal erythema. Minimal tenderness on the thumb pad. Patient states that with palpation it is more numb. Const Vital Signs: 02/13/25 09:55 02/13/25 09:59 Temperature 96.8 F L 96.8 F L Temperature Source Temporal Temporal Pulse Rate 80 80 Respiratory Rate 17 17 Blood Pressure 173/83 H 173/83 H Blood Pressure Mean 113 113 Pulse Ox 99 99 Oxygen Delivery Method Room Air Room Air MDM MDM MDM Narrative Medical decision making narrative: Differential diagnosis includes but not limited to sepsis versus osteomyelitis versus fracture. I reviewed the outpatient x-rays, and the radiology read states there is bony destruction with concern for osteomyelitis. I started the pursuit of sepsis workup including blood cultures and ordered vancomycin as wellas Zosyn. I had a discussion with the patient regarding admission for IV antibiotics as well as need for possible/probable amputation because of the osteomyelitis. Patient states that his is to have a colonoscopy later today. He is agreeable to workup and IV antibiotics, however he states he cannot be admitted today and wishes to sign out AGAINST MEDICAL ADVICE. I do feel he has the capacity to make this decision. He was told of the risk of permanent disability and as well as other endorgan failure from sepsis andloss of limb or life. He acknowledges an understanding. I did order blood workand blood cultures as well as laboratory work and 1 round of IV antibiotics. I informed his primary care provider, Dr. Patrick. He was told that he could change his mind at any time and return to the emergency department for admission and further management. I was informed by the RN, the patient had changes mind prior to discharge while receiving IV antibiotics. I discussed patient with Dr. Nichols for admission who requested that I speak with plastic/hand surgery Dr. Light. In discussion with him, he agrees with admission for IV antibiotics, MRI, and need for OR surgery. Disposition is admitted to the medical surgical floor in stable condition. History & Record Review Discussion w/independent historian: Patient Management Discussion w/another healthcare provider: Hospitalist (Dr. Nichols) and Nuclear Medicine Specialist (Dr. Light, Plastics/Hand) Discharge Plan Dx/Rx/DC Orders Clinical Impression: Osteomyelitis of finger of left hand, Subungual hematoma of finger of left hand, Hypertension Disposition Disposition: Acute Care [facility] What to do if you have Problems For any increased pain, shortness of breath, bleeding, nausea or vomiting, chestpain, or any unexpected problems, contact your Primary Care Provider. Call [facility] ([phone]) or report to the closest Emergency Room. Call 911 if necessary. 02/13/25 1146 <Electronically signed by Shad Lancaster MD> Cosigner Signature (if applicable): CC: Dr. Raul Patrick MD ~ Signed [facility] Work Phone: Evaluation note* Diagnosis Adjustment disorder with other symptom [facility] Diagnosis Essential hypertension Unspecified essential hypertension COPD with chronic bronchitis (HCC) Obstructive chronic bronchitis without exacerbation Adjustment disorder with other symptom [facility] Diagnosis Essential hypertension- Primary Unspecified essential hypertension Elevated blood sugar Other abnormal glucose Current use of proton pump inhibitor Encounter for long-term (current) use of other medications Hyperlipidemia, mixed Mixed hyperlipidemia Prediabetes Other abnormal glucose [facility]* Diagnosis Essential hypertension- Primary Unspecified essential hypertension Hyperlipidemia, mixed Mixed hyperlipidemia Prediabetes Other abnormal glucose COPD with chronic bronchitis (HCC) Obstructive chronic bronchitis without exacerbation Pulmonary nodule, left Solitary pulmonary nodule Adjustment disorder with other symptom Gastroesophageal reflux disease without esophagitis Esophageal reflux History of colon polyps Personal history of colonic polyps Alcohol abuse Alcohol abuse, unspecified Elevated liver enzymes Other nonspecific abnormal serum enzyme levels Acute pain of right shoulder [facility]* Diagnosis Alcohol abuse Alcohol abuse, unspecified Elevated liver enzymes Other nonspecific abnormal serum enzyme levels documented [facility] this [facility]* Diagnosis Adjustment disorder with other symptom documented [facility] this [facility]* Diagnosis Essential hypertension Unspecified essential hypertension documented in this encounter [facility] noteNo assessment information availableWooSt. Mary's Medical Center Work Phone: Evaluation note* Diagnosis Onset Date Resolution Status Admit Date Osteomyelitis of finger of l eft hand acute February 13 11:44am Subungual hematoma of finger of left hand acute February 13 11:44am Hypertension chronic February 13, 2025 11:44am [facility] Work Phone: Hospital Discharge instructionsAdditional Instructions Follow-up with your primary care provider for continued IV antibiotics. Should you change your mind, you can return to the emergency department at any time. By signing out AGAINST MEDICAL ADVICE, you do risk further continued infection of the bone, loss of limb or life, permanent disability or .[facility] Work Phone: [employer] for referral (narrative)* Diagnostic Procedure Only (Routine) - Pending Review Specialty Diagnoses / Procedures Referred By Contac t Referred To Contact XR IMAGING Diagnoses Acute pain of right shoulder Procedures XR SHOULDER GENERAL 3V OR MORE AP/TRUE AP/OTHER RIGHT RADEX SHOULDER COMPLETE MINIMUM 2 VIEWS Carine Canales PA-C [address] [phone] Xr Imaging Referral ID Status Reason Start Date Expiration Date Visits Requested Visits Authorized [id number] Pending Review Auto-Generat ed Referral 02/01/2022 03/03/2023 1 1 * Diagnostic Procedure Only (Routine) - Authorized Specialty Diagnoses / Procedures Referred By Contac t Referred To Contact US IMAGING Diagnoses Alcohol abuse Elevated liver enzymes Procedures US ABD RT UPPER QUADRANT US ABDOMINAL REAL TIME W/IMAGE LIMITED Carine Canales PA-C [address] [place] [address] Us Imaging Referral ID Status Reason Start Date Expiration Date Visits Requested Visits Authorized [id number] Authorized Auto-Generat ed Referral 02/01/2022 03/03/2023 1 1 [facility] for referral (narrative)* Diagnostic Procedure Only (Routine) - Closed Specialty Diagnoses / Procedures Referred By Contac t Referred To Contact US IMAGING Diagnoses Alcohol abuse Elevated liver enzymes Procedures US ABD RT UPPER QUADRANT US ABDOMINAL REAL TIME W/IMAGE LIMITED Carine Canales PA-C [address] [place] [address] Us Imaging Referral ID Status Reason Start Date Expiration Date V isits Requested Visits Authorized [id number] Closed Auto-Generate d Referral 02/01/2022 03/03/2023 1 1 [facility])No reason for referral information availableWBarnesville Hospital Work Phone: Advance Directives Documents on File Type Date Recorded 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 No February 13, 2025 10:09am Reason for Referral Specialty Diagnoses / Procedures Referred By Kushal patel Referred To Contact Diagnoses COPD with chronic bronchitis (HCC) Dexter Lassiter MD [address] [place] [address] Referral ID Status Reason Start Date Expiration Date Visits Re quested Visits Authorized [id number] Closed 1 1 Summary Purpose Family History No Family History Records FoundNo Family History Records Found Chief Complaint and Reason for Visit Chief Complaint Type 2 diabetes papito itus with hyperglycemia Chief Complaint Admit Date OSTEOMYELITIS OF THE THUMB February 13, 2025 11:44am OSTEOMYELITIS OF THE THUMB February 13, 2025 12:19pm Reason for Visit Admit Date Osteomyelitis of finger of left hand Aug ust 2024 11:44am Subungual hematoma of finger of left jensen d February 13, 2025 11:44am Hypertension February 13, 2025 11 :44am Additional Source Comments Source Comments (unrecognize d section and content) In the event this informatio n is protected by the Federal Confidentiality of Alcohol and Drug Abuse Patient Records regulations: The Federal rules restrict any use of the information to criminally investigate or prosecute any alcohol or drug abuse patient.[facility] the event this information is protected by the Federal Confidentiality of Alcohol and Drug Abuse Patient Records regulations: The Federal rules restrict any use of the information to criminally investigate or prosecute any alcohol or drug abuse patient.[facility] the event this information is protected by the Federal Confidentiality of Alcohol and Drug Abuse Patient Records regulations: The Federal rules restrict any use of the information to criminally investigate or prosecute any alcohol or drug abuse patient.[facility] the event this information is protected by the Federal Confidentiality of Alcohol and Drug Abuse Patient Records regulations: The Federal rules restrict any use of the information to criminally investigate or prosecute any alcohol or drug abuse patient.[facility] the event this information is protected by the Federal Confidentiality of Alcohol and Drug Abuse Patient Records regulations: The Federal rules restrict any use of the information to criminally investigate or prosecute any alcohol or drug abuse patient.[facility] the event this information is protected by the Federal Confidentiality of Alcohol and Drug Abuse Patient Records regulations: The Federal rules restrict any use of the information to criminally investigate or prosecute any alcohol or drug abuse patient.[facility] the event this information is protected by the Federal Confidentiality of Alcohol and Drug Abuse Patient Records regulations: The Federal rules restrict any use of the information to criminally investigate or prosecute any alcohol or drug abuse patient.[facility]In the event this information is protected by the Federal Confidentiality of Alcohol and Drug Abuse Patient Records regulations: The Federal rules restrict any use of the information to criminally investigate or prosecute any alcohol or drug abuse patient.[facility] the event this information is protected by the Federal Confidentiality of Alcohol and Drug Abuse Patient Records regulations: The Federal rules restrict any use of the information to criminally investigate or prosecute any alcohol or drug abuse patient.[facility]In the event this information is protected by the Federal Confidentiality of Alcohol and Drug Abuse Patient Records regulations: The Federal rules restrict any use of the information to criminally investigate or prosecute any alcohol or drug abuse patient.[facility]In the event this information is protected by the Federal Confidentiality of Alcohol and Drug Abuse Patient Records regulations: The Federal rules restrict any use of the information to criminally investigate or prosecute any alcohol or drug abuse patient.[facility]In the event this information is protected by the Federal Confidentiality of Alcohol and Drug Abuse Patient Records regulations: The Federal rules restrict any use of the information to criminally investigate or prosecute any alcohol or drug abuse patient.[facility] HospitalIn the event this information is protected by the Federal Confidentiality of Alcohol and Drug Abuse Patient Records regulations: The Federal rules restrict any use of the information to criminally investigate or prosecute any alcohol or drug abuse patient.[facility] HospitalIn the event this information is protected by the Federal Confidentiality of Alcohol and Drug Abuse Patient Records regulations: The Federal rules restrict any use of the information to criminally investigate or prosecute any alcohol or drug abuse patient.[facility] HospitalIn the event this information is protected by the Federal Confidentiality of Alcohol and Drug Abuse Patient Records regulations: The Federal rules restrict any use of the information to criminally investigate or prosecute any alcohol or drug abuse patient.[facility] Reason for Visit (unrecogniz ed section and content) Reason Onset Date Comments Refill Request 10/15/2021 Reason Onset Date Comments Refill Request 01/11/2022 Reason Comments Lab orders for appt Reason Comments Follow Up Pain RIGHT SHOULDER Pain (foot) burning Reason Comments Radiology US Specialty Diagnoses / Procedures Referred By Contac t Referred To Contact US IMAGING Diagnoses Alcohol abuse Elevated liver enzymes Procedures US ABD RT UPPER QUADRANT US ABDOMINAL REAL TIME W/IMAGE LIMITED Carine Canales PA-C [address] [place] [address] Us Imaging Referral ID Status Reason Start Date Expiration Date V isits Requested Visits Authorized [id number] Closed Auto-Generate d Referral 02/01/2022 03/03/2023 1 1 Reason Comments Results Reason Onset Date Comments Refill Request 04/21/2022 Reason Comments Patient Update Reason Comments Insurance Authorization Silver Reason Comments Refill Request Reason Onset Date Comments Refill Request 11/02/2022 Reason Onset Date Comments Refill Request 11/16/2022 Reason Onset Date Comments Refill Request 12/02/2022 Reason Onset Date Comments Refill Request 01/15/2023 Care Teams (unrecognized sec tion and content) Traffic Administrator Relationship Specialty Start Date End Date Carine Canales PA-C [address] [place] [address] PCP - General Family Practice 04/04/17 Traffic Administrator Relationship Specialty Start Date End Date Carine Canales PA-C [address] [place] [address] PCP - General Family Practice 04/04/17 Traffic Administrator Relationship Specialty Start Date End Date Carine Canales PA-C [address] [place] [address] PCP - General Family Practice 04/04/17 Traffic Administrator Relationship Specialty Start Date End Date Carine Canales PA-C [address] [place] [address] PCP - General Family Practice 04/04/17 Traffic Administrator Relationship Specialty Start Date End Date Carine Canales PA-C [address] [place] [address] PCP - General Family Practice 04/04/17 Traffic Administrator Relationship Specialty Start Date End Date Carine Canales PA-C [address] [place] [address] PCP - General Family Practice 04/04/17 Traffic Administrator Relationship Specialty Start Date End Date Carine Canales PA-C [address] [place] [address] PCP - General Family Medicine 04/04/17 Traffic Administrator Relationship Specialty Start Date End Date Carine Canales PA-C [address] [place], [place] [id number] PCP - General Family Medicine 04/04/17 Traffic Administrator Relationship Specialty Start Date End Date Carine Canales PA-C [address] [place], [place] [id number] PCP - General Family Medicine 04/04/17 Traffic Administrator Relationship Specialty Start Date End Date Carine Canales PA-C [address] [place], [place] [id number] PCP - General Family Medicine 04/04/17 Team Status: Active Member Role Status Dates Dr. Raul Patrick MD Primary Care Provider Active Team Status: Inactive Member Role Status Dates Dr. Raul Patrick MD Primary Care Provider, Attending Provider Active Team Status: Active Member Role/Relationship Status Dates Dr. Raul Patrick MD Primary Care Provider Active Team Status: Inactive Member Role/Relationship Status Dates Dr. Raul Patrick MD Primary Care Provider Active Start: December 19, 2024 End: December 19, 2024 Dr. Raul Patrick MD Attending Provider Active Start: December 19, 2024 End: December 19, 2024 Dr. Raul Patrick MD Referring Provider Active Start: December 19, 2024 End: December 19, 2024 Team Status: Active Member Role/Relationship Status Dates Dr. Raul Patrick MD Primary Care Provider Active Start: February 11, 2025 Dr. Raul Patrick MD Attending Provider Active Start: February 11, 2025 Dr. Raul Patrick MD Referring Provider Active Start: February 11, 2025 Team Status: Active Member Role/Relationship Status Dates Dr. Raul Patrick MD Primary Care Provider Active Start: February 13, 2025 Shad Lancaster MD Emergency Provider Active Star t: February 13, 2025 Dr. Eric Nichols MD Admit Provider Active Start: February 13, 2025 Dr. Eric Nichols MD Attending Provider Active Start: February 13, 2025 Team Status: Active Member Role/Relationship Status Dates Dr. Raul Patrick MD Primary Care Provider Active Start: February 13, 2025 Shad Lancaster MD Emergency Provider Active Star t: February 13, 2025 Dr. Eric Nichols MD Admit Provider Active Start: February 13, 2025 Dr. Eric Nichols MD Other Provider Active Start: February 13, 2025 Dr. Pranay Light MD Attending Provider Active Start: February 13, 2025 (unrecognized sect ion and content) No Status Records FoundNo Status Records Found INFORMATION SOURCE (unrecogn ized section and content) DATE CREATED AUTHOR 11/26/2022 [facility] DATE CREATED AUTHOR AUTHOR'S СЕРГЕЙIZ ATION 02/12/2025 [facility] Goals (unrecognized section and content) Goals may be documented in a n alternate sectionGoals may be documented in an alternate sectionGoals may be documented in an alternate sectionGoals may be documented in an alternate section FOR RECORDS PERTAINING TO PATIENTS WHO ARE OR HAVE BEEN ENROLLED IN A CHEMICAL DEPENDENCY/SUBSTANCEABUSE PROGRAM, SOME INFORMATION MAY BE OMITTED. This clinical summary was aggregated from multiple sources. Caution should be exercised in using it in the provision of clinical care. This summary normalizes information from multiple sources, and as a consequence, information in this document may materially change the coding, format and clinical context of patient data. In addition, data may be omitted in some cases. CLINICAL DECISIONS SHOULD BE BASED ON THE PRIMARY CLINICAL RECORDS. [facility] [employer] [facility]. provides no warranty or guarantee of the accuracy or completeness of information in this document.
[2025-02-13] MEDS: Vancomycin HCl 1,000 MG in 0.9% Normal Saline (250mL Bag) 250 ML 250 MG IV (23:56)
[2025-02-14] VITALS (16 sets, daily range): BP systolic 127–163; BP diastolic 67–92; PULSE 58–85; RESP 16–20; TEMP 36.4–36.9; O2SAT 94–99; BMI 55.3
[2025-02-14] MEDS: Piperacil/Tazobactam 3.375 GM in 0.9% Normal Saline (50mL MB+) 50 ML IV (04:45)
[2025-02-14 07:29] LABS: Hematocrit 43.0 % (40-54); Hemoglobin 14.7 g/dL (13.0-16.5); Immature Granulocytes Count 0.010 X10^3/uL (0.0-0.0); Mean Corp Hgb Conc 34.2 g/dL (32-36); Mean Corpuscular Volume 93.5 fL (80-94); Mean Platelet Vol. 8.9 fl (6.2-12.0); NRBC Flagged by Analyzer 0 % (0-5); Platelet Count 211 K/mm3 (150-450); RBC Distribution Width CV 11.6 % (11.6-14.6); RBC Distribution Width SD 39.9 fl (35.1-43.9); Red Blood Count 4.60 M/mm3 (4.6-6.2); White Blood Count 6.1 K/mm3 (4.4-11.0)
[2025-02-14 08:09] LABS: Anion Gap 12 (5-15); BUN 13 mg/dL (4-19); BUN/Creat Ratio 13.1 RATIO (10-20); Calcium,Total 9.3 mg/dL (7.6-11.0); Carbon Dioxide 22.5 mmol/L (21.0-32.0); Chloride 102 mmol/L (98-108); Estimated Creatinine Clearance 72.20 ml/min (50-250); Glucose 140 mg/dL (70-99); Potassium 4.2 mmol/L (3.3-5.1)
--- NOTE | 2025-02-14 08:28 | PN.SURG_ITS ---
Subjective Subjective Doing about the same this morning. Persistent pain. MRI confirming osteomyelitis extensively on the distal phalanx. Objective Data Objective Data Vital Signs: Vital Signs Temp Pulse Resp BP Pulse Ox O2 Del Method 98.1 F 78 20 H 149/74 H 99 Room Air 02/14/25 04:41 02/14/25 04:41 02/14/25 04:41 02/14/25 04:41 02/14/25 04:41 02/14/25 04:41 Oxygen Delivery Method Room Air Weight: 165 lb 3.2 oz Body Mass Index (BMI) 24.3 Intake & Output: Intake and Output for Last 24 Hours 02/12/25 02/13/25 02/14/25 23:59 23:59 23:59 Intake Total 325 / 825 820 / 820 Balance 325 / 825 820 / 820 Lab / Micro Data 02/14/25 06:01 02/14/25 06:01 Labs: Laboratory Results - last 24 hr 02/13/25 10:05: WBC 6.6, RBC 4.97, Hgb 16.0, Hct 45.7, MCV 92.0, MCH 32.2 H, MCHC 35.0, RDW Std Deviation 39.0, RDW Coeff of Roseanna 11.5 L, Plt Count 211, MPV 8.3, Immature Gran % (Auto) 0.300, Neut % (Auto) 64.6, Lymph % (Auto) 22.3, [place] % (Auto) 9.3, Eos % (Auto) 2.7, Baso % (Auto) 0.8, Absolute Neuts (auto) 4.3, Absolute Lymphs (auto) 1.47, Nucleated RBC % 0, Sodium 134, Potassium 4.1, Chloride 98, Carbon Dioxide 22.1, Anion Gap 14, BUN 12, Creatinine 1.07, Estim Creat Clear Calc 68.83, Est GFR (MDRD) Non-Af 77, BUN/Creatinine Ratio 11.6, G lucose 129 H, Lactic Acid 1.5, Calcium 10.0, Total Bilirubin 0.72, AST 29, ALT 30, Alkaline Phosphatase 130 H, Total Protein 7.9, Albumin 4.5, Globulin 3.4, Albumin/Globulin Ratio 1.3 02/14/25 06:01: WBC 6.1, RBC 4.60, Hgb 14.7, Hct 43.0, MCV 93.5, MCH 32.0, MCHC 34.2, RDW Std Deviation 39.9, RDW Coeff of Roseanna 11.6, Plt Count 211, MPV 8.9, Immature Gran % (Auto) 0.200, Neut % (Auto) 61.8, Lymph % (Auto) 22.8, [place] % (Auto) 9.6, Eos % (Auto) 4.8, Baso % (Auto) 0.8, Absolute Neuts (auto) 3.8, Absolute Lymphs (auto) 1.38, Nucleated RBC % 0, Sodium 136, Potassium 4.2, Chloride 102, Carbon Dioxide 22.5, Anion Gap 12, BUN 13, Creatinine 1.02, Estim Creat Clear Calc 72.20, Est GFR (MDRD) Non-Af 82, BUN/Creatinine Ratio 13.1, G lucose 140 H, Calcium 9.3 Radiography Diagnostic Testing: Radiology Impression Upper Extremity MRI 02/13/25 12:48 IMPRESSION: Findings concerning for osteomyelitis of the left thumb distal phalanx. Reading Location: [place] [address] Physical Exam Narrative Left upper Extremity Inspection: Subungual hematoma. Distal finger swelling but no fluid collection within the fingertip pulp (there is no felon) . There is no active purulent drainage or any exposed bone on my exam (albeit nail left in place). Palpation: Tenderness to palpation of the distal fingertip Motor: Able to bend and extend all MP, PIP, and DIP joints/IP joints. No pain in the joint of the thumb Sensory: Intact to light touch on the radial and ulnar borders. Vascular: Finger tips are warm and well perfused with <2 second capillary refill. Assessment & Plan Assessment/Plan (1) Subungual hematoma of finger of left hand: (2) Osteomyelitis of finger of left hand: PLAN: Plan Agree with broad-spectrum antibiotics and ID consultation I talked to the patient on rounds this morning about removal of the thumbnail and debridement of any necrotic wound bed underneath the nail plate. This would include bone cultures. Patient is in agreement. He understands the risks, benefits, and alternatives of the operation. He understands that there is a significant risk that he loses some of his thumb secondary to extensive osteomyelitis and bony destruction. He understands that debridement today may assist with treatment but definitive treatment will certainly require long-term IV antibiotics but also potential for revision amputation. Patient understands the risk of bleeding, the risk of infection, damage to surrounding structures, problems with anesthesia, as well as the likelihood of a wound requiring wound care postoperatively. Continue n.p.o. Plan for MAC local thumb I&D today Plastics will follow
--- NOTE | 2025-02-14 08:48 | PCM.PN.HOSP ---
Subjective Subjective Doing well, no issues overnight. MRI is positive for distal phalanx osteomyelitis, plan for surgery today Objective Data Objective Data Vital Signs: Vital Signs Temp Pulse Resp BP Pulse Ox O2 Del Method 98.3 F 81 18 137/81 H 97 Room Air 02/14/25 08:44 02/14/25 08:44 02/14/25 08:44 02/14/25 08:44 02/14/25 08:44 02/14/25 08:44 Oxygen Delivery Method Room Air Weight: 165 lb 3.2 oz Body Mass Index (BMI) 24.3 Intake & Output: Intake and Output for Last 24 Hours 02/13/25 02/14/25 02/15/25 03:59 03:59 03:59 Intake Total 1145 / 1145 Balance 1145 / 1145 Lab / Micro Data 02/14/25 06:01 02/14/25 06:01 Labs: Laboratory Results - last 24 hr 02/13/25 10:05: WBC 6.6, RBC 4.97, Hgb 16.0, Hct 45.7, MCV 92.0, MCH 32.2 H, MCHC 35.0, RDW Std Deviation 39.0, RDW Coeff of Roseanna 11.5 L, Plt Count 211, MPV 8.3, Immature Gran % (Auto) 0.300, Neut % (Auto) 64.6, Lymph % (Auto) 22.3, [place] % (Auto) 9.3, Eos % (Auto) 2.7, Baso % (Auto) 0.8, Absolute Neuts (auto) 4.3, Absolute Lymphs (auto) 1.47, Nucleated RBC % 0, Sodium 134, Potassium 4.1, Chloride 98, Carbon Dioxide 22.1, Anion Gap 14, BUN 12, Creatinine 1.07, Estim Creat Clear Calc 68.83, Est GFR (MDRD) Non-Af 77, BUN/Creatinine Ratio 11.6, Glucose 129 H, Lactic Acid 1.5, Calcium 10.0, Total Bilirubin 0.72, AST 29, ALT 30, Alkaline Phosphatase 130 H, Total Protein 7.9, Albumin 4.5, Globulin 3.4, Albumin/Globulin Ratio 1.3 02/14/25 06:01: WBC 6.1, RBC 4.60, Hgb 14.7, Hct 43.0, MCV 93.5, MCH 32.0, MCHC 34.2, RDW Std Deviation 39.9, RDW Coeff of Roseanna 11.6, Plt Count 211, MPV 8.9, Immature Gran % (Auto) 0.200, Neut % (Auto) 61.8, Lymph % (Auto) 22.8, [place] % (Auto) 9.6, Eos % (Auto) 4.8, Baso % (Auto) 0.8, Absolute Neuts (auto) 3.8, Absolute Lymphs (auto) 1.38, Nucleated RBC % 0, Sodium 136, Potassium 4.2, Chloride 102, Carbon Dioxide 22.5, Anion Gap 12, BUN 13, Creatinine 1.02, Estim Creat Clear Calc 72.20, Est GFR (MDRD) Non-Af 82, BUN/Creatinine Ratio 13.1, Glucose 140 H, Calcium 9.3 Radiography Diagnostic Testing: Radiology Impression Upper Extremity MRI 02/13/25 12:48 IMPRESSION: Findings concerning for osteomyelitis of the left thumb distal phalanx. Reading Location: [place] [address] Physical Exam Narrative General: Alert, Oriented x3, Cooperative, No apparent distress HEENT: Atraumatic, PERRLA, EOMI, Normocephalic Oral: Moist Mucosa Neck: Supple, No JVD Lungs: Clear to auscultation, Normal air movement, No rhonchi, No wheeze, No rales Cardiovascular: Regular rate, Regular Rhythm, Normal S1, Normal S2, No murmurs Abdomen: Soft, Non Tender, Non-Distended, No Hepato-splenomegaly Extremities: No edema, Capillary Refill Less than 3 Seconds Skin: No rashes, No breakdown Musculoskeletal: Left thumb is swollen and red with subungual hematoma Neurological: No focal neurological deficits, Motor Exam 5/5 strength throughout, Sensory exam intact to light touch and pain Psych/Mental Status: Normal Affect, Appropriate Assessment & Plan Assessment/Plan (1) Subungual hematoma of finger of left hand: (2) Osteomyelitis of finger of left hand: PLAN: Plan 1. Subungual hematoma with osteomyelitis of the left hand ? MRI with osteomyelitis ? Appreciate plastic surgery's assistance ? Continue with IV Zosyn and vancomycin ? Given osteomyelitis on the MRI plan for surgery today will consult ID for outpatient antibiotic recommendations 2. Essential HTN/HLD ? Blood pressure stable ? Continue with his home blood pressure medications ? Will monitor and make adjustments as necessary ? Continue Lipitor 3. Anxiety/depression/alcohol abuse ? Stable ? Continue with his home medications ? Continue with CIWA protocol so far does not require medications and is not interested in quitting 4. GERD ? Stable ? 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 Continue with Flomax DVT: Lovenox Charges/Coding Visit Charges Inpatient E&M: 45184 Subs Hosp L2
[2025-02-14] MEDS: Metoprolol(XL)Succ 50 MG Tablet PO (08:52)
--- NOTE | 2025-02-14 10:12 | PCM.CONS.GEN ---
Assessment & Plan Assessment/Plan (1) Osteomyelitis of finger of left hand: PLAN: OR planned for today with Dr. Light. On empiric vanc/zosyn. Will narrow to vanc/ceftriaxone. Will follow, thank you HPI Consult Data Date of Consult: 02/14/25 HPI Narrative Reason for Consultation: osteo HPI Narrative: COREY TIRADO, is a 64 M who hit L thumb with a hammer about a month ago. Developed subungual hematoma, progressive pain and swelling over past two weeks. Saw PCP, started on bactrim and keflex, took for about 2.5 days, then came to ED 02/13. Admitted on vanc/zosyn, now OR planned. No drainage, no fever. He is R handed. Full ROS performed and neg except as noted above. [facility] Medical History HTN (hypertension) Home Medications ?Medication ?Instructions ?Recorded ?Last Taken ?Type albuterol sulfate 90 mcg/actuation 2 puff inhalation Q4H PRN copd 02/13/25 Unknown History aerosol inhaler atorvastatin 40 mg tablet 40 mg PO QHS 02/13/25 Unknown History cephalexin 500 mg capsule 500 mg PO TID 02/13/25 Unknown History fluticasone 250 mcg-salmeterol 50 1 ea inhalation BID 02/13/25 Unknown History mcg/dose blistr powdr for inhalation metoprolol succinate 50 mg 50 mg PO DAILY 02/13/25 Unknown History tablet,extended release 24 hr omeprazole 40 mg capsule,delayed 40 mg PO DAILY 02/13/25 Unknown History release sertraline 50 mg tablet 50 mg PO DAILY 02/13/25 Unknown History sulfamethoxazole 800 1 tab PO Q12.TCU 02/13/25 Unknown History mg-trimethoprim 160 mg tablet tamsulosin 0.4 mg capsule 0.8 mg PO QHS 02/13/25 Unknown History valsartan 320 1 tab PO DAILY 02/13/25 Unknown History mg-hydrochlorothiazide 25 mg tablet Allergy/AdvReac Type Severity Reaction Status Date / Time No Known Allergies Allergy Verified 02/13/25 09:56 Family History (Updated 02/13/25 @ 13:[address] Eric Nichols MD) Other Diabetes Surgical History (Updated 02/13/25 @ 13:[address] Eric Nichols MD) History of back surgery Social History (Updated 02/13/25 @ 13:[address] Eric Nichols MD) Smoking Status: Current every day smoker tobacco type: cigarettes alcohol intake: current alcohol intake frequency: 3 or more drinks per day Alcohol type: beer Physical Exam Const alert, oriented x3 and no apparent distress General Appearance: cooperative HEENT normocephalic and head/scalp atraumatic Eyes PERRL and EOMs intact bilaterally Neck supple and No nodes Resp normal air movement and clear to auscultation bilaterally Cardio regular rate and regular rhythm GI soft to palpation, non-tender and non-distended Extremity General Extremity: Negative for edema Skin Skin Narrative: L thumb with swelling, limited ROM, dark subungual hematoma Neuro CN's II-XII intact bilaterally Lab / Micro Data Attestation: I reviewed the patient's lab results. 02/14/25 06:01 02/14/25 06:01 Labs: Laboratory Results - last 24 hr 02/13/25 10:05: WBC 6.6, RBC 4.97, Hgb 16.0, Hct 45.7, MCV 92.0, MCH 32.2 H, MCHC 35.0, RDW Std Deviation 39.0, RDW Coeff of Roseanna 11.5 L, Plt Count 211, MPV 8.3, Immature Gran % (Auto) 0.300, Neut % (Auto) 64.6, Lymph % (Auto) 22.3, [place] % (Auto) 9.3, Eos % (Auto) 2.7, Baso % (Auto) 0.8, Absolute Neuts (auto) 4.3, Absolute Lymphs (auto) 1.47, Nucleated RBC % 0, Sodium 134, Potassium 4.1, Chloride 98, Carbon Dioxide 22.1, Anion Gap 14, BUN 12, Creatinine 1.07, Estim Creat Clear Calc 68.83, Est GFR (MDRD) Non-Af 77, BUN/Creatinine Ratio 11.6, Glucose 129 H, Lactic Acid 1.5, Calcium 10.0, Total Bilirubin 0.72, AST 29, ALT 30, Alkaline Phosphatase 130 H, Total Protein 7.9, Albumin 4.5, Globulin 3.4, Albumin/Globulin Ratio 1.3 02/14/25 06:01: WBC 6.1, RBC 4.60, Hgb 14.7, Hct 43.0, MCV 93.5, MCH 32.0, MCHC 34.2, RDW Std Deviation 39.9, RDW Coeff of Roseanna 11.6, Plt Count 211, MPV 8.9, Immature Gran % (Auto) 0.200, Neut % (Auto) 61.8, Lymph % (Auto) 22.8, [place] % (Auto) 9.6, Eos % (Auto) 4.8, Baso % (Auto) 0.8, Absolute Neuts (auto) 3.8, Absolute Lymphs (auto) 1.38, Nucleated RBC % 0, Sodium 136, Potassium 4.2, Chloride 102, Carbon Dioxide 22.5, Anion Gap 12, BUN 13, Creatinine 1.02, Estim Creat Clear Calc 72.20, Est GFR (MDRD) Non-Af 82, BUN/Creatinine Ratio 13.1, Glucose 140 H, Calcium 9.3 Imaging Radiology Impression Upper Extremity MRI 02/13/25 12:48 IMPRESSION: Findings concerning for osteomyelitis of the left thumb distal phalanx. Reading Location: [place] [address]
[2025-02-14] MEDS: Vancomycin HCl 1,000 MG in 0.9% Normal Saline (250mL Bag) 250 ML 250 MG IV (10:27)
[2025-02-14] MEDS: Ceftriaxone 2 GM in 0.9% Normal Saline (50mL MB+) 50 ML IV (11:14)
--- NOTE | 2025-02-14 12:30 | CASEMGMT ---
Social Work SW attempted to see the patient for an assessment. Patient was not in room due to having a procedure. NNAMDI Beckett
--- NOTE | 2025-02-14 12:56 | PRE.ANES_ITS ---
ASA Classification* ASA Classification ASA Classification: 3 Assessment & Plan Anesthesia* Anesthesia Assessment Anesthesia Assessment: Discussed sedation and/or anesthesia options, risks, benefits, and alternatives with patient/parents/legal guardian/POA. Questions invited. The patient/parents/legal guardian/POA seems to understand and agrees to proceed with anesthesia plan. Reviewed the physical assessment, medical history, allergy history and patient home medications list prior to surgery/procedure/anesthetic and documented any changes. Performed airway and anesthesia risk assessments. Anesthesia Type Anesthesia Type: MAC History Source History Obtained from:: Patient and Chart Anesthesia Focused Assessment* Temperature: 98.5 F Pulse Rate: 64 Blood Pressure: 140/92 Respiratory Rate: 16 Pulse Ox: 94 Oxygen Delivery Method: Room Air Airway Assessment Mouth opens: >3 cm Mallampati Score: I Teeth Condition: Dentures (Patient has full upper plate. It will come out.) Neck Range of motion (ROM): Limited ROM (Somewhat Decreased) Labs Anesthesia Preop lab: CBC WBC 6.1 K/mm3 (4.4-11.0) 02/14/25 06:01 02/14/25 RBC 4.60 M/mm3 (4.6-6.2) 02/14/25 06:01 02/14/25 Hgb 14.7 g/dL (13.0-16.5) 02/14/25 06:01 02/14/25 Hct 43.0 % (40-54) 02/14/25 06:01 02/14/25 Plt Count 211 K/mm3 (150-450) 02/14/25 06:01 02/14/25 CHEMISTRY Potassium 4.2 mmol/L (3.3-5.1) 02/14/25 06:01 02/14/25 Sodium 136 mmol/L (133-145) 02/14/25 06:01 02/14/25 BUN 13 mg/dL (4-19) 02/14/25 06:01 02/14/25 Creatinine 1.02 mg/dL (0.70-1.20) 02/14/25 06:01 02/14/25 Glucose 140 mg/dL (70-99) H 02/14/25 06:01 02/14/25 TSH 1.660 uIU/mL (0.300-4.200) 12/19/24 10:20 07/08/14 COAG Pre-Assessment Diagnosis/Proposed Procedure Planned Operative Procedure(s): Incision and drainage of left thumb. Anesthesia History Anesthesia History - injection maintenance technician: Anesthesia History - injection maintenance technician Hx Hospitalization Any Problems With Anesthesia No 02/13/25 19:50 Cholinesterase deficiency No 02/13/25 19:50 You/Your Family Experience No 02/13/25 19:50 fever (hyperthermia) with Relationship Recent Exposure to Contagious No 02/13/25 19:50 Disease Does patient have nerve No 02/13/25 19:50 stimulator Patient instructed to have device shut off --Does patient have Pacemaker No 02/14/25 12:35 or ICD? When Was Last Pacemaker Check QUESTION #4 FULL TEXT: You/Your Family Experience fever (hyperthermia) with Anesthesia Last Oral Intake Last Oral intake: Last Oral Intake NPO since 20:00 02/14/25 12:35 Meds taken in AM with sips of No 02/14/25 12:35 water? Meds patient instructed to take am of surgery Any additional information?: Yes Meds taken in AM with sips of water?: Yes Meds patient instructed to take am of surgery: Metoprolol, Tylenol PONV PONV - injection maintenance technician: PONV - injection maintenance technician Female HX of Motion Sickness HX of N/V After Surgery Non-Smoker Duration of Surgery greater than 60 minutes Number of Risk Factors PONV Score Height & Weight Height & Weight: Anesthesia: Height & Weight Height 5 ft 9 in 02/14/25 12:35 Weight: 170 kg 02/14/25 12:35 Body Mass Index (BMI) 55.3 02/14/25 12:35 Respiratory Assessment Respiratory Assessment - injection maintenance technician: Respiratory Tract Infection Hx - injection maintenance technician Hx Respiratory Tract Infection No 02/13/25 19:50 STOP Sleep Apnea STOP Sleep Apnea - injection maintenance technician: STOP Sleep Apnea - injection maintenance technician Hx Hypertension Yes 02/13/25 12:45 Hx Sleep Apnea No 02/13/25 12:45 CPAP BIPAP Do you snore loudly (louder No 02/13/25 12:45 than talking or can be heard Do you often feel tired/ No 02/13/25 12:45 fatigued/ sleepy during daytime? Has anyone observed you stop Yes 02/13/25 12:45 breathing during sleep? STOP Results Positive 02/13/25 12:45 QUESTION #5 FULL TEXT : Do you snore loudly (louder than talking or can be heard through closed doors)? Tobacco Use History Tobacco Use History - injection maintenance technician: Tobacco Use History - injection maintenance technician Tobacco Use Smoking Status Current every day smoker 02/13/25 15:19 Hx Tobacco Use Yes 02/13/25 12:45 Years Smoking Packs Smoked per Day Smoking Cessation Date was within the last 15 years Hx Smoking Cessation Date Hx Smoking Cessation Counseling Hematologic Medial History Hematologic Hx - injection maintenance technician: Hematologic Medical Hx - obstetric anaesthetist Hx of Blood Transfusion No 02/13/25 12:45 Hx of Transfusion in last 3 No 02/13/25 12:45 Months Date of Last Transfusion (if within last 3 months) Ever experience any problems No 02/13/25 12:45 with transfusion(s)? Specify any problems Hx of Preganancy in last 3 N/A 02/13/25 12:45 Months Nurse Filling Out Transfusion KMESSENGE 02/13/25 12:45 & Questions: Date: 02/13/25 02/13/25 12:45 Time: 12:57 02/13/25 12:45 Patient unable to answer at this time (ie. confused, unrespo /Reproduction History /Reproductive History - injection maintenance technician: /Reproductive Hx- injection maintenance technician Hx Now No 02/13/25 19:50 Gestational Age (in weeks): EDC: Hx Hx Para Hx Section SAB No 02/13/25 19:50 Active Medications Active Medications: Current Medications Generic Name Dose Route Start Last Admin Trade Name Freq PRN Reason Stop Dose Admin Acetaminophen 650 mg 02/13/25 19:39 02/13/25 21:11 Acetaminophen 325 Mg Tablet PO 650 mg Q6H PRN PRN Administration Pain Score 1-5 Atorvastatin Calcium 40 mg 02/13/25 22:00 02/13/25 21:11 Atorvastatin Calcium 40 Mg Tablet PO 40 mg QHS CANDY Administration Enoxaparin Sodium 40 mg 02/14/25 10:00 02/14/25 08:50 Enoxaparin 40 Mg/0.4 Ml Syringe SC Not Given DAILY CANDY Hydrochlorothiazide 25 mg 02/14/25 10:00 02/14/25 08:50 Hydrochlorothiazide 25 Mg Tablet PO Not Given DAILY CANDY Vancomycin IV-PHARMACY TO DOSE 500 mls @ 250 mls/hr 02/13/25 12:48 1 each/ Sodium Chloride IV X1 PRN Rx to Dose Protocol Sodium Chloride 250 mls @ 15 mls/hr 02/13/25 12:55 02/13/25 21:12 IV 15 mls/hr .[id number] PRN Administration Saline Flush Sodium Chloride 250 mls @ 15 mls/hr 02/13/25 12:55 IV .[id number] PRN Additional IVPB Infusion Vancomycin HCl 1,000 mg/ 270 mls @ 250 mls/hr 02/13/25 23:00 02/14/25 11:34 Sodium Chloride IV Infused Q12H CANDY Infusion Ceftriaxone Sodium 2 gm/ 50 mls @ 100 mls/hr 02/14/25 11:00 02/14/25 11:47 Sodium Chloride IV Infused Q24 CANDY Infusion Losartan Potassium 100 mg 02/14/25 10:00 02/14/25 08:50 Losartan Potassium 100 Mg Tablet PO Not Given DAILY CANDY Metoprolol Succinate 50 mg 02/14/25 10:00 02/14/25 08:52 Metoprolol(Xl)Succ 50 Mg Tablet PO 50 mg DAILY CANDY Administration Protocol Oxycodone HCl 5 mg 02/13/25 19:44 Oxycodone 5 Mg Tablet PO Q6H PRN PRN Pain Score 6-10 Pantoprazole Sodium 40 mg 02/14/25 10:00 02/14/25 08:51 Pantoprazole Sodium 40 Mg Tablet PO Not Given DAILY CANDY Sertraline HCl 50 mg 02/14/25 10:00 02/14/25 08:51 Sertraline 50 Mg Tablet PO Not Given DAILY CANDY Sodium Chloride 10 - 40 ml 02/13/25 12:55 02/13/25 21:11 0.9% Saline Lock 10 Ml Syringe IV 10 ml UD PRN Administration SALINE FLUSH Tamsulosin HCl 0.8 mg 02/13/25 22:00 02/13/25 21:13 Tamsulosin Hcl 0.4 Mg Capsule PO 0.8 mg QHS CANDY Administration Vancomycin Protocol 1 lab 02/14/25 21:30 Vancomycin Trough/Random Due MC 02/14/25 23:30 DAILY CANDY [facility] Medical History (Updated 02/14/25 @ 13:[address] Wing Pierre MD) COPD (chronic obstructive pulmonary disease) HTN (hypertension) Home Medications ?Medication ?Instructions ?Recorded ?Last Taken ?Type albuterol sulfate 90 mcg/actuation 2 puff inhalation Q 4H PRN copd 02/13/25 Unknown History aerosol inhaler atorvastatin 40 mg tablet 40 mg PO QHS 02/13/25 Unknow n History cephalexin 500 mg capsule 500 mg PO TID 02/13/25 Unkno wn History fluticasone 250 mcg-salmeterol 50 1 ea inhalation BID 02/13/25 Unknown History mcg/dose blistr powdr for inhalation metoprolol succinate 50 mg 50 mg PO DAILY htn 02/13/25 02/14/25 History tablet,extended release 24 hr omeprazole 40 mg capsule,delayed 40 mg PO DAILY Unknown History release sertraline 50 mg tablet 50 mg PO DAILY 02/13/25 Unkn own History sulfamethoxazole 800 1 tab PO Q12.TCU 02/13/25 Un known History mg-trimethoprim 160 mg tablet tamsulosin 0.4 mg capsule 0.8 mg PO QHS 02/13/25 Unkno wn History valsartan 320 1 tab PO DAILY 02/13/25 Unkn own History mg-hydrochlorothiazide 25 mg tablet Allergy/AdvReac Type Severity Reaction Status Date / Time No Known Allergies Allergy Verified 02/13/25 09:56 Family History Other Diabetes Surgical History History of back surgery Social History Smoking Status: Current every day smoker tobacco type: cigarettes alcohol intake: current alcohol intake frequency: 3 or more drinks per day Alcohol type: beer Review of Systems (Anesthesia) ROS Narrative System reviewed and no additional complaints, except as documented.
--- NOTE | 2025-02-14 13:18 | PCM.HP.STD ---
HPI - General General Date of Admission: 02/13/25 HPI Narrative COREY TIRADO, is a 64 M who presents with thumb osteomyelitis left thumb Current Encounter (DATE OF SURGERY H&P UPDATE): I saw and examined the patient this morning in pre-operative holding. We discussed risks and benefits of today's surgery and they would like to proceed. NO CHANGE in health history since last seen and evaluated. Ready to proceed with surgery. [facility] Medical History (Updated 02/14/25 @ 13:[address] Wing Pierre MD) COPD (chronic obstructive pulmonary disease) HTN (hypertension) Home Medications ?Medication ?Instructions ?Recorded ?Last Taken ?Type albuterol sulfate 90 mcg/actuation 2 puff inhalation Q4H PRN copd 02/13/25 Unknown History aerosol inhaler atorvastatin 40 mg tablet 40 mg PO QHS 02/13/25 Unknown History cephalexin 500 mg capsule 500 mg PO TID 02/13/25 Unknown History fluticasone 250 mcg-salmeterol 50 1 ea inhalation BID 02/13/25 Unknown History mcg/dose blistr powdr for inhalation metoprolol succinate 50 mg 50 mg PO DAILY htn 02/13/25 02/14/25 History tablet,extended release 24 hr omeprazole 40 mg capsule,delayed 40 mg PO DAILY 02/13/25 Unknown History release sertraline 50 mg tablet 50 mg PO DAILY 02/13/25 Unknown History sulfamethoxazole 800 1 tab PO Q12.TCU 02/13/25 Unknown History mg-trimethoprim 160 mg tablet tamsulosin 0.4 mg capsule 0.8 mg PO QHS 02/13/25 Unknown History valsartan 320 1 tab PO DAILY 02/13/25 Unknown History mg-hydrochlorothiazide 25 mg tablet Allergy/AdvReac Type Severity Reaction Status Date / Time No Known Allergies Allergy Verified 02/13/25 09:56 Family History Other Diabetes Surgical History History of back surgery Social History Smoking Status: Current every day smoker tobacco type: cigarettes alcohol intake: current alcohol intake frequency: 3 or more drinks per day Alcohol type: beer Vital Signs Vital Signs Vital Signs: 02/13/25 15:54 02/13/25 21:05 02/13/25 21:19 Temperature 98 F 98.3 F Temperature Source Oral Oral Pulse Rate 80 74 Respiratory Rate 18 18 Respiratory Effort Normal Non-Labored Blood Pressure 152/86 H 148/71 H Blood Pressure Mean 108 96 Blood Pressure Source Monitor Monitor Blood Pressure Position Semi-Fowlers Right Lateral Blood Pressure Location Right Arm Left Arm Pulse Ox 94 96 Oxygen Delivery Method Room Air Room Air Room Air 02/14/25 00:06 02/14/25 04:41 02/14/25 08:44 Temperature 97.8 F 98.1 F 98.3 F Temperature Source Oral Oral Oral Pulse Rate 62 78 81 Respiratory Rate 18 20 H 18 Respiratory Effort Blood Pressure 127/75 H 149/74 H 137/81 H Blood Pressure Mean 92 99 99 Blood Pressure Source Monitor Monitor Monitor Blood Pressure Position Semi-Fowlers Semi-Fowlers Semi-Fowlers Blood Pressure Location Right Arm Right Arm Right Arm Pulse Ox 97 99 97 Oxygen Delivery Method Room Air Room Air Room Air 02/14/25 08:47 02/14/25 08:52 02/14/25 12:35 Temperature 98.5 F Temperature Source Temporal Pulse Rate 81 64 Respiratory Rate 16 Respiratory Effort Normal Non-Labored Blood Pressure 140/92 H Blood Pressure Mean 108 Blood Pressure Source Monitor Blood Pressure Position Semi-Fowlers Blood Pressure Location Left Arm Pulse Ox 94 Oxygen Delivery Method Room Air Room Air 02/14/25 13:05 Temperature 98.5 F Temperature Source Pulse Rate 64 Respiratory Rate 16 Respiratory Effort Blood Pressure 140/92 H Blood Pressure Mean Blood Pressure Source Blood Pressure Position Blood Pressure Location Pulse Ox 94 Oxygen Delivery Method Room Air Weight Weight: 374 lb 12.573 oz Body Mass Index (BMI) 55.3 Physical Exam Narrative Swollen left thumb with subungual hematoma Results Lab / Micro Data 02/14/25 06:01 02/14/25 06:01 Labs: Laboratory Results - last 24 hr 02/14/25 06:01: WBC 6.1, RBC 4.60, Hgb 14.7, Hct 43.0, MCV 93.5, MCH 32.0, MCHC 34.2, RDW Std Deviation 39.9, RDW Coeff of Roseanna 11.6, Plt Count 211, MPV 8.9, Immature Gran % (Auto) 0.200, Neut % (Auto) 61.8, Lymph % (Auto) 22.8, [place] % (Auto) 9.6, Eos % (Auto) 4.8, Baso % (Auto) 0.8, Absolute Neuts (auto) 3.8, Absolute Lymphs (auto) 1.38, Nucleated RBC % 0, Sodium 136, Potassium 4.2, Chloride 102, Carbon Dioxide 22.5, Anion Gap 12, BUN 13, Creatinine 1.02, Estim Creat Clear Calc 72.20, Est GFR (MDRD) Non-Af 82, BUN/Creatinine Ratio 13.1, Glucose 140 H, Calcium 9.3 Imaging Radiology Impression Upper Extremity MRI 02/13/25 12:48 IMPRESSION: Findings concerning for osteomyelitis of the left thumb distal phalanx. Reading Location: [facility] Assessment & Plan Assessment/Plan (1) Osteomyelitis of finger of left hand: (2) Subungual hematoma of finger of left hand: PLAN: Plan I talked to the patient on rounds this morning about removal of the thumbnail and debridement of any necrotic wound bed underneath the nail plate. This would include bone cultures. Patient is in agreement. He understands the risks, benefits, and alternatives of the operation. He understands that there is a significant risk that he loses some of his thumb secondary to extensive osteomyelitis and bony destruction. He understands that debridement today may assist with treatment but definitive treatment will certainly require long-term IV antibiotics but also potential for revision amputation. Patient understands the risk of bleeding, the risk of infection, damage to surrounding structures, problems with anesthesia, as well as the likelihood of a wound requiring wound care postoperatively. I talked to the patient extensively about the risks of surgery, including bleeding, infection, damage to surrounding structures, poor scaring, surgical site dehiscence and wound formation, need for wound care, need for repeat operations, failure to obtain the desired result, and the risks of anesthesia. The benefits and alternatives of this surgery were also discussed. All of their questions were answered, and they agreed to proceed with surgery.
--- NOTE | 2025-02-14 13:30 | DEB_PTH ---
PATIENT: COREY TIRADO LOC: [facility]3 U#:[id number] AGE/SX: 64/M [place] [facility]: Dr. Eric Nichols MD : 1960 BED: 1 DIS: 02/16/2025 SPEC #: [id number] RECD: 02/14/25 15:18 STATUS: MAGGIE REDax #: [id number] FRANKLYN: 02/14/25 13:[address]: Pranay Light DEPT: SURGICAL PATHOLOGY RECD BY: Ruben Bobo ENTERED: 02/15/25 10:17 SP TYPE: ERIKA TISS OTHR DR: MD Dr. Pranay Burton MD Dr. Tai Chi Kwok, MD Tissues: A - Toe, NOS Procedures: Decalcification bone/plaque Surgery Specimen Level IV Comments: @ Ordering doctor for DEC edited from to @ by BRYSON at 02/15/25 1018 @ Ordering doctor for SUIV edited from to @ by BRYSON at 02/15/25 1018 @ Submitting doctor edited from to @ by BRYSON at 02/15/25 1018 HEADER OPERATION: I&D, thumb PRE-OP DIAGNOSIS: Subungual hematoma of finger of left hand, osteomyelitis of finger of left hand TISSUE SUBMITTED: A- Distal phalanx bone MICROSCOPIC DIAGNOSIS A. Bone, left hand, distal phalanx, excision: Osteomyelitis. MICROSCOPIC DESCRIPTION Slides are reviewed. GROSS DESCRIPTION A. Received in formalin labeled with the patient's name and date of . Designated as distal phalanx bone are 2 askew-yellow bone fragments, 0.2 cm and 0.5 x 0.3 x 0.2 cm. Entirely submitted in 1 cassette, following decalcification. IA 02/15/2025 CPT:07516,58781
[2025-02-14] MEDS: Lactated Ringers 1,000 ML 1000 ML IV (13:46)
[2025-02-14] MEDS: Midazolam 2 MG/2 ML Syringe IV (13:46)
[2025-02-14] MEDS: Lidocaine 1% (5 ml sdv) 5 ML Vial IV (14:00)
--- NOTE | 2025-02-14 14:48 | PCM.POST.ANE ---
Anesthesia: Postop Eval I Current Vital Signs Temperature: 97.5 F Pulse Rate: 69 Blood Pressure: 136/67 Respiratory Rate: 20 Pulse Ox: 95 Oxygen Delivery Method: Room Air Assessment Airway patent: Yes Spontaneous unlabored respirations: Yes Mental status: Awake and Calm nausea: No Vomiting: No Anesthesia Complication: No Fluid Hydration Crystalloid volume administer (ml): 800 Total IV fluid infused: 800 Progress Note Anesthesia document: Postop Eval 1 completed: Yes
[2025-02-14] MEDS: Lidocaine 1% (30 ml sdv) 30 ML Vial (14:56)
--- NOTE | 2025-02-14 15:37 | PCM.OPRPT ---
Operative Report (Standard) Operative Information Date of Procedure: 02/14/25 Pre-Operative Diagnosis: Left thumb distal phalanx osteomyelitis Post-Operative Diagnosis: Same Surgery/Procedure Performed: 1) left thumb nail plate removal and debridement of underlying left thumb wound including debridement of distal phalanx necrotic bone (sequestrum) and drainage of surrounding fluid collection vegetable vendor: Yes Brand Marketing Manager: Raiza Sanchez Tasks completed by assistant finance director: Retracting Type of Anesthesia: Local MAC (10 cc of a 50-50 mixture of 1% lidocaine and quarter percent Marcaine) RN Documented Start/Stop Times: Operation Date: 02/14/25 13:30 Case Time Into Pre-Op 02/14/25 12:25 Out of Pre-Op 02/14/25 13:44 Anesthesia Start 02/14/25 13:46 Into Room 02/14/25 13:46 Procedure Start 02/14/25 14:18 Procedure End 02/14/25 14:39 Anesthesia End 02/14/25 14:42 Out of Room 02/14/25 14:42 Into Recovery 02/14/25 14:45 Out of Recovery 02/14/25 15:10 Procedure Start Time: 14:18 Procedure Stop Time: 14:39 Select all DRAINS/GRAFTS/IMPLANTS that apply: None (Just packing) Estimated Blood Loss: Minimal Specimen collected: Yes Description of specimen(s) removed: Left thumb distal phalanx culture, left thumb distal phalanx specimen, culture swabs Description of surgery: Indications: Patient is delightful 64-year-old male with left thumb osteomyelitis demonstrated on MRI. He had an injury about a month ago and did not seek medical attention and developed a swollen left thumb with a sinus tract underneath the nail down to the bone. He presents today for nail plate removal and I&D. I talked to him extensively about debridement of any underlying , infected bone, and he was in agreement. Procedure details: Patient was correct identified in preoperative holding and taken back to the operating room where he was administered sedation and local anesthesia as noted above. He was prepped and draped in sterile fashion all proper timeouts were performed. Tourniquet was insufflated on the left arm. The left thumb nail plate was atraumatically removed with tenotomy scissors and a [place] elevator. Purulence was encountered through a sinus tract within the sterile matrix with underlying necrotic, soft tuft and shaft. There was no viable (firm) tuft or shaft, all of the bone was sequestrum. This was debrided with a rongeur. The thumb base felt firm, and therefore no debridement was continued proximally as this was considered to be viable bone. Cultures were obtained and bone samples were obtained. The wound was irrigated with Irrisept and 3 L normal saline. The tourniquet was let down and the wound was packed with iodoform gauze, Kerlix wrap and Coban wrap loosely. Patient tolerated the procedure well. Postoperative plan: Continue IV antibiotics on the floor and follow-up wound cultures. Plan for dressing change in the morning and we will get an x-ray of the thumb to assess the extent of residual healthy bone. I talked to the patient about potential need for revision amputation and at this point I believe his distal thumb needs to be shortened, but we should hopefully be able to salvage the thumb IP joint and the base of the distal phalanx. Surgical Findings: Purulence underlying the nailbed with a sinus tract to the bone with underlying necrotic distal phalanx of the left thumb. The entire tuft and shaft of the left thumb distal phalanx was soft, mushy bone (sequestrum)' Thumb sinus tract with underlying necrotic bone (after nail plate was atraumatically removed) Complications Complications: No
--- NOTE | 2025-02-14 16:02 | CASEMGMT ---
Social Work Marital/Social History: Patient is . He is retired. Living Situation: Patient lives in a home with 1 step into it. ADL's/Prior level of functioning: independent with ADL's. Insurance: Emma Medicare Pharmacy: Patient utilizes [facility] pharmacy. Primary Care Doctor: Dr. Patrick Speciality doctors: none LNOK:. Transportation: Patient still drives. DME: [facility] Support: , daughters, friends, neighbors longterm/home health history: none. Mental Health: none reported Substance abuse history: Patient reported he drinks 8 to 10 beers a day. He reported he likes to drink and does not see this as a concern. He reported using other substances 20 years ago. Assessment: SW spoke with the patient in his room. Patient reported he lives at home with his . He reported his has cancer. He reported 2 of his daughters live close by and are supportive. Patient reported he has friends and neighbors that can help when needed. Patient reported he received outpatient rehab services when he had back surgery about 25 years ago. Patient reported he drinks 8 to 10 beers a day. He reported he likes to drink and he does not see this as a concern. He reported using other substances about 20 years ago. Patient reported his daughters can help him with IV antibiotics at discharge. RN-CM will follow up IV antibiotics. NNAMDI Beckett
--- NOTE | 2025-02-14 20:58 | POSTOPAN2_ITS ---
Anesthesia Postop Eval I Sum Postop Eval Completion status Anesthesia document: Postop Eval 1 completed: Yes Anesthesia Postop Eval I Summary Anesthesia Postop Eval I Summary: Anesthesia Postop Eval I: Assessment Summary Airway patent Yes 02/14/25 14:49 [email or web address] Spontaneous unlabored Yes 02/14/25 14:49 [email or web address] respirations Mental status Awake,Calm 02/14/25 14:49 [email or web address] nausea No 02/14/25 14:49 [email or web address] Vomiting No 02/14/25 14:49 STATE [email or web address] Anesthesia Postop Eval I: Fluid Summary Crystalloid volume administer 800 02/14/25 14:49 [email or web address] (ml) Colloids volume administered ( ml) Blood Product volume administered (ml) Total IV fluid infused 800 02/14/25 14:49 STATE [email or web address] Anesthesia Postop Eval I: Summary Notes Anesthesia Complication No 02/14/25 14:49 STATE [email or web address] Anesthesia Complication Comment: Post-operative progress note Anesthesia: Postop Eval II Evaluation Mental status: Awake and Calm Pain Level: 1 nausea: No Vomiting: No Complications Anesthesia Complication: No
--- NOTE | 2025-02-14 20:58 | PCM.POSTANE2 ---
Anesthesia Postop Eval I Sum Postop Eval Completion status Anesthesia document: Postop Eval 1 completed: Yes Anesthesia Postop Eval I Summary Anesthesia Postop Eval I Summary: Anesthesia Postop Eval I: Assessment Summary Airway patent Yes 02/14/25 14:49 [email or web address] [email or web address] Spontaneous unlabored Yes 02/14/25 14:49 [email or web address] [email or web address] respirations Mental status Awake,Calm 02/14/25 14:49 [email or web address] [email or web address] nausea No 02/14/25 14:49 PARA [email or web address] Vomiting No 02/14/25 14:49 [email or web address] [email or web address] Anesthesia Postop Eval I: Fluid Summary Crystalloid volume administer 800 02/14/25 14:49 PARA [email or web address] (ml) Colloids volume administered ( ml) Blood Product volume administered (ml) Total IV fluid infused 800 02/14/25 14:49 PARA [email or web address] Anesthesia Postop Eval I: Summary Notes Anesthesia Complication No 02/14/25 14:49 [email or web address] [email or web address] Anesthesia Complication Comment: Post-operative progress note Anesthesia: Postop Eval II Evaluation Mental status: Awake and Calm Pain Level: 1 nausea: No Vomiting: No Complications Anesthesia Complication: No
[2025-02-15] VITALS (7 sets, daily range): BP systolic 116–169; BP diastolic 64–79; PULSE 62–78; RESP 16–18; TEMP 36.6–37.1; O2SAT 96–100
[2025-02-15 00:08] LABS: Vancomycin, Trough Level 10.2 ug/mL (5.0-15.0)
--- NOTE | 2025-02-15 00:26 | PCM.RX.CS ---
Consult Antibiotic Management Pharmacy has been consulted to manage selected antibiotic: Vancomycin Type of Intervention Type of Consult: Follow-up Suspected Infection Suspected Infection: Osteomyelitis Labs Labs: Sodium 136 mmol/L (133-145) 02/14/25 06:01 Potassium 4.2 mmol/L (3.3-5.1) 02/14/25 06:01 Chloride 102 mmol/L (98-108) 02/14/25 06:01 Carbon Dioxide 22.5 mmol/L (21.0-32.0) 02/14/25 06:01 Anion Gap 12 (5-15) 02/14/25 06:01 BUN 13 mg/dL (4-19) 02/14/25 06:01 Creatinine 1.02 mg/dL (0.70-1.20) 02/14/25 06:01 Est GFR (MDRD) Non-Af 82 (>60) 02/14/25 06:01 BUN/Creatinine Ratio 13.1 RATIO (10-20) 02/14/25 06:01 Glucose 140 mg/dL (70-99) H 02/14/25 06:01 Vancomycin Trough 10.2 ug/mL (5.0-15.0) 02/14/25 22:31 Dosing Weight Weight used for dosin.9 kg Estimated Creatinine Clearance Estimated Creatinine Clearance: 72 Goal Trough Goal Trough: 15-20 mcg/mL Pharmacy Plan for Drug Dosing Pharmacy Plan for Drug Dosing: Vancomycin trough level of 10.2, drawn 12hrs post-dose, was below the target range of 15-20. Will increase dose to 1750mg q12h, and will draw another trough level prior to the fourth dose of the new regimen. Pharmacy Service will continue to monitor and adjust dosing as required. Follow-Up Labs Follow-Up Labs: Trough: Vancomycin Date/Time Labs Ordered Labs to be done on [date and time ordered]: 02/16/25 @1200
[2025-02-15] MEDS: Vancomycin HCl 1,750 MG in 0.9% Normal Saline (500mL Bag) 500 ML 250 MG IV ×2 (00:46→12:42)
[2025-02-15] MEDS: Vancomycin Trough/Random Due 1 LAB MC (00:46)
[2025-02-15 06:24] LABS: Hematocrit 40.5 % (40-54); Hemoglobin 13.8 g/dL (13.0-16.5); Immature Granulocytes Count 0.020 X10^3/uL (0.0-0.0); Mean Corp Hgb Conc 34.1 g/dL (32-36); Mean Corpuscular Volume 94.2 fL (80-94); Mean Platelet Vol. 8.5 fl (6.2-12.0); NRBC Flagged by Analyzer 0 % (0-5); Platelet Count 183 K/mm3 (150-450); RBC Distribution Width CV 11.5 % (11.6-14.6); RBC Distribution Width SD 39.8 fl (35.1-43.9); Red Blood Count 4.30 M/mm3 (4.6-6.2); White Blood Count 6.2 K/mm3 (4.4-11.0)
--- NOTE | 2025-02-15 06:49 | RAD_ITS ---
PROCEDURE: HAND MIN 3 VIEWS 02/15/2025 REASON FOR EXAM: L THUMB WOUND TECHNIQUE: HAND MIN 3 VIEWS Laterality: Left COMPARISON: Left thumb examination of 02/11/2025. RAD/Hand Min 3 Views IMPRESSION: Marked interval worsened destructive changes of the mid to distal portions of t he left thumb distal phalanx noted, highly concerning for osteomyelitis. Soft tissue gas is also seen, further supporting the presence of infection. Mild to moderate degenerative changes of the fingers are also noted Reading Location: [place] [id number]
[2025-02-15 06:55] LABS: Anion Gap 11 (5-15); BUN 12 mg/dL (4-19); BUN/Creat Ratio 12.4 RATIO (10-20); Calcium,Total 9.0 mg/dL (7.6-11.0); Carbon Dioxide 23.9 mmol/L (21.0-32.0); Chloride 103 mmol/L (98-108); Estimated Creatinine Clearance 123.68 ml/min (50-250); Glucose 128 mg/dL (70-99); Potassium 4.1 mmol/L (3.3-5.1)
--- NOTE | 2025-02-15 07:33 | PCM.PN.SRG ---
Subjective Subjective Pain on rounds this morning. Improved with pain medications. Dressings removed and started a soak. Objective Data Objective Data Vital Signs: Vital Signs Temp Pulse Resp BP Pulse Ox O2 Del Method 97.8 F 65 16 149/79 H 97 Room Air 02/15/25 03:00 02/15/25 03:00 02/15/25 03:00 02/15/25 03:00 02/15/25 03:00 02/15/25 04:00 Oxygen Delivery Method Room Air Weight: 374 lb 12.573 oz Body Mass Index (BMI) 55.3 Intake & Output: Intake and Output for Last 24 Hours 02/13/25 02/14/25 02/15/25 23:59 23:59 23:59 Intake Total 325 / 825 1440 / 1440 535 / 535 Output Total Balance 325 / 825 1430 / 1430 535 / 535 Lab / Micro Data 02/15/25 05:52 02/15/25 05:52 Labs: Laboratory Results - last 24 hr 02/14/25 06:01: Sodium 136, Potassium 4.2, Chloride 102, Carbon Dioxide 22.5, Anion Gap 12, BUN 13, Creatinine 1.02, Estim Creat Clear Calc 72.20, Est GFR (MDRD) Non-Af 82, BUN/Creatinine Ratio 13.1, Glucose 140 H, Calcium 9.3 02/14/25 22:31: Vancomycin Trough 10.2 02/15/25 05:52: WBC 6.2, RBC 4.30 L, Hgb 13.8, Hct 40.5, MCV 94.2 H, MCH 32.1 H, MCHC 34.1, RDW Std Deviation 39.8, RDW Coeff of Roseanna 11.5 L, Plt Count 183, MPV 8.5, Immature Gran % (Auto) 0.300, Neut % (Auto) 63.1, Lymph % (Auto) 21.4, [place] % (Auto) 9.4, Eos % (Auto) 5.2 H, Baso % (Auto) 0.6, Absolute Neuts (auto) 3.9, Absolute Lymphs (auto) 1.32, Nucleated RBC % 0, Sodium 138, Potassium 4.1, Chloride 103, Carbon Dioxide 23.9, Anion Gap 11, BUN 12, Creatinine 0.93, Estim Creat Clear Calc 123.68, Est GFR (MDRD) Non-Af 91, BUN/Creatinine Ratio 12.4, Glucose 128 H, Calcium 9.0 Physical Exam Narrative Left thumb Sterile matrix wound s/p I&D. No drainage today. No signs of ascending infection. Started on a soak Assessment & Plan Assessment/Plan (1) Osteomyelitis of finger of left hand: (2) Subungual hematoma of finger of left hand: PLAN: Plan I discussed the extent of osteomyelitis that was discovered in the OR yesterday (distal phalanx and shaft). I believe some of the base may be viable/IP joint is viable, but xray will be obtained today. Only necrotic sequestrum was removed in the OR yesterday (discussed with the patient this morning). I talked to him about the need for revision amputation, but currently trying to salvage as much length as possible with wound care and antibiotics. Patient endorsed an understanding and agreed. F/u X-ray Continue TID Dial soap soaks and iodoform gauze changes Elevate LUE F/u cultures Anticipate continued wound care and elevation for swelling reduction in anticipation of elective/scheduled revision amputation. Charges/Coding Procedures Integumentary [id number]: [id number] Global Visit
[2025-02-15] MEDS: HYDROmorphone 0.5 MG/0.5 ML SYRINGE IV (07:49)
[2025-02-15] MEDS: 0.9% Saline Lock 10 ML Syringe IV ×3 (07:49→12:42)
--- NOTE | 2025-02-15 09:03 | PCM.PN.HOSP ---
Subjective Subjective Doing well, no issues overnight Objective Data Objective Data Vital Signs: Vital Signs Temp Pulse Resp BP Pulse Ox O2 Del Method 98.7 F 78 18 116/77 96 Room Air 02/15/25 07:00 02/15/25 07:00 02/15/25 07:00 02/15/25 07:00 02/15/25 07:00 02/15/25 07:56 Oxygen Delivery Method Room Air Weight: 374 lb 12.573 oz Body Mass Index (BMI) 55.3 Intake & Output: Intake and Output for Last 24 Hours 02/14/25 02/15/25 02/16/25 03:59 03:59 03:59 Intake Total 1145 / 1145 620 / 620 535 / 535 Output Total Balance 1145 / 1145 610 / 610 535 / 535 Lab / Micro Data 02/15/25 05:52 02/15/25 05:52 Labs: Laboratory Results - last 24 hr 02/14/25 22:31: Vancomycin Trough 10.2 02/15/25 05:52: WBC 6.2, RBC 4.30 L, Hgb 13.8, Hct 40.5, MCV 94.2 H, MCH 32.1 H, MCHC 34.1, RDW Std Deviation 39.8, RDW Coeff of Roseanna 11.5 L, Plt Count 183, MPV 8.5, Immature Gran % (Auto) 0.300, Neut % (Auto) 63.1, Lymph % (Auto) 21.4, [place] % (Auto) 9.4, Eos % (Auto) 5.2 H, Baso % (Auto) 0.6, Absolute Neuts (auto) 3.9, Absolute Lymphs (auto) 1.32, Nucleated RBC % 0, Sodium 138, Potassium 4.1, Chloride 103, Carbon Dioxide 23.9, Anion Gap 11, BUN 12, Creatinine 0.93, Estim Creat Clear Calc 123.68, Est GFR (MDRD) Non-Af 91, BUN/Creatinine Ratio 12.4, Glucose 128 H, Calcium 9.0 Radiography Diagnostic Testing: Radiology Impression Hand X-Ray 02/15/25 06:49 IMPRESSION: Marked interval worsened destructive changes of the mid to distal portions of the left thumb distal phalanx noted, highly concerning for osteomyelitis. Soft tissue gas is also seen, further supporting the presence of infection. Mild to moderate degenerative changes of the fingers are also noted Reading Location: [place] [address] Physical Exam Narrative General: Alert, Oriented x3, Cooperative, No apparent distress HEENT: Atraumatic, PERRLA, EOMI, Normocephalic Oral: Moist Mucosa Neck: Supple, No JVD Lungs: Clear to auscultation, Normal air movement, No rhonchi, No wheeze, No rales Cardiovascular: Regular rate, Regular Rhythm, Normal S1, Normal S2, No murmurs Abdomen: Soft, Non Tender, Non-Distended, No Hepato-splenomegaly Extremities: No edema, Capillary Refill Less than 3 Seconds Skin: No rashes, No breakdown Musculoskeletal: Left thumb is swollen and red, left thumbnail has been removed and surgery open to air Neurological: No focal neurological deficits, Motor Exam 5/5 strength throughout, Sensory exam intact to light touch and pain Psych/Mental Status: Normal Affect, Appropriate Assessment & Plan Assessment/Plan (1) Subungual hematoma of finger of left hand: (2) Osteomyelitis of finger of left hand: PLAN: Plan 1. Subungual hematoma with osteomyelitis of the left hand status post left thumb nail removal and debridement on 02/14/2025 ? MRI with osteomyelitis ? Appreciate plastic surgery's assistance ? Continue with IV Zosyn and vancomycin ? Appreciate ID's recommendations, will likely plan for prolonged antibiotic therapy given the osteomyelitis ? Repeat x-rays pending for today 2. Essential HTN/HLD ? Blood pressure stable ? Continue with his home blood pressure medications ? Will monitor and make adjustments as necessary ? Continue Lipitor 3. Anxiety/depression/alcohol abuse ? Stable ? Continue with his home medications ? Continue with CIWA protocol so far does not require medications and is not interested in quitting 4. GERD ? Stable ? 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 Continue with Flomax DVT: Lovenox Charges/Coding Visit Charges Inpatient E&M: 54139 Subs Hosp L2
[2025-02-15] MEDS: Metoprolol(XL)Succ 50 MG Tablet PO (09:14)
--- NOTE | 2025-02-15 09:37 | DS.PCM_ITS ---
Providers Date of Admission: 02/13/25 Primary Care Physician: Dr. Raul Patrick MD Consultations 02/13/25 12:48 Consult: Onc/Wound/costume mistress Routine Comment: Consult: Plastic Surgery Routine Consulting Provider: Pranay Light Reason for Consult: left thumb osteo EMERGENT Consult: No Notified: Yes Date Notified: 02/13/25 Time Notified: 11:47 Method of Notification: ED Physician Initiated 02/14/25 08:04 Consult: Infectious Disease Routine Consulting Provider: Pranay Mi Reason for Consult: antibiotic recommendations EMERGENT Consult: No Notified: Yes Date Notified: 02/14/25 Time Notified: 08:04 Method of Notification: Text Reason For Visit: OSTEOMYELITIS OF THE THUMB Diagnosis Discharge Diagnosis (1) Subungual hematoma of finger of left hand: Status: Acute Code(s): S60.10XA - Contusion of unspecified finger with damage to nail, initial encounter (2) Osteomyelitis of finger of left hand: Status: Acute Code(s): M86.9 - Osteomyelitis, unspecified Medications at Discharge Home Medications albuterol sulfate 90 mcg/actuation aerosol inhaler 2 puff inhalation Q4H PRN copd 02/13/25 atorvastatin 40 mg tablet 40 mg PO QHS 02/13/25 cephalexin 500 mg capsule 500 mg PO TID 02/13/25 fluticasone 250 mcg-salmeterol 50 mcg/dose blistr powdr for inhalation 1 ea inhalation BID 02/13/25 metoprolol succinate 50 mg tablet,extended release 24 hr 50 mg PO DAILY htn 02/13/25 omeprazole 40 mg capsule,delayed release 40 mg PO DAILY 02/13/25 sertraline 50 mg tablet 50 mg PO DAILY 02/13/25 sulfamethoxazole 800 mg-trimethoprim 160 mg tablet 1 tab PO Q12.TCU 02/13/25 tamsulosin 0.4 mg capsule 0.8 mg PO QHS 02/13/25 valsartan 320 mg-hydrochlorothiazide 25 mg tablet 1 tab PO DAILY 02/13/25 Physical Exam Narrative The following psychotropic medication was present on admission: [FILL IN NAME OF MEDICATION HERE] Psychotropic medication therapy is indicated for a diagnosis of: [FILL IN NAME OF DIAGNOSIS HERE] Based on my clinical evaluation, continuation of the medication is necessary at this time. Gradual dose reduction plan (select one): ____ GDR will be attempted. Will monitor patient symptoms and behaviors in response to GDR. ____ GRD contraindicated. Reason contraindicated: [FILL IN DETAILS] The following psychotropic medication is being stopped/tapered: [FILL IN NAME OF MEDICATION HERE] The following psychotropic medication is starting: [FILL IN NAME OF MEDICATION HERE] The rational for this change is: [FILL IN DETAILS OF RATIONALE] Psychotropic medication therapy is indicated for a diagnosis of: [FILL IN NAME OF DIAGNOSIS HERE] In my professional judgement, medication is necessary because the resident?s symptoms cause significant distress to the resident or a danger to the resident or others. Evaluation for underlying causes including medical illness and pain has been considered. The benefits of the medication are felt to outweigh potential harm. Nonpharmacologic/behavior interventions have been attempted but have not been effective or nonpharmacologic interventions are contraindicated for this patient. [IF CONTRAINDICATED, DOCUMENT REASON FOR CONTRAINDICATION HERE] Potential benefits and risks of treatment and alternatives have been reviewed with resident/family and the resident/family have accepted psychotropic medication treatment. Please see nursing documentation. Weight / BMI Weight Weight: 170 kg Body Mass Index (BMI) 55.3 ABG / Lab / Microbiology Data 02/15/25 05:52 02/15/25 05:52 Laboratory: Laboratory Results - last 24 hr 02/14/25 22:31: Vancomycin Trough 10.2 02/15/25 05:52: WBC 6.2, RBC 4.30 L, Hgb 13.8, Hct 40.5, MCV 94.2 H, MCH 32.1 H, MCHC 34.1, RDW Std Deviation 39.8, RDW Coeff of Roseanna 11.5 L, Plt Count 183, MPV 8.5, Immature Gran % (Auto) 0.300, Neut % (Auto) 63.1, Lymph % (Auto) 21.4, [place] % (Auto) 9.4, Eos % (Auto) 5.2 H, Baso % (Auto) 0.6, Absolute Neuts (auto) 3.9, Absolute Lymphs (auto) 1.32, Nucleated RBC % 0, Sodium 138, Potassium 4.1, Chloride 103, Carbon Dioxide 23.9, Anion Gap 11, BUN 12, Creatinine 0.93, Estim Creat Clear Calc 123.68, Est GFR (MDRD) Non-Af 91, BUN/Creatinine Ratio 12.4, G lucose 128 H, Calcium 9.0 Radiography Diagnostic Testing: Radiology Impression Hand X-Ray 02/15/25 06:49 IMPRESSION: Marked interval worsened destructive changes of the mid to distal portions of the left thumb distal phalanx noted, highly concerning for osteomyelitis. Soft tissue gas is also seen, further supporting the presence of infection. Mild to moderate degenerative changes of the fingers are also noted Reading Location: [facility] Discharge Plan Admission Admit Date/Time: 02/13/25 11:44 Attending Provider: Eric Nichols Primary Care Provider: Raul Patrick Chi Consulting Providers: Pranay Light; Pranay Mi Instructions Patient Instructions: Osteomyelitis Dc, ED Subungual Hematoma Additional Instructions / Restrictions: Follow-up with your primary care provider for continued IV antibiotics. Should you change your mind, you can return to the emergency department at any time. By signing out AGAINST MEDICAL ADVICE, you do risk further continued infection of the bone, loss of limb or life, permanent disability or . Discharge Orders/Prescriptions Prescriptions: No Action atorvastatin 40 mg tablet 40 mg PO QHS fluticasone propion-salmeterol 250-50 mcg/dose blister with device 1 ea INHALATION BID metoprolol succinate 50 mg tablet extended release 24 hr 50 mg PO DAILY sulfamethoxazole-trimethoprim 800-160 mg tablet 1 tab PO Q12.TCU omeprazole 40 mg capsule,delayed release(DR/EC) 40 mg PO DAILY tamsulosin 0.4 mg capsule 0.8 mg PO QHS cephalexin 500 mg capsule 500 mg PO TID albuterol sulfate 90 mcg/actuation HFA aerosol inhaler 2 puff inhalation Q4H PRN (Reason: copd) sertraline 50 mg tablet 50 mg PO DAILY valsartan-hydrochlorothiazide 320-25 mg tablet 1 tab PO DAILY Referrals / Follow Up: Raul Patrick Chi, MD [Primary Care Provider] - As soon as possible
[2025-02-15] MEDS: Ceftriaxone 2 GM in 0.9% Normal Saline (50mL MB+) 50 ML IV (10:02)
--- NOTE | 2025-02-15 10:12 | PN.ID_ITS ---
Physical Exam Narrative Feeling ok, pain controlled, no fever, no n/v/d. Const alert and no apparent distress General Appearance: cooperative Resp normal air movement and clear to auscultation bilaterally Cardio regular rate and regular rhythm GI soft to palpation, non-tender and non-distended Skin Skin Narrative: L thumb wrapped ID ID: Route of nutrition/ use of supplements: [] Nutritional Intake: [] IV Site: [] [place]o Catheter: [] Assessment & Plan Assessment/Plan (1) Osteomyelitis of finger of left hand: PLAN: OR for I&D down to bone 02/14/[address] Light. On empiric vanc/ceftriaxone. Surg cx pending. If he leaves tomorrow and cxs still negative, would send with 40 days po doxy 100mg bid and cefdinir 300mg bid, ID followup in 2 weeks. Will follow, d/w case loader operator
--- NOTE | 2025-02-15 10:44 | CASEMGMT ---
ID states to this parts data writer that the patient should be able to go home on PO antibiotics as long as the cultures remain negative tomorrow. RN CM to the patient at this time. Patient states that he feels safe returning home tomorrow if he were to be discharged. Patient states that his daughter will be able to assist with wound care and denies wanting to go to the [facility]. If the patient does not require IV antibiotics, the patient denies any further questions or concerns. Discussed with the compliance manager covering the weekend in the case that the cultures has come back positive.
--- NOTE | 2025-02-15 11:31 | WOUNDNOTE ---
wound photo: left thumb
[2025-02-16] MEDS: Vancomycin HCl 1,750 MG in 0.9% Normal Saline (500mL Bag) 500 ML 250 MG IV ×2 (00:49→12:06)
[2025-02-16 03:00] VITALS: BP 134/69; PULSE 74; RESP 16; TEMP 36.8; O2SAT 98
[2025-02-16 07:18] LABS: Hematocrit 43.7 % (40-54); Hemoglobin 15.2 g/dL (13.0-16.5); Immature Granulocytes Count 0.010 X10^3/uL (0.0-0.0); Mean Corp Hgb Conc 34.8 g/dL (32-36); Mean Corpuscular Volume 93.2 fL (80-94); Mean Platelet Vol. 8.3 fl (6.2-12.0); NRBC Flagged by Analyzer 0 % (0-5); Platelet Count 191 K/mm3 (150-450); RBC Distribution Width CV 11.4 % (11.6-14.6); RBC Distribution Width SD 38.9 fl (35.1-43.9); Red Blood Count 4.69 M/mm3 (4.6-6.2); White Blood Count 5.1 K/mm3 (4.4-11.0)
--- NOTE | 2025-02-16 07:34 | PN.SURG_ITS ---
Subjective Subjective Pain controlled. Endorses good dressing changes Objective Data Objective Data Vital Signs: Vital Signs Temp Pulse Resp BP Pulse Ox O2 Del Method 98.2 F 74 16 134/69 H 98 Room Air 02/16/25 03:00 02/16/25 03:00 02/16/25 03:00 02/16/25 03:00 02/16/25 03:00 02/16/25 03:00 Oxygen Delivery Method Room Air Weight: 374 lb 12.573 oz Body Mass Index (BMI) 55.3 Intake & Output: Intake and Output for Last 24 Hours 02/14/25 02/15/25 02/16/25 23:59 23:59 23:59 Intake Total 1440 / 1440 2470 / 2470 535 / 535 Output Total Balance 1430 / 1430 2470 / 2470 535 / 535 Lab / Micro Data 02/16/25 07:00 02/15/25 05:52 Labs: Laboratory Results - last 24 hr 02/16/25 07:00: WBC 5.1, RBC 4.69, Hgb 15.2, Hct 43.7, MCV 93.2, MCH 32.4 H, MCHC 34.8, RDW Std Deviation 38.9, RDW Coeff of Roseanna 11.4 L, Plt Count 191, MPV 8.3, Immature Gran % (Auto) 0.200, Neut % (Auto) 59.0, Lymph % (Auto) 24.1, [place] % (Auto) 9.8, Eos % (Auto) 5.7 H, Baso % (Auto) 1.2 H, Absolute Neuts (auto) 3.0, Absolute Lymphs (auto) 1.23, Nucleated RBC % 0 Micro: Microbiology 02/13/25 10:20 Blood Culture (Wb) - Arm Right Blood Culture - Preliminary No growth in 48 hours. 02/13/25 10:05 Blood Culture (Wb) - Left Forearm Blood Culture - Preliminary No growth in 48 hours. 02/14/25 Unknown Wound Abcess - Aerobic & Anaerobic Swabs Gram Stain - Final 02/14/25 Unknown Wound Abcess - Aerobic & Anaerobic Swabs Wound Culture - Preliminary 02/14/25 Unknown Bone - Hand Gram Stain - Final Radiography Diagnostic Testing: Radiology Impression Hand X-Ray 02/15/25 06:49 IMPRESSION: Marked interval worsened destructive changes of the mid to distal portions of the left thumb distal phalanx noted, highly concerning for osteomyelitis. Soft tissue gas is also seen, further supporting the presence of infection. Mild to moderate degenerative changes of the fingers are also noted Reading Location: [place] [id number] Physical Exam Narrative Left thumb Sterile matrix wound s/p I&D. No drainage today. No signs of ascending infection. Started on a soak. No pain in the IP joint. Swelling is decreasing. Assessment & Plan Assessment/Plan (1) Osteomyelitis of finger of left hand: (2) Subungual hematoma of finger of left hand: PLAN: Plan I discussed the extent of osteomyelitis that was discovered in the OR (distal phalanx and shaft). I believe some of the base may be viable/IP joint is viable, and xray demonstrated some healthy bone at the base of the distal phalanx (obtained yesterday and reviewed). Only necrotic sequestrum was removed in the OR (discussed with the patient this morning). I talked to him about the need for revision amputation, but currently trying to salvage as much length as possible with wound care and antibiotics. Patient endorsed an understanding and agreed. We will continued twice daily dressing changes and soaks at home in order to swelling and allow for definitive reconstruction with a revision amputation once the acute infection is treated. OK for DC from PSU standpoint Elevate LUE F/u cultures Anticipate continued wound care and elevation for swelling reduction in anticipation of elective/scheduled revision amputation.
[2025-02-16 07:42] LABS: Anion Gap 9 (5-15); BUN 13 mg/dL (4-19); BUN/Creat Ratio 14.9 RATIO (10-20); Calcium,Total 9.2 mg/dL (7.6-11.0); Carbon Dioxide 26.3 mmol/L (21.0-32.0); Chloride 102 mmol/L (98-108); Estimated Creatinine Clearance 133.75 ml/min (50-250); Glucose 124 mg/dL (70-99); Potassium 4.1 mmol/L (3.3-5.1)
[2025-02-16 08:12] VITALS: BP 150/64; PULSE 70; RESP 18; TEMP 36.3; O2SAT 95
[2025-02-16 08:16] VITALS: PULSE 60
[2025-02-16 08:21] VITALS: PULSE 60
[2025-02-16] MEDS: Metoprolol(XL)Succ 50 MG Tablet PO (08:21)
[2025-02-16] MEDS: Ceftriaxone 2 GM in 0.9% Normal Saline (50mL MB+) 50 ML IV (10:04)
[2025-02-16] MEDS: 0.9% Saline Lock 10 ML Syringe IV (10:06)
--- NOTE | 2025-02-16 10:53 | DCINST_ITS ---
Discharge Instructions DC O2, CPAP, BIPAP needs Home O2 Discharge instructions: No Dressing / Incision Discharge Activity: Return to Normal Activity Dressing / Incision Call your doctor if your incision/area has: Continuous Slow Oozing and Increased Redness Call your doctor if you observe: Fever of 101 or Higher, Shortness of breath, Dizziness, Fainting spells, Swelling in the ankles, Chest pain and Increased palpitations (irregular heartbeat) Follow Up Care Test Results: Test results from this visit will be discussed in further detail at your follow- up appointment, if applicable. Discharge Plan Admission Admit Date/Time: 02/13/25 11:44 Attending Provider: Eric Nichols Primary Care Provider: Raul Patrick Chi Consulting Providers: Pranay Light; Pranay Mi Instructions Patient Instructions: Osteomyelitis Dc, ED Subungual Hematoma Additional Instructions / Restrictions: Follow-up with your primary care provider for continued IV antibiotics. Should you change your mind, you can return to the emergency department at any time. By signing out AGAINST MEDICAL ADVICE, you do risk further continued infection of the bone, loss of limb or life, permanent disability or . PLASTIC SURGERY DC instructions Operations Performed: Left Thumb Incision and Debridement Instructions for My Care at Home or Healthcare Facility The following instructions will help you know what to expect in the days foll owing surgery. These are general instructions. Your surgeon and therapist may give you special instructions, which vary to some degree based on your specific procedure -- follow those as directed. Do not, however, hesitate to call if you have any questions or concerns. Splint Care/Dressing Care/Wound Care * Dressings - Continue the twice daily dressing changes over your thumb with the soaks (20 minutes in sterile water and soap) twice daily. Once piece of iodoform out, one piece in at each dressing change. * If the dressing feels too tight after you get home, it is ok to gently pull on the dressing to stretch it out/loosen it. * Avoid smoking or other tobacco products. Smoking tobacco impairs wound healing and increases the risks of post-operative complications. ? Activities * For the first 4 weeks after surgery, try to balance your activity, allowing time for rest. * Avoid lifting, pushing, or pulling anything over 5 pounds. * Do not drive or operate heavy machinery within 24 hrs of surgery or while taking narcotic pain medication.? Pain Control/Medications Make sure to take your antibiotic * If you received an anesthetic block, your hand or arm may be numb for several hours. You will be discharged to home with medications, including an oral pain medication (analgesic). Rest and elevation are still one of the most important factors for pain control. Take your pain medication as needed, but do not wait for the pain to become out of control. * For severe pain, you may take prescription pain medication as directed, but please note that this may also contain Tylenol (e.g. Percocet). Do not take more than 4000mg of Tylenol (acetaminophen) from all sources daily.? * Pain medication may cause some lethargy, nausea, and or constipation. You should not drive/operate dangerous machinery while taking these medications. If these or other symptoms become significantly problematic, please your surgeon's office. * If prescribed oral antibiotics (Keflex, Clindamycin, or others), please take prescription for full duration as instructed. You should not have any pills remaining once completed (refills are written for your convenience should the course need to be extended, but generally they are not required). Diet (what I can eat): Resume normal diet Follow up * You will be seen (most likely) 1 to 2 weeks after surgery depending on the procedure. Follow-up appointment reminders:? (A list of any scheduled appointments is at the end of this document)? At your earliest convenience, please call [phone] to confirm/schedule a follow-up appointment with me on Tuesday in clinic. When to call your surgeon: * If any signs of surgical site infection develop: redness, pus, pain, increased swelling or foul odor at the incision site, fever, cold and clammy skin, or confusion. * Consistent temperature above 101?F (38.3?C). * The affected area gets swollen or much more painful. * You have excessive bleeding from surgical site (soaking through). If you experience difficulty breathing and/or shortness of breath, seek immediate medical attention. If experiencing any of the above complications or if you have any questions, call [phone] Discharge Orders/Prescriptions Prescriptions: New doxycycline monohydrate 100 mg capsule 100 mg PO BID 40 Days Qty: 80 0RF cefdinir 300 mg capsule 300 mg PO BID 40 Days Qty: 80 0RF Continued atorvastatin 40 mg tablet 40 mg PO QHS fluticasone propion-salmeterol 250-50 mcg/dose blister with device 1 ea INHALATION BID metoprolol succinate 50 mg tablet extended release 24 hr 50 mg PO DAILY omeprazole 40 mg capsule,delayed release(DR/EC) 40 mg PO DAILY tamsulosin 0.4 mg capsule 0.8 mg PO QHS albuterol sulfate 90 mcg/actuation HFA aerosol inhaler 2 puff inhalation Q4H PRN (Reason: copd) sertraline 50 mg tablet 50 mg PO DAILY valsartan-hydrochlorothiazide 320-25 mg tablet 1 tab PO DAILY Discontinued sulfamethoxazole-trimethoprim 800-160 mg tablet 1 tab PO Q12.TCU cephalexin 500 mg capsule 500 mg PO TID Referrals / Follow Up: Pranay Mi MD [Med Staff - Active Staff] - Within 2 Weeks Pranay Light MD [Med Staff - Active Staff] - 02/19/25 Raul Patrick Chi, MD [Primary Care Provider] - As soon as possible Disposition Disposition (needs filled in before D/C Order can be placed): Home, Self Care
--- NOTE | 2025-02-16 13:40 | DS.PCM_ITS ---
Providers Date of Admission: 02/13/25 Primary Care Physician: Dr. Raul Patrick MD Consultations 02/13/25 12:48 Consult: Onc/Wound/hand drawer in Routine Comment: Consult: Plastic Surgery Routine Consulting Provider: Pranay Light Reason for Consult: left thumb osteo EMERGENT Consult: No Notified: Yes Date Notified: 02/13/25 Time Notified: 11:47 Method of Notification: ED Physician Initiated 02/14/25 08:04 Consult: Infectious Disease Routine Consulting Provider: Pranay Mi Reason for Consult: antibiotic recommendations EMERGENT Consult: No Notified: Yes Date Notified: 02/14/25 Time Notified: 08:04 Method of Notification: Text Reason For Visit: OSTEOMYELITIS OF THE THUMB Diagnosis Discharge Diagnosis (1) Osteomyelitis of finger of left hand: Status: Acute Code(s): M86.9 - Osteomyelitis, unspecified (2) Subungual hematoma of finger of left hand: Status: Acute Code(s): S60.10XA - Contusion of unspecified finger with damage to nail, initial encounter Medications at Discharge Home Medications albuterol sulfate 90 mcg/actuation aerosol inhaler 2 puff inhalation Q4H PRN copd 02/13/25 atorvastatin 40 mg tablet 40 mg PO QHS 02/13/25 fluticasone 250 mcg-salmeterol 50 mcg/dose blistr powdr for inhalation 1 ea inhalation BID 02/13/25 metoprolol succinate 50 mg tablet,extended release 24 hr 50 mg PO DAILY htn 02/13/25 omeprazole 40 mg capsule,delayed release 40 mg PO DAILY 02/13/25 sertraline 50 mg tablet 50 mg PO DAILY 02/13/25 tamsulosin 0.4 mg capsule 0.8 mg PO QHS 02/13/25 valsartan 320 mg-hydrochlorothiazide 25 mg tablet 1 tab PO DAILY 02/13/25 cefdinir 300 mg capsule 300 mg PO BID 40 days #80 caps 02/16/25 doxycycline monohydrate 100 mg capsule 100 mg PO BID 40 days #80 caps 02/16/25 Hospital Course Operations - ( 1) left thumb nail plate removal and debridement of underlying left thumb wound including debridement of distal phalanx necrotic bone (sequestrum) and drainage of surrounding fluid collection) Procedures None Summary of Care Provided Minutes Spent on Discharge: 36 Hospital Course: Per HPI:COREY LOWE, is a 64 M who presents approximately 1 month after hitting his left thumb with a hammer. He did have a cut on his hand and had a hematoma under his left nail. He went to his PCP who put him on Keflex and Bactrim 2 days ago. During that appointment he had an x-ray obtained which demonstrates bony destruction on his distal phalanx of his left thumb consistent with osteomyelitis. No leukocytosis or signs of sepsis however plastic surgery was consulted recommending an MRI with IV antibiotics for evaluation of possible debridement versus amputation. Hospital course: 1. Subungual hematoma with osteomyelitis of the left thumb status post left thumb nail removal and debridement on 02/14/2025?64-year-old male presents to the hospital after accidentally hitting his thumb with a hammer about a month ago. He went to his primary care doctor because of continued swelling and was given Keflex and Bactrim however an x-ray was also obtained at that time that showed distal destruction of his left thumb phalanx so he was admitted to the hospital for osteomyelitis. He underwent operative debridement and nail removal. Infectious disease evaluated him and recommended doxycycline 100 mg p.o. twice daily as well as cefdinir 300 mg p.o. twice daily for 40 days pending final cultures. He will need to follow-up with plastic surgery on Tuesday and with infectious disease in 2 weeks for monitoring and outpatient evaluation as well as medication adjustment. I discussed with him the plan for discharge and he expressed understanding of the risks and benefits of going home and would like to go home today. I recommended he follow-up with his PCP in 3 to 5 days for outpatient monitoring. 2. 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 His home medications were continued where appropriate Physical Exam Narrative General: Alert, Oriented x3, Cooperative, No apparent distress HEENT: Atraumatic, PERRLA, EOMI, Normocephalic Oral: Moist Mucosa Neck: Supple, No JVD Lungs: Clear to auscultation, Normal air movement, No rhonchi, No wheeze, No rales Cardiovascular: Regular rate, Regular Rhythm, Normal S1, Normal S2, No murmurs Abdomen: Soft, Non Tender, Non-Distended, No Hepato-splenomegaly Extremities: No edema, Capillary Refill Less than 3 Seconds Skin: No rashes, No breakdown Musculoskeletal: Left thumb is swollen and red, left thumbnail has been removed, currently dressed Neurological: No focal neurological deficits, Motor Exam 5/5 strength throughout, Sensory exam intact to light touch and pain Psych/Mental Status: Normal Affect, Appropriate Weight / BMI Weight Weight: 374 lb 12.573 oz Body Mass Index (BMI) 55.3 ABG / Lab / Microbiology Data 02/16/25 07:00 02/16/25 07:00 Laboratory: Laboratory Results - last 24 hr 02/16/25 07:00: WBC 5.1, RBC 4.69, Hgb 15.2, Hct 43.7, MCV 93.2, MCH 32.4 H, MCHC 34.8, RDW Std Deviation 38.9, RDW Coeff of Roseanna 11.4 L, Plt Count 191, MPV 8.3, Immature Gran % (Auto) 0.200, Neut % (Auto) 59.0, Lymph % (Auto) 24.1, [place] % (Auto) 9.8, Eos % (Auto) 5.7 H, Baso % (Auto) 1.2 H, Absolute Neuts (auto) 3.0, Absolute Lymphs (auto) 1.23, Nucleated RBC % 0, Sodium 138, Potassium 4.1, Chloride 102, Carbon Dioxide 26.3, Anion Gap 9, BUN 13, Creatinine 0.86, Estim Creat Clear Calc 133.75, Est GFR (MDRD) Non-Af 96, BUN/Creatinine Ratio 14.9, G lucose 124 H, Calcium 9.2 Microbiology: Microbiology 02/14/25 Unknown Bone - Hand Gram Stain - Final 02/14/25 Unknown Bone - Hand Wound Culture - Preliminary Beta streptococcus Gram negative paradise 02/14/25 Unknown Bone - Hand Anaerobic Culture - Preliminary Checking for anaerobes, further studies to follow. 02/14/25 Unknown Wound Abcess - Aerobic & Anaerobic Swabs Gram Stain - Final 02/14/25 Unknown Wound Abcess - Aerobic & Anaerobic Swabs Wound Culture - Preliminary GNR lactose broadcast traffic coordinator GNR lactose broadcast traffic coordinator#2 Beta streptococcus 02/13/25 10:20 Blood Culture (Wb) - Arm Right Blood Culture - Preliminary No growth in 48 hours. 02/13/25 10:05 Blood Culture (Wb) - Left Forearm Blood Culture - Preliminary No growth in 48 hours. D/C Instructions Call your doctor if your incision/area has: Continuous Slow Oozing and Increased Redness Call your doctor if you observe: Fever of 101 or Higher, Shortness of breath, Dizziness, Fainting spells, Swelling in the ankles, Chest pain and Increased palpitations (irregular heartbeat) DC O2, CPAP, BIPAP Needs Home O2 Discharge instructions: No Meaningful Use Info Meaningful Use Meaningful Use Diagnoses (Choose all that apply): None applicable Discharge Plan Admission Admit Date/Time: 02/13/25 11:44 Attending Provider: Eric Nichols Primary Care Provider: Raul Patrick Chi Consulting Providers: Pranay Light; Pranay Mi Instructions Patient Instructions: Osteomyelitis Dc, ED Subungual Hematoma Additional Instructions / Restrictions: Follow-up with your primary care provider for continued IV antibiotics. Should you change your mind, you can return to the emergency department at any time. By signing out AGAINST MEDICAL ADVICE, you do risk further continued infection of the bone, loss of limb or life, permanent disability or . PLASTIC SURGERY DC instructions Operations Performed: Left Thumb Incision and Debridement Instructions for My Care at Home or Healthcare Facility The following instructions will help you know what to expect in the days following surgery. These are general instructions. Your surgeon and therapist may give you special instructions, which vary to some degree based on your specific procedure -- follow those as directed. Do not, however, hesitate to call if you have any questions or concerns. Splint Care/Dressing Care/Wound Care * Dressings - Continue the twice daily dressing changes over your thumb with the soaks (20 minutes in sterile water and soap) twice daily. Once piece of iodoform out, one piece in at each dressing change. * If the dressing feels too tight after you get home, it is ok to gently pull on the dressing to stretch it out/loosen it. * Avoid smoking or other tobacco products. Smoking tobacco impairs wound healing and increases the risks of post-operative complications. ? Activities * For the first 4 weeks after surgery, try to balance your activity, allowing time for rest. * Avoid lifting, pushing, or pulling anything over 5 pounds. * Do not drive or operate heavy machinery within 24 hrs of surgery or while taking narcotic pain medication.? Pain Control/Medications Make sure to take your antibiotic * If you received an anesthetic block, your hand or arm may be numb for several hours. You will be discharged to home with medications, including an oral pain medication (analgesic). Rest and elevation are still one of the most important factors for pain control. Take your pain medication as needed, but do not wait for the pain to become out of control. * For severe pain, you may take prescription pain medication as directed, but please note that this may also contain Tylenol (e.g. Percocet). Do not take more than 4000mg of Tylenol (acetaminophen) from all sources daily.? * Pain medication may cause some lethargy, nausea, and or constipation. You should not drive/operate dangerous machinery while taking these medications. If these or other symptoms become significantly problematic, please your surgeon's office. * If prescribed oral antibiotics (Keflex, Clindamycin, or others), please take prescription for full duration as instructed. You should not have any pills remaining once completed (refills are written for your convenience should the course need to be extended, but generally they are not required). Diet (what I can eat): Resume normal diet Follow up * You will be seen (most likely) 1 to 2 weeks after surgery depending on the procedure. Follow-up appointment reminders:? (A list of any scheduled appointments is at the end of this document)? At your earliest convenience, please call [phone] to confirm/schedule a follow-up appointment with me on Tuesday in clinic. When to call your surgeon: * If any signs of surgical site infection develop: redness, pus, pain, increased swelling or foul odor at the incision site, fever, cold and clammy skin, or confusion. * Consistent temperature above 101?F (38.3?C). * The affected area gets swollen or much more painful. * You have excessive bleeding from surgical site (soaking through). If you experience difficulty breathing and/or shortness of breath, seek immediate medical attention. If experiencing any of the above complications or if you have any questions, call [phone] Discharge Orders/Prescriptions Prescriptions: New doxycycline monohydrate 100 mg capsule 100 mg PO BID 40 Days Qty: 80 0RF cefdinir 300 mg capsule 300 mg PO BID 40 Days Qty: 80 0RF Continued atorvastatin 40 mg tablet 40 mg PO QHS fluticasone propion-salmeterol 250-50 mcg/dose blister with device 1 ea INHALATION BID metoprolol succinate 50 mg tablet extended release 24 hr 50 mg PO DAILY omeprazole 40 mg capsule,delayed release(DR/EC) 40 mg PO DAILY tamsulosin 0.4 mg capsule 0.8 mg PO QHS albuterol sulfate 90 mcg/actuation HFA aerosol inhaler 2 puff inhalation Q4H PRN (Reason: copd) sertraline 50 mg tablet 50 mg PO DAILY valsartan-hydrochlorothiazide 320-25 mg tablet 1 tab PO DAILY Discontinued sulfamethoxazole-trimethoprim 800-160 mg tablet 1 tab PO Q12.TCU cephalexin 500 mg capsule 500 mg PO TID Referrals / Follow Up: Pranay Mi MD [Med Staff - Active Staff] - Within 2 Weeks Pranay Light MD [Med Staff - Active Staff] - 02/19/25 Raul Patrick Chi, MD [Primary Care Provider] - As soon as possible Disposition Disposition (needs filled in before D/C Order can be placed): Home, Self Care Charges/Coding Visit Charges Inpatient E&M: 33979 Disch Hosp >30min
[2025-02-16 14:04] VITALS: BP 163/74; PULSE 80; RESP 18; TEMP 37.1; O2SAT 98
== END 2025-02-16 14:36 | disposition home or self-care (01) | DRG 516 ==
LOC: ED 11:46 → MS3 12:12
PROVIDERS: Surgery Plastic and Reconstructive Surgery; Admitting Provider Family Medicine; Emergency Provider Emergency Medicine; PCP Family Medicine Geriatric Medicine; Visit Provider Family Medicine
PROC: 0PBS0ZZ Excision of Left Thumb Phalanx, Open Approach (ICD-10-PCS; principal; 2025-02-14 13:15)
DX: M86.142 Other acute osteomyelitis, left hand (principal); N13.8 Other obstructive and reflux uropathy; J44.9 Chronic obstructive pulmonary disease, unspecified; I10 Essential (primary) hypertension; F10.10 Alcohol abuse, uncomplicated; F32.A Depression, unspecified; S60.10XA Contusion of unspecified finger with damage to nail, initial encounter; E78.5 Hyperlipidemia, unspecified; K21.9 Gastro-esophageal reflux disease without esophagitis; F41.9 Anxiety disorder, unspecified; F17.210 Nicotine dependence, cigarettes, uncomplicated; Z79.899 Other long term (current) drug therapy; N40.1 Benign prostatic hyperplasia with lower urinary tract symptoms; W22.8XXA Striking against or struck by other objects, initial encounter
CPT/HCPCS: 36415; 73130; 73140; 73220; 80048; 80053; 80202; 83605; 85025; 87015; 87040; 87070; 87075; 87077; 87102; 87116; 87176; 87186; 87205; 87206; 88305; 88311; 99284; 99406; A9575; A4216; J0696

== ENCOUNTER 2025-02-26 06:05 | Day surgery (SDC) | payer MEDICARE, SELFPAY ==
[2025-02-26] VITALS (7 sets, daily range): BP systolic 131–159; BP diastolic 73–84; PULSE 64–75; RESP 16–20; TEMP 36.2–36.7; O2SAT 95–99; BMI 24.0
--- OUTSIDE RECORDS SUMMARY | 2025-02-26 06:09 | XMS RPT_ITS | CCD ---
Author Organization [facility] CliniSys[facility] Care Team Providers Care Drupal Developer Name Role Phone Carine Canales PA-C Primary Care Provider [phone] Carine CANALES Referring Unavailable Carine CANALES Primary Care Unavailable Carine CANALES Referring Unavailable Carine CANALES Primary Care Unavailable Carine CANALES Attending Unavailable Carine CANALES Primary Care Unavailable Carine CANALES Referring Unavailable Carine CANALES Primary Care Unavailable Carine Canales PA-C Primary Care Provider [phone] Dr. Raul Patrick MD, Chi Primary Care Provider Darnell MORGAN, Dr. Raul Strong Attending Provider Dr. Raul Patrick MD, Chi Referring Provider Shad Lancaster MD Emergency Provider Simone MORGAN, Dr. Eric Morgan Admit Provider Dr. Eric Nichols MD Attending Provider Dr. Eric Nichols MD Other Provider Dr. Pranay Light MD Attending Provider Dr. Pranay Light MD Other Provider Dr. Pranay Mi MD Other Provider Pranay Light Attending Unavailable Darnell, Raul Chi Primary Care Unavailable Sisvinny Pranay Referring Unavailable SisPranay casillas Attending Unavailable Darnell, Raul Chi Primary Care Unavailable SisPranay casillas Attending Unavailable Darnell, Raul Chi Primary Care Unavailable Darnell, Raul Chi Referring Unavailable Pranay Light Consulting Unavailable Darnell, Raul Chi Primary Care Unavailable Eric Nichols Admitting Unavailable Eric Nichols Attending Unavailable Pranay Mi Unavailable Eric Nichols Consulting Unavailable Pranay Light Attending Unavailable Pranay Light Consulting Unavailable Pranay Light Referring Unavailable Pranay Light Attending Unavailable Darnell, Raul Chi Primary Care Unavailable Darnell, Raul Chi Primary Care Unavailable Darnell, Raul Chi Attending Unavailable Darnell, Raul Chi Primary Care Unavailable Darnell, Raul Chi Referring Unavailable Darnell, Raul Chi Attending Unavailable Darnell, Raul Chi Primary Care Unavailable Darnell, Raul Chi Referring Unavailable Darnell, Raul Chi Attending Unavailable Darnell, Raul Chi Attending Unavailable Darnell, Raul Chi Primary Care Unavailable Darnell, Raul Chi Referring Unavailable Pranay Light Consulting Unavailable Darnell, Raul Chi Primary Care Unavailable Eric Nichols Admitting Unavailable Eric Nichols Attending Unavailable Pranay Mi Consulting Unavailable Medications Current Medications Medication Drug Class(es) Dates Sig (Normalized) Sig (Original) [id number] 200 actuat albuterol 0.09 mg/actuat metered dose inhaler (20 sources) beta2-Adrenergic Agonist Start: 02-13-2025 Albuterol Sulfate 90 mcg/actuation HFA aerosol inhaler Active 2 NMA INHALATION Q4H as needed for copd February 13, 2025 12:00am Start: 02-13-2025 Albuterol Sulf ate 90 mcg/actuation HFA aerosol inhaler Active INHALATION [...] as needed. atorvastatin 40 mg oral tablet (4 sources) HMG-CoA Reductase Inhibitor Start: 02-14-20 take 1 tablet by mouth at bedtime Atorvastatin 40 mg tablet Active 40 mg PO AT BEDTIME February 13, 2025 12:00am cefdinir 300 mg oral capsule (2 sources) Cephalosporin Antibacterial Start: 02-17-20 take 1 capsule by mouth twice daily Cefdinir 300 mg capsule Active 300 mg PO TWICE A DAY 80 40 0 February 16, 2025 12:00am doxycycline monohydrate 100 mg oral tablet (3 sources) Tetracycline-class Drug Start: 02-20-20 take 1 tablet by mouth twice daily Doxycycline Monohydrate 100 mg tablet Active 100 mg PO TWICE A DAY 2025 12:00am Start: 02-16-2025 End: 2025 take 1 capsule by mouth twice daily Doxycycline Monohydrate 100 mg capsule Discontinued 100 mg PO TWICE A DAY 80 40 0 February 16, 2025 12:00am 2025 10:18am Fluticasone Propion-Salmeterol (20 sources) Corticosteroid, beta2-Adrenergic Agonist Start: 02-13-2025 Fluticasone Propion-Salmeterol 250-50 mcg/dose blister with device Active 1 NMA INHALATION TWICE A DAY February 13, 2025 12:00am Start: 01-11-2022 take 1 puff(s) by in halation twice daily fluticasone-salmeterol (ADVAIR, WIXELA) 250-50 mcg/dose inhaler Indications: COPD with chronic bronchitis (HCC) Inhale 1 Puff as instructed twice daily. 1 Each 01/11/2022 Active Start: 02-26-2021 End: 01-11-2022 take 1 puff(s) by inhalation twice daily fluticasone-salmeterol (ADVAIR, WIXELA) 250-50 mcg/dose inhaler Indications: COPD with chronic bronchitis (HCC) Inhale 1 Puff as instructed twice daily. 1 Each 02/26/2021 01/11/2022 Discontinued Start: 02-26-2021 take 1 puff(s) by in halation twice daily fluticasone-salmeterol (ADVAIR, WIXELA) 250-50 mcg/dose inhaler Indications: COPD with chronic bronchitis (HCC) Inhale 1 Puff as instructed twice daily. 1 Each 02/26/2021 Active Comment on above: Inhale 1 Puff as ins tructed twice daily. hydroCHLOROthiazide 25 mg / valsartan 320 mg oral tablet (4 sources) Thiazide Diuretic, Angiotensin 2 Receptor Kim Start: [...] succinate 50 mg extended release oral tablet (20 sources) beta-Adrenergic Kim Start: take 1 tablet by mouth once daily Metoprolol Succinate 50 mg tablet extended release 24 hr Active 50 mg PO DAILY February 13, 2025 12:00am htn Start: 02-26-2021 End: 12-02-2022 take 1 tablet by mouth once daily metoprolol succinate ER (TOPROL XL) 50 mg 24 hr tablet Indications: Essential hypertension Take 1 tablet by mouth once daily. 30 tablet 5 12/02/2022 Active Comment on above: [facility] omeprazole 40 mg delayed release oral capsule (20 sources) Proton Pump Inhibitor Start: 02-13-2025 take 1 capsule by mouth once daily Omeprazole 40 mg capsule,delayed release(DR/EC) Active 40 mg PO DAILY February 13, 2025 12:00am Start: 04-14-2021 End: 01-11-2022 take 1 capsule by mouth once daily omeprazole (PRILOSEC) 40 mg capsule Take 1 capsule by mouth once daily. 90 capsule 3 01/11/2022 Active Comment on above: Take 1 capsule by mo [facility] once daily. sertraline 50 mg oral tablet (20 sources) Serotonin Reuptake Inhibitor Start: 02-13-2025 take [...] 1 tablet by ariel th once daily. tamsulosin hydrochloride 0.4 mg oral capsule (4 sources) alpha-Adrenergic Kim Start: take 2 capsules by mouth at bedtime Tamsulosin 0.4 mg capsule Active 0.8 mg PO AT BEDTIME February 13, 2025 12:00am Completed/Discontinued Medications Medication Drug Class(es) Dates Sig (Normalized) Sig (Original) cephalexin 500 mg oral capsule (4 sources) Cephalosporin Antibacterial Start: 02-13-2025 End: 02-16-2025 take 1 capsule by mouth three times daily Cephalexin 500 mg capsule Discontinued 500 mg PO THREE TIMES A DAY February 13, 2025 12:00am February 16, 2025 10:54am glipiZIDE 5 mg oral tablet (3 sources) Sulfonylurea Start: 04-08-2022 End: 05-31-2022 take 1 tablet by mouth once daily glipiZIDE (GLUCOTROL) 5 mg tablet Take 1 tablet by mouth once daily. 30 tablet 5 04/08/2022 05/31/2022 Discontinued (Side Effects) Comment on above: Take 1 tablet by ariel once daily. hydroCHLOROthiazide 25 mg / lisinopril 20 mg oral tablet (17 sources) Thiazide Diuretic, Angiotensin Converting Enzyme Inhibitor Start: 07-26-2022 End: 11-16-2022 take 1 tablet by mouth once daily lisinopril-hydro CHLOROthiazide (ZESTORETIC) 20-25 mg per tablet Indications: Essential [...] mg / trimethoprim 160 mg oral tablet (4 sources) Dihydrofolate Reductase Inhibitor Antibacterial, Sulfonamide Antimicrobial Start: 02-13-2025 End: 02-16-2025 Sulfamethoxazole-Trime thoprim 800-160 mg tablet Discontinued 1 {tbl} PO Q12 February 13, 2025 12:00am February 16, 2025 10:54am Problems Active Problems Problem Classification Problem Date [...] esophagitis] Onset: 02-27-2021 02-26-2021 Chronic Essential hypertension (15 sources) Essential hypertension; Translations: [Essential (primary) hypertension] Onset: 01-26-2022 Chronic Infective arthritis and osteomyelitis (except that caused by tuberculosis or sexually transmitted disease) (10 sources) Osteomyelitis of left hand; Translations: [Osteomyelitis, unspecified] Onset: 02-22-2025 02-13-2025 Chronic Other aftercare (1 source) Drug therapy finding; Translations: [Other exterminator (current) drug therapy] Episodic Other and unspecified benign neoplasm (16 sources) History of polyp of colon; Translations: [Personal history of colonic polyps] 02-26-2021 Episodic Other connective tissue disease (1 source) Pain in left finger(s); Translations: [Pain in left finger(s)] Onset: 02-15-2025 Episodic Other liver diseases (2 sources) Elevated liver enzymes level; Translations: [Abnormal levels of other serum enzymes] Episodic Other lower respiratory disease (16 sources) Nodule of lung; Translations: [Solitary pulmonary nodule] 03-29-2018 Episodic Other non-traumatic joint disorders (1 source) Shoulder pain; Translations: [Pain in right shoulder] Episodic Superficial injury; contusion (9 sources) Subungual hematoma, hand; Translations: [Contusion of unspecified finger with damage to nail, initial encounter] Onset: 02-22-2025 02-13-2025 Episodic Past or Other Problems Problem Classification Problem Date Documented Da te Episodic/Chronic Diabetes mellitus without complication (20 sources) Hyperglycemia; Translations: [Hyperglycemia, unspecified] Onset: 03-26-2016 03-26-2016 Episodic Other aftercare (1 source) Other exterminator (current) drug therapy; Translations: [Current use of [...] Test Name Value Interpretation Reference Range Facility Plastic Surgery Visit Report on 2025 Plastic Surgery Visit Report [facility]ive Surgery [address] [place] [id number] OFFICE VISIT Date of Service: 02/19/25 MR#: [id number] Acct: [id number] Name: COREY NEVILLE Rep #: [id number] : 1960 Provider: Dr. Pranay Light MD Age/Sex: 65/M Location: [facility] Status: Signed Intake Vital Signs 3 02/14/25 12:35 02/19/25 10:17 Height 5 ft 9 in 5 ft 9.5 in Weight: 168 lb BMI 24.4 BP 134/78 H Blood Pressure Location Rt brachial Position Sitting Respiration 18 Pulse 80 Temp 98.4 F Temp Source Temporal Pulse Oximetry (%) 94 Oxygen Delivery Method room air Intake Visit Reasons: follow up Chief Complaint: ED follow upleft thumb Allergies No Known Allergies Allergy (Verified 02/19/25 10:18) Medications 3 ???Medication ???Instructions ???Recorded ???Confirmed ???Type albuterol sulfate 90 mcg/actuation 2 puff inhalation Q4H PRN copd 0 02/13/25 02/13/25 History aerosol inhaler atorvastatin 40 mg tablet 40 mg PO QHS 02/13/25 02/13/25 His tory fluticasone 250 mcg-salmeterol 50 1 ea inhalation BID 02/13/25 08/01/11 History mcg/dose blistr powdr for inhalation metoprolol succinate 50 mg 50 mg PO DAILY htn 02/13/25 History tablet,extended release 24 hr omeprazole 40 mg capsule,delayed 40 mg PO DAILY 02/13/25 02/13/25 H istory release sertraline 50 mg tablet 50 mg PO DAILY 02/13/25 02/13/25 H istory tamsulosin 0.4 mg capsule 0.8 mg PO QHS 02/13/25 02/13/25 Hi story valsartan 320 1 tab PO DAILY 02/13/25 02/13/25 H istory mg-hydrochlorothiazide 25 mg tablet cefdinir 300 mg capsule 300 mg PO BID 40 days #80 caps Rx doxycycline monohydrate 100 mg 100 mg PO BID 02/19/25 02/19/25 Hi story tablet Have you fallen in the past year?: No Subjective Details: Doing well at home with soaks and packing changes. Compliant with PO antibiotics per ID. Pain controlled. Objective Details: Left Upper Extremity Inspection: No drainage. No purulence Palpation: No fluid collections Motor: Able to bend and extend all MP, PIP, and DIP joints. Sensory: Intact to light touch on the radial and ulnar borders. Vascular: Finger tips are warm and well perfused with <2 second capillary refill. Coding Level of Care Code Global Post Op Diagnoses Osteomyelitis of finger of left hand M86.9 [facility] Medical History COPD (chronic obstructive pulmonary disease) HTN (hypertension) Surgical History History of back surgery Family History Other Diabetes Social History (Updated 02/19/25 @ 10:16 by Mildred Marques) Smoking Status: Current every day smoker tobacco type: cigarettes alcohol intake: current alcohol intake frequency: 3 or more drinks per day Alcohol type: beer substance use type: marijuana additional social history: pt denies vaping, denies edibles, pt denies blood clots history Assessment and Plan (No Qualifiers) Assessment and Plan (1) Osteomyelitis of finger of left hand: Status: Acute Plan: Continue iodoform packing, soaks and antibiotics Needs to continue to let the soft tissue swelling improve before definitive reconstruction with revision amputation (to thumb base level) Discussed risks of need for further revision (if residual osteomyelitis despite our best attempts at debridement/closure). I talked to the patient extensively about the risks of surgery, including bleeding, infection, damage to surrounding structures, poor scaring, loss of hand function (diminished 2/2 shortening of the thumb), surgical site dehiscence and wound formation, recurrent osteomyelitis requiring further interventions), need for wound care, need for repeat operations, failure to obtain the desired result, DVT/PE, and the risks of anesthesia including , including stroke (from low blood pressure/ischemia or clot). The benefits and alternatives of this surgery were also discussed. All of their questions were answered, and they agreed to proceed with surgery. F/u Tuesday at wound center to assess, followed by likely Tuesday, 26 Feb 2025, revision amputation Patient happy with the plan 02/19/25 1134 Date Pranay Light MD [facility] Signature: Date (if applicable) CC: Normal [facility] Wound Cultureon 2025 WC UNK UNK DISTAL PHALANX BONE - COLLECTED IN OR #4 Susceptibility not normally performed on this organism. Wound Culture #5 Clinical correlation necessary, Possible skin contamination. Wound Culture Streptococcus dysgalactiae equ Amount Growth Rare Citrobacter braakii Citrobacter braakii CALBP Amount Growth Very Rare Presumptive C albicans Amount Growth Very Rare Staphylococcus hominis hominis Corynebact. pseudodiphtheritic Streptococcus dysgalactiae equ: REACTION Ampicillin Islt MELLISSA <=0.25 S Staphylococcus hominis hominis cefTRIAXone Islt MELLISSA <=0.12 Erythromycin Islt MELLISSA <=0.12 S Linezolid Islt MELLISSA <=2 Vancomycin Islt MELLISSA 0.5 S Citrobacter braakii: REACTION Cefepime Islt MELLISSA <=0.12 S cefTRIAXone Islt MELLISSA <=0.25 S Ciprofloxacin Islt MELLISSA <=0.06 S Gentamicin Islt MELLISSA <=1 S levoFLOXacin Islt MELLISSA <=0.12 Meropenem Islt MELLISSA <=0.25 S Pip+Tazo Islt MELLISSA <=4 S TMP SMX Islt MELLISAS <=20 S Staphylococcus hominis hominis: REACTION cefOXitin Susc Islt NEG Doxycycline Islt MELLISSA <=0.5 S Clindamycin Islt MELLISSA <=0.12 S Clindamycin.induced Susc Islt NEG Erythromycin Islt MELLISSA <=0.25 Gentamicin Islt MELLISSA <=0.5 S Linezolid Islt MELLISSA 1 S Oxacillin Susc Islt S Tetracycline Islt MELLISSA <=1 S TMP SMX Islt MELLISSA <=10 S Vancomycin Islt MELLISSA <=0.5 S Normal [facility] Comment on above: Performed By: #### M 100.1999, M100.400, M100.2999 ####[facility] [address] [place], [address] Culture, Anaerobic Any Sourc deanna 02-18-2025 CUAN UNK UNK DISTAL PHALANX BONE - COLLECTED IN OR Studies have confirmed that Anaerobic Gram Positive Cocci are routinely SUSCEPTABLE to Penicillin and generally susceptible to Beta-lactams and Beta-lactamase inhibitors, Cephalosporins, Carbapenems and Metronidazole. They are showing increased RESISTANCE to Clindamycin Anaerobic cocci Normal [facility] Comment on above: Performed By: #### M 100.2999, M1.4000, #### [facility] [address] [place], [address] CUAN UNK UNK DISTAL PHALANX BONE - COLLECTED IN OR Studies have confirmed that Anaerobic Gram Positive Cocci are routinely SUSCEPTABLE to Penicillin and generally susceptible to Beta-lactams and Beta-lactamase inhibitors, Cephalosporins, Carbapenems and Metronidazole. They are showing increased RESISTANCE to Clindamycin Anaerobic cocci Normal [facility] Comment on above: Performed By: #### M 100.1999, M1.400, M1.3000 ####[facility] [address] [place], [place], [id number] Wound Cultureon 02-18-2025 WC UNK UNK DISTAL PHALANX BONE - COLLECTED IN OR #5 Susceptibility not normally performed on this organism. Klebsiella oxytoca Amount Growth Rare Citrobacter braakii Citrobacter braakii STREQS Amount Growth 2+ Streptococcus dysgalactiae equ Amount Growth Rare Corynebact. pseudodiphtheritic Staphylococcus aureus Klebsiella oxytoca: REACTION Ampicillin Islt MELLISSA >=32 R Corynebact. pseudodiphtheritic Cefepime Islt MELLISSA <=0.12 cefTRIAXone Islt MELLISSA <=0.25 S Ciprofloxacin Islt MELLISSA <=0.06 B-Lactamase Extended Susc Islt NEG Gentamicin Islt MELLISSA <=1 S levoFLOXacin Islt MELLISSA <=0.12 S Meropenem Islt MELLISSA <=0.25 S Pip+Tazo Islt MELLISSA <=4 S TMP SMX Islt MELLISSA <=20 S Citrobacter braakii: REACTION Cefepime Islt MELLISSA <=0.12 S cefTRIAXone Islt MELLISSA <=0.25 S Ciprofloxacin Islt MELLISSA <=0.06 S Gentamicin Islt MELLISSA <=1 S levoFLOXacin Islt MELLISSA <=0.12 Meropenem Islt MELLISSA <=0.25 S Pip+Tazo Islt MELLISSA <=4 S TMP SMX Islt MELLISSA <=20 S Streptococcus dysgalactiae equ: REACTION Ampicillin Islt MELLISSA <=0.25 S Cefotaxime Islt MELLISSA <=0.12 S cefTRIAXone Islt MELLISSA <=0.12 S Erythromycin Islt MELLISSA <=0.12 S Linezolid Islt MELLISSA <=2 Vancomycin Islt MELLISSA 0.5 S Staphylococcus aureus: REACTION cefOXitin Susc Islt NEG Doxycycline Islt MELLISSA <=0.5 S Clindamycin Islt MELLISSA <=0.12 S Clindamycin.induced Susc Islt NEG Erythromycin Islt MELLISSA <=0.25 Gentamicin Islt MELLISSA <=0.5 S Linezolid Islt MELLISSA 2 S Moxifloxacin Islt MELLISSA <=0.25 S Oxacillin Susc Islt 0.5 S Tetracycline Islt MELLISSA <=1 S TMP SMX Islt MELLISSA <=10 S Vancomycin Islt MELLISSA <=0.5 S Normal [facility] Comment on above: Performed By: #### M 100.3000, M100.4001, M100.1999 #### [facility] [place], [address] Absolute lymphocyte countOrd ered By: Eric Nichols on 02-16-2025 Lymphocytes Auto (Unsp spec) [#/Vol] 1.23 10*3/uL 0.83-4.51 [facility] Absolute neutrophil countOrd ered By: Eric Nichols on 02-16-2025 Neutrophils (Bld) [#/Vol] 3.0 10*3/uL 2.0-7.7 [facility] Anion gap in Serum or Plasma Ordered By: Eric Nichols on 02-16-2025 Anion gap [Moles/Vol] 9 mmol/L 5-15 [facility] Automated blood erythrocyte countOrdered By: Eric Nichols on 02-16-2025 RBC (Bld) [#/Vol] 4.69 10*6/uL Normal 4.6-6.2 [facility] Comment on above: Performed By: #### L 100.0100, L500.2500 ####[facility] [address] [place], [place], [id number] Automated blood hematocrit ( percentage)Ordered By: Eric Nichols on 02-16-2025 Hematocrit (Bld) [Volume fraction] 43.7 % Normal 40-54 [facility] Comment on above: Performed By: #### L 100.0100, L500.2500 ####[facility] [address] [place], [place], [id number] Automated lymphocyte count a s percentage of total leukocytesOrdered By: Eric Nichols on 02-16-2025 Lymphocytes/100 WBC Auto (Unsp spec) 24.1 % 19-41 [facility] BUN/creatinine ratioOrdered By: Eric Nichols on 02-16-2025 Urea nitrogen/Creatinine [Mass ratio] 14.9 mg/mg 10- [facility] Basic Metabolic Profile (BMP )on 02-16-2025 BUN/CRE 14.9 RATIO Normal - [facility] Comment on above: Performed By: #### L 100.0100, L500.2500 ####[facility] [address] [place], [address] ECRCL 133.75 ml/min Normal 50-250 [facility] Comment on above: Performed By: #### L 100.0100, L500.2500 ####[facility] [address] [place], [address] GAP 9 Normal 5-15 [facility] Comment on above: Performed By: #### L 100.0100, L500.2500 ####[facility] [address] [place], [address] Potassium [Moles/Vol] 4.1 mmol/L Normal 3.3-5.1 [facility] Comment on above: Performed By: #### L 100.0100, L500.2500 ####[facility] [address] [place], [address] Basophil percentageOrdered B y: Eric Nichols on 02-16-2025 Basophils/100 WBC (Bld) 1.2 % High 0-1 [facility] Comment on above: Performed By: #### L 100.0100, L500.2500 ####[facility] [address] [place], [address] CBC W/Diff, Automatedon 01-20 Absolute Lymph 1.23 X10 3/uL Normal 0.83-4.51 [facility] Comment on above: Performed By: #### L 100.0100, L500.2500 ####[facility] [address] [place], [address] Absolute Neut 3.0 X10 3/uL Normal 2.0-7.7 [facility] Comment on above: Performed By: #### L 100.0100, L500.2500 ####[facility] [address] [place], [address] IG% 0.200 Normal 0.0-0.9 [facility] Comment on above: Result Comment: IG% - Immature Granulocytes (promyelocytes, myelocytes and metamyelocytes) > 1% indicates that a LEFT SHIFT is Present. Performed By: #### L 100.0100, L500.2500 ####[facility] [address] [place], [address] Lymphocytes/100 WBC (Bld) 24.1 % Normal 19-41 [facility] Comment on above: Performed By: #### L 100.0100, L500.2500 ####[facility] [address] [place], [address] Nucleated RBC (Bld) [#/Vol] 0 10*3/uL Normal 0-5 [facility] Comment on above: Performed By: #### L 100.0100, L500.2500 ####[facility] [address] [place], [address] RDW SD 38.9 fl Normal 35.1-43.9 [facility] Comment on above: Performed By: #### L 100.0100, L500.2500 ####[facility] [address] [place], [address] Carbon dioxide, total [Moles /volume] in Central venous bloodOrdered By: Eric Nichols on 02-16-2025 CO2 [Moles/Vol] 26.3 mmol/L Normal 21.0-32.0 [facility] Comment on above: Performed By: #### L 100.0100, L500.2500 ####[facility] [address] [place], [address] Chloride assayOrdered By: Shobha Nichols on 02-16-2025 Chloride [Moles/Vol] 102 mmol/L Normal 98-108 [facility] Comment on above: Performed By: #### L 100.0100, L500.2500 ####[facility] [address] [place], [address] Discharge Instructionon 08-3 Discharge Instruction [facility] Medical Records Department [address] [place] [address] Instructions for Home/Discharge Instructions 02/16/25 1053 MR#: [id number] Acct: [id number] Name: COREY NEVILLE Rep #: [id number] : 1960 64 From: Eric Nichols MD PCP: Dr. Raul Patrick MD Status:ADM IN Discharge Instructions DC O2, CPAP, BIPAP needs Home O2 Discharge instructions: No Dressing / Incision Discharge Activity: Return to Normal Activity Dressing / Incision Call your doctor if your incision/area has: Continuous Slow Oozing and Increased Redness Call your doctor if you observe: Fever of 101 or Higher, Shortness of breath, Dizziness, Fainting spells, Swelling in the ankles, Chest pain and Increased palpitations (irregular heartbeat) Follow Up Care Test Results: Test results from this visit will be discussed in further detail at your follow-up appointment, if applicable. Discharge Plan Admission Admit Date/Time: 02/13/25 11:44 Attending Provider: Eric Nichols Primary Care Provider: Raul Patrick Chi Consulting Providers: Pranay Light; Pranay Mi Instructions Patient Instructions: Osteomyelitis Dc, ED Subungual Hematoma Additional Instructions / Restrictions: Follow-up with your primary care provider for continued IV antibiotics. Should you change your mind, you can return to the emergency department at any time. By signing out AGAINST MEDICAL ADVICE, you do risk further continued infection of the bone, loss of limb or life, permanent disability or . PLASTIC SURGERY DC instructions Operations Performed: Left Thumb Incision and Debridement Instructions for My Care at Home or Healthcare Facility The following instructions will help you know what to expect in the days following surgery. These are general instructions. Your surgeon and therapist may give you special instructions, which vary to some degree based on your specific procedure -- follow those as directed. Do not, however, hesitate to call if you have any questions or concerns. Splint Care/Dressing Care/Wound Care * Dressings - Continue the twice daily dressing changes over your thumb with the soaks (20 minutes in sterile water and soap) twice daily. Once piece of iodoform out, one piece in at each dressing change. * If the dressing feels too tight after you get home, it is ok to gently pull on the dressing to stretch it out/loosen it. * Avoid smoking or other tobacco products. Smoking tobacco impairs wound healing and increases the risks of post-operative complications. ??? Activities * For the first 4 weeks after surgery, try to balance your activity, allowing time for rest. * Avoid lifting, pushing, or pulling anything over 5 pounds. * Do not drive or operate heavy machinery within 24 hrs of surgery or while taking narcotic pain medication.??? Pain Control/Medications Make sure to take your antibiotic * If you received an anesthetic block, your hand or arm may be numb for several hours. You will be discharged to home with medications, including an oral pain medication (analgesic). Rest and elevation are still one of the most important factors for pain control. Take your pain medication as needed, but do not wait for the pain to become out of control. * For severe pain, you may take prescription pain medication as directed, but please note that this may also contain Tylenol (e.g. Percocet). Do not take more than 4000mg of Tylenol (acetaminophen) from all sources daily.??? * Pain medication may cause some lethargy, nausea, and or constipation. You should not drive/operate dangerous machinery while taking these medications. If these or other symptoms become signi ficantly problematic, please your surgeon's office. * If prescribed oral antibiotics (Keflex, Clindamycin, or others), please take prescription for full duration as instructed. You should not have any pills remaining once completed (refills are written for your convenience should the course need to be extended, but generally they are not required). Diet (what I can eat): Resume normal diet Follow up * You will be seen (most likely) 1 to 2 weeks after surgery depending on the procedure. Follow-up appointment reminders:??? (A list of any scheduled appointments is at the end of this document)??? At your earliest convenience, please call [phone] to confirm/schedule a follow-up appointment with me on Tuesday in clinic. When to call your surgeon: * If any signs of surgical site infection develop: redness, pus, pain, increased swelling or foul odor at the incision site, fever, cold and clammy skin, or confusion. * Consistent temperature above 101???F (38.3???C). * The affected area gets swollen or much more painful. * You have excessive bleeding from surgical site (soaking through). If you experience difficulty breathing an (more content not included)... Normal [facility] Eosinophil percentageOrdered By: Eric Nichols on 02-16-2025 Eosinophils/100 WBC (Bld) 5.7 % High 0-5 [facility] Comment on above: Performed By: #### L 100.0100, L500.2500 ####[facility] [address] [place], [place], [id number] Erythrocyte distribution wid th ratioOrdered By: Eric Nichols on 02-16-2025 Erythrocyte distribution width (RBC) [Ratio] 11.4 % Low 11.6-14.6 [facility] Comment on above: Performed By: #### L 100.0100, L500.2500 ####[facility] [address] [place], [place], [id number] Erythrocyte distribution wid th standard deviationOrdered By: Eric Nichols on 02-16-2025 Erythrocyte distribution width (RBC) [Ratio] 38.9 fl 35.1-43.9 [facility] Glomerular filtration rate ( GFR) estimation/1.73 sq m using serum, plasma, or whole bOrdered By: Eric Nichols on 02-16-2025 GFR/1.73 sq M.predicted among non-blacks MDRD (S/P/Bld) [Vol rate/Area] 96 mL/min/{1.73_m2} Normal >60 [facility] Comment on above: mL/min/1.73m2 CKD-EP I Creatinine Equation (2020) Result Comment: mL/m in/1.73m2 CKD-EPI Creatinine Equation (2020) Performed By: #### L 100.0100, L500.2500 ####[facility] [address] [place], [place], [id number] Hemoglobin measurementOrdere d By: Eric Nichols on 02-16-2025 Hemoglobin (Bld) [Mass/Vol] 15.2 g/dL Normal 13.0-16.5 [facility] Comment on above: Performed By: #### L 100.0100, L500.2500 ####[facility] [address] [place], [address] Immature granulocytes/100 WB C Auto (Bld)Ordered By: Eric Nichols on 02-16-2025 Immature granulocytes/100 WBC (Bld) 0.200 % 0.0-0.9 [facility] Comment on above: IG% - Immature Granu locytes (promyelocytes, myelocytes and metamyelocytes) > 1% indicates that a LEFT SHIFT is Present. MCV (mean corpuscular volume ) determinationOrdered By: Eric Nichols on 02-16-2025 MCV (RBC) [Entitic vol] 93.2 fL Normal 80-94 [facility] Comment on above: Performed By: #### L 100.0100, L500.2500 ####[facility] [address] [place], [address] Mean corpuscular hemoglobin (MCH) determinationOrdered By: Eric Nichols on 02-16-2025 MCH (RBC) [Entitic mass] 32.4 pg High 27.0-32.0 [facility] Comment on above: Performed By: #### L 100.0100, L500.2500 ####[facility] [address] [place], [address] Mean corpuscular hemoglobin concentration (MCHC) determinationOrdered By: Eric Nichols on 02-16-2025 MCHC (RBC) [Mass/Vol] 34.8 g/dL Normal 32-36 [facility] Comment on above: Performed By: #### L 100.0100, L500.2500 ####[facility] [address] [place], [address] Mean platelet volume determi nationOrdered By: Eric Nichols on 02-16-2025 Platelet mean volume (Bld) [Entitic vol] 8.3 fL Normal 6.2-12.0 [facility] Comment on above: Performed By: #### L 100.0100, L500.2500 ####[facility] [address] [place], [address] Monocyte percentageOrdered B y: Eric Nichols on 02-16-2025 Monocytes/100 WBC (Bld) 9.8 % Normal 0-10 [facility] Comment on above: Performed By: #### L 100.0100, L500.2500 ####[facility] [address] [place], [address] Neutrophil percentageOrdered By: Eric Nichols on 02-16-2025 Neutrophils/100 WBC (Bld) 59.0 % Normal 47-70 [facility] Comment on above: Performed By: #### L 100.0100, L500.2500 ####[facility] [address] [place], [address] Nucleated red blood cell per centageOrdered By: Eric Nichols on 02-16-2025 Nucleated RBC/100 WBC (Bld) [Ratio] 0 % 0-5 [facility] Platelet countOrdered By: Shobha Nichols on 02-16-2025 Platelets (Bld) [#/Vol] 191 10*3/uL Normal 150-450 [facility] Comment on above: Performed By: #### L 100.0100, L500.2500 ####[facility] [address] [place], [address] Potassium measurement (mass/ volume)Ordered By: Eric Nichols on 02-16-2025 Potassium (Unsp spec) [Mass/Vol] 4.1 mmol/L 3.3-5.1 [facility] Serum creatinine measurement (mass/volume)Ordered By: Eric Nichols on 02-16-2025 Creatinine [Mass/Vol] 0.86 mg/dL Normal 0.70-1.20 [facility] Comment on above: Performed By: #### L 100.0100, L500.2500 ####[facility] [address] [place], [address] Serum glucose measurement (m ass/volume)Ordered By: Eric Nichols on 02-16-2025 Glucose [Mass/Vol] 124 mg/dL High 70-99 [facility] Comment on above: Performed By: #### L 100.0100, L500.2500 ####[facility] [address] [place], [address] Serum or plasma calcium primo urement (mass/volume)Ordered By: Eric Nichols on 02-16-2025 Calcium [Mass/Vol] 9.2 mg/dL Normal 7.6-11.0 [facility] Comment on above: Performed By: #### L 100.0100, L500.2500 ####[facility] [address] [place], [address] Serum or plasma urea nitroge n measurement (mass/volume)Ordered By: Eric Nichols on 02-16-2025 Urea nitrogen [Mass/Vol] 13 mg/dL Normal 4-19 [facility] Comment on above: Performed By: #### L 100.0100, L500.2500 ####[facility] [address] [place], [address] Sodium levelOrdered By: Kendall Nichols on 02-16-2025 Sodium [Moles/Vol] 138 mmol/L Normal 133-145 [facility] Comment on above: Performed By: #### L 100.0100, L500.2500 ####[facility] [address] [place], [address] White blood cell (WBC) count Ordered By: Eric Nichols on 02-16-2025 WBC (Bld) [#/Vol] 5.1 10*3/uL Normal 4.4-11.0 [facility] Comment on above: Performed By: #### L 100.0100, L500.2500 ####[facility] [address] [place], [address] Absolute lymphocyte countOrd ered By: Eric Nichols on 02-15-2025 Lymphocytes Auto (Unsp spec) [#/Vol] 1.32 10*3/uL 0.83-4.51 [facility] Absolute neutrophil countOrd ered By: Eric Nichols on 02-15-2025 Neutrophils (Bld) [#/Vol] 3.9 10*3/uL 2.0-7.7 [facility] Anion gap in Serum or Plasma Ordered By: Eric Nichols on 02-15-2025 Anion gap [Moles/Vol] 11 mmol/L 5-15 [facility] Automated lymphocyte count a s percentage of total leukocytesOrdered By: Eric Nichols on 02-15-2025 Lymphocytes/100 WBC Auto (Unsp spec) 21.4 % 19-41 [facility] BUN/creatinine ratioOrdered By: Eric Nichols on 02-15-2025 Urea nitrogen/Creatinine [Mass ratio] 12.4 mg/mg 10- [facility] Basic Metabolic Profile (BMP )on 02-15-2025 BUN/CRE 12.4 RATIO Normal -20 [facility] Comment on above: Performed By: #### L 100.0100, L500.2500 ####[facility] [address] [place], [address] Calcium [Mass/Vol] 9.0 mg/dL Normal 7.6-11.0 [facility] Comment on above: Performed By: #### L 100.0100, L500.2500 ####[facility] [address] [place], [address] Chloride [Moles/Vol] 103 mmol/L Normal 98-108 [facility] Comment on above: Performed By: #### L 100.0100, L500.2500 ####[facility] [address] [place], [address] CO2 [Moles/Vol] 23.9 mmol/L Normal 21.0-32.0 [facility] Comment on above: Performed By: #### L 100.0100, L500.2500 ####[facility] [address] [place], [address] Creatinine [Mass/Vol] 0.93 mg/dL Normal 0.70-1.20 [facility] Comment on above: Performed By: #### L 100.0100, L500.2500 ####[facility] [address] [place], [address] ECRCL 123.68 ml/min Normal 50-250 [facility] Comment on above: Performed By: #### L 100.0100, L500.2500 ####[facility] [address] [place], [address] GAP 11 Normal 5-15 [facility] Comment on above: Performed By: #### L 100.0100, L500.2500 ####[facility] [address] [place], [address] GFR/1.73 sq M.predicted among non-blacks MDRD (S/P/Bld) [Vol rate/Area] 91 mL/min/{1.73_m2} Normal >60 [facility] Comment on above: Result Comment: mL/m in/1.73m2 CKD-EPI Creatinine Equation (2020) Performed By: #### L 100.0100, L500.2500 ####[facility] [address] [place], [address] Glucose [Mass/Vol] 128 mg/dL High 70-99 [facility] Comment on above: Performed By: #### L 100.0100, L500.2500 ####[facility] [address] [place], [address] Potassium [Moles/Vol] 4.1 mmol/L Normal 3.3-5.1 [facility] Comment on above: Performed By: #### L 100.0100, L500.2500 ####[facility] [address] [place], [address] Sodium [Moles/Vol] 138 mmol/L Normal 133-145 [facility] Comment on above: Performed By: #### L 100.0100, L500.2500 ####[facility] [address] [place], [address] Urea nitrogen [Mass/Vol] 12 mg/dL Normal 4-19 [facility] Comment on above: Performed By: #### L 100.0100, L500.2500 ####[facility] [address] [place], [address] Basophil percentageOrdered B y: Eric Nichols on 02-15-2025 Basophils/100 WBC (Bld) 0.6 % 0-1 [facility] CBC W/Diff, Automatedon 01-19 Absolute Lymph 1.32 X10 3/uL Normal 0.83-4.51 [facility] Comment on above: Performed By: #### L 100.0100, L500.2500 ####[facility] [address] [place], [address] Absolute Neut 3.9 X10 3/uL Normal 2.0-7.7 [facility] Comment on above: Performed By: #### L 100.0100, L500.2500 ####[facility] [address] [place], [address] Basophils/100 WBC (Bld) 0.6 % Normal 0-1 [facility] Comment on above: Performed By: #### L 100.0100, L500.2500 ####[facility] [address] [place], [address] Eosinophils/100 WBC (Bld) 5.2 % High 0-5 [facility] Comment on above: Performed By: #### L 100.0100, L500.2500 ####[facility] [address] [place], [address] Erythrocyte distribution width (RBC) [Ratio] 11.5 % Low 11.6-14.6 [facility] Comment on above: Performed By: #### L 100.0100, L500.2500 ####[facility] [address] [place], [address] Hematocrit (Bld) [Volume fraction] 40.5 % Normal 40-54 [facility] Comment on above: Performed By: #### L 100.0100, L500.2500 ####[facility] [address] [place], [address] Hemoglobin (Bld) [Mass/Vol] 13.8 g/dL Normal 13.0-16.5 [facility] Comment on above: Performed By: #### L 100.0100, L500.2500 ####[facility] [address] [place], [address] IG% 0.300 Normal 0.0-0.9 [facility] Comment on above: Result Comment: IG% - Immature Granulocytes (promyelocytes, myelocytes and metamyelocytes) > 1% indicates that a LEFT SHIFT is Present. Performed By: #### L 100.0100, L500.2500 ####[facility] [address] [place], [address] Lymphocytes/100 WBC (Bld) 21.4 % Normal 19-41 [facility] Comment on above: Performed By: #### L 100.0100, L500.2500 ####[facility] [address] [place], [address] MCH (RBC) [Entitic mass] 32.1 pg High 27.0-32.0 [facility] Comment on above: Performed By: #### L 100.0100, L500.2500 ####[facility] [address] [place], [address] MCHC (RBC) [Mass/Vol] 34.1 g/dL Normal 32-36 [facility] Comment on above: Performed By: #### L 100.0100, L500.2500 ####[facility] [address] [place], [address] MCV (RBC) [Entitic vol] 94.2 fL High 80-94 [facility] Comment on above: Performed By: #### L 100.0100, L500.2500 ####[facility] [address] [place], [address] Monocytes/100 WBC (Bld) 9.4 % Normal 0-10 [facility] Comment on above: Performed By: #### L 100.0100, L500.2500 ####[facility] [address] [place], [address] Neutrophils/100 WBC (Bld) 63.1 % Normal 47-70 [facility] Comment on above: Performed By: #### L 100.0100, L500.2500 ####[facility] [address] [place], [address] Nucleated RBC (Bld) [#/Vol] 0 10*3/uL Normal 0-5 [facility] Comment on above: Performed By: #### L 100.0100, L500.2500 ####[facility] [address] [place], [address] Platelet mean volume (Bld) [Entitic vol] 8.5 fL Normal 6.2-12.0 [facility] Comment on above: Performed By: #### L 100.0100, L500.2500 ####[facility] [address] [place], [address] Platelets (Bld) [#/Vol] 183 10*3/uL Normal 150-450 [facility] Comment on above: Performed By: #### L 100.0100, L500.2500 ####[facility] [address] [place], [address] RBC (Bld) [#/Vol] 4.30 10*6/uL Low 4.6-6.2 [facility] Comment on above: Performed By: #### L 100.0100, L500.2500 ####[facility] [address] [place], [address] RDW SD 39.8 fl Normal 35.1-43.9 [facility] Comment on above: Performed By: #### L 100.0100, L500.2500 ####[facility] [address] [place], [address] WBC (Bld) [#/Vol] 6.2 10*3/uL Normal 4.4-11.0 [facility] Comment on above: Performed By: #### L 100.0100, L500.2500 ####[facility] [address] [place], [address] Carbon dioxide, total [Moles /volume] in Central venous bloodOrdered By: Eric Nichols on 02-15-2025 CO2 [Moles/Vol] 23.9 mmol/L 21.0-32.0 [facility] Chloride assayOrdered By: Shobha Nichols on 02-15-2025 Chloride [Moles/Vol] 103 mmol/L 98-108 [facility] Culture, Blood (WB)on 2024 CUB Blood cultures x2, from two different sites No growth in 5 days. Normal [facility] Comment on above: Performed By: #### M 100.3000, M100.4001, M100.2000 #### [facility] [address] [place], [address] Eosinophil percentageOrdered By: Eric Nichols on 02-15-2025 Eosinophils/100 WBC (Bld) 5.2 % High 0-5 [facility] Erythrocyte distribution wid th ratioOrdered By: Eric Nichols on 02-15-2025 Erythrocyte distribution width (RBC) [Ratio] 11.5 % Low 11.6-14.6 [facility] Erythrocyte distribution wid th standard deviationOrdered By: Ericmarsha Nichols on 02-15-2025 Erythrocyte distribution width (RBC) [Ratio] 39.8 fl 35.1-43.9 [facility] Glomerular filtration rate ( GFR) estimation/1.73 sq m using serum, plasma, or whole bOrdered By: Eric Nichols on 02-15-2025 GFR/1.73 sq M.predicted among non-blacks MDRD (S/P/Bld) [Vol rate/Area] 91 mL/min/{1.73_m2} >60 [facility] Comment on above: mL/min/1.73m2 CKD-EP I Creatinine Equation (2020) Gram Stainon 02-15-2025 GS UNK UNK DISTAL PHALANX BONE - COLLECTED IN OR Gram Stain 2+ White Blood Cells 1+ Gram positive cocci Rare Gram negative rods Normal [facility] Comment on above: Performed By: #### M 100.3000, M100.4001, M100.2000 #### [facility] [address] [place], [address] GS UNK UNK DISTAL PHALANX BONE - COLLECTED IN OR Gram Stain Rare White Blood Cells No organisms seen Normal [facility] Comment on above: Performed By: #### M 100.2000, M100.4001, M100.3000 ####[facility] [address] [place], [address] Hand Min 3 Viewson 5 Hand Min 3 Views [facility] Services [address] [place] [address] Hand Min 3 Views MR#: [id number] Acct: [id number] Name: COREY NEVILLE Rep #: [id number] : 1960 M 64 From: Santi George PCP: Dr. Raul Patrick MD Status: ADM IN Study: Hand Min 3 Views Date of Exam: 02/15/25 Exam# [id number] Ordering Dr: Pranay Light MD PROCEDURE: HAND MIN 3 VIEWS 02/15/2025 REASON FOR EXAM: L THUMB WOUND TECHNIQUE: HAND MIN 3 VIEWS Laterality: Left COMPARISON: Left thumb examination of 02/11/2025. RAD/Hand Min 3 Views IMPRESSION: Marked interval worsened destructive changes of the mid to distal portions of the left thumb distal phalanx noted, highly concerning for osteomyelitis. Soft tissue gas is also seen, further supporting the presence of infection. Mild to moderate degenerative changes of the fingers are also noted Reading Location: [place] [address] CC: Dr. Pranay Light MD; Dr. Raul Patrick MD Jewel Bearing Broacher: Signed Normal [facility] Hematocrit Auto (Bld) [Volum e fraction]Ordered By: Eric Nichols on 02-15-2025 Hematocrit (Bld) [Volume fraction] 40.5 % 40-54 [facility] Hemoglobin measurementOrdere d By: Eric Nichols on 02-15-2025 Hemoglobin (Bld) [Mass/Vol] 13.8 g/dL 13.0-16.5 [facility] Immature granulocytes/100 WB C Auto (Bld)Ordered By: Eric Nichols on 02-15-2025 Immature granulocytes/100 WBC (Bld) 0.300 % 0.0-0.9 [facility] Comment on above: IG% - Immature Granu locytes (promyelocytes, myelocytes and metamyelocytes) > 1% indicates that a LEFT SHIFT is Present. MCV (mean corpuscular volume ) determinationOrdered By: Eric Nichols on 02-15-2025 MCV (RBC) [Entitic vol] 94.2 fL High 80-94 [facility] Mean corpuscular hemoglobin (MCH) determinationOrdered By: Eric Nichols on 02-15-2025 MCH (RBC) [Entitic mass] 32.1 pg High 27.0-32.0 [facility] Mean corpuscular hemoglobin concentration (MCHC) determinationOrdered By: Eric Nichols on 02-15-2025 MCHC (RBC) [Mass/Vol] 34.1 g/dL 32-36 [facility] Mean platelet volume determi nationOrdered By: Eric Nichols on 02-15-2025 Platelet mean volume (Bld) [Entitic vol] 8.5 fL 6.2-12.0 [facility] Monocyte percentageOrdered B y: Eric Nichols on 02-15-2025 Monocytes/100 WBC (Bld) 9.4 % 0-10 [facility] Neutrophil percentageOrdered By: Eric Nichols on 02-15-2025 Neutrophils/100 WBC (Bld) 63.1 % 47-70 [facility] Nucleated red blood cell per centageOrdered By: Eirc Nichols on 02-15-2025 Nucleated RBC/100 WBC (Bld) [Ratio] 0 % 0-5 [facility] Platelet countOrdered By: Shboha Nichols on 02-15-2025 Platelets (Bld) [#/Vol] 183 10*3/uL 150-450 [facility] Potassium measurement (mass/ volume)Ordered By: Eric Nichols on 02-15-2025 Potassium (Unsp spec) [Mass/Vol] 4.1 mmol/L 3.3-5.1 [facility] RBC Auto (Bld) [#/Vol]Ordere d By: Eric Nichols on 02-15-2025 RBC (Bld) [#/Vol] 4.30 10*6/uL Low 4.6-6.2 [facility] Serum creatinine measurement (mass/volume)Ordered By: Eric Nichols on 02-15-2025 Creatinine [Mass/Vol] 0.93 mg/dL 0.70-1.20 [facility] Serum glucose measurement (m ass/volume)Ordered By: Eric Nichols on 02-15-2025 Glucose [Mass/Vol] 128 mg/dL High 70-99 [facility] Serum or plasma calcium primo urement (mass/volume)Ordered By: Eric Nichols on 02-15-2025 Calcium [Mass/Vol] 9.0 mg/dL 7.6-11.0 [facility] Serum or plasma urea nitroge n measurement (mass/volume)Ordered By: Eric Nichols on 02-15-2025 Urea nitrogen [Mass/Vol] 12 mg/dL 4-19 [facility] Sodium levelOrdered By: Kendall Nichols on 02-15-2025 Sodium [Moles/Vol] 138 mmol/L 133-145 [facility] Vancomycin, Trough Levelon 0 02-15-2025 VANCO, TROUGH 10.2 ug/mL Normal 5.0-15.0 [facility] Comment on above: Order Comment: 2300 Result Comment: Spencer mmended goal trough ranges are generally 10-15 mcg/ml for less severe/complicated infections such as cellulitis or UTI and 15-20 mcg/ml for more severe/complicated infections such as bacteremia/sepsis, osteomyelitis, pneumonia or meningitis. Goal trough ranges should take into account indication, patient-specific factors and organism MELLISSA. VANCOMYCIN STANDARED DRUG THERAPY TROUGH LEVEL: 5.0 - 15.0 mg/L VANCOMYCIN HIGH INTENSITY THERAPY TROUGH LEVEL: 15.0 - 20.0 mg/L High Intensity therapy recommended for serious life threatening infections include: - Meningitis -Endocarditis -Pneumonia (Ventilator/Healtcare Associated) -Sepsis PLEASE CONTACT PHARMACY SERVICES (#[phone]) FOR INTERPRETATION OF RESULTS. Performed By: #### L 501.8820 ####[facility] [address] [place], [address] White blood cell (WBC) count Ordered By: Eric Nichols on 02-15-2025 WBC (Bld) [#/Vol] 6.2 10*3/uL 4.4-11.0 [facility] Anaerobic cultureOrdered By: Pranay Light on 02-14-2025 Bacteria identified Anaer cx Nom (Unsp spec) Anaerobic cocci Abnormal [facility] Basic Metabolic Profile (BMP )on 02-14-2025 BUN/CRE 13.1 RATIO Normal 10-20 [facility] Comment on above: Performed By: #### L 100.0100, L500.2500 ####[facility] [address] [place], [address] Calcium [Mass/Vol] 9.3 mg/dL Normal 7.6-11.0 [facility] Comment on above: Performed By: #### L 100.0100, L500.2500 ####[facility] [address] [place], [address] Chloride [Moles/Vol] 102 mmol/L Normal 98-108 [facility] Comment on above: Performed By: #### L 100.0100, L500.2500 ####[facility] [address] [place], [address] CO2 [Moles/Vol] 22.5 mmol/L Normal 21.0-32.0 [facility] Comment on above: Performed By: #### L 100.0100, L500.2500 ####[facility] [address] [place], [address] Creatinine [Mass/Vol] 1.02 mg/dL Normal 0.70-1.20 [facility] Comment on above: Performed By: #### L 100.0100, L500.2500 ####[facility] [address] [place], [address] ECRCL 72.20 ml/min Normal 50-250 [facility] Comment on above: Performed By: #### L 100.0100, L500.2500 ####[facility] [address] [place], [address] GAP 12 Normal 5-15 [facility] Comment on above: Performed By: #### L 100.0100, L500.2500 ####[facility] [address] [place], [address] GFR/1.73 sq M.predicted among non-blacks MDRD (S/P/Bld) [Vol rate/Area] 82 mL/min/{1.73_m2} Normal >60 [facility] Comment on above: Result Comment: mL/m in/1.73m2 CKD-EPI Creatinine Equation (2020) Performed By: #### L 100.0100, L500.2500 ####[facility] [address] [place], [address] Glucose [Mass/Vol] 140 mg/dL High 70-99 [facility] Comment on above: Performed By: #### L 100.0100, L500.2500 ####[facility] [address] [place], [address] Potassium [Moles/Vol] 4.2 mmol/L Normal 3.3-5.1 [facility] Comment on above: Result Comment: Hemo lysis present, Results??could be affected. ?? Performed By: #### L 100.0100, L500.2500 ####[facility] [address] [place], [address] Sodium [Moles/Vol] 136 mmol/L Normal 133-145 [facility] Comment on above: Performed By: #### L 100.0100, L500.2500 ####[facility] [address] [place], [address] Urea nitrogen [Mass/Vol] 13 mg/dL Normal 4-19 [facility] Comment on above: Performed By: #### L 100.0100, L500.2500 ####[facility] [address] [place], [address] CBC W/Diff, Automatedon 01-19 Absolute Lymph 1.38 X10 3/uL Normal 0.83-4.51 [facility] Comment on above: Performed By: #### L 100.0100, L500.2500 ####[facility] [address] [place], [address] Absolute Neut 3.8 X10 3/uL Normal 2.0-7.7 [facility] Comment on above: Performed By: #### L 100.0100, L500.2500 ####[facility] [address] [place], [address] Basophils/100 WBC (Bld) 0.8 % Normal 0-1 [facility] Comment on above: Performed By: #### L 100.0100, L500.2500 ####[facility] [address] [place], [address] Eosinophils/100 WBC (Bld) 4.8 % Normal 0-5 [facility] Comment on above: Performed By: #### L 100.0100, L500.2500 ####[facility] [address] [place], [address] Erythrocyte distribution width (RBC) [Ratio] 11.6 % Normal 11.6-14.6 [facility] Comment on above: Performed By: #### L 100.0100, L500.2500 ####[facility] [address] [place], [address] Hematocrit (Bld) [Volume fraction] 43.0 % Normal 40-54 [facility] Comment on above: Performed By: #### L 100.0100, L500.2500 ####[facility] [address] [place], [address] Hemoglobin (Bld) [Mass/Vol] 14.7 g/dL Normal 13.0-16.5 [facility] Comment on above: Performed By: #### L 100.0100, L500.2500 ####[facility] [address] [place], [address] IG% 0.200 Normal 0.0-0.9 [facility] Comment on above: Result Comment: IG% - Immature Granulocytes (promyelocytes, myelocytes and metamyelocytes) > 1% indicates that a LEFT SHIFT is Present. Performed By: #### L 100.0100, L500.2500 ####[facility] [address] [place], [address] Lymphocytes/100 WBC (Bld) 22.8 % Normal 19-41 [facility] Comment on above: Performed By: #### L 100.0100, L500.2500 ####[facility] [address] [place], [address] MCH (RBC) [Entitic mass] 32.0 pg Normal 27.0-32.0 [facility] Comment on above: Performed By: #### L 100.0100, L500.2500 ####[facility] [address] [place], [address] MCHC (RBC) [Mass/Vol] 34.2 g/dL Normal 32-36 [facility] Comment on above: Performed By: #### L 100.0100, L500.2500 ####[facility] [address] [place], [address] MCV (RBC) [Entitic vol] 93.5 fL Normal 80-94 [facility] Comment on above: Performed By: #### L 100.0100, L500.2500 ####[facility] [address] [place], [address] Monocytes/100 WBC (Bld) 9.6 % Normal 0-10 [facility] Comment on above: Performed By: #### L 100.0100, L500.2500 ####[facility] [address] [place], [address] Neutrophils/100 WBC (Bld) 61.8 % Normal 47-70 [facility] Comment on above: Performed By: #### L 100.0100, L500.2500 ####[facility] [address] [place], [address] Nucleated RBC (Bld) [#/Vol] 0 10*3/uL Normal 0-5 [facility] Comment on above: Performed By: #### L 100.0100, L500.2500 ####[facility] [address] [place], [address] Platelet mean volume (Bld) [Entitic vol] 8.9 fL Normal 6.2-12.0 [facility] Comment on above: Performed By: #### L 100.0100, L500.2500 ####[facility] [address] [place], [address] Platelets (Bld) [#/Vol] 211 10*3/uL Normal 150-450 [facility] Comment on above: Performed By: #### L 100.0100, L500.2500 ####[facility] [address] [place], [address] RBC (Bld) [#/Vol] 4.60 10*6/uL Normal 4.6-6.2 [facility] Comment on above: Performed By: #### L 100.0100, L500.2500 ####[facility] [address] [place], [address] RDW SD 39.9 fl Normal 35.1-43.9 [facility] Comment on above: Performed By: #### L 100.0100, L500.2500 ####[facility] [address] [place], [address] WBC (Bld) [#/Vol] 6.1 10*3/uL Normal 4.4-11.0 [facility] Comment on above: Performed By: #### L 100.0100, L500.2500 ####[facility] [address] [place], [address] Consultation - Infectious Dx on 02-14-2025 Consultation - Infectious Dx [facility] Medical Records Department [address] [place] [address] Consultation - Infectious Dx 02/14/25 1012 MR#: [id number] Acct: [id number] Name: COREY NEVILLE Rep #: [id number] : 1960 64 From: Pranay Mi MD PCP: Dr. Raul Patrick MD Status:ADM IN Location: [facility] KL170-0 Assessment Plan Assessment/Plan (1) Osteomyelitis of finger of left hand: PLAN: OR planned for today with Dr. Light. On empiric vanc/zosyn. Will narrow to vanc/ceftriaxone. Will follow, thank you HPI Consult Data Date of Consult: 02/14/25 HPI Narrative Reason for Consultation: osteo HPI Narrative: COREY NEVILLE, is a 64 M who hit L thumb with a hammer about a month ago. Developed subungual hematoma, progressive pain and swelling over past two weeks. Saw PCP, started on bactrim and keflex, took for about 2.5 days, then came to ED 02/13. Admitted on vanc/zosyn, now OR planned. No drainage, no fever. He is R handed. Full ROS performed and neg except as noted above. [facility] Medical History HTN (hypertension) Home Medications ???Medication ???Instructions ???Recorded ???Last Taken ???Type albuterol sulfate 90 mcg/actuation 2 puff inhalation Q4H PRN copd 0 02/13/25 Unknown History aerosol inhaler atorvastatin 40 mg tablet 40 mg PO QHS 02/13/25 Unknown Hist ory cephalexin 500 mg capsule 500 mg PO TID 02/13/25 Unknown His tory fluticasone 250 mcg-salmeterol 50 1 ea inhalation BID 02/13/25 Unkn own History mcg/dose blistr powdr for inhalation metoprolol succinate 50 mg 50 mg PO DAILY 02/13/25 Unknown Hi story tablet,extended release 24 hr omeprazole 40 mg capsule,delayed 40 mg PO DAILY 02/13/25 Unknown Hi story release sertraline 50 mg tablet 50 mg PO DAILY 02/13/25 Unknown Hi story sulfamethoxazole 800 1 tab PO Q12.TCU 02/13/25 Unknown History mg-trimethoprim 160 mg tablet tamsulosin 0.4 mg capsule 0.8 mg PO QHS 02/13/25 Unknown His tory valsartan 320 1 tab PO DAILY 02/13/25 Unknown Hi story mg-hydrochlorothiazide 25 mg tablet Allergy/AdvReac Type Severity Reaction Status Date / Time No Known Allergies Allergy Verified 02/13/25 09:56 Family History (Updated 02/13/25 @ 13:[address] Eric Nichols MD) Other Diabetes Surgical History (Updated 02/13/25 @ 13:[address] Eric Nichols MD) History of back surgery Social History (Updated 02/13/25 @ 13:[address] Eric Nichols MD) Smoking Status: Current every day smoker tobacco type: cigarettes alcohol intake: current alcohol intake frequency: 3 or more drinks per day Alcohol type: beer Physical Exam Const alert, oriented x3 and no apparent distress General Appearance: cooperative HEENT normocephalic and head/scalp atraumatic Eyes PERRL and EOMs intact bilaterally Neck supple and No nodes Resp normal air movement and clear to auscultation bilaterally Cardio regular rate and regular rhythm GI soft to palpation, non-tender and non-distended Extremity General Extremity: Negative for edema Skin Skin Narrative: L thumb with swelling, limited ROM, dark subungual hematoma Neuro CN's II-XII intact bilaterally Lab / Micro Data Attestation: I reviewed the patient's lab results. 02/14/25 06:01 02/14/25 06:01 Labs: Laboratory Results - last 24 hr 02/13/25 10:05: WBC 6.6, RBC 4.97, Hgb 16.0, Hct 45.7, MCV 92.0, MCH 32.2 H, MCHC 35.0, RDW Std Deviation 39.0, RDW Coeff of Roseanna 11.5 L, Plt Count 211, MPV 8.3, Immature Gran % (Auto) 0.300, Neut % (Auto) 64.6, Lymph % (Auto) 22.3, Maries % (Auto) 9.3, Eos % (Auto) 2.7, Baso [...] Albumin 4.5, Globulin 3.4, Albumin/Globulin Ratio 1.3 02/14/25 06:01: WBC 6.1, RBC 4.60, Hgb 14.7, Hct 43.0, MCV 93.5, MCH 32.0, MCHC 34.2, RDW Std Deviation 39.9, RDW Coeff of Roseanna 11.6, Plt Count 211, MPV 8.9, Immature Gran % (Auto) 0.200, Neut % (Auto) 61.8, Lymph % (Auto) 22.8, Maries % (Auto) 9.6, Eos % (Auto) 4.8, Baso % (Auto) 0.8, Absolute Neuts (auto) 3.8, Absolute Lymphs (auto) 1.38, Nucleated RBC % 0, Sodium 136, Potassium 4.2, Chloride 102, Carbon Dioxide 22.5, Anion Gap 12, BUN 13, Creatinine 1.02, Estim Creat Clear Calc 72.20, Est GFR (MDRD) Non-Af 82, BUN/Creatinine Ratio 13.1, Glucose 140 H, Calcium 9.3 Imaging Radiology Impression Upper Extremity MRI 02/13/25 12:48 IMPRESSION: Findings concerning for osteomyelitis of the left thumb dis (more content not included)... Normal [facility] Gram stainOrdered By: Pranay Light on 02-14-2025 Microscopic observation Gram stain Nom (Unsp spec) [facility] H AND P Exam - Surgicalon H&P Exam - Surgical [facility] Medical Records Department [address] [place] [address] H P Exam - Surgical 02/14/25 1318 MR#: [id number] Acct: [id number] Name: COREY NEVILLE Rep #: [id number] : 1960 64 From: Pranay Light MD PCP: Dr. Raul Patrick MD Status:ADM IN Location: [facility] [id number] HPI - General General Date of Admission: 02/13/25 HPI Narrative COREY NEVILLE, is a 64 M who presents with thumb osteomyelitis left thumb Current Encounter (DATE OF SURGERY H P UPDATE): I saw and examined the patient this morning in pre- operative holding. We discussed risks and benefits of today's surgery and they would like to proceed. NO CHANGE in health history since last seen and evaluated. Ready to proceed with surgery. [facility] Medical History (Updated 02/14/25 @ 13:[address] Wing Pierre MD) COPD (chronic obstructive pulmonary disease) HTN (hypertension) Home Medications ???Medication ???Instructions ???Recorded ???Last Taken ???Type albuterol sulfate 90 mcg/actuation 2 puff inhalation Q4H PRN copd 0 02/13/25 Unknown History aerosol inhaler atorvastatin 40 mg tablet 40 mg PO QHS 02/13/25 Unknown Hist ory cephalexin 500 mg capsule 500 mg PO TID 02/13/25 Unknown His tory fluticasone 250 mcg-salmeterol 50 1 ea inhalation BID 02/13/25 Unkn own History mcg/dose blistr powdr for inhalation metoprolol succinate 50 mg 50 mg PO DAILY htn 02/13/25 History tablet,extended release 24 hr omeprazole 40 mg capsule,delayed 40 mg PO DAILY 02/13/25 Unknown Hi story release sertraline 50 mg tablet 50 mg PO DAILY 02/13/25 Unknown Hi story sulfamethoxazole 800 1 tab PO Q12.TCU 02/13/25 Unknown History mg-trimethoprim 160 mg tablet tamsulosin 0.4 mg capsule 0.8 mg PO QHS 02/13/25 Unknown His tory valsartan 320 1 tab PO DAILY 02/13/25 Unknown Hi story mg-hydrochlorothiazide 25 mg tablet Allergy/AdvReac Type Severity Reaction Status Date / Time No Known Allergies Allergy Verified 02/13/25 09:56 Family History Other Diabetes Surgical History History of back surgery Social History Smoking Status: Current every day smoker tobacco type: cigarettes alcohol intake: current alcohol intake frequency: 3 or more drinks per day Alcohol type: beer Vital Signs Vital Signs Vital Signs: 02/13/25 15:54 02/13/25 21:05 02/13/25 21:19 Temperature 98 F 98.3 F Temperature Source Oral Oral Pulse Rate 80 74 Respiratory Rate 18 18 Respiratory Effort Normal Non-Labored Blood Pressure 152/86 H 148/71 H Blood Pressure Mean 108 96 Blood Pressure Source Monitor Monitor Blood Pressure Position Semi-Fowlers Right Lateral Blood Pressure Location Right Arm Left Arm Pulse Ox 94 96 Oxygen Delivery Method Room Air Room Air Room Air 02/14/25 00:06 02/14/25 04:41 02/14/25 08:44 Temperature 97.8 F 98.1 F 98.3 F Temperature Source Oral Oral Oral Pulse Rate 62 78 81 Respiratory Rate 18 20 H 18 Respiratory Effort Blood Pressure 127/75 H 149/74 H 137/81 H Blood Pressure Mean 92 99 99 Blood Pressure Source Monitor Monitor Monitor Blood Pressure Position Semi-Fowlers Semi-Fowlers Semi-Fowlers Blood Pressure Location Right Arm Right Arm Right Arm Pulse Ox 97 99 97 Oxygen Delivery Method Room Air Room Air Room Air 02/14/25 08:47 02/14/25 08:52 02/14/25 12:35 Temperature 98.5 F Temperature Source Temporal Pulse Rate 81 64 Respiratory Rate 16 Respiratory Effort Normal Non-Labored Blood Pressure 140/92 H Blood Pressure Mean 108 Blood Pressure Source Monitor Blood Pressure Position Semi-Fowlers Blood Pressure Location Left Arm Pulse Ox 94 Oxygen Delivery Method Room Air Room Air 02/14/25 13:05 Temperature 98.5 F Temperature Source Pulse Rate 64 Respiratory Rate 16 Respiratory Effort Blood Pressure 140/92 H Blood Pressure Mean Blood Pressure Source Blood Pressure Position Blood Pressure Location Pulse Ox 94 Oxygen Delivery Method Room Air Weight Weight: 374 lb 12.573 oz Body Mass Index (BMI) 55.3 Physical Exam Narrative Swollen left thumb with subungual hematoma Results Lab / Micro Data 02/14/25 06:01 02/14/25 06:01 Labs: Laboratory Results - last 24 hr 02/14/25 06:01: WBC 6.1, RBC 4.60, Hgb 14.7, Hct 43.0, MCV 93.5, MCH 32.0, MCHC 34.2, RDW Std Deviation 39.9, RDW Coeff of Roseanna 11.6, Plt Count 211, MPV 8.9, Immature Gran % (Auto) 0.200, Neut % (Auto) 61.8, Lymph % (Auto) 22.8, Maries % (Auto) 9.6, Eos % (Auto) 4.8, Baso % (Auto) 0.8, Absolute Neuts (auto) 3.8, (more content not included)... Normal [facility] MR/POSTOP.ANEon 02-14-2025 MR/POSTOP.[facility] Medical Records Department [address] [place] [address] Anesthesia Postop Eval I 02/14/251447 MR#: [id number] Acct: [id number] Name: COREY NEVILLE Rep #: [id number] : 1960 64 From: Kike Salinas CRNA PCP: Dr. Raul Patrick MD Status:ADM IN Y Race: C Location: [place] [address] Anesthesia: Postop Eval I Current Vital Signs Temperature: 97.5 F Pulse Rate: 69 Blood Pressure: 136/67 Respiratory Rate: 20 Pulse Ox: 95 Oxygen Delivery Method: Room Air Assessment Airway patent: Yes Spontaneous unlabored respirations: Yes Mental status: Awake and Calm nausea: No Vomiting: No Anesthesia Complication: No Fluid Hydration Crystalloid volume administer (ml): 800 Total IV fluid infused: 800 Progress Note Anesthesia document: Postop Eval 1 completed: Yes 02/14/251448 Date Kike Salinas CRNA Cosigner Signature: Date CC: Signed Normal [facility] MR/JLHACHML7qm 02-14-2025 [facility] Medical Records Department [address] [place] [address] Anesthesia Postop Eval II 02/14/252057 MR#: [id number] Acct: [id number] Name: COREY NEVILLE Rep #: [id number] : 1960 64 From: Wing Pierre MD PCP: Dr. Raul Patrick MD Status:ADM IN Y Race: C Location: [place] [address]-1 Anesthesia Postop Eval I Sum Postop Eval Completion status Anesthesia document: Postop Eval 1 completed: Yes Anesthesia Postop Eval I Summary Anesthesia Postop Eval I Summary: Anesthesia Postop Eval I: Assessment Summary Airway patent Yes 02/14/25 14:49 [employer]PKEL Spontaneous unlabored Yes 02/14/25 14:49 [employer]PKEL respirations Mental status Awake,Calm 02/14/25 14:49 [employer]PKEL nausea No 02/14/25 14:49 [employer]PKEL Vomiting No 02/14/25 14:49 [employer]PKEL Anesthesia Postop Eval I: Fluid Summary Crystalloid volume administer 800 02/14/25 14:49 [employer]PKEL (ml) Colloids volume administered ( ml) Blood Product volume administered (ml) Total IV fluid infused 800 02/14/25 14:49 [employer]PKEL Anesthesia Postop Eval I: Summary Notes Anesthesia Complication No 02/14/25 14:49 [employer]PKEL Anesthesia Complication Comment: Post-operative progress note Anesthesia: Postop Eval II Evaluation Mental status: Awake and Calm Pain Level: 1 nausea: No Vomiting: No Complications Anesthesia Complication: No 02/14/252058 Wing Pierre MD Cosigner Signature: Date CC: Signed Normal [facility] Operative Reporton Operative Report [facility] Medical Records Department [address] [place] [address] Operative Report 02/14/25 1537 MR#: [id number] Acct: [id number] Name: COREY NEVILLE Rep #: [id number] : 1960 64 From: Pranay Light MD PCP: Dr. Raul Patrick MD Status:ADM IN Location: [place] [address] Operative Report (Standard) Operative Information Date of Procedure: 02/14/25 Pre-Operative Diagnosis: Left thumb distal phalanx osteomyelitis Post-Operative Diagnosis: Same Surgery/Procedure Performed: 1) left thumb nail plate removal and debridement of underlying left thumb wound including debridement of distal phalanx necrotic bone (sequestrum) and drainage of surrounding fluid collection lumber cutter: Yes Crew Dispatcher: Raiza Sanchez Tasks completed by research assistant professor: Retracting Type of Anesthesia: Local MAC (10 cc of a 50-50 mixture of 1% lidocaine and quarter percent Marcaine) RN Documented Start/Stop Times: Operation Date: 02/14/25 13:30 Case Time Into Pre-Op 02/14/25 12:25 Out of Pre-Op 02/14/25 13:44 Anesthesia Start 02/14/25 13:46 Into Room 02/14/25 13:46 Procedure Start 02/14/25 14:18 Procedure End 02/14/25 14:39 Anesthesia End 02/14/25 14:42 Out of Room 02/14/25 14:42 Into Recovery 02/14/25 14:45 Out of Recovery 02/14/25 15:10 Procedure Start Time: 14:18 Procedure Stop Time: 14:39 Select all DRAINS/GRAFTS/IMPLANTS that apply: None (Just packing) Estimated Blood Loss: Minimal Specimen collected: Yes Description of specimen(s) removed: Left thumb distal phalanx culture, left thumb distal phalanx specimen, culture swabs Description of surgery: Indications: Patient is delightful 64-year-old male with left thumb osteomyelitis demonstrated on MRI. He had an injury about a month ago and did not seek medical attention and developed a swollen left thumb with a sinus tract underneath the nail down to the bone. He presents today for nail plate removal and I D. I talked to him extensively about debridement of any underlying , infected bone, and he was in agreement. Procedure details: Patient was correct identified in preoperative holding and taken back to the operating room where he was administered sedation and local anesthesia as noted above. He was prepped and draped in sterile fashion all proper timeouts were performed. Tourniquet was insufflated on the left arm. The left thumb nail plate was atraumatically removed with tenotomy scissors and a [place] elevator. Purulence was encountered through a sinus tract within the sterile matrix with underlying necrotic, soft tuft and shaft. There was no viable (firm) tuft or shaft, all of the bone was sequestrum. This was debrided with a rongeur. The thumb base felt firm, and therefore no debridement was continued proximally as this was considered to be viable bone. Cultures were obtained and bone samples were obtained. The wound was irrigated with Irrisept and 3 L normal saline. The tourniquet was let down and the wound was packed with iodoform gauze, Kerlix wrap and Coban wrap loosely. Patient tolerated the procedure well. Postoperative plan: Continue IV antibiotics on the floor and follow-up wound cultures. Plan for dressing change in the morning and we will get an x-ray of the thumb to assess the extent of residual healthy bone. I talked to the patient about potential need for revision amputation and at this point I believe his distal thumb needs to be shortened, but we should hopefully be able to salvage the thumb IP joint and the base of the distal phalanx. Surgical Findings: Purulence underlying the nailbed with a sinus tract to the bone with underlying necrotic distal phalanx of the left thumb. The entire tuft and shaft of the left thumb distal phalanx was soft, mushy bone (sequestrum)' Thumb sinus tract with underlying necrotic bone (after nail plate was atraumatically removed) Complications Complications: No 02/14/25 1544 Cosigner Signature (if applicable): CC: Dr. Pranay Mi MD; Dr. Pranay Light MD; Dr. Raul Patrick MD Signed Normal [facility] Routine wound cultureOrdered By: Pranay Light on 02-14-2025 Microbial culture, routine Streptococcus dysgalactiae equ Abnormal [facility] Microbial culture, routine Corynebact. pseudodiphtheritic Abnormal [facility] Microbial culture, routine Staphylococcus hominis hominis Abnormal [facility] Trough vancomycin levelOrder ed By: Eric Nichols on 02-14-2025 Vancomycin trough [Mass/Vol] 10.2 ug/mL 5.0-15.0 [facility] Comment on above: Recommended goal tro ugh ranges are generally 10-15 mcg/ml for less severe/complicated infections such as cellulitis or UTI and 15-20 mcg/ml for more severe/complicated infections such as bacteremia/sepsis, osteomyelitis, pneumonia or meningitis. Goal trough ranges should take into account indication, patient-specific factors and organism MELLISSA.VANCOMYCIN STANDARED DRUG THERAPY TROUGH LEVEL: 5.0 - 15.0 mg/L VANCOMYCIN HIGH INTENSITY THERAPY TROUGH LEVEL: 15.0 - 20.0 mg/L High Intensity therapy recommended for serious lifethreatening infections include:- Lgwdtrshvr-Fhbalmidwrrw-Veaawiaxe (Ventilator/Healtcare Associated)-Sepsis PLEASE CONTACT PHARMACY SERVICES (#7163) FOR INTERPRETATIONOF RESULTS. Absolute lymphocyte countOrd ered By: Shad Lancaster on 02-13-2025 Lymphocytes Auto (Unsp spec) [#/Vol] 1.47 10*3/uL 0.83-4.51 [facility] Absolute neutrophil countOrd ered By: Shad Lancaster on 02-13-2025 Neutrophils (Bld) [#/Vol] 4.3 10*3/uL 2.0-7.7 [facility] Anion gap in Serum or Plasma Ordered By: Shad Lancaster on 02-13-2025 Anion gap [Moles/Vol] 14 mmol/L 5-15 [facility] Automated lymphocyte count a s percentage of total leukocytesOrdered By: Shad Lancaster on 02-13-2025 Lymphocytes/100 WBC Auto (Unsp spec) 22.3 % 19-41 [facility] BUN/creatinine ratioOrdered By: Shad Lancaster on 02-13-2025 Urea nitrogen/Creatinine [Mass ratio] 11.6 mg/mg 10-20 [facility] Basophil percentageOrdered B y: Shad Lancaster on 02-13-2025 Basophils/100 WBC (Bld) 0.8 % 0-1 [facility] Bilirubin, totalOrdered By: Shad Lancaster on 02-13-2025 Bilirubin [Mass/Vol] 0.72 mg/dL 0.00-1.30 [facility] Blood cultureOrdered By: Karolyn Lancaster on 02-13-2025 Bacteria identified Cx Nom (Bld) No growth in 5 days. [facility] Bacteria identified Cx Nom (Bld) No growth in 5 days. [facility] CBC W/Diff, Automatedon 08-2 Absolute Lymph 1.47 X10 3/uL Normal 0.83-4.51 [facility] Comment on above: Performed By: #### M 200.1000, L503.6005, L500.4050, L100.0100 ####[facility] [address] [place], [address] Absolute Neut 4.3 X10 3/uL Normal 2.0-7.7 [facility] Comment on above: Performed By: #### M 200.1000, L503.6005, L500.4050, L100.0100 ####[facility] [address] [place], [address] Basophils/100 WBC (Bld) 0.8 % Normal 0-1 [facility] Comment on above: Performed By: #### M 200.1000, L503.6005, L500.4050, L100.0100 ####[facility] [address] [place], [address] Eosinophils/100 WBC (Bld) 2.7 % Normal 0-5 [facility] Comment on above: Performed By: #### M 200.1000, L503.6005, L500.4050, L100.0100 ####[facility] [address] [place], [address] Erythrocyte distribution width (RBC) [Ratio] 11.5 % Low 11.6-14.6 [facility] Comment on above: Performed By: #### M 200.1000, L503.6005, L500.4050, L100.0100 ####[facility] [address] [place], [address] Hematocrit (Bld) [Volume fraction] 45.7 % Normal 40-54 [facility] Comment on above: Performed By: #### M 200.1000, L503.6005, L500.4050, L100.0100 ####[facility] [address] [place], [address] Hemoglobin (Bld) [Mass/Vol] 16.0 g/dL Normal 13.0-16.5 [facility] Comment on above: Performed By: #### M 200.1000, L503.6005, L500.4050, L100.0100 ####[facility] [address] [place], [address] IG% 0.300 Normal 0.0-0.9 [facility] Comment on above: Result Comment: IG% - Immature Granulocytes (promyelocytes, myelocytes and metamyelocytes) > 1% indicates that a LEFT SHIFT is Present. Performed By: #### M 200.1000, L503.6005, L500.4050, L100.0100 ####[facility] [address] [place], [address] Lymphocytes/100 WBC (Bld) 22.3 % Normal 19-41 [facility] Comment on above: Performed By: #### M 200.1000, L503.6005, L500.4050, L100.0100 ####[facility] [address] [place], [address] MCH (RBC) [Entitic mass] 32.2 pg High 27.0-32.0 [facility] Comment on above: Performed By: #### M 200.1000, L503.6005, L500.4050, L100.0100 ####[facility] [address] [place], [address] MCHC (RBC) [Mass/Vol] 35.0 g/dL Normal 32-36 [facility] Comment on above: Performed By: #### M 200.1000, L503.6005, L500.4050, L100.0100 ####[facility] [address] [place], [address] MCV (RBC) [Entitic vol] 92.0 fL Normal 80-94 [facility] Comment on above: Performed By: #### M 200.1000, L503.6005, L500.4050, L100.0100 ####[facility] [address] [place], [address] Monocytes/100 WBC (Bld) 9.3 % Normal 0-10 [facility] Comment on above: Performed By: #### M 200.1000, L503.6005, L500.4050, L100.0100 ####[facility] [address] [place], [address] Neutrophils/100 WBC (Bld) 64.6 % Normal 47-70 [facility] Comment on above: Performed By: #### M 200.1000, L503.6005, L500.4050, L100.0100 ####[facility] [address] [place], [address] Nucleated RBC (Bld) [#/Vol] 0 10*3/uL Normal 0-5 [facility] Comment on above: Performed By: #### M 200.1000, L503.6005, L500.4050, L100.0100 ####[facility] [address] [place], [address] Platelet mean volume (Bld) [Entitic vol] 8.3 fL Normal 6.2-12.0 [facility] Comment on above: Performed By: #### M 200.1000, L503.6005, L500.4050, L100.0100 ####[facility] [address] [place], [address] Platelets (Bld) [#/Vol] 211 10*3/uL Normal 150-450 [facility] Comment on above: Performed By: #### M 200.1000, L503.6005, L500.4050, L100.0100 ####[facility] [address] [place], [address] RBC (Bld) [#/Vol] 4.97 10*6/uL Normal 4.6-6.2 [facility] Comment on above: Performed By: #### M 200.1000, L503.6005, L500.4050, L100.0100 ####[facility] [address] [place], [address] RDW SD 39.0 fl Normal 35.1-43.9 [facility] Comment on above: Performed By: #### M 200.1000, L503.6005, L500.4050, L100.0100 ####[facility] [address] [place], [address] WBC (Bld) [#/Vol] 6.6 10*3/uL Normal 4.4-11.0 [facility] Comment on above: Performed By: #### M 200.1000, L503.6005, L500.4050, L100.0100 ####[facility] [address] [place], [address] Carbon dioxide, total [Moles /volume] in Central venous bloodOrdered By: Shad Lancaster on 02-13-2025 CO2 [Moles/Vol] 22.1 mmol/L 21.0-32.0 [facility] Chloride assayOrdered By: Alok Lancaster on 02-13-2025 Chloride [Moles/Vol] 98 mmol/L 98-108 [facility] Comprehensive Metabolic Prof ilon 02-13-2025 Albumin [Mass/Vol] 4.5 g/dL Normal 3.4-4.8 [facility] Comment on above: Performed By: #### M 200.1000, L503.6005, L500.4050, L100.0100 ####[facility] [address] [place], [address] Albumin/Globulin [Mass ratio] 1.3 {ratio} Normal 0.9-2.4 [facility] Comment on above: Performed By: #### M 200.1000, L503.6005, L500.4050, L100.0100 ####[facility] [address] [place], [address] ALK PHOS 130 U/L High 40-129 [facility] Comment on above: Performed By: #### M 200.1000, L503.6005, L500.4050, L100.0100 ####[facility] [address] [place], [address] ALT [Catalytic activity/Vol] 30 U/L Normal <=46 [facility] Comment on above: Performed By: #### M 200.1000, L503.6005, L500.4050, L100.0100 ####[facility] [address] [place], [address] AST [Catalytic activity/Vol] 29 U/L Normal <=37 [facility] Comment on above: Performed By: #### M 200.1000, L503.6005, L500.4050, L100.0100 ####[facility] [address] [place], [address] Bilirubin [Mass/Vol] 0.72 mg/dL Normal 0.00-1.30 [facility] Comment on above: Performed By: #### M 200.1000, L503.6005, L500.4050, L100.0100 ####[facility] [address] [place], [address] BUN/CRE 11.6 RATIO Normal 10-20 [facility] Comment on above: Performed By: #### M 200.1000, L503.6005, L500.4050, L100.0100 ####[facility] [address] [place], [address] Calcium [Mass/Vol] 10.0 mg/dL Normal 7.6-11.0 [facility] Comment on above: Performed By: #### M 200.1000, L503.6005, L500.4050, L100.0100 ####[facility] [address] [place], [address] Chloride [Moles/Vol] 98 mmol/L Normal 98-108 [facility] Comment on above: Performed By: #### M 200.1000, L503.6005, L500.4050, L100.0100 ####[facility] [address] [place], [address] CO2 [Moles/Vol] 22.1 mmol/L Normal 21.0-32.0 [facility] Comment on above: Performed By: #### M 200.1000, L503.6005, L500.4050, L100.0100 ####[facility] [address] [place], [address] Creatinine [Mass/Vol] 1.07 mg/dL Normal 0.70-1.20 [facility] Comment on above: Performed By: #### M 200.1000, L503.6005, L500.4050, L100.0100 ####[facility] [address] [place], [address] ECRCL 68.83 ml/min Normal 50-250 [facility] Comment on above: Performed By: #### M 200.1000, L503.6005, L500.4050, L100.0100 ####[facility] [address] [place], [address] GAP 14 Normal 5-15 [facility] Comment on above: Performed By: #### M 200.1000, L503.6005, L500.4050, L100.0100 ####[facility] [address] [place], [address] GFR/1.73 sq M.predicted among non-blacks MDRD (S/P/Bld) [Vol rate/Area] 77 mL/min/{1.73_m2} Normal >60 [facility] Comment on above: Result Comment: mL/m in/1.73m2 CKD-EPI Creatinine Equation (2020) Performed By: #### M 200.1000, L503.6005, L500.4050, L100.0100 ####[facility] [address] [place], [address] Globulin (S) [Mass/Vol] 3.4 g/dL Normal 2.2-4.2 [facility] Comment on above: Performed By: #### M 200.1000, L503.6005, L500.4050, L100.0100 ####[facility] [address] [place], [address] Glucose [Mass/Vol] 129 mg/dL High 70-99 [facility] Comment on above: Performed By: #### M 200.1000, L503.6005, L500.4050, L100.0100 ####[facility] [address] [place], [address] Potassium [Moles/Vol] 4.1 mmol/L Normal 3.3-5.1 [facility] Comment on above: Performed By: #### M 200.1000, L503.6005, L500.4050, L100.0100 ####[facility] [address] [place], [address] Sodium [Moles/Vol] 134 mmol/L Normal 133-145 [facility] Comment on above: Performed By: #### M 200.1000, L503.6005, L500.4050, L100.0100 ####[facility] [address] [place], [address] T PROT 7.9 g/dL Normal 5.9-8.4 [facility] Comment on above: Performed By: #### M 200.1000, L503.6005, L500.4050, L100.0100 ####[facility] [address] [place], [address] Urea nitrogen [Mass/Vol] 12 mg/dL Normal 4-19 [facility] Comment on above: Performed By: #### M 200.1000, L503.6005, L500.4050, L100.0100 ####[facility] [address] [place], [address] Consultation - Surgicalon Consultation - Surgical [facility] Medical Records Department [address] [place] [address] Consultation - Surgical 02/13/25 1219 MR#: [id number] Acct: [id number] Name: COREY NEVILLE Rep #: [id number] : 1960 64 From: Pranay Light MD PCP: Dr. Raul Patrick MD Status:ADM IN Location: [place] [id number] Assessment Plan Assessment/Plan (1) Subungual hematoma of finger [...] HPI Narrative: COREY NEVILLE is a 64-year-old czina-clpm-kvboksrt male who presents to the emergency department [...] up to 2 weeks duration, and the x-ray was performed as an outpatient. He was placed [...] was relayed to the emergency department physician). [facility] Medical History HTN (hypertension) Home Medications ???Medication ???Instructions ???Recorded ???Last Taken ???Type albuterol sulfate 90 mcg/actuation inhalation 02/13/25 Unknown Hist ory aerosol inhaler atorvastatin 40 mg tablet 40 mg PO QHS 02/13/25 Unknown Hist ory cephalexin 500 mg capsule 500 mg PO TID 02/13/25 Unknown His tory fluticasone 250 mcg-salmeterol 50 1 ea inhalation BID 02/13/25 Unkn own History mcg/dose blistr powdr for inhalation metoprolol succinate 50 mg 50 mg PO DAILY 02/13/25 Unknown Hi story tablet,extended release 24 hr omeprazole 40 mg capsule,delayed 40 mg PO DAILY 02/13/25 Unknown Hi story release sertraline 50 mg tablet 50 mg PO DAILY 02/13/25 Unknown Hi story sulfamethoxazole 800 1 tab PO Q12.TCU 02/13/25 Unknown History mg-trimethoprim 160 mg tablet tamsulosin 0.4 mg capsule 0.8 mg PO QHS 02/13/25 Unknown His tory valsartan 320 1 tab PO DAILY 02/13/25 Unknown Hi story mg-hydrochlorothiazide 25 mg tablet Allergy/AdvReac Type Severity [...] % (Auto) 64.6, Lymph % (Auto) 22.3, Maries % (Auto) 9.3, Eos % (Auto) 2.7, Baso [...] reviewed and demonstrates lytic distal tuft lesion underneath the zone of injury consistent with osteomyelitis Charges/Coding Visit Charges Office Visits / Consults: 97149 OV L3 New 30min 02/13/25 1224 Cosigner Signature (if applica (more content not included)... Normal [facility] Emergency Department Summary on 02-13-2025 Emergency Department Summary [facility] Medical Records Department [address] [place] [address] Emergency Department Summary 02/13/25 MR#: [id number] Acct: [id number] Name: COREY NEVILLE Rep #: [id number] : 1960 64 From: Shad Lancaster MD PCP: Dr. Raul Patrick MD Status:REG ER Location: ED HPI History of Present Illness Chief Complaint: Upper Extremity Injury Narrative Narrative: 64-year-old male past medical history of hypertension, sfgzp-jaia-pkxixnus, states that he hit his left thumb with a hammer approximately 1 month ago. He had a cut on his hand and underneath his nail that he never had evaluated. It healed, but he states that the tip of his left thumb is swollen, and whenever he hits it on something, he gets pain. He denies any fevers or chills, no nausea or vomiting, no other symptoms. 2 days ago he saw his primary care provider, Dr. Susi Patrick, who put him on 2 antibiotics, and had an x-ray performed as an outpatient. He was called with the results today stating that he needed to come to the emergency department for IV antibiotics. [facility] Medical History HTN (hypertension) Home Medications ???Medication ???Instructions ???Recorded ???Last Taken ???Type albuterol sulfate 90 mcg/actuation inhalation 02/13/25 Unknown Hist ory aerosol inhaler atorvastatin 40 mg tablet 40 mg PO QHS 02/13/25 Unknown Hist ory cephalexin 500 mg capsule 500 mg PO TID 02/13/25 Unknown His tory fluticasone 250 mcg-salmeterol 50 1 ea inhalation BID 02/13/25 Unkn own History mcg/dose blistr powdr for inhalation metoprolol succinate 50 mg 50 mg PO DAILY 02/13/25 Unknown Hi story tablet,extended release 24 hr omeprazole 40 mg capsule,delayed 40 mg PO DAILY 02/13/25 Unknown Hi story release sertraline 50 mg tablet 50 mg PO DAILY 02/13/25 Unknown Hi story sulfamethoxazole 800 1 tab PO Q12.TCU 02/13/25 Unknown History mg-trimethoprim 160 mg tablet tamsulosin 0.4 mg capsule 0.8 mg PO QHS 02/13/25 Unknown His tory valsartan 320 1 tab PO DAILY 02/13/25 Unknown Hi story mg-hydrochlorothiazide 25 mg tablet Allergy/AdvReac Type Severity [...] including blood cultures and ordered vancomycin as well as Zosyn. I had a discussion with the [...] well as other endorgan failure from sepsis and loss of limb or life. He acknowledges an understanding. I did order blood work and blood cultures as well as laboratory work [...] that I speak with plastic/hand surgery Dr. Batista (more content not included)... Normal [facility] Eosinophil percentageOrdered By: Shad Lancaster on 02-13-2025 Eosinophils/100 WBC (Bld) 2.7 % 0-5 [facility] Erythrocyte distribution wid th ratioOrdered By: Shad Lancaster on 02-13-2025 Erythrocyte distribution width (RBC) [Ratio] 11.5 % Low 11.6-14.6 [facility] Erythrocyte distribution wid th standard deviationOrdered By: Shad Lancaster on 02-13-2025 Erythrocyte distribution width (RBC) [Ratio] 39.0 fl 35.1-43.9 [facility] Glomerular filtration rate ( GFR) estimation/1.73 sq m using serum, plasma, or whole bOrdered By: Shad Lancaster on 02-13-2025 GFR/1.73 sq M.predicted among non-blacks MDRD (S/P/Bld) [Vol rate/Area] 77 mL/min/{1.73_m2} >60 [facility] Comment on above: mL/min/1.73m2 CKD-EP I Creatinine Equation (2020) H AND P Exam - Hospitaliston 02-13-2025 H&P Exam - Hospitalist [facility] Medical Records Department [address] [place] [address] H P Exam - Hospitalist 02/13/25 1247 MR#: [id number] Acct: [id number] Name: COREY NEVILLE Rep #: [id number] : 1960 64 From: Eric Nichols MD PCP: Dr. Raul Patrick MD Status:ADM IN Location: [place] [id number] HPI - General General Date of Admission: 02/13/25 HPI Narrative COREY NEVILLE, is a 64 M who presents approximately 1 month after hitting his left thumb with a hammer. He did have a cut on his hand and had a hematoma under his left nail. He went to his PCP who put him on Keflex and Bactrim 2 days ago. During that appointment he had an x-ray obtained which demonstrates bony destruction on his distal phalanx of his left thumb consistent with osteomyelitis. No leukocytosis or signs of sepsis however plastic surgery was consulted recommending an MRI with IV antibiotics for evaluation of possible debridement versus amputation. [facility] Medical History (Updated 02/13/25 @ 11:46 by Shad Lancaster MD) HTN (hypertension) Home Medications ???Medication ???Instructions ???Recorded ???Last Taken ???Type albuterol sulfate 90 mcg/actuation 2 puff inhalation Q4H PRN copd 0 02/13/25 Unknown History aerosol inhaler atorvastatin 40 mg tablet 40 mg PO QHS 02/13/25 Unknown Hist ory cephalexin 500 mg capsule 500 mg PO TID 02/13/25 Unknown His tory fluticasone 250 mcg-salmeterol 50 1 ea inhalation BID 02/13/25 Unkn own History mcg/dose blistr powdr for inhalation metoprolol succinate 50 mg 50 mg PO DAILY 02/13/25 Unknown Hi story tablet,extended release 24 hr omeprazole 40 mg capsule,delayed 40 mg PO DAILY 02/13/25 Unknown Hi story release sertraline 50 mg tablet 50 mg PO DAILY 02/13/25 Unknown Hi story sulfamethoxazole 800 1 tab PO Q12.TCU 02/13/25 Unknown History mg-trimethoprim 160 mg tablet tamsulosin 0.4 mg capsule 0.8 mg PO QHS 02/13/25 Unknown His tory valsartan 320 1 tab PO DAILY 02/13/25 Unknown Hi story mg-hydrochlorothiazide 25 mg tablet Allergy/AdvReac Type Severity Reaction Status Date / Time No Known Allergies Allergy Verified 02/13/25 09:56 Family History (Updated 02/13/25 @ 13:[address] Eric Nichols MD) Other Diabetes Surgical History (Updated 02/13/25 @ 13:[address] Eric Nichols MD) History of back surgery Social History (Updated 02/13/25 @ 13:[address] Eric Nichols MD) Smoking Status: Current every day smoker tobacco type: cigarettes alcohol intake: current alcohol intake frequency: 3 or more drinks per day Alcohol type: beer ROS Constitutional Constitutional: Denies chills, fatigue, fever(s) or malaise Eyes Eyes: Denies blurry vision ENT HEENT: Denies headache(s) or nasal discharge Cardiovascular Cardiovascular: Denies chest pain, dyspnea on exertion or syncope Respiratory/Chest Respiratory/Chest: Denies cough, shortness of breath at rest or shortness of breath with exertion Gastrointestinal Gastrointestinal: Denies constipation, diarrhea, nausea or vomiting Genitourinary Genitourinary: Denies dysuria Musculoskeletal Musculoskeletal: Reports other Details: Left thumb swelling Neurologic Neurologic: Denies focal weakness, numbness or tremor(s) Psychiatric Psychiatric: Denies anxiety or depression Vital Signs Vital Signs Vital Signs: 02/13/25 09:55 02/13/25 09:59 02/13/25 11:04 Temperature 96.8 F L 96.8 F L 97 F L Temperature Source Temporal Temporal Temporal Pulse Rate 80 80 72 Respiratory Rate 17 17 18 Blood Pressure 173/83 H 173/83 H 161/75 H Blood Pressure Mean 113 113 103 Pulse Ox 99 99 96 Oxygen Delivery Method Room Air Room Air 02/13/25 11:33 Temperature 98.1 F Temperature Source Pulse Rate 78 Respiratory Rate 16 Blood Pressure 152/75 H Blood Pressure Mean 100 Pulse Ox 100 Oxygen Delivery Method Weight Weight: 166 lb Body Mass Index (BMI) 24.1 Physical Exam Narrative General: Alert, Oriented x3, Cooperative, No apparent distress HEENT: Atraumatic, PERRLA, EOMI, Normocephalic Oral: Moist Mucosa Neck: Supple, No JVD Lungs: Clear to auscultation, Normal air movement, No rhonchi, No wheeze, No rales Cardiovascular: Regular rate, Regular Rhythm, Normal S1, Normal S2, No murmurs Abdomen: Soft, Non Tender, Non-Distended, No Hepato-splenomegaly Extremities: No edema, Capillary Refill Less than 3 Seconds Skin: No rashes, No breakdown Musculoskeletal: Left thumb is swollen and red with subungual hematoma Neurological: No focal neurological deficits, Motor Exam 5/5 strength throughout, Sensory exam intact to light touch and pain Psych/Mental Status: Normal Affect, Appropriate Results Lab / Micro Data 02/13/25 10:05 02/13/25 10:05 Labs: Laboratory R (more content not included)... Normal [facility] Hematocrit Auto (Bld) [Volum e fraction]Ordered By: Shad Lancaster on 02-13-2025 Hematocrit (Bld) [Volume fraction] 45.7 % 40-54 [facility] Hemoglobin measurementOrdere d By: Shad Lancaster on 02-13-2025 Hemoglobin (Bld) [Mass/Vol] 16.0 g/dL 13.0-16.5 [facility] Immature granulocytes/100 WB C Auto (Bld)Ordered By: Shad Lancaster on 02-13-2025 Immature granulocytes/100 WBC (Bld) 0.300 % 0.0-0.9 [facility] Comment on above: IG% - Immature Granu locytes (promyelocytes, myelocytes and metamyelocytes) > 1% indicates that a LEFT SHIFT is Present. Laboratory - Chemistry and C hemistry - challengeOrdered By: Shad Lancaster on 02-13-2025 AST [Catalytic activity/Vol] 29 U/L <38 [facility] Lactic Acidon 02-13-2025 Lactate [Moles/Vol] 1.5 mmol/L Normal 0.0-2.0 [facility] Comment on above: Order Comment: Y Performed By: #### M 200.1000, L503.6005, L500.4050, L100.0100 ####[facility] [address] [facility] [place], [place], [id number] Lactic acid measurementOrder ed By: Shad Lancaster on 02-13-2025 Lactate [Moles/Vol] 1.5 mmol/L 0.0-2.0 [facility] MCV (mean corpuscular volume ) determinationOrdered By: Shad Lancaster on 02-13-2025 MCV (RBC) [Entitic vol] 92.0 fL 80-94 [facility] Magnetic resonance imaging r eportOrdered By: Santi Wolf on 02-13-2025 Study report [facility] Imaging Services [address] [place], [place] [address] Upper Ext No Joint W/WO Cont MR#: [id number] Acct: [id number] Name: CANDIDACOREY Ariel Rep #: [id number] : 1960 M 64 From: Lucho Wolf MD PCP: Dr. Raul Patrick MD Status: ADM I N Study:Upper Ext No Joint W/WO Cont Date of E xam: 02/13/25 Exam# [id number] Ordering Dr: Eric Nichols MD PROCEDURE: UPPER EXT NO JOINT W/WO CONT 02/13/2025 REASON FOR EXAM: LEFT THUMB osteomyelitis CONCERN TECHNIQUE: UPPER EXT NO JOINT W/WO CONT CONTRAST: Clariscan VOLUME: 14 mL intravenous COMPARISON: Left thumb series of 02/11/2025. FINDINGS: Examination somewhat limited by metallic artifact at the dorsal and distal aspects of the left 1st distal phalanx. Additionally, this results in loss of fat suppression on fat suppressed images. Marked osseous edema as well as postcontrast enhancement is seen throughout large portions of the distal phalanx, extending from the distal portion thereof, concerning for the presence of osteomyelitis of the left 1st distal phalanx. Adjacent areas of soft tissue enhancement are seen, concerning for soft tissue extension of this process. In visualized areas, no additional area of acute osseous signal changes are seen. No joint effusion is evident. MRI/Upper Ext No Joint W/WO Cont IMPRESSION: Findings concerning for osteomyelitis of the left thumb distal phalanx. Reading Location: [place] [address] CC: Dr. Eric Nichols MD; Dr. Raul Patrick MD ~ Jewel Bearing Broacher: Signed [facility] Mean corpuscular hemoglobin (MCH) determinationOrdered By: Shad Lancaster on 02-13-2025 MCH (RBC) [Entitic mass] 32.2 pg High 27.0-32.0 [facility] Mean corpuscular hemoglobin concentration (MCHC) determinationOrdered By: Shad Lancaster on 02-13-2025 MCHC (RBC) [Mass/Vol] 35.0 g/dL 32-36 [facility] Mean platelet volume determi nationOrdered By: Shad Lancaster on 02-13-2025 Platelet mean volume (Bld) [Entitic vol] 8.3 fL 6.2-12.0 [facility] Monocyte percentageOrdered B y: Shad Lancaster on 02-13-2025 Monocytes/100 WBC (Bld) 9.3 % 0-10 [facility] Neutrophil percentageOrdered By: Shad Lancaster on 02-13-2025 Neutrophils/100 WBC (Bld) 64.6 % 47-70 [facility] Nucleated red blood cell per centageOrdered By: Shad Lancaster on 02-13-2025 Nucleated RBC/100 WBC (Bld) [Ratio] 0 % 0-5 [facility] Platelet countOrdered By: Alok Lancaster on 02-13-2025 Platelets (Bld) [#/Vol] 211 10*3/uL 150-450 [facility] Potassium measurement (mass/ volume)Ordered By: Shad Lancaster on 02-13-2025 Potassium (Unsp spec) [Mass/Vol] 4.1 mmol/L 3.3-5.1 [facility] RBC Auto (Bld) [#/Vol]Ordere d By: Shad Lancaster on 02-13-2025 RBC (Bld) [#/Vol] 4.97 10*6/uL 4.6-6.2 [facility] Serum creatinine measurement (mass/volume)Ordered By: Shad Lancaster on 02-13-2025 Creatinine [Mass/Vol] 1.07 mg/dL 0.70-1.20 [facility] Serum globulin measurementOr dered By: Shad Lancaster on 02-13-2025 Globulin (S) [Mass/Vol] 3.4 g/dL 2.2-4.2 [facility] Serum glucose measurement (m ass/volume)Ordered By: Shad Lancaster on 02-13-2025 Glucose [Mass/Vol] 129 mg/dL High 70-99 [facility] Serum or plasma alanine mcwilliams otransferase (ALT) measurementOrdered By: Shad Lancaster on 02-13-2025 ALT [Catalytic activity/Vol] 30 U/L <47 [facility] Serum or plasma albumin primo urement (mass/volume)Ordered By: Shad Lancaster on 02-13-2025 Albumin [Mass/Vol] 4.5 g/dL 3.4-4.8 [facility] Serum or plasma albumin/glob ulin mass ratioOrdered By: Shad Lancaster on 02-13-2025 Albumin/Globulin [Mass ratio] 1.3 {ratio} 0.9-2.4 [facility] Serum or plasma alkaline kristina sphatase measurementOrdered By: Shad Lancaster on 02-13-2025 ALP [Catalytic activity/Vol] 130 U/L High 40-129 [facility] Serum or plasma calcium primo urement (mass/volume)Ordered By: Shad Garciamoira on 02-13-2025 Calcium [Mass/Vol] 10.0 mg/dL 7.6-11.0 [facility] Serum or plasma urea nitroge n measurement (mass/volume)Ordered By: Shad Radhamoira on 02-13-2025 Urea nitrogen [Mass/Vol] 12 mg/dL 4-19 [facility] Sodium levelOrdered By: Shad Radhamoira on 02-13-2025 Sodium [Moles/Vol] 134 mmol/L 133-145 [facility] Total proteinOrdered By: Karolyn melisa Garciamoira on 02-13-2025 Protein [Mass/Vol] 7.9 g/dL 5.9-8.4 [facility] Upper Ext No Joint W/WO Cont on 02-13-2025 Upper Ext No Joint W/WO Cont [facility] Imaging Services [address] [place], [place] [address] Upper Ext No Joint W/WO Cont MR#: [id number] Acct: [id number] Name: COREY NEVILLE Rep #: [id number] : 1960 M 64 From: Santi George PCP: Dr. Raul Patrick MD Status: ADM IN Study: Upper Ext No Joint W/WO Cont Date of Exam: Exam# [id number] Ordering Dr: Eric Nichols MD PROCEDURE: UPPER EXT NO JOINT W/WO CONT 02/13/2025 REASON FOR EXAM: LEFT THUMB osteomyelitis CONCERN TECHNIQUE: UPPER EXT NO JOINT W/WO CONT CONTRAST: Clariscan VOLUME: 14 mL intravenous COMPARISON: Left thumb series of 02/11/2025. FINDINGS: Examination somewhat limited by metallic artifact at the dorsal and distal aspects of the left 1st distal phalanx. Additionally, this results in loss of fat suppression on fat suppressed images. Marked osseous edema as well as postcontrast enhancement is seen throughout large portions of the distal phalanx, extending from the distal portion thereof, concerning for the presence of osteomyelitis of the left 1st distal phalanx. Adjacent areas of soft tissue enhancement are seen, concerning for soft tissue extension of this process. In visualized areas, no additional area of acute osseous signal changes are seen. No joint effusion is evident. MRI/Upper Ext No Joint W/WO Cont IMPRESSION: Findings concerning for osteomyelitis of the left thumb distal phalanx. Reading Location: [place] [address] CC: Dr. Eric Nichols MD; Dr. Raul Patrick MD [employer] Broacher: Signed Normal [facility] White blood cell (WBC) count Ordered By: Shad Lancaster on 02-13-2025 WBC (Bld) [#/Vol] 6.6 10*3/uL 4.4-11.0 [facility] Finger(s) Min 2 Viewson 01-19 Finger(s) Min 2 Views [facility] Imaging Services [address] [place] [address] Finger(s) Min 2 Views MR#: [id number] Acct: [id number] Name: COREY NEVILLE Rep #: [id number] : 1960 M 64 From: Darvin sahni MD PCP: Dr. Raul Patrick MD Status: REG CLI Study: Finger(s) Min 2 Views Date of Exam: 02/11/25 Exam# [id number] Ordering Dr: Raul Patrick MD PROCEDURE: FINGER(S) [...] Osteomyelitis should be ruled out. Reading Location: [facility] CC: Dr. Raul Patrick MD [employer] Broacher: Signed Normal [facility] Absolute lymphocyte countOrd ered By: Raul Patrick on 12-19-2024 Lymphocytes Auto (Unsp spec) [#/Vol] 1.47 10*3/uL 0.83-4.51 [facility] Absolute neutrophil countOrd ered By: Raul Patrick on 12-19-2024 Neutrophils (Bld) [#/Vol] 4.8 10*3/uL 2.0-7.7 [facility] Anion gap in Serum or Plasma Ordered By: Raul Darnell on 12-19-2024 Anion gap [Moles/Vol] 12 mmol/L 5- [facility] Automated lymphocyte count a s percentage of total leukocytesOrdered By: Raul Darnell on 12-19-2024 Lymphocytes/100 WBC Auto (Unsp spec) 20.7 % - [facility] BUN/creatinine ratioOrdered By: [facility] 12-19-2024 Urea nitrogen/Creatinine [Mass ratio] 16.1 mg/mg 10- [facility] Basophil percentageOrdered B y: Raul Darnell on 12-19-2024 Basophils/100 WBC (Bld) 0.7 % 0-1 [facility] Bilirubin, totalOrdered By: Raul Patrick on 12-19-2024 Bilirubin [Mass/Vol] 0.33 mg/dL 0.00-1.30 [facility] CBC W/Diff, Automatedon Absolute Lymph 1.47 X10 3/uL Normal 0.83-4.51 [facility] Comment on above: Performed By: #### L 506.1001, L501.9520, L100.0100, L500.4050 ####[facility] [address] [place], [address] Absolute Neut 4.8 X10 3/uL Normal 2.0-7.7 [facility] Comment on above: Performed By: #### L 506.1001, L501.9520, L100.0100, L500.4050 ####[facility] [address] [place], [address] Basophils/100 WBC (Bld) 0.7 % Normal 0-1 [facility] Comment on above: Performed By: #### L 506.1001, L501.9520, L100.0100, L500.4050 ####[facility] [address] [place], [address] Eosinophils/100 WBC (Bld) 3.2 % Normal 0-5 [facility] Comment on above: Performed By: #### L 506.1001, L501.9520, L100.0100, L500.4050 ####[facility] [address] [place], [address] Erythrocyte distribution width (RBC) [Ratio] 11.5 % Low 11.6-14.6 [facility] Comment on above: Performed By: #### L 506.1001, L501.9520, L100.0100, L500.4050 ####[facility] [address] [place], [address] Hematocrit (Bld) [Volume fraction] 47.4 % Normal 40-54 [facility] Comment on above: Performed By: #### L 506.1001, L501.9520, L100.0100, L500.4050 ####[facility] [address] [place], [address] Hemoglobin (Bld) [Mass/Vol] 16.2 g/dL Normal 13.0-16.5 [facility] Comment on above: Performed By: #### L 506.1001, L501.9520, L100.0100, L500.4050 ####[facility] [address] [place], [address] IG% 0.600 Normal 0.0-0.9 [facility] Comment on above: Result Comment: IG% - Immature Granulocytes (promyelocytes, myelocytes and metamyelocytes) > 1% indicates that a LEFT SHIFT is Present. Performed By: #### L 506.1001, L501.9520, L100.0100, L500.4050 ####[facility] [address] [place], [address] Lymphocytes/100 WBC (Bld) 20.7 % Normal 19-41 [facility] Comment on above: Performed By: #### L 506.1001, L501.9520, L100.0100, L500.4050 ####[facility] [address] [place], [address] MCH (RBC) [Entitic mass] 31.9 pg Normal 27.0-32.0 [facility] Comment on above: Performed By: #### L 506.1001, L501.9520, L100.0100, L500.4050 ####[facility] [address] [place], [address] MCHC (RBC) [Mass/Vol] 34.2 g/dL Normal 32-36 [facility] Comment on above: Performed By: #### L 506.1001, L501.9520, L100.0100, L500.4050 ####[facility] [address] [place], [address] MCV (RBC) [Entitic vol] 93.3 fL Normal 80-94 [facility] Comment on above: Performed By: #### L 506.1001, L501.9520, L100.0100, L500.4050 ####[facility] [address] [place], [address] Monocytes/100 WBC (Bld) 6.6 % Normal 0-10 [facility] Comment on above: Performed By: #### L 506.1001, L501.9520, L100.0100, L500.4050 ####[facility] [address] [place], [address] Neutrophils/100 WBC (Bld) 68.2 % Normal 47-70 [facility] Comment on above: Performed By: #### L 506.1001, L501.9520, L100.0100, L500.4050 ####[facility] [address] [place], [address] Nucleated RBC (Bld) [#/Vol] 0 10*3/uL Normal 0-5 [facility] Comment on above: Performed By: #### L 506.1001, L501.9520, L100.0100, L500.4050 ####[facility] [address] [place], [address] Platelet mean volume (Bld) [Entitic vol] 9.2 fL Normal 6.2-12.0 [facility] Comment on above: Performed By: #### L 506.1001, L501.9520, L100.0100, L500.4050 ####[facility] [address] [place], [address] Platelets (Bld) [#/Vol] 208 10*3/uL Normal 150-450 [facility] Comment on above: Performed By: #### L 506.1001, L501.9520, L100.0100, L500.4050 ####[facility] [address] [place], [address] RBC (Bld) [#/Vol] 5.08 10*6/uL Normal 4.6-6.2 [facility] Comment on above: Performed By: #### L 506.1001, L501.9520, L100.0100, L500.4050 ####[facility] [address] [place], [address] RDW SD 39.4 fl Normal 35.1-43.9 [facility] Comment on above: Performed By: #### L 506.1001, L501.9520, L100.0100, L500.4050 ####[facility] [address] [place], [address] WBC (Bld) [#/Vol] 7.1 10*3/uL Normal 4.4-11.0 [facility] Comment on above: Performed By: #### L 506.1001, L501.9520, L100.0100, L500.4050 ####[facility] [address] [place], [address] Carbon dioxide, total [Moles /volume] in Central venous bloodOrdered By: Raul Patrick on 12-19-2024 CO2 [Moles/Vol] 26.1 mmol/L 21.0-32.0 [facility] Chloride assayOrdered By: Onofre Patrick on 12-19-2024 Chloride [Moles/Vol] 98 mmol/L 98-108 [facility] Comprehensive Metabolic Prof ilon 12-19-2024 Albumin/Globulin [Mass ratio] 1.5 {ratio} Normal 0.9-2.4 [facility] Comment on above: Performed By: #### L 506.1001, L501.9520, L100.0100, L500.4050 ####[facility] [address] [place], [address] ALK PHOS 131 U/L High 40-129 [facility] Comment on above: Performed By: #### L 506.1001, L501.9520, L100.0100, L500.4050 ####[facility] [address] [place], [address] ALT [Catalytic activity/Vol] 37 U/L Normal <=46 [facility] Comment on above: Performed By: #### L 506.1001, L501.9520, L100.0100, L500.4050 ####[facility] [address] [place], [address] AST [Catalytic activity/Vol] 31 U/L Normal <=37 [facility] Comment on above: Result Comment: Hemo lysis present, Results??could be affected. ?? Performed By: #### L 506.1001, L501.9520, L100.0100, L500.4050 ####[facility] [address] [place], [address] Bilirubin [Mass/Vol] 0.33 mg/dL Normal 0.00-1.30 [facility] Comment on above: Performed By: #### L 506.1001, L501.9520, L100.0100, L500.4050 ####[facility] [address] [place], [address] Calcium [Mass/Vol] 9.8 mg/dL Normal 7.6-11.0 [facility] Comment on above: Performed By: #### L 506.1001, L501.9520, L100.0100, L500.4050 ####[facility] [address] [place], [address] Chloride [Moles/Vol] 98 mmol/L Normal 98-108 [facility] Comment on above: Performed By: #### L 506.1001, L501.9520, L100.0100, L500.4050 ####[facility] [address] [place], [address] CO2 [Moles/Vol] 26.1 mmol/L Normal 21.0-32.0 [facility] Comment on above: Performed By: #### L 506.1001, L501.9520, L100.0100, L500.4050 ####[facility] [address] [place], [address] GAP 12 Normal 5-15 [facility] Comment on above: Performed By: #### L 506.1001, L501.9520, L100.0100, L500.4050 ####[facility] [address] [place], [address] Globulin (S) [Mass/Vol] 2.9 g/dL Normal 2.2-4.2 [facility] Comment on above: Performed By: #### L 506.1001, L501.9520, L100.0100, L500.4050 ####[facility] [address] [place], [address] Potassium [Moles/Vol] 4.5 mmol/L Normal 3.3-5.1 [facility] Comment on above: Result Comment: Hemo lysis present, Results??could be affected. ?? Performed By: #### L 506.1001, L501.9520, L100.0100, L500.4050 ####[facility] [address] [place], [address] Sodium [Moles/Vol] 136 mmol/L Normal 133-145 [facility] Comment on above: Performed By: #### L 506.1001, L501.9520, L100.0100, L500.4050 ####[facility] [address] [place], [address] Albumin [Mass/Vol] 4.4 g/dL Normal 3.4-4.8 [facility] Comment on above: Performed By: #### L 506.1001, L501.9520, L100.0100, L500.4050 ####[facility] [address] [place], [address] BUN/CRE 16.1 RATIO Normal 10-20 [facility] Comment on above: Performed By: #### L 506.1001, L501.9520, L100.0100, L500.4050 ####[facility] [address] [place], [address] Creatinine [Mass/Vol] 1.00 mg/dL Normal 0.70-1.20 [facility] Comment on above: Performed By: #### L 506.1001, L501.9520, L100.0100, L500.4050 ####[facility] [address] [place], [address] GFR/1.73 sq M.predicted among non-blacks MDRD (S/P/Bld) [Vol rate/Area] 84 mL/min/{1.73_m2} Normal >60 [facility] Comment on above: Result Comment: mL/m in/1.73m2 CKD-EPI Creatinine Equation (2020) Performed By: #### L 506.1001, L501.9520, L100.0100, L500.4050 ####[facility] [address] [place], [address] Glucose [Mass/Vol] 162 mg/dL High 70-99 [facility] Comment on above: Performed By: #### L 506.1001, L501.9520, L100.0100, L500.4050 ####[facility] [address] [place], [address] T PROT 7.3 g/dL Normal 5.9-8.4 [facility] Comment on above: Performed By: #### L 506.1001, L501.9520, L100.0100, L500.4050 ####[facility] [address] [place], [address] Urea nitrogen [Mass/Vol] 16 mg/dL Normal 4-19 [facility] Comment on above: Performed By: #### L 506.1001, L501.9520, L100.0100, L500.4050 ####[facility] [address] [place], [address] Eosinophil percentageOrdered By: Raul Patrick on 12-19-2024 Eosinophils/100 WBC (Bld) 3.2 % 0-5 [facility] Erythrocyte distribution wid th ratioOrdered By: Raul Patrick on 12-19-2024 Erythrocyte distribution width (RBC) [Ratio] 11.5 % Low 11.6-14.6 [facility] Erythrocyte distribution wid th standard deviationOrdered By: Raul Patrick on 12-19-2024 Erythrocyte distribution width (RBC) [Ratio] 39.4 fl 35.1-43.9 [facility] Glomerular filtration rate ( GFR) estimation/1.73 sq m using serum, plasma, or whole bOrdered By: Raul Patrick on 12-19-2024 GFR/1.73 sq M.predicted among non-blacks MDRD (S/P/Bld) [Vol rate/Area] 84 mL/min/{1.73_m2} >60 [facility] Comment on above: mL/min/1.73m2 CKD-EP I Creatinine Equation (2020) Hematocrit Auto (Bld) [Volum e fraction]Ordered By: Raul Patrick on 12-19-2024 Hematocrit (Bld) [Volume fraction] 47.4 % 40-54 [facility] Hemoglobin measurementOrdere d By: Raul Patrick 12-19-2024 Hemoglobin (Bld) [Mass/Vol] 16.2 g/dL 13.0-16.5 [facility] Immature granulocytes/100 WB C Auto (Bld)Ordered By: Raul Patrick 12-19-2024 Immature granulocytes/100 WBC (Bld) 0.600 % 0.0-0.9 [facility] Comment on above: IG% - Immature Granu locytes (promyelocytes, myelocytes and metamyelocytes) > 1% indicates that a LEFT SHIFT is Present. Laboratory - Chemistry and C hemistry - challengeOrdered By: Raul Patrick 12-19-2024 AST [Catalytic activity/Vol] 31 U/L <38 [facility] Comment on above: Hemolysis present, R esults could be affected. MCV (mean corpuscular volume ) determinationOrdered By: Raul Patrick 12-19-2024 MCV (RBC) [Entitic vol] 93.3 fL 80-94 [facility] Mean corpuscular hemoglobin (MCH) determinationOrdered By: Raul Patrick 12-19-2024 MCH (RBC) [Entitic mass] 31.9 pg 27.0-32.0 [facility] Mean corpuscular hemoglobin concentration (MCHC) determinationOrdered By: Raul Patrick 12-19-2024 MCHC (RBC) [Mass/Vol] 34.2 g/dL 32-36 [facility] Mean platelet volume determi nationOrdered By: Raul Patrick on 12-19-2024 Platelet mean volume (Bld) [Entitic vol] 9.2 fL 6.2-12.0 [facility] Monocyte percentageOrdered B y: Raul Patrick on 12-19-2024 Monocytes/100 WBC (Bld) 6.6 % 0-10 [facility] Neutrophil percentageOrdered By: Raul Patrick on 12-19-2024 Neutrophils/100 WBC (Bld) 68.2 % 47-70 [facility] Nucleated red blood cell per centageOrdered By: Raul Patrick on 12-19-2024 Nucleated RBC/100 WBC (Bld) [Ratio] 0 % 0-5 [facility] Platelet countOrdered By: Onofre Patrick on 12-19-2024 Platelets (Bld) [#/Vol] 208 10*3/uL 150-450 [facility] Potassium measurement (mass/ volume)Ordered By: Raul Patrick on 12-19-2024 Potassium (Unsp spec) [Mass/Vol] 4.5 mmol/L 3.3-5.1 [facility] Comment on above: Hemolysis present, R esults could be affected. RBC Auto (Bld) [#/Vol]Ordere d By: Raul Patrick on 12-19-2024 RBC (Bld) [#/Vol] 5.08 10*6/uL 4.6-6.2 [facility] Serum creatinine measurement (mass/volume)Ordered By: Raul Patrick on 12-19-2024 Creatinine [Mass/Vol] 1.00 mg/dL 0.70-1.20 [facility] Serum globulin measurementOr dered By: Raul Patrick on 12-19-2024 Globulin (S) [Mass/Vol] 2.9 g/dL 2.2-4.2 [facility] Serum glucose measurement (m ass/volume)Ordered By: Raul Patrick on 12-19-2024 Glucose [Mass/Vol] 162 mg/dL High 70-99 [facility] Serum or plasma alanine mcwilliams otransferase (ALT) measurementOrdered By: Raul Patrick on 12-19-2024 ALT [Catalytic activity/Vol] 37 U/L <47 [facility] Serum or plasma albumin primo urement (mass/volume)Ordered By: Raul Patrick on 12-19-2024 Albumin [Mass/Vol] 4.4 g/dL 3.4-4.8 [facility] Serum or plasma albumin/glob ulin mass ratioOrdered By: Raul Patrick on 12-19-2024 Albumin/Globulin [Mass ratio] 1.5 {ratio} 0.9-2.4 [facility] Serum or plasma alkaline kristina sphatase measurementOrdered By: Raul Patrick on 12-19-2024 ALP [Catalytic activity/Vol] 131 U/L High 40-129 [facility] Serum or plasma calcium primo urement (mass/volume)Ordered By: Raul Patrick on 12-19-2024 Calcium [Mass/Vol] 9.8 mg/dL 7.6-11.0 [facility] Serum or plasma urea nitroge n measurement (mass/volume)Ordered By: Raul Patrick on 12-19-2024 Urea nitrogen [Mass/Vol] 16 mg/dL 4-19 [facility] Sodium levelOrdered By: Raul Patrick on 12-19-2024 Sodium [Moles/Vol] 136 mmol/L 133-145 [facility] TSH DL <= 0.005 mIU/L QnOrde red By: Raul Patrick on 12-19-2024 TSH Qn 1.660 uIU/mL 0.300-4.200 [facility] Thyroid Stim Hormone (TSH)on 12-19-2024 TSH 1.660 uIU/mL Normal 0.300-4.200 [facility] Comment on above: Performed By: #### L 506.1001, L501.9520, L100.0100, L500.4050 ####[facility] [address] [place], [place], [id number] Total proteinOrdered By: Raul Patrcik on 12-19-2024 Protein [Mass/Vol] 7.3 g/dL 5.9-8.4 [facility] Vitamin D,25 Hydroxyon 12-19 Vitamin D 25-OH 35.3 ng/mL Normal 30-100 [facility] Comment on above: Result Comment: Sherri min D Status Deficiency: <20 ng/mL (50nmol/L) Insufficiency: 20-30 ng/mL (50-75 nmol/L) Sufficiency: 30-100 ng/mL (75-250 nmol/L) Toxicity: >100 ng/mL (>250 nmol/L) Performed By: #### L 506.1001, L501.9520, L100.0100, L500.4050 ####[facility] [address] [facility] [place], [address] White blood cell (WBC) count Ordered By: Raul Patrick on 12-19-2024 WBC (Bld) [#/Vol] 7.1 10*3/uL 4.4-11.0 [facility] Low Dose CT Lung Screeningon 07-17-[address] Lung Screening [facility] Imaging Services [address] [place] [address] Lung Screening MR#: [id number] Acct: [id number] Name: COREY NEVILLE Rep #: [id number] : 1960 M 64 From: Shane Garland MD PCP: Dr. Raul Patrick MD Status: [facility] Study: Low Dose CT Lung Screening Date of Exam: 07/17 Exam# [id number] Ordering Dr: Raul Patrick MD [id number] EXAM: CT CHEST, LUNG CANCER SCREENING WITHOUT [...] EST , CC: Dr. Raul Patrick MD [employer]el Bearing Broacher: Signed Normal [facility] Vitamin D,25 Hydroxyon 06-07 Vitamin D 25-OH 19.4 ng/mL Normal [facility] Comment on above: Result Comment: Sherri min D 25(OH) Status Range Deficiency <20 ng/mL (50nmol/L) Insufficiency 20 - 30 ng/mL (50 - 75 nmol/L) Sufficiency 30 - 100 ng/mL (75 - 250 nmol/L) Toxicity >100 ng/mL (>250 nmol/L) Performed By: #### L 100.0100, L501.9520, L501.9910, L506.1000, L500.4050 ####[facility] [address] [place], [address] CBC W/Diff, Automatedon 05-20 Absolute Lymph 1.24 X10 3/uL Normal 0.83-4.51 [facility] Comment on above: Performed By: #### L 100.0100, L501.9520, L501.9910, L506.1000, L500.4050 #### [facility] [address] [place], [address] Absolute Neut 3.7 X10 3/uL Normal 2.0-7.7 [facility] Comment on above: Performed By: #### L 100.0100, L501.9520, L501.9910, L506.1000, L500.4050 #### [facility] [address] [place], [address] Basophils/100 WBC (Bld) 0.7 % Normal 0-1 [facility] Comment on above: Performed By: #### L 100.0100, L501.9520, L501.9910, L506.1000, L500.4050 #### [facility] [address] [place], [address] Eosinophils/100 WBC (Bld) 2.9 % Normal 0-5 [facility] Comment on above: Performed By: #### L 100.0100, L501.9520, L501.9910, L506.1000, L500.4050 #### [facility] [address] [place], [address] Erythrocyte distribution width (RBC) [Ratio] 11.3 % Low 11.6-14.6 [facility] Comment on above: Performed By: #### L 100.0100, L501.9520, L501.9910, L506.1000, L500.4050 #### [facility] [address] [place], [address] Hematocrit (Bld) [Volume fraction] 48.4 % Normal 40-54 [facility] Comment on above: Performed By: #### L 100.0100, L501.9520, L501.9910, L506.1000, L500.4050 #### [facility] [address] [place], [address] Hemoglobin (Bld) [Mass/Vol] 16.7 g/dL High 13.0-16.5 [facility] Comment on above: Performed By: #### L 100.0100, L501.9520, L501.9910, L506.1000, L500.4050 #### [facility] [address] [place], [address] IG% 0.400 Normal 0.0-0.9 [facility] Comment on above: Result Comment: IG% - Immature Granulocytes (promyelocytes, myelocytes and metamyelocytes) > 1% indicates that a LEFT SHIFT is Present. Performed By: #### L 100.0100, L501.9520, L501.9910, L506.1000, L500.4050 #### [facility] [address] [place], [address] Lymphocytes/100 WBC (Bld) 22.4 % Normal 19-41 [facility] Comment on above: Performed By: #### L 100.0100, L501.9520, L501.9910, L506.1000, L500.4050 #### [facility] [address] [place], [address] MCH (RBC) [Entitic mass] 32.8 pg High 27.0-32.0 [facility] Comment on above: Performed By: #### L 100.0100, L501.9520, L501.9910, L506.1000, L500.4050 #### [facility] [address] [place], [address] MCHC (RBC) [Mass/Vol] 34.5 g/dL Normal 32-36 [facility] Comment on above: Performed By: #### L 100.0100, L501.9520, L501.9910, L506.1000, L500.4050 #### [facility] [address] [place], [address] MCV (RBC) [Entitic vol] 95.1 fL High 80-94 [facility] Comment on above: Performed By: #### L 100.0100, L501.9520, L501.9910, L506.1000, L500.4050 #### [facility] [address] [place], [address] Monocytes/100 WBC (Bld) 6.3 % Normal 0-10 [facility] Comment on above: Performed By: #### L 100.0100, L501.9520, L501.9910, L506.1000, L500.4050 #### [facility] [address] [place], [address] Neutrophils/100 WBC (Bld) 67.3 % Normal 47-70 [facility] Comment on above: Performed By: #### L 100.0100, L501.9520, L501.9910, L506.1000, L500.4050 #### [facility] [address] [place], [address] Nucleated RBC (Bld) [#/Vol] 0 10*3/uL Normal 0-5 [facility] Comment on above: Performed By: #### L 100.0100, L501.9520, L501.9910, L506.1000, L500.4050 #### [facility] [address] [place], [address] Platelet mean volume (Bld) [Entitic vol] 8.6 fL Normal 6.2-12.0 [facility] Comment on above: Performed By: #### L 100.0100, L501.9520, L501.9910, L506.1000, L500.4050 #### [facility] [address] [place], [address] Platelets (Bld) [#/Vol] 206 10*3/uL Normal 150-450 [facility] Comment on above: Performed By: #### L 100.0100, L501.9520, L501.9910, L506.1000, L500.4050 #### [facility] [address] [place], [address] RBC (Bld) [#/Vol] 5.09 10*6/uL Normal 4.6-6.2 [facility] Comment on above: Performed By: #### L 100.0100, L501.9520, L501.9910, L506.1000, L500.4050 #### [facility] [address] [place], [address] RDW SD 39.8 fl Normal 35.1-43.9 [facility] Comment on above: Performed By: #### L 100.0100, L501.9520, L501.9910, L506.1000, L500.4050 #### [facility] [address] [place], [address] WBC (Bld) [#/Vol] 5.5 10*3/uL Normal 4.4-11.0 [facility] Comment on above: Performed By: #### L 100.0100, L501.9520, L501.9910, L506.1000, L500.4050 #### [facility] [address] [place], [address] [facility] Albumin [Mass/Vol] 3.5 g/dL Normal 3.2-5.0 [facility] Comment on above: Performed By: #### L 100.0100, L501.9520, L501.9910, L506.1000, L500.4050 #### [facility] [address] [place], [address] Albumin/Globulin [Mass ratio] 0.9 {ratio} Normal 0.9-2.4 [facility] Comment on above: Performed By: #### L 100.0100, L501.9520, L501.9910, L506.1000, L500.4050 #### [facility] [address] [place], [address] ALK P 126 U/L High 45-117 [facility] Comment on above: Performed By: #### L 100.0100, L501.9520, L501.9910, L506.1000, L500.4050 #### [facility] [address] [place], [address] ALT [Catalytic activity/Vol] 64 U/L High 16-61 [facility] Comment on above: Performed By: #### L 100.0100, L501.9520, L501.9910, L506.1000, L500.4050 #### [facility] [address] [place], [address] AST [Catalytic activity/Vol] 35 U/L Normal 15-37 [facility] Comment on above: Performed By: #### L 100.0100, L501.9520, L501.9910, L506.1000, L500.4050 #### [facility] [address] [place], [address] Bilirubin [Mass/Vol] 0.50 mg/dL Normal 0.20-1.00 [facility] Comment on above: Result Comment: For patients on eltrombopag therapy, use of Dimension [place] TBIL is not recommended. Performed By: #### L 100.0100, L501.9520, L501.9910, L506.1000, L500.4050 #### [facility] [address] [place], [address] BUN/CRE 6.8 RATIO Low 10-20 [facility] Comment on above: Performed By: #### L 100.0100, L501.9520, L501.9910, L506.1000, L500.4050 #### [facility] [address] [place], [address] CA,Total 9.4 mg/dL Normal 8.5-10.1 [facility] Comment on above: Performed By: #### L 100.0100, L501.9520, L501.9910, L506.1000, L500.4050 #### [facility] [address] [place], [address] Chloride [Moles/Vol] 101 mmol/L Normal 98-107 [facility] Comment on above: Performed By: #### L 100.0100, L501.9520, L501.9910, L506.1000, L500.4050 #### [facility] [address] [place], [address] CO2 [Moles/Vol] 30.0 mmol/L Normal 21.0-32.0 [facility] Comment on above: Performed By: #### L 100.0100, L501.9520, L501.9910, L506.1000, L500.4050 #### [facility] [address] [place], [address] Creatinine [Mass/Vol] 1.03 mg/dL Normal 0.70-1.30 [facility] Comment on above: Result Comment: The validity of the calculated GFR GFRAA in patients over 70 years has not been determined. Clinical correlation is essential. Performed By: #### L 100.0100, L501.9520, L501.9910, L506.1000, L500.4050 #### [facility] [address] [place], [address] EST GFR - AA 93 mL/min Normal >60 [facility] Comment on above: Result Comment: Afri can [place] GFR Calc Performed By: #### L 100.0100, L501.9520, L501.9910, L506.1000, L500.4050 #### [facility] [address] [place], [address] GAP 5 Normal 5-15 [facility] Comment on above: Performed By: #### L 100.0100, L501.9520, L501.9910, L506.1000, L500.4050 #### [facility] [address] [place], [address] GFR/1.73 sq M.predicted among non-blacks MDRD (S/P/Bld) [Vol rate/Area] 77 mL/min/{1.73_m2} Normal >60 [facility] Comment on above: Result Comment: Non- GFR Calc Performed By: #### L 100.0100, L501.9520, L501.9910, L506.1000, L500.4050 #### [facility] [address] [place], [address] Globulin (S) [Mass/Vol] 3.8 g/dL Normal 2.2-4.2 [facility] Comment on above: Performed By: #### L 100.0100, L501.9520, L501.9910, L506.1000, L500.4050 #### [facility] [address] [place], [address] Glucose [Mass/Vol] 140 mg/dL High 74-106 [facility] Comment on above: Result Comment: Fast ing Glucose result greater than or equal to 126 mg/dL suggests DIABETES MELLITUS per A.D.A. criteria. Performed By: #### L 100.0100, L501.9520, L501.9910, L506.1000, L500.4050 #### [facility] [address] [place], [address] Potassium [Moles/Vol] 4.3 mmol/L Normal 3.5-5.1 [facility] Comment on above: Performed By: #### L 100.0100, L501.9520, L501.9910, L506.1000, L500.4050 #### [facility] [address] [place], [address] Sodium [Moles/Vol] 136 mmol/L Normal 136-145 [facility] Comment on above: Performed By: #### L 100.0100, L501.9520, L501.9910, L506.1000, L500.4050 #### [facility] [address] [place], [address] T PROT 7.3 g/dL Normal 6.4-8.2 [facility] Comment on above: Performed By: #### L 100.0100, L501.9520, L501.9910, L506.1000, L500.4050 #### [facility] [address] [place], [address] Urea nitrogen [Mass/Vol] 7 mg/dL Normal 7-18 [facility] Comment on above: Performed By: #### L 100.0100, L501.9520, L501.9910, L506.1000, L500.4050 #### [facility] [address] [place], [address] PSA,Total - Annual Screenon 06-06-2024 PSA,TOT SCREEN 1.40 ng/mL Normal 0.00-4.00 [facility] Comment on above: Result Comment: This test was performed using the TPSA assay method for the [employer] chemistry system. Values obtained with different assay methods cannot be used interchangably. When changing PSA assays in the course of monitoring a patient, additional sequential testing should be carried out to confirm baseline values. Performed By: #### L 100.0100, L501.9520, L501.9910, L506.1000, L500.4050 #### [facility] [address] [place], [address] Thyroid Stim Hormone (TSH)on 06-06-2024 TSH 1.980 uIU/mL Normal 0.358-3.740 [facility] Comment on above: Performed By: #### L 100.0100, L501.9520, L501.9910, L506.1000, L500.4050 #### [facility] [address] [place], [address] Absolute lymphocyte countOrd ered By: Raul Patrick on 10-06-2023 Lymphocytes Auto (Unsp spec) [#/Vol] 1.44 10*3/uL 0.83-4.51 [facility] Automated lymphocyte count a s percentage of total leukocytesOrdered By: Raul Patrick on 10-06-2023 Lymphocytes/100 WBC Auto (Unsp spec) 21.8 % 19-41 [facility] Basophil percentageOrdered B y: Raul Patrick on 10-06-2023 Basophils/100 WBC (Bld) 0.9 % 0-1 [facility] Bilirubin [Mass/Vol] 1.00 mg/dL 0.20-1.00 [facility] Comment on above: For patients on eltr ombopag therapy, use of Dimension [place] TBIL is not recommended. Chloride [Moles/Vol] 98 mmol/L 98-107 [facility] Eosinophils/100 WBC (Bld) 3.3 % 0-5 [facility] Glucose [Mass/Vol] 127 mg/dL 74-106 [facility] Comment on above: Fasting Glucose resu lt greater than or equal to 126 mg/dL suggests DIABETES MELLITUS per A.D.A. criteria. Hemoglobin (Bld) [Mass/Vol] 16.2 g/dL 13.0-16.5 [facility] Monocytes/100 WBC (Bld) 9.4 % 0-10 [facility] Neutrophils (Bld) [#/Vol] 4.3 10*3/uL 2.0-7.7 [facility] Neutrophils/100 WBC (Bld) 64.4 % 47-70 [facility] Potassium [Moles/Vol] 3.8 mmol/L 3.5-5.1 [facility] Protein [Mass/Vol] 7.6 g/dL 6.4-8.2 [facility] Sodium [Moles/Vol] 132 mmol/L 136-145 [facility] WBC (Bld) [#/Vol] 6.6 10*3/uL 4.4-11.0 [facility] Determination of erythrocyte mean corpuscular volume (MCV)Ordered By: Raul Patrick on 10-06-2023 MCV (RBC) [Entitic vol] 92.9 fL 80-94 [facility] Erythrocyte distribution wid th ratioOrdered By: [facility] Erythrocyte distribution width (RBC) [Ratio] 11.4 % 11.6-14.6 [facility] Erythrocyte distribution wid th standard deviationOrdered By: [facility] on 10-[facility]-2023 Erythrocyte distribution width (RBC) [Entitic vol] 38.7 fL 35.1-43.9 [facility] Hematocrit Auto (Bld) [Volum e fraction]Ordered By: [facility] on 10-06-2023 Hematocrit (Bld) [Volume fraction] 48.3 % 40-54 [facility] Immature granulocytes/100 WB C Auto (Bld)Ordered By: Raul Darnell 10-06-2023 Immature granulocytes/100 WBC (Bld) 0.200 % 0.0-0.9 [facility] Comment on above: IG% - Immature Granu locytes (promyelocytes, myelocytes and metamyelocytes) > 1% indicates that a LEFT SHIFT is Present. Laboratory - Chemistry and C hemistry - challengeOrdered By: [facility]23 Albumin/Globulin [Mass ratio] 1.0 {ratio} 0.9-2.4 [facility] ALP [Catalytic activity/Vol] 134 U/L 45-117 [facility] ALT [Catalytic activity/Vol] 53 U/L 16-61 [facility] CO2 [Moles/Vol] 29.0 mmol/L 21.0-32.0 [facility] Globulin (S) [Mass/Vol] 3.8 g/dL 2.2-4.2 [facility] Urea nitrogen/Creatinine [Mass ratio] 11.1 mg/mg 10-20 [facility] - Hematology and Cell countsOrdered By: Raul Darnell 10-06-2023 MCH (RBC) [Entitic mass] 31.2 pg 27.0-32.0 [facility] MCHC (RBC) [Mass/Vol] 33.5 g/dL 32-36 [facility] Nucleated RBC/100 WBC (Bld) [Ratio] 0 % 0-5 [facility] Platelet mean volume (Bld) [Entitic vol] 8.9 fL 6.2-12.0 [facility] Platelets (Bld) [#/Vol] 191 10*3/uL 150-450 [facility] No Panel InformationOrdered By: Raul Patrick on 10-06-2023 Estimated GFR (MDRD) Amer 88 mL/min >60 [facility] Comment on above: GFR Calc Estimated GFR (MDRD) Non-Af Amer 73 mL/min >60 [facility] Comment on above: Non- GFR Calc RBC Auto (Bld) [#/Vol]Ordere d By: Raul Patrick on 10-06-2023 RBC (Bld) [#/Vol] 5.20 10*6/uL 4.6-6.2 [facility] Serum or plasma calcium primo urement (mass/volume)Ordered By: Raul Patrick on 10-06-2023 Calcium [Mass/Vol] 9.4 mg/dL 8.5-10.1 [facility] Serum or plasma creatinine m easurement (mass/volume)Ordered By: Raul Patrick on 10-06-2023 Creatinine [Mass/Vol] 1.08 mg/dL 0.70-1.30 [facility] Comment on above: The validity of the calculated GFR & GFRAA in patients over 70 years has not been determined. Clinical correlation is essential. Serum or plasma thyroid stim ulating hormone (TSH) measurement (units/volume)Ordered By: Raul Patrick on 10-06-2023 TSH Qn 1.97 uIU/mL 0.358-3.74 [facility] Serum or plasma urea nitroge n measurement (mass/volume)Ordered By: aRul Patrick 10-06-2023 Urea nitrogen [Mass/Vol] 12 mg/dL 7-18 [facility] Thin prep Papanicolaou smear with manual screeningOrdered By: Raul Patrick 10-06-2023 Thin prep Papanicolaou smear with manual screening 3.8 g/dL 3.2-5.0 [facility] Thin prep Papanicolaou smear with manual screening 40 U/L 15-37 [facility] Thin prep Papanicolaou smear with manual screening 5 5-15 [facility] Absolute lymphocyte countOrd ered By: Raul Patrick on 04-05-2023 Lymphocytes Auto (Unsp spec) [#/Vol] 1.67 10*3/uL 0.83-4.51 [facility] Basophil percentageOrdered B y: Raul Patrick on 04-05-2023 Basophils/100 WBC (Bld) 0.7 % 0-1 [facility] Bilirubin [Mass/Vol] 0.50 mg/dL 0.20-1.00 [facility] Comment on above: For patients on eltr ombopag therapy, use of Dimension [place] TBIL is not recommended. Chloride [Moles/Vol] 103 mmol/L 98-107 [facility] Eosinophils/100 WBC (Bld) 4.2 % 0-5 [facility] Glucose [Mass/Vol] 123 mg/dL 74-106 [facility] Comment on above: Fasting Glucose resu lt from 100 to 125 mg/dL suggests IMPAIRED HOMEOSTASIS per A.D.A. criteria. Neutrophils (Bld) [#/Vol] 5.8 10*3/uL 2.0-7.7 [facility] Neutrophils/100 WBC (Bld) 67.3 % 47-70 [facility] Potassium [Moles/Vol] 4.1 mmol/L 3.5-5.1 [facility] Protein [Mass/Vol] 7.6 g/dL 6.4-8.2 [facility] Sodium [Moles/Vol] 138 mmol/L 136-145 [facility] WBC (Bld) [#/Vol] 8.7 10*3/uL 4.4-11.0 [facility] Blood erythrocytes count (nu mber/volume)Ordered By: Raul Patrick on 04-05-2023 RBC (Bld) [#/Vol] 5.15 10*6/uL 4.6-6.2 [facility] Blood hemoglobin measurement (mass/volume)Ordered By: Raul Patrick on 04-05-2023 Hemoglobin (Bld) [Mass/Vol] 16.5 g/dL 13.0-16.5 [facility] Blood lymphocytes/100 leukoc ytesOrdered By: Raul Patrick on 04-05-2023 Lymphocytes/100 WBC (Bld) 19.3 % 19-41 [facility] Blood monocytes/100 leukocyt esOrdered By: [facility] on 04-05-2023 Monocytes/100 WBC (Bld) 8.3 % 0-10 [facility] Blood platelet mean volumeOr dered By: [facility] on 04-05-2023 Platelet mean volume (Bld) [Entitic vol] 8.7 fL 6.2-12.0 [facility] Determination of erythrocyte mean corpuscular volume (MCV)Ordered By: [facility] on 04-05-2023 MCV (RBC) [Entitic vol] 97.9 fL 80-94 [facility] Hematocrit Auto (Bld) [Volum e fraction]Ordered By: [facility] on 04-05-2023 Hematocrit (Bld) [Volume fraction] 50.4 % 40-54 [facility] - Chemistry and C hemistry - challengeOrdered By: [facility] on 04-05-2023 ALP [Catalytic activity/Vol] 135 U/L 45-117 [facility] ALT [Catalytic activity/Vol] 111 U/L 16-61 [facility] CO2 [Moles/Vol] 31.0 mmol/L 21.0-32.0 [facility] Globulin (S) [Mass/Vol] 4.1 g/dL 2.2-4.2 [facility] Urea nitrogen/Creatinine [Mass ratio] 13.1 mg/mg 10-20 [facility] - Hematology and Cell countsOrdered By: [facility] on 04-05-2023 Erythrocyte distribution width (RBC) [Entitic vol] 41.7 fL 35.1-43.9 [facility] Erythrocyte distribution width (RBC) [Ratio] 11.4 % 11.6-14.6 [facility] Immature granulocytes/100 WBC (Bld) 0.200 % 0.0-0.9 [facility] Comment on above: IG% - Immature Granu locytes (promyelocytes, myelocytes and metamyelocytes) > 1% indicates that a LEFT SHIFT is Present. MCH (RBC) [Entitic mass] 32.0 pg 27.0-32.0 [facility] Nucleated RBC/100 WBC (Bld) [Ratio] 0 % 0-5 [facility] MCHC Auto (RBC) [Mass/Vol]Or dered By: Raul Patrick on 04-05-2023 MCHC (RBC) [Mass/Vol] 32.7 g/dL 32-36 [facility] No Panel InformationOrdered By: Raul Patrick on 04-05-2023 Estimated GFR (MDRD) Amer 98 mL/min >60 [facility] Comment on above: GFR Calc Estimated GFR (MDRD) Non-Af Amer 81 mL/min >60 [facility] Comment on above: Non- GFR Calc Hepatitis C Antibody Non-Reactive Nonreactive [facility] Comment on above: Non Reactive: < 0.8 Equivocal: >/= 0.8 to < 1.0 Reactive: >/= 1.0The CDC recommends that a reactive/equivocal HCV antibody result be followed up by the HCV Nucleic Acid Amplificationtest (705330) Prostate Specific Antigen Screen 1.31 ng/mL 0.00-4.00 [facility] Comment on above: This test was perfor med using the TPSA assay method for the[employer] chemistry system. Values obtained with differentassay methods cannot be used interchangably.When changing PSA assays in the course of monitoring apatient, additional sequential testing should be carriedout to confirm baseline values. Thyroid Stimulating Hormone (TSH) 1.90 uIU/mL 0.358-3.74 [facility] Vitamin D 25-Hydroxy 21.9 ng/mL [facility] Comment on above: Vitamin D 25(OH) Sta tus Range Deficiency <20 ng/mL (50nmol/L) Insufficiency 20 - 30 ng/mL (50 - 75 nmol/L) Sufficiency 30 - 100 ng/mL (75 - 250 nmol/L) Toxicity >100 ng/mL (>250 nmol/L) Platelets bldOrdered By: Raul Patrick on 04-05-2023 Platelets (Bld) [#/Vol] 215 10*3/uL 150-450 [facility] Serum or plasma albumin primo urement (mass/volume)Ordered By: Raul Patrick on 04-05-2023 Albumin [Mass/Vol] 3.5 g/dL 3.2-5.0 [facility] Serum or plasma albumin/glob ulin mass ratioOrdered By: Raul Patrick on 04-05-2023 Albumin/Globulin [Mass ratio] 0.9 {ratio} 0.9-2.4 [facility] Serum or plasma calcium primo urement (mass/volume)Ordered By: Raul Patrick on 04-05-2023 Calcium [Mass/Vol] 9.5 mg/dL 8.5-10.1 [facility] Serum or plasma creatinine m easurement (mass/volume)Ordered By: Raul Patrick on 04-05-2023 Creatinine [Mass/Vol] 0.99 mg/dL 0.70-1.30 [facility] Comment on above: The validity of the calculated GFR & GFRAA in patients over 70 years has not been determined. Clinical correlation is essential. Serum or plasma urea nitroge n measurement (mass/volume)Ordered By: Raul Patrick on 04-05-2023 Urea nitrogen [Mass/Vol] 13 mg/dL 7-18 [facility] Thin prep Papanicolaou smear with manual screeningOrdered By: Raul Patrick 04-05-2023 Thin prep Papanicolaou smear with manual screening 78 U/L 1537 [facility] Thin prep Papanicolaou smear with manual screening 4 5-15 [facility]) MARKO [place] ([id number]) 1960 Date Time Provider Department 07/08/22 Carine CANALES [facility] During your visit today, we recorded the following information about you: Lorie Tian Ma 07/08/2022 11:23 AM Signed Electronic PA generated for Silver Tian Ma 07/08/2022 11:23 AM Signed PA approved and patient notified Lorie Tian Ma Allergies As of Date: 07/08/2022 (No Known Allergies) Date Reviewed: 02/26/2021 Reviewed by: Sherice Orlando Ma - Fully Assessed Reason for Visit: Insurance Authorization [[id number]] Cmt: Januvia Prescriptions as of 07/08/2022 - [...] Status:Closed by LORIE TIAN MA on 07/08/22 [facility] 05[facility]31-20[facility] MARKO N[place] ([id number]) 1960 Carine Date Time Provider Department 05/31/22 CANALESCarine RIVERA During your visit today, we recorded the [...] M Corey Canales PA-C 05/31/2022 12:55 PM shakystacy sugars Problem List As Of Date 05/31/2022 [...] Status:Closed by SHERICE ORLANDO MA on 05/31/22 [facility] Marilyn [facility]-07-2022 [facility] MARKO [place] ([id number]) 1960 Date Time Provider Department 04/07/22 Carine CANALES [facility] During your visit today, we recorded the [...] Status:Closed by KENYETTA ESPAÑA on 04/08/22 Normal [facility] A1AT SerPl-mCncon 04-03-2022 Alpha 1 antitrypsin [Mass/Vol] 156 mg/dL Normal 90-200 [facility] Comment on above: Order Comment: Speci men Type: BLOOD SPECIMEN Ordering Facility: [facility] Address: [address] [place] [address] Performed By: #### 3 040-3, 89295-8, 1825-9 #### [facility] CLIA [id number] [address] [place] [address] [place] ALPHA 1 ANTITRYP PHEN/GENOTY PEon 04-03-2022 HA1IN Normal [facility] Comment on above: Order Comment: Speci men Type: BLOOD SPECIMEN Ordering Facility: [facility] Address: [address] [place] [address] Result Comment: Alph a 1 Antitrypsin Phenotype and Genotype Laboratory Accession Number: [id number] Result: No Variant Detected in SERPINA1 (PI*MM) [...] two most common pathogenic variants: S (c.863A>T, p.Qrp023Zgc, g.[id number]), Z (c.1096G>A, p.Jfy069Ocg, g.58511247), and the rarer variants: F (c.739C>T, p.Fzi386Xpc, g.12445202), I (c.187C>T, p.Xty12Mmz, g.14917205). Limitations: This Laboratory Developed Test (LDT) is [...] developed and its performance characteristics determined by [facility] [place] ([facility]). It has not been cleared or approved by the FDA. RT-PLNJ is regulated under CLIA as certified to perform high- complexity testing. This test is used for clinical purposes. It should not be regarded as investigational or for research. Testing and interpretation performed at [facility], [address] [place] [address]. CLIA Number: [id number] References: 1) Cayden XAVIER, Veronica G, Ifeanyi ML, Otis M, Milan CE, K, Matilda DK, Tanvir SL, Mallika MEJIA, Chava GARCIA, Leon Finch, Ha J. The Diagnosis and Management of Alpha-1 Antritrypsin Deficiency in the Adult. Chronic Obstr Pulm Dis. 2016 Nov 23;3:668-682. 2) Mohamud JA, Denise ON, Emil ER, Becka DG. a1-Antitrypsin phenotypes and associated serum protein concentrations in a large clinical population. Chest.2013 Sep;143(4):1000-8. 3) Manolo A, Essie NA, Marquis CR, Vin FJ, Christo SJ, Darshan AF. Molecular characterisation of three irdki-6-noforwwewms deficiency variants: proteinase inhibitor (Pi) nullcardiff (Hug700----Xju); PiMmalton (Ptl51----suqdpkin) and PiI (Jov55----Khv). Hum Angeline. 1989 May;84(1):55-8. 4) Roxann VALENTIN and Cayden XAVIER. Clinical practice. Alpha1-antitrypsin deficiency. N Engl J Med. 2008Dec 12;360(71)0512-56. 5) Murtaza NJ, Julia F, Adela XAVIER. The significance of the F variant of vbvcf-1-xjitowhxmgi and unique case report of a PiFF homozygote. [facility] Pulm Med. 2014 Jan 24;14:132. 6) Chava GARCIA, Adeola FL, and Dianelys Wilson. Alpha-1 Antitrypsin Deficiency. 2005Apr 15 [Updated 2017 July 08]. In: Phuc RA, Jacques MP, Sal TO, et al., editors. GeneReviews [Internet]. [place] ([place]): [facility]; 0103-9040. Available from: http://www.ncbi.nlm.nih.gov/books/JOF6141/ As reviewed by Vilma Mattson MD, PhD Performed By: #### A 1ATPG #### [facility] CLIA [id number] [address] [place] [address] [place] HBV core Ab Ser Qlon HBV core Ab Ql (S) Negative Normal Negative [facility] Comment on above: Order Comment: Speci men Type: BLOOD SPECIMEN Ordering Facility: [facility] Address: [address] [place] [address] Result Comment: No e vidence of current or past infection with Hepatitis B virus. Should recent infection be suspected, repeat testing may be considered 3-4 weeks after this draw. Performed By: #### 3 040-3, 14328-4, 1825-02 #### [facility] CLIA [id number] [address] [place] [address] [place] HBV surface Ab IA Ql (S)on HBV surface Ag Ql (S) Negative Normal Negative [facility] Comment on above: Order Comment: Johanna mccoy Type: BLOOD SPECIMEN Ordering Facility: [facility] Address: [address] [place] [address] Performed By: #### 3 040-3, 42683-3, 1825-02 #### [facility] CLIA [id number] [address] [place] [address] [place] HBV surface Ab Ser Qlon 03-20 HBV surface Ab Ql (S) Negative Normal Negative [facility] Comment on above: Order Comment: Johanna mccoy Type: BLOOD SPECIMEN Ordering Facility: [facility] Address: [address] [place] [address] Result Comment: No e vidence of antibodies to Hepatitis B surface antigen. Performed By: #### 3 040-3, 14851-5, 1825-02 #### [facility] CLIA [id number] [address] [place] [address] [place] HCV Ab Ser Qlon 04-03-2022 HCV Ab Ql (S) Negative Normal Negative [facility] Comment on above: Order Comment: Johanna mccoy Type: BLOOD SPECIMEN Ordering Facility: [facility] Address: [address] [place] [address] Result Comment: The result suggests no evidence of active infection with Hepatitis C virus. Should recent infection be suspected, repeat testing may be considered 4-6 weeks after this draw. Performed By: #### 3 040-3, 89517-1, 18210-26 #### [facility] CLIA [id number] [address] [place] [address] HbA1c (Bld)on 04-03-2022 Average glucose Estimated from glycated hemoglobin (Bld) [Mass/Vol] 120 mg/dL Normal [facility] Comment on above: Order Comment: Johanna mccoy Type: BLOOD SPECIMEN Ordering Facility: [facility] Address: [address] [place] [address] Result Comment: eAG: (Estimated average glucose) is a calculated value from HgbA1c and is tax compliance representative of the average blood glucose level in the last 2-3 month period. Performed By: #### 5 5454-3 #### [facility] CLIA [id number] [address] [place] [address] [place] HbA1c (Bld) [Mass fraction] 5.8 % High 4.3-5.6 [facility] Comment on above: Order Comment: Johanna [facility] Type: BLOOD SPECIMEN Ordering Facility: [facility] Address: [address] [place] [address] Result Comment: [place] Diabetes Association guidelines indicate that patients with HgbA1c in the range 5.7-6.4% are at increased risk for development of diabetes, and intervention by lifestyle modification may be beneficial. HgbA1c greater or equal to 6.5% is considered diagnostic of diabetes. Performed By: #### 5 5454-3 #### [facility] CLIA [id number] [address] [place] [address] [place] Hepatic function 2000 panelo n 04-03-2022 Albumin [Mass/Vol] 4.4 g/dL Normal 3.9-4.9 [facility] Comment on above: Order Comment: Speci men Type: BLOOD SPECIMEN Ordering Facility: [facility] Address: [address] [place], [place] [address] Performed By: #### 3 040-3, 36273-6, 1825-02 #### [facility] CLIA [id number] [address] [place] [address] [place] ALP [Catalytic activity/Vol] 121 U/L High 38-113 [facility] Comment on above: Order Comment: Speci men Type: BLOOD SPECIMEN Ordering Facility: [facility] Address: [address] [place] [address] Performed By: #### 3 040-3, 92510-0, 1825-02 #### [facility] CLIA [id number] [address] [place] [address] [place] ALT [Catalytic activity/Vol] 70 U/L High 10-54 [facility] Comment on above: Order Comment: Speci men Type: BLOOD SPECIMEN Ordering Facility: [facility] Address: [address] [place], [place] [address] Performed By: #### 3 040-3, 15741-8, 1825-02 #### [facility] CLIA [id number] [address] [place] [address] [place] AST [Catalytic activity/Vol] 58 U/L High 14-40 [facility] Comment on above: Order Comment: Speci men Type: BLOOD SPECIMEN Ordering Facility: [facility] Address: [address] [place], [place] [address] Performed By: #### 3 040-3, 48872-1, 1825-02 #### [facility] CLIA [id number] [address] [place] [address] [place] Bilirubin [Mass/Vol] 0.6 mg/dL Normal 0.2-1.3 [facility] Comment on above: Order Comment: Speci men Type: BLOOD SPECIMEN Ordering Facility: [facility] Address: [address] [place] [address] Performed By: #### 3 040-3, 19515-7, 1825-02 #### [facility] CLIA [id number] [address] [place] [address] [place] Bilirubin.conjugated [Mass/Vol] mg/dL Normal <0.2 [facility] Comment on above: Order Comment: Speci men Type: BLOOD SPECIMEN Ordering Facility: [facility] Address: [address] [place] [address] Performed By: #### 3 040-3, 71334-7, 1825-02 #### [facility] CLIA [id number] [address] [place] [address] [place] Protein [Mass/Vol] 7.1 g/dL Normal 6.3-8.0 [facility] Comment on above: Order Comment: Speci men Type: BLOOD SPECIMEN Ordering Facility: [facility] Address: [address] [place] [address] Performed By: #### 3 040-3, 74939-4, 1825-02 #### [facility] CLIA [id number] [address] [place] [address] [place] Lipase SerPl-cCncon 04-03-20 22 Lipase [Catalytic activity/Vol] 36 U/L Normal 16-61 [facility] Comment on above: Order Comment: Speci men Type: BLOOD SPECIMEN Ordering Facility: [facility] Address: [address] [place] [address] Performed By: #### 3 040-3, 35683-3, 1825-02 #### [facility] CLIA [id number] [facility] [place] [id number] [place] [facility] Marilyn 02-08-2022 CNPN Telephone (FAMPWS) [place] ([id number]) 1960 Carine Date Time Provider Department 02/08/22 [facility], we recorded the [...] dyspepsia [K30] 10/31/2017 Encounter Status:Closed by MARISOL THORNOTN on 02/08/22 Normal [facility] No Panel Informationon 02-05 [facility] US ABD RIGHT UPPER QUADRANTo n 02-05-2022 [...] in the gallbladder fundus. No biliary dilatation. Jewel Bearing Broacher: LATISHA Transcribe Date/Time: Feb 05 2022 3:22P Dictated by : LUIS AMAYA MD This examination was interpreted and the report reviewed and electronically signed by: LUIS AMAYA MD on Feb 05 2022 3:29PM EST [id number] Normal [facility] US ABD SPLEEN -NBon 02-06-20 US ABD [...] in the gallbladder fundus. No biliary dilatation. Jewel Bearing Broacher: LATISHA Transcribe Date/Time: Feb 05 2022 3:22P Dictated by : LUIS AMAYA MD This examination was interpreted and the report reviewed and electronically signed by: LUIS AMAYA MD on Feb 05 2022 3:29PM EST [id number] Normal [facility] CNOVon 02-01-2022 CNOV Office Visit (FAMPWS ) [place] ([id number]) 1960 Carine Date Time Provider Department 02/01/22 10:20 AM [facility] visit today, we recorded the [...] with chronic bronchitis (hcc) Pulmonary nodule, left Benzene Operator: none. Interval history: no new testing. Current [...] eGFR- >60 (more content not included)... Normal [facility] CBC W Auto Differential pane l (Bld)on 01-26-2022 Basophils (Bld) [#/Vol] 0.06 10*3/uL Normal <0.11 [facility] Comment on above: Order Comment: Speci men Type: BLOOD SPECIMEN Ordering Facility: [facility] Address: [address] [place] [address] Performed By: #### 3 040-3, 93512-3, 1825-02 #### [facility] CLIA [id number] [address] [place] [address] [place] Basophils/100 WBC (Bld) 0.8 % Normal [facility] Comment on above: Order Comment: Speci men Type: BLOOD SPECIMEN Ordering Facility: [facility] Address: [address] [place] [address] Performed By: #### 3 040-3, 09684-7, 1825-02 #### [facility] CLIA [id number] [address] [place] [address] [place] Differential cell count method Nom (Bld) Auto Normal [facility] Comment on above: Order Comment: Speci men Type: BLOOD SPECIMEN Ordering Facility: [facility] Address: [address] [place] [address] Performed By: #### 3 040-3, 48251-1, 1825-02 #### [facility] CLIA [id number] [address] [place] [address] [place] Eosinophils (Bld) [#/Vol] 0.24 10*3/uL Normal <0.46 [facility] Comment on above: Order Comment: Speci men Type: BLOOD SPECIMEN Ordering Facility: [facility] Address: [address] [place], [place] [id number] Performed By: #### 3 040-3, 36083-0, 1825-02 #### [facility] CLIA [id number] [address] [place] [address] [place] Eosinophils/100 WBC (Bld) 3.3 % Normal [facility] Comment on above: Order Comment: Speci men Type: BLOOD SPECIMEN Ordering Facility: [facility] Address: [address] [place], [place] [id number] Performed By: #### 3 040-3, 27113-4, 1825-02 #### [facility] CLIA [id number] [address] [place] [address] [place] Erythrocyte distribution width (RBC) [Ratio] 11.4 % Low 11.5-15.0 [facility] Comment on above: Order Comment: Speci men Type: BLOOD SPECIMEN Ordering Facility: [facility] Address: [address] [place], [place] [id number] Performed By: #### 3 040-3, 60799-3, 1825-02 #### [facility] CLIA [id number] [address] [place] [address] [place] Hematocrit (Bld) [Volume fraction] 46.2 % Normal 39.0-51.0 [facility] Comment on above: Order Comment: Speci men Type: BLOOD SPECIMEN Ordering Facility: [facility] Address: [address] [place] [address] Performed By: #### 3 040-3, 75052-6, 1825-02 #### [facility] CLIA [id number] [address] [place] [address] [place] Hemoglobin (Bld) [Mass/Vol] 15.6 g/dL Normal 13.0-17.0 [facility] Comment on above: Order Comment: Speci men Type: BLOOD SPECIMEN Ordering Facility: [facility] Address: [address] [place], [place] [id number] Performed By: #### 3 040-3, 94608-9, 1825-02 #### [facility] CLIA [id number] [address] [place] [address] [place] IMMATURE GRAN % 0.1 % Normal [facility] Comment on above: Order Comment: Speci men Type: BLOOD SPECIMEN Ordering Facility: [facility] Address: [address] [place], [place] [id number] Performed By: #### 3 040-3, 14390-0, 1825-02 #### [facility] CLIA [id number] [address] [place] [address] [place] IMMATURE GRAN ABS <0.03 Normal <0.10 [facility] Comment on above: Order Comment: Speci men Type: BLOOD SPECIMEN Ordering Facility: [facility] Address: [address] [place], [place] [address] Performed By: #### 3 040-3, 63999-6, 1825-02 #### [facility] CLIA [id number] [address] [place] [address] [place] Lymphocytes (Bld) [#/Vol] 1.72 10*3/uL Normal 1.00-4.00 [facility] Comment on above: Order Comment: Speci men Type: BLOOD SPECIMEN Ordering Facility: [facility] Address: [address] [place], [place] [id number] Performed By: #### 3 040-3, 39973-6, 1825-02 #### [facility] CLIA [id number] [address] [place] [address] [place] Lymphocytes/100 WBC (Bld) 23.8 % Normal [facility] Comment on above: Order Comment: Speci men Type: BLOOD SPECIMEN Ordering Facility: [facility] Address: [address] [place], [place] [address] Performed By: #### 3 040-3, 92217-5, 1825-02 #### [facility] CLIA [id number] [address] [place] [address] [place] MCH (RBC) [Entitic mass] 31.6 pg Normal 26.0-34.0 [facility] Comment on above: Order Comment: Speci men Type: BLOOD SPECIMEN Ordering Facility: [facility] Address: [address] [place] [address] Performed By: #### 3 040-3, 35915-2, 1825-02 #### [facility] CLIA [id number] [address] [place] [address] [place] MCHC (RBC) [Mass/Vol] 33.8 g/dL Normal 30.5-36.0 [facility] Comment on above: Order Comment: Speci men Type: BLOOD SPECIMEN Ordering Facility: [facility] Address: [address] [place], [place] [address] Performed By: #### 3 040-3, 86227-8, 1825-02 #### [facility] CLIA [id number] [address] [place] [address] [place] MCV (RBC) [Entitic vol] 93.5 fL Normal 80.0-100.0 [facility] Comment on above: Order Comment: Speci men Type: BLOOD SPECIMEN Ordering Facility: [facility] Address: [address] [place] [address] Performed By: #### 3 040-3, 15675-8, 1825-02 #### [facility] CLIA [id number] [address] [place] [address] [place] Monocytes (Bld) [#/Vol] 0.62 10*3/uL Normal <0.87 [facility] Comment on above: Order Comment: Speci men Type: BLOOD SPECIMEN Ordering Facility: [facility] Address: [address] [place], [place] [id number] Performed By: #### 3 040-3, 92767-8, 1825-02 #### [facility] CLIA [id number] [address] [place] [address] [place] Monocytes/100 WBC (Bld) 8.6 % Normal [facility] Comment on above: Order Comment: Speci men Type: BLOOD SPECIMEN Ordering Facility: [facility] Address: [address] [place] [address] Performed By: #### 3 040-3, 11101-0, 1825-02 #### [facility] CLIA [id number] [address] [place] [address] [place] Neutrophils (Bld) [#/Vol] 4.59 10*3/uL Normal 1.45-7.50 [facility] Comment on above: Order Comment: Speci men Type: BLOOD SPECIMEN Ordering Facility: [facility] Address: [address] [place], [place] [address] Performed By: #### 3 040-3, 34394-3, 1825-02 #### [facility] CLIA [id number] [address] [place] [address] [place] Neutrophils/100 WBC (Bld) 63.4 % Normal [facility] Comment on above: Order Comment: Speci men Type: BLOOD SPECIMEN Ordering Facility: [facility] Address: [address] [place] [address] Performed By: #### 3 040-3, 53189-7, 1825-02 #### [facility] CLIA [id number] [address] [place] [address] [place] Nucleated RBC (Bld) [#/Vol] 10*3/uL Normal <0.01 [facility] Comment on above: Order Comment: Speci men Type: BLOOD SPECIMEN Ordering Facility: [facility] Address: [address] [place], [place] [address] Performed By: #### 3 040-3, 77641-5, 1825-02 #### [facility] CLIA [id number] [address] [place] [address] OF [place] Nucleated RBC/100 WBC (Bld) [Ratio] 0.0 /100 WBC Normal [facility] Comment on above: Order Comment: Speci men Type: BLOOD SPECIMEN Ordering Facility: [facility] Address: [address] [place], [place] [address] Performed By: #### 3 040-3, 44826-1, 1829 #### [facility] CLIA [id number] [address] [place] [address] [place] Platelet mean volume (Bld) [Entitic vol] 9.9 fL Normal 9.0-12.7 [facility] Comment on above: Order Comment: Speci men Type: BLOOD SPECIMEN Ordering Facility: [facility] Address: [address] [place] [address] Performed By: #### 3 040-3, 83111-9, 9 #### [facility] CLIA [id number] [address] [place] [address] [place] Platelets (Bld) [#/Vol] 210 10*3/uL Normal 150-400 [facility] Comment on above: Order Comment: Speci men Type: BLOOD SPECIMEN Ordering Facility: [facility] Address: [address] [place] [address] Performed By: #### 3 040-3, 84008-5, 9 #### [facility] CLIA [id number] [address] [place] [address] [place] RBC (Bld) [#/Vol] 4.94 10*6/uL Normal 4.20-6.00 [facility] Comment on above: Order Comment: Speci men Type: BLOOD SPECIMEN Ordering Facility: [facility] Address: [address] [place] [address] Performed By: #### 3 040-3, 48751-8, 9 #### [facility] CLIA [id number] [address] [place] [address] [place] WBC (Bld) [#/Vol] 7.24 10*3/uL Normal 3.70-11.00 [facility] Comment on above: Order Comment: Speci men Type: BLOOD SPECIMEN Ordering Facility: [facility] Address: [address] [place], [place] [address] Performed By: #### 3 040-3, 92204-5, 1825-02 #### [facility] CLIA [id number] [address] [place] [address] [place] Comprehensive metabolic 2000 panelon 01-26-2022 Albumin [Mass/Vol] 4.3 g/dL Normal 3.9-4.9 [facility] Comment on above: Order Comment: Speci men Type: BLOOD SPECIMEN Ordering Facility: [facility] Address: [address] [place], [place] [address] Performed By: #### 3 040-3, 49832-1, 1825-02 #### [facility] CLIA [id number] [address] [place] [address] [place] ALP [Catalytic activity/Vol] 132 U/L High 38-113 [facility] Comment on above: Order Comment: Speci men Type: BLOOD SPECIMEN Ordering Facility: [facility] Address: [address] [place], [place] [address] Performed By: #### 3 040-3, 30980-0, 1825-02 #### [facility] CLIA [id number] [address] [place] [address] [place] ALT [Catalytic activity/Vol] 143 U/L High 10-54 [facility] Comment on above: Order Comment: Speci men Type: BLOOD SPECIMEN Ordering Facility: [facility] Address: [address] [place], [place] [address] Performed By: #### 3 040-3, 35087-6, 1825-02 #### [facility] CLIA [id number] [address] [place] [address] [place] Anion gap [Moles/Vol] 9 mmol/L Normal 9-18 [facility] Comment on above: Order Comment: Speci men Type: BLOOD SPECIMEN Ordering Facility: [facility] Address: [address] [place], [place] [address] Performed By: #### 3 040-3, 81175-8, 1825-02 #### [facility] CLIA [id number] [address] [place] [address] [place] [Catalytic activity/Vol] 106 U/L High 14-40 [facility] Comment on above: Order Comment: Speci men Type: BLOOD SPECIMEN Ordering Facility: [facility] Address: [address] [place] [address] Performed By: #### 3 040-3, 07191-6, 1825-02 #### [facility] CLIA [id number] [address] [place] [address] [place] Bilirubin [Mass/Vol] 0.7 mg/dL Normal 0.2-1.3 [facility] Comment on above: Order Comment: Speci men Type: BLOOD SPECIMEN Ordering Facility: [facility] Address: [address] [place] [address] Performed By: #### 3 040-3, 47926-4, 1825-02 #### [facility] CLIA [id number] [address] [place] [address] [place] Calcium [Mass/Vol] 9.8 mg/dL Normal 8.5-10.2 [facility] Comment on above: Order Comment: Speci men Type: BLOOD SPECIMEN Ordering Facility: [facility] Address: [address] [place], [place] [phone] Performed By: #### 3 040-3, 10092-2, 1825-02 #### [facility] CLIA [id number] [address] [place], [place] [id number] [place] Chloride [Moles/Vol] 97 mmol/L Normal 97-105 [facility] Comment on above: Order Comment: Speci men Type: BLOOD SPECIMEN Ordering Facility: [facility] Address: [address] [place], [place] [phone] Performed By: #### 3 040-3, , 1825-02 #### [facility] CLIA [id number] [address] [place] [address] [place] CO2 [Moles/Vol] 27 mmol/L Normal 22-30 [facility] Comment on above: Order Comment: Speci men Type: BLOOD SPECIMEN Ordering Facility: [facility] Address: [address] [place] [address] Performed By: #### 3 040-3, 19928-7, 1825-02 #### [facility] CLIA [id number] [address] [place] [address] [place] Creatinine [Mass/Vol] 1.02 mg/dL Normal 0.73-1.22 [facility] Comment on above: Order Comment: Speci men Type: BLOOD SPECIMEN Ordering Facility: [facility] Address: [address] [place] [address] Performed By: #### 3 040-3, , 1825-02 #### [facility] CLIA [id number] [address] [place] [address] [place] ESTIMATED GLOMERULAR FILTRATION RATE 83 mL/min/1.73m??? Normal >=60 [facility] Comment on above: Order Comment: Speci men Type: BLOOD SPECIMEN Ordering Facility: [facility] Address: [address] [place] [address] Result Comment: Pippa mated Glomerular Filtration Rate [...] actual GFR. Performed By: #### 3 040-3, 02283-2, 1825-02 #### [facility] CLIA [id number] [address] [place] [address] [place] Glucose [Mass/Vol] 119 mg/dL High 74-99 [facility] Comment on above: Order Comment: Speci men Type: BLOOD SPECIMEN Ordering Facility: [facility] Address: [address] [place], [place] [phone] Result Comment: The [place] Diabetes Association (ADA) provides guidance for cutoff [...] Standards of Medical Care in Diabetes 2016, [place] Diabetes Association. Diabetes Care. 2016.39(Suppl 1). Performed By: #### 3 040-3, 28537-0, 1825-02 #### [facility] CLIA [id number] [address] [place] [address] [place] Potassium [Moles/Vol] 3.9 mmol/L Normal 3.7-5.1 [facility] Comment on above: Order Comment: Johanna mccoy Type: BLOOD SPECIMEN Ordering Facility: [facility] Address: [address] [place], [place] [phone] Performed By: #### 3 040-3, 35025-9, 1825-02 #### [facility] CLIA [id number] [address] [place] [address] [place] Protein [Mass/Vol] 7.0 g/dL Normal 6.3-8.0 [facility] Comment on above: Order Comment: Daisyi men Type: BLOOD SPECIMEN Ordering Facility: [facility] Address: [address] [place], [place] [phone] Performed By: #### 3 040-3, 26509-2, 1825-02 #### [facility] CLIA [id number] [address] [place] [address] [place] Sodium [Moles/Vol] 133 mmol/L Low 136-144 [facility] Comment on above: Order Comment: Johanna mccoy Type: BLOOD SPECIMEN Ordering Facility: [facility] Address: [address] [place] [address] Performed By: #### 3 040-3, 64874-9, 1829 #### [facility] CLIA [id number] [address] [place] [address] [place] Urea nitrogen [Mass/Vol] 12 mg/dL Normal 9-24 [facility] Comment on above: Order Comment: Johanna mccoy Type: BLOOD SPECIMEN Ordering Facility: [facility] Address: [address] [place] [address] Performed By: #### 3 040-3, 29501-0, 9 #### [facility] CLIA [id number] [address] [place] [address] [place] HbA1c (Bld)on 01-26-2022 Average glucose Estimated from glycated hemoglobin (Bld) [Mass/Vol] 140 mg/dL Normal [facility] Comment on above: Order Comment: Johanna mccoy Type: BLOOD SPECIMEN Ordering Facility: [facility] Address: [address] [place] [address] Result Comment: eAG: (Estimated average glucose) is a calculated value from HgbA1c and is tax compliance representative of the average blood glucose level in the last 2-3 month period. Performed By: #### 5 5454-3 #### [facility] CLIA [id number] [address] [place] [address] [place] HbA1c (Bld) [Mass fraction] 6.5 % High 4.3-5.6 [facility] Comment on above: Order Comment: Johanna mccoy Type: BLOOD SPECIMEN Ordering Facility: [facility] Address: [address] [place] [address] Result Comment: [place] Diabetes Association guidelines indicate that patients with HgbA1c in the range 5.7-6.4% are at increased risk for development of diabetes, and intervention by lifestyle modification may be beneficial. HgbA1c greater or equal to 6.5% is considered diagnostic of diabetes. Performed By: #### 5 5454-3 #### [facility] CLIA [id number] [address] [place] [address] [place] Lipid 1996 panelon 2 Cholesterol [Mass/Vol] 215 mg/dL High <[address] [facility] Comment on above: Order Comment: Johanna mccoy Type: BLOOD SPECIMEN Ordering Facility: [facility] Address: [address] [place] [address] Result Comment: <200 mg/dL, Desirable 200-239 mg/dL, Borderline high >239 mg/dL, High Performed By: #### 3 040-3, 22200-4, 1825-02 #### [facility] CLIA [id number] [address] [place] [address] STATES OF [facility] Cholesterol in HDL [Mass/Vol] 45 mg/dL Normal >39 [facility] Comment on above: Order Comment: Johanna mccoy Type: BLOOD SPECIMEN Ordering Facility: [facility] Address: [address] [place] [address] Result Comment: 40-5 9 mg/dL, Acceptable >59 mg/dL, High: Negative risk factor for coronary heart disease <40 mg/dL, Low: Positive risk factor for coronary heart disease Performed By: #### 3 040-3, 31154-6, 1825-02 #### [facility] CLIA [id number] [address] [place] [address] OF [facility] Cholesterol in LDL [Mass/Vol] 130 mg/dL High <100 [facility] Comment on above: Order Comment: Johanna mccoy Type: BLOOD SPECIMEN Ordering Facility: [facility] Address: [address] [place] [address] Result Comment: <100 mg/dL, Optimal 100-129 mg/dL, Near optimal/above optimal 130-159 mg/dL, Borderline high 160-189 mg/dL, High >189 mg/dL, Very high Secondary prevention optimal LDL Cholesterol levels are recommended to be < 70 mg/dL Performed By: #### 3 040-3, 56400-2, 1825-02 #### [facility] CLIA [id number] [address] [facility] [place] [address] [place] Cholesterol in LDL/Cholesterol in HDL [Mass ratio] 2.89 {ratio} High <2.54 [facility] Comment on above: Order Comment: Speci men Type: BLOOD SPECIMEN Ordering Facility: [facility] Address: [address] [place] [address] Result Comment: Refe yojana: 1. National Cholesterol Education Program ATP III Guideline At-A-Glance Quick Desk Reference: National Heart, Lung, and Blood [place]. National Institutes of Health. 2001: NIH Publication No. 01-3305. 2. An International Atherosclerosis Society position paper: global recommendations for the management of dyslipidemia: executive summary, Atherosclerosis. 2014: 232(2):410-413. Performed By: #### 3 040-3, 25638-3, 1825-02 #### [facility] CLIA [id number] [address] [place] [address] [place] Cholesterol in VLDL [Mass/Vol] 40 mg/dL High <30 [facility] Comment on above: Order Comment: Johanna mccoy Type: BLOOD SPECIMEN Ordering Facility: [facility] Address: [address] [place], [place] [id number] Performed By: #### 3 040-3, 64830-6, 1825-02 #### [facility] CLIA [id number] [facility] [place] [address] [place] Cholesterol non HDL [Mass/Vol] 170 mg/dL High <130 [facility] Comment on above: Order Comment: Daisyi men Type: BLOOD SPECIMEN Ordering Facility: [facility] Address: [address] [place], [place] [id number] Result Comment: <130 mg/dL, Optimal 130-159 mg/dL, Near optimal/above optimal 160-189 mg/dL, Borderline high 190-219 mg/dL, High >219 mg/dL, Very high Secondary prevention optimal non HDL Cholesterol levels are recommended to be <100 mg/dL Performed By: #### 3 040-3, 94482-3, 1825-02 #### [facility] CLIA [id number] [address] [place] [address] [place] Cholesterol.total/Gayle sterol in HDL [Mass ratio] 4.78 {ratio} Normal <5.10 [facility] Comment on above: Order Comment: Speci men Type: BLOOD SPECIMEN Ordering Facility: [facility] Address: [address] [place], [place] [id number] Performed By: #### 3 040-3, , 1825-02 #### [facility] CLIA [id number] [address] [place] [address] STATES OF [facility] FASTING TIME 12 hrs Normal [facility] Comment on above: Order Comment: Speci men Type: BLOOD SPECIMEN Ordering Facility: [facility] Address: [address] [place] [address] Performed By: #### 3 040-3, , 1825-02 #### [facility] CLIA [id number] [address] [place] [address] [place] Triglyceride [Mass/Vol] 198 mg/dL High <150 [facility] Comment on above: Order Comment: Speci men Type: BLOOD SPECIMEN Ordering Facility: [facility] Address: [address] [place], [place] [id number] Result Comment: <150 mg/dL, Normal 150-199 mg/dL, Borderline high 200-499 mg/dL, High >499 mg/dL, Very high Performed By: #### 3 040-3, 79304-5, 1825-02 #### [facility] CLIA [id number] [address] [place] [address] [place] Magnesium SerPl-mCncon 01-26 Magnesium [Mass/Vol] 1.9 mg/dL Normal 1.7-2.3 [facility] Comment on above: Order Comment: Speci men Type: BLOOD SPECIMEN Ordering Facility: [facility] Address: [address] [place], [place] [phone] Performed By: #### 3 040-3, 20446-7, 1825-9 #### [facility] CLIA [id number] [address] [place] [address] CNPMckenna 01-18-2022 CNPN Telephone (FAMPWS) MARKO [place] ([id number]) 1960 M Date Time Provider Department 01/18/22 [facility] During your visit today, we recorded the following information about you: Carine Esquivel RN 01/18/2022 12:04 PM Signed Patient scheduled appt with pcp for 8-15. Asking a provider to please place lab orders and let patient know when they are ordered. Pended the requested labs. Ivis Pope APRN.CNP 01/18/2022 4:56 PM Signed Orders placed for [...] [R73.03] Order(s):CBC + DIFF [SQCBCDIF] Order #: [id number] FUTURE HGB A1C [CGBKH4T] Order #: [id number] FUTURE LIPID PANEL BASIC [SQLIPB] Order #: [id number] FUTURE COMP METABOLIC PANEL [SQCMP] Order #: [id number] FUTURE MAGNESIUM BLD [SQMG1] Order #: [id number] FUTURE Prescriptions as of 01/18/2022 - metoprolol [...] by AGUS BENAVIDEZ LPN on 01/18/22 Normal [facility] Vital Signs Date Time Vital Sign Value Performing Clinician Stan ignacio 2025 10:17040 Body height 176.[address] Raul Patrick MD Work Phone: [facility] 2025 10:17-0400 Body mass index (BMI) [Ratio] 24.4 kg/m2 Dr. Raul Patrick MD Work Phone: [facility] 2025 10:17-0400 Body temperature 98.4 [degF] Dr. Raul Patrick MD Work Phone: [facility] 2025 10:17-0400 Body weight 76.[address] Raul Patrick MD Work Phone: 2(532)695-668435 [place] [address] 2025 10:17-0400 Diastolic blood pressure 78 mm[Hg] Dr. Raul Patrick MD Work Phone: 3(283)760-026135 [place] [address] 2025 10:17-0400 Heart rate 80 /min Dr. Raul Patrick MD Work Phone: 7(009)402-232135 [place] [address] 2025 10:17-0400 Respiratory rate 18 /min Dr. Raul Patrick MD Work Phone: 1(630)627-263398 [address] 2025 10:17-0400 SaO2% (BldA) [Mass fraction] 94 % Dr. Raul Patrick MD Work Phone: [facility] 2025 10:17-0400 Systolic blood pressure 134 mm[Hg] Dr. Raul Patrick MD Work Phone: [facility] 02-16-2025 14:04-0400 Body temperature 98.7 [degF] Dr. Raul Patrick MD Work Phone: [facility] 02-16-2025 14:04-0400 Diastolic blood pressure 74 mm[Hg] Dr. Raul Patrick MD Work Phone: [facility] 02-16-2025 14:04-0400 Heart rate 80 /min Dr. Raul Patrick MD Work Phone: [facility] 02-16-2025 14:04-0400 Respiratory rate 18 /min Dr. Raul Patrick MD Work Phone: [facility] 02-16-2025 14:04-0400 SaO2% (BldA) [Mass fraction] 98 % Dr. Raul Patrick MD Work Phone: 9(367)537-920035 [place] [address] 02-16-2025 14:04-0400 Systolic blood pressure 163 mm[Hg] Dr. Raul Patrick MD Work Phone: 7(585)547-073857 [place] [address] 02-15-2025 15:50-0400 Body temperature 97.9 [degF] Dr. Raul Patrick MD Work Phone: 4(610)356-220957 [place] [address] 02-15-2025 15:50-0400 Diastolic blood pressure 76 mm[Hg] Dr. Raul Patrick MD Work Phone: 2(482)152-327057 [place] [address] 02-15-2025 15:50-0400 Heart rate 62 /min Dr. Raul Patrick MD Work Phone: 8(405)984-501857 [place] [address] 02-15-2025 15:50-0400 Respiratory rate 16 /min Dr. Raul Patrick MD Work Phone: 0(832)626-008957 [place] [address] 02-15-2025 15:50-0400 SaO2% (BldA) [Mass fraction] 100 % Dr. Raul Patrick MD Work Phone: 9(593)754-059457 [place] [address] 02-15-2025 15:50-0400 Systolic blood pressure 165 mm[Hg] Dr. Raul Patrick MD Work Phone: 6(732)160-446057 [place] [address] 02-14-2025 12:35-0400 Body height 175.[address] Raul Patrick MD Work Phone: 0(124)991-468557 [place] [address] 02-14-2025 12:35-0400 Body mass index (BMI) [Ratio] 55.3 kg/m2 Dr. Raul Patrick MD Work Phone: 7(079)636-071757 [place] [address] 02-14-2025 12:35-0400 Body weight [address] Raul Patrick MD Work Phone: 3(991)357-899257 [place] [address] 02-13-2025 11:33-0400 Body temperature 98.1 [degF] Dr. Raul Patrick MD Work Phone: 7(194)703-138857 [place] [address] 02-13-2025 11:33-0400 Diastolic blood pressure 75 mm[Hg] Dr. Raul Patrick MD Work Phone: 9(421)515-042657 [place] [address] 02-13-2025 11:33-0400 Heart rate 78 /min Dr. Raul Patrick MD Work Phone: [facility] 02-13-2025 11:33-0400 Respiratory rate 16 /min Dr. Raul Patrick MD Work Phone: [facility] 02-13-2025 11:33-0400 SaO2% (BldA) [Mass fraction] 100 % Dr. Raul Patrick MD Work Phone: [facility] 02-13-2025 11:33-0400 Systolic blood pressure 152 mm[Hg] Dr. Raul Patrick MD Work Phone: [facility] 02-13-2025 09:55-0400 Body height 176.[address] Raul Patrick MD Work Phone: [facility] 02-13-2025 09:55-0400 Body mass index (BMI) [Ratio] 24.1 kg/m2 Dr. Raul Patrick MD Work Phone: [facility] 02-13-2025 09:55-0400 Body weight 75.[address] Raul Patrick MD Work Phone: [facility] 02-01-2022 10:39-0400 Body weight 78.47 kg NA Canales PA-C Work Phone: [facility] 02-01-2022 10:39-0400 Diastolic blood pressure 78 mm[Hg] NA Canales PA-C Work Phone: [facility] 02-01-2022 10:39-0400 Heart rate 84 /min NA Canales PA-C Work Phone: [facility] 02-01-2022 10:39-0400 Respiratory rate 20 /min NA Canales PA-C Work Phone: [facility] 02-01-2022 10:39-0400 SaO2% (BldA) [Mass fraction] 98 % NA Canales PA-C Work Phone: [facility] 02-01-2022 10:39-0400 Systolic blood pressure 158 mm[Hg] SEE Canales PA-C Work Phone: [facility] Encounters Encounter Date Encounter Type Care Provider Facility Start: 02-26-2025 ambulatory [facility] Facility:[facility] Start: 02-25-2025 ambulatory [facility] Facility:[facility] Start: 2025 End: [address] Pranay Light MD -[facility] Work Phone: Start: 2025 End: [address] Raul Patrick MD Work Phone: -[facility] Start: 02-16-2025 Non-patient / Non-visit Dr. Shobha Nichols MD -[facility] Work Phone: Start: 02-16-2025 Non-patient / Non-visit Dr. Pranay mathew MD -[facility] Start: 02-15-2025 Non-patient / Non-visit Dr. Shobha Nichols MD -[facility] Work Phone: Start: 02-15-2025 Non-patient / Non-visit Dr. Pranay mathew MD -[facility] Start: 02-14-2025 Non-patient / Non-visit Dr. Shobha Nichols MD -[facility] Work Phone: Start: 02-13-2025 Non-patient / Non-visit Dr. Pranay mathew MD -[facility] Start: 02-13-2025 ambulatory [facility] Facility:[facility] Start: 02-13-2025 End: 02-16-2025 Evaluation and management of inpatient Dr. Eric Nichols MD -[facility] 3 Work Phone: Start: 02-11-2025 End: 02-11-[address] Raul Patrick MD Work Phone: -Radiology [facility] Start: 02-11-2025 End: 02-11-[address] Raul Patrick MD -Radiology [facility] Work Phone: Start: 02-11-2025 End: 02-11-2025 ambulatory [facility] Facility:[facility] Start: 12-19-2024 End: 12-19-[address] Raul Patrick MD Work Phone: -Laboratory Start: 12-19-2024 End: 12-19-[address] Raul Patrick MD -Laboratory Work Phone: Start: 12-19-2024 End: 12-19-2024 ambulatory [facility] Facility:[facility] Start: 07-17-2024 End: 07-17-2024 ambulatory [facility] Facility:[facility] Start: 06-06-2024 End: 06-06-2024 ambulatory [facility] Facility:[facility] Start: 10-06-2023 End: 10-06-2023 ambulatory [facility] Work Phone: Start: 10-06-2023 End: 10-06-2023 Patient encounter procedure [facility] Work Phone: Start: 04-05-2023 End: 04-05-2023 ambulatory [facility] Work Phone: Start: 04-05-2023 End: 04-05-2023 Patient encounter procedure [facility] Work Phone: Start: 01-15-2023 Refill Carine Gotti on PA-C Work Phone: [facility] Comment on above: Refill Request Start: 12-02-2022 Refill Leia Greco APRN.CAD DESIGN ENGINEER Work Phone: [facility] Comment on above: Refill Request Start: 11-16-2022 Refill Carine Gotti on PA-C Work Phone: [facility] Comment on above: Refill Request Start: 11-02-2022 Refill Carine Gotti on PA-C Work Phone: [facility] Comment on above: Refill Request Start: 08-04-2022 Refill Carine rivera PA-C Work Phone: [facility] [place] Comment on above: Refill Request Start: 07-08-2022 Telephone encounter Carine Canales PA-C Work Phone: [facility] [place] Comment on above: Insurance Authorizat ion (Silver ) Start: 05-31-2022 Telephone encounter Carine Canales PA-C Work Phone: [facility] [place] Comment on above: Patient Update Start: 04-21-2022 Refill Carine rivera PA-C Work Phone: [facility] [place] Comment on above: Refill Request Start: 04-07-2022 Telephone encounter Carine Canales PA-C Work Phone: [facility] [place] Comment on above: Results Start: 04-03-2022 End: 04-03-2022 ambulatory Carine CANALES Facility:[facility] Start: 02-08-2022 Telephone encounter Carine Canales PA-C Work Phone: [facility] [place] Comment on above: Results Start: 02-05-2022 End: 02-05-2022 ambulatory Carine CANALES Facility:[facility] Start: 02-05-2022 End: 02-05-2022 Subsequent hospital visit by physician [facility] Work Phone: Radiology Comment on above: Alcohol abuse [F10.1 0] Start: 02-01-2022 End: 02-01-2022 ambulatory Carine CANALES Facility:[facility] Start: 02-01-2022 End: 02-01-2022 Patient encounter procedure Carine Canales PA-C Work Phone: [facility] [place] Comment on above: Essential hypertensi on (Primary Dx); Hyperlipidemia, mixed; Prediabetes; COPD with chronic bronchitis (HCC); Pulmonary nodule, left; Adjustment disorder with other symptom; Gastroesophageal reflux disease without esophagitis; History of colon polyps; Alcohol abuse; Elevated liver enzymes; Acute pain of right shoulder Start: 01-26-2022 End: 01-26-2022 ambulatory Carine CANALES Facility:[facility] Start: 01-18-2022 Telephone encounter Carine Gottion PA-C Work Phone: [facility] [place] Comment on above: Lab orders for appt Start: 01-11-2022 Refill Carine Gotti on PA-C Work Phone: [facility] [place] Comment on above: Refill Request Start: 10-15-2021 Refill Carine Gotti on PA-C Work Phone: [facility] [place] Comment on above: Refill Request Procedures Date Procedure Procedure Detail Performing Clinician Start: 02-16-[address] Raul Patrick MD Work Phone: Start: 02-15-2025 Plain x-ray of hand Dr. Raul Patrick MD Work Phone: Start: 02-15-[address] Raul Patrick MD Work Phone: Start: 02-14-[address] Raul Patrick MD Work Phone: Start: 02-14-2025 Gram stain microscopy Ariel Patrick MD Work Phone: Start: 02-14-2025 End: 02-14-2025 Microbial culture, routine Dr. Raul Patrick MD Work Phone: Start: 02-14-[address] Raul suarez MD Work Phone: Start: 02-13-[address] Raul ferreira MD Work Phone: Start: 02-13-2025 MRI of upper limb Dr. Thang Patrick MD Work Phone: Start: 02-13-[address] Raul Patrick MD Work Phone: Start: 02-11-2025 Plain X-ray of finger Ariel Patrick MD Work Phone: Start: 12-19-2024 Vitamin D, 25-hydrox y measurement Dr. Raul Patrick MD Work Phone: Comment on above: Vitamin D StatusDefi ciency: <20 ng/mL (50nmol/L)Insufficiency: 20-30 ng/mL (50-75 nmol/L)Sufficiency: 30-100 ng/mL (75-250 nmol/L)Toxicity: >100 ng/mL (>250 nmol/L) Start: 02-05-2022 Us abdominal real ti me w/image limited M Corey Parker BARAJAS Work Phone: Start: 02-01-2022 Adult depression scr eening assessment NA Parker DURON-Josette Work Phone: Start: 02-26-2021 Adult depression scr eening assessment SEE DURON-Josette Work Phone: Start: 12-26-2017 Colonoscopy SEE DURON-Josette Work Phone: Plan of Treatment Date Care Activity Detail Author Start: 08-09-2028 Urine microalbumin profile DTAP,TDAP,TD (2 - Td or Tdap) [facility] Start: 01-26-2027 LIPID SCREEN LIPID SCREEN [facility] Start: 04-03-2025 DIABETES SCREEN DIABETES SCREEN [facility] Start: 03-05-2025 LIPID SCREEN LIPID SCREEN [facility] Start: 02-16-2025 Patient discharge [facility] Start: 02-15-[address] [facility] Start: 02-14-2025 Acid Fast Bacilli Culture Acid Fast Bacilli Culture [facility] Start: 02-14-2025 Acid Fast Bacilli Smear Acid Fast Ba cilli Smear [facility] Start: 02-14-2025 Anaerobic Culture Anaerobic Culture [facility] Start: 02-14-2025 Anaerobic microbial culture Anaerobic Culture [facility] Start: 02-14-2025 Fungal Culture Fungal Culture [facility] Start: 02-14-[address] Fungal Smear [facility] Start: 02-14-2025 Microbial culture, routine Wound Culture [facility] Start: 02-14-2025 Wound Culture Wound Culture [facility] Start: 02-14-[address] [facility] Start: 02-14-2025 Acid fast bacilli culture [facility] Start: 02-14-2025 Mycology culture [facility] Start: 02-14-2025 Source specific culture [facility] Start: 02-13-2025 Bacteria identified in Blood by Culture Blood Culture [facility] Start: 02-13-2025 Blood culture Blood Culture [facility] Start: 02-13-2025 Following clinical pathway protocol [facility] Start: 02-13-2025 Ambulation without limitation [facility] Start: 02-13-2025 Assessment of risk o f venous thromboembolism [facility] Start: 02-13-[address] [facility] Start: 02-13-2025 Consultation for treatment [facility] Start: 02-13-2025 Insertion of cathete r into peripheral vein [facility] Start: 02-13-2025 Providing care accor ding to standard [facility] Start: 02-13-2025 [facility] Start: 02-13-2025 Verification routine [facility] Start: 02-13-2025 Admission procedure [facility] Start: 02-13-2025 Hospital admission, emergency, from emergency room, medical nature [facility] Start: 02-13-2025 [facility] Start: 01-26-2025 DIABETES SCREEN DIABETES SCREEN [facility] Start: 02-27-2024 DIABETES SCREEN DIABETES SCREEN [facility] Start: 02-20-2024 PNEUMOCOCCAL (3 - PP SV23 if available, else PCV20) PNEUMOCOCCAL (3 - PPSV23 if available, else PCV20) [facility] Start: 02-20-2024 PNEUMOCOCCAL (3 - PP SV23 or PCV20) PNEUMOCOCCAL (3 - PPSV23 or PCV20) [facility] Start: 02-18-2023 Influenza vaccination C [facility] Start: 02-01-2023 Adult depression screening assessment DEPRESSION SCREENING [facility] Start: 02-01-2023 ANNUAL PCP TEAM HEAT TREATER HEAD JOANNA DISEASE VISIT ANNUAL PCP TEAM CHRONIC DISEASE VISIT [facility] Start: 12-26-2022 Colonoscopy COLONOSCOPY [facility] Start: 12-26-2022 COLORECTAL CANCER SCREENING COLORECTAL CANCER SCREENING [facility] Start: 06-20-2022 DEPRESSION ASSESSMENT DEPRESSION ASS ESSMENT [facility] Start: 05-04-2022 End: 07-04-2022 Hemoglobin A1c in Blood HGB A1C Lab Routine Prediabetes Expected: 05/04/2022, Expires: 07/04/2022 [facility] Work Phone: Comment on above: Expected: 05/04/2022 , Expires: 07/04/2022 Start: 03-04-2022 End: 05-04-2022 Chronic hepatitis differentiation between hepatitis B and C virus panel - Serum or Plasma HEP REMOTE PANEL BL Lab Routine Alcohol abuse Elevated liver enzymes Expected: 03/04/2022, Expires: 05/04/2022 [facility] Work Phone: Comment on above: Expected: 03/04/2022 , Expires: 05/04/2022 Start: 03-04-2022 End: 05-04-2022 Hepatic function 2000 panel - Serum or Plasma HEPATIC FUNCTION PNL Lab Routine Elevated liver enzymes Expected: 03/04/2022, Expires: 05/04/2022 [facility] Work Phone: Comment on above: Expected: 03/04/2022 , Expires: 05/04/2022 Start: 02-27-2022 FECAL OCCULT BLOOD FECAL OCCULT BLOO D [facility] Start: 02-26-2022 Adult depression screening assessment DEPRESSION SCREENING [facility] Start: 02-26-2022 ANNUAL PCP TEAM HEAT TREATER HEAD JOANNA DISEASE VISIT ANNUAL PCP TEAM CHRONIC DISEASE VISIT [facility] Start: 02-26-2022 BP CONTROLLED (<130/80) BP CONTROLLE D (<130/80) [facility] Start: 02-26-2022 COVID-19 VACCINE (#1) COVID-19 VACCI NE (#1) [facility] Comment on above: Postponed from 08/19 (Declined at this time) Start: 02-26-2022 COVID-19 VACCINE (1) COVID-19 VACCIN E (1) [facility] Comment on above: Postponed from 02/19 (Declined at this time) Start: 02-26-2022 SHINGRIX VACCINE (1 of 2) BOLAND GRIX VACCINE (1 of 2) [facility] Comment on above: Postponed from 02/19 (Declined at this time) Start: 02-18-2022 Influenza vaccination C [facility] Start: 02-01-2022 End: 04-03-2022 ALPHA 1 ANTITRYP PHEN/GENOTYPE ALPHA 1 ANTITRYP PHEN/GENOTYPE Lab Routine COPD with chronic bronchitis (HCC) Expected: 02/01/2022, Expires: 04/03/2022 [facility] Work Phone: Comment on above: Expected: 02/01/2022 , Expires: 04/03/2022 Start: 02-01-2022 End: 04-03-2022 Lipase [Enzymatic activity/volume] in Serum or Plasma LIPASE BLD Lab Routine Elevated liver enzymes Expected: 02/01/2022, Expires: 04/03/2022 [facility] Work Phone: Comment on above: Expected: 02/01/2022 , Expires: 04/03/2022 Start: 01-18-2022 End: 03-20-2022 CBC W Auto Differential panel - Blood CBC + DIFF Lab Routine Essential hypertension Prediabetes Expected: 01/18/2022, Expires: 03/20/2022 [facility] Work Phone: Comment on above: Expected: 01/18/2022 , Expires: 03/20/2022 Start: 01-18-2022 End: 03-20-2022 Comprehensive metabolic 2000 panel - Serum or Plasma COMP METABOLIC PANEL Lab Routine Essential hypertension Prediabetes Expected: 01/18/2022, Expires: 03/20/2022 [facility] Work Phone: Comment on above: Expected: 01/18/2022 , Expires: 03/20/2022 Start: 01-18-2022 End: 03-20-2022 Hemoglobin A1c in Blood HGB A1C Lab Routine Elevated blood sugar Prediabetes Expected: 01/18/2022, Expires: 03/20/2022 [facility] Work Phone: Comment on above: Expected: 01/18/2022 , Expires: 03/20/2022 Start: 01-18-2022 End: 03-20-2022 Lipid 1996 panel - Serum or Plasma LIPID PANEL BASIC Lab Routine Hyperlipidemia, mixed Expected: 01/18/2022, Expires: 03/20/2022 [facility] Work Phone: Comment on above: Expected: 01/18/2022 , Expires: 03/20/2022 Start: 01-18-2022 End: 03-20-2022 Magnesium [Mass/volume] in Serum or Plasma MAGNESIUM BLD Lab Routine Current use of proton pump inhibitor Expected: 01/18/2022, Expires: 03/20/2022 [facility] Work Phone: Comment on above: Expected: 01/18/2022 , Expires: 03/20/2022 Start: 06-20-2021 DEPRESSION ASSESSMENT DEPRESSION ASS ESSMENT [facility] Start: 2014 PROSTATE CANCER SCRE ENING DISCUSSION PROSTATE CANCER SCREENING DISCUSSION [facility] Start: 2009 SHINGRIX VACCINE (1 of 2) BOLAND GRIX VACCINE (1 of 2) [facility] Start: 02-20-2004 COLOGUARD (FIT-DNA) COLOGUARD (FIT-D NA) [facility] Start: 02-20-[address] COLONOGRAPHY [facility] Start: 02-20-2004 SIGMOIDOSCOPY SIGMOIDOSCOPY [facility] Start: 1989 Zoledronic acid therapy ALPHA- 1 ANTITRYPSIN DEFICIENCY SCREENING [facility] Start: 1977 BP CONTROLLED (<130/80) BP CONTROLLE D (<130/80) [facility] Start: 1977 HIV SCREENING HIV SCREENING [facility] Start: 1977 SPIROMETRY SPIROMETRY [facility] Start: 1959 COVID-19 VACCINE (#1) COVID-19 VACCI NE (#1) [facility] Acid fast bacilli culture [facility] Anion gap in Serum o r Plasma [facility] Bacteria identified in Unspecified specimen by Anaerobe culture [facility] BUN/Creatinine ratio [facility] Calcium [Mass/volume ] in Serum or Plasma [facility] Carbon dioxide, tota l [Moles/volume] in Central venous blood [facility] Creatinine [Mass/vol ume] in Serum or Plasma [facility] Erythrocyte mean corpuscular volume determination [facility] Fungus identified in Unspecified specimen by Culture [facility] Fungus identified in Unspecified specimen by Fungus stain [facility] Glucose [Mass/volume ] in Serum or Plasma [facility] Hematocrit [Volume Fraction] of Blood [facility] Hemoglobin [Mass/vol ume] in Blood [facility] Leukocytes [#/volume ] in Blood [facility] Mean corpuscular hemoglobin concentration determination [facility] Mean corpuscular hemoglobin determination [facility] Measurement of renal function [facility] Mycobacterium sp identified in Unspecified specimen by Organism specific culture [facility] Neutrophil count [facility] Neutrophil percent differential count [facility] Patient Education Osteomyelitis Dc ED Subungual Hematoma [facility] Work Phone: Platelets [#/volume] in Blood [facility] Potassium measurement [facility] Red blood cell count [facility] Red cell distributio n width determination [facility] Serum chloride measurement [facility] Sodium measurement [facility] Urea nitrogen [Mass/volume] in Serum or Plasma [facility] End: 03-03-2023 Us abdominal real time w/image limited US ABD RT UPPER QUADRANT Radiology Routine Alcohol abuse Elevated liver enzymes 1 Occurrences starting 02/01/2022 until 03/03/2023 [facility] Work Phone: Comment on above: 1 Occurrences starti ng 02/01/2022 until 03/03/2023 Vancomycin [Mass/vol ume] in Serum or Plasma --trough [facility] Wound microscopy, cu lture and sensitivities [facility] End: 03-03-2023 XR SHOULDER GENERAL 3V OR MORE AP/TRUE AP/OTHER RIGHT XR SHOULDER GENERAL 3V OR MORE AP/TRUE AP/OTHER RIGHT Radiology Routine Acute pain of right shoulder 1 Occurrences starting 02/01/2022 until 03/03/2023 [facility] Work Phone: Comment on above: 1 Occurrences starti ng 02/01/2022 until 03/03/2023 [facility] Immunizations Immunization Date Immunization Notes Care Provider Lavon carmichael 03-04-2020 influenza, injectabl e, quadrivalent, contains preservative NA Parker BARAJAS Work Phone: [facility] Work Phone: 08-09-2018 tetanus toxoid, redu rogerio diphtheria toxoid, and acellular pertussis vaccine, adsorbed NA Parker BARAJAS Work Phone: [facility] 03-29-2018 influenza, injectabl e, quadrivalent, contains preservative NA Canales PA-C Work Phone: [facility] 03-29-2018 pneumococcal polysaccharide vaccine, 23 valent NA Canales PA-C Work Phone: [facility] 04-04-2017 influenza, injectabl e, quadrivalent, contains preservative NA Canales PA-C Work Phone: [facility] Work Phone: 12-17-2015 pneumococcal conjuga te vaccine, 13 valent NA Canales PA-C Work Phone: [facility] Work Phone: Payers Date Payer Category Payer Self-pay 2024 Unknown [id number] [facility] 2024 Medicare [id number] 2019 Unknown 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 2017 Unknown [id number] Medicare [id number] Unknown ANTHEM [id number] Unknown [id number] Unknown [id number] Unknown [id number] Unknown [id number] Unknown [id number] Unknown [id number] Unknown [id number] Unknown [id number] Unknown [id number] Unknown [id number] Unknown [id number] Unknown [id number] Unknown [id number] Unknown [id number] Unknown [id number] Unknown [id number] Unknown [id number] Social History Date Type Detail Facility Start: 03-29-2018 End: 2025 Tobacco smoking status MSIS Smokes tobacco daily [facility] History of tobacco use Cigarette Smoker [facility] Start: 03-29-2018 End: 02-01-2022 Cigarettes smoked current (pack per day) - Reported 0.3 [facility] Work Phone: Start: 03-29-2018 End: 02-01-2022 Tobacco use and exposure User of smokeless tobacco [facility] History of tobacco use Snuff User [facility] of tobacco use [facility] Start: 02-26-2021 End: 02-01-2022 Alcohol intake Current drinker of alcohol (finding) [facility] Start: 10-31-2017 End: 02-01-2022 Tobacco Comment 2 packs per week [facility] Start: 1960 Sex Assigned At Not on file C [facility] Start: 01-08-2022 End: 01-18-2022 Exposure to SARS-CoV-2 (event) Not sure [facility] Start: 02-01-2022 Tobacco use panel [facility] Work Phone: Adult Depression Screening Assessment 2 [facility] Work Phone: Start: 1960 Sex Assigned At Male [facility] smoked [facility] Work Phone: Start: 02-13-2025 Tobacco smoking [facility] Never smoked tobacco (finding) [facility] Goals Date Patient Goal Desired Activity /State Functional Status Date Assessment Result Facility 02-16-2025 Functional status Up ad suhas [facility] Work Phone: 02-15-2025 Functional status Up ad suhas [facility] Work Phone: Mental Status Date Assessment Result Facility 02-16-2025 Cognitive function Voice/Name [facility] Work Phone: 02-15-2025 Cognitive function Voice/Name [facility] Work Phone: Clinical Notes 10-15-2021 to 02-16-2025 Note Date & Type Note Facility 02-16-2025 Discharge summary [facility] 02-16-2025 Note [facility] Medical Records Department [address] [place] [address] Discharge Summary 02/16/25 1340 MR#: [id number] Acct: [id number] Name: COREY NEVILLE Rep #: [id number] : 1960 64 From: Eric Nichols MD PCP: Dr. Raul Patrick MD Status:ADM IN [id number] Prov[facility] Date of Admission: 02/13/25 Primary Care Physician: Dr. Raul Patrick MD Consultations 02/13/25 12:48 Consult: Onc/Wound/silk screen cutter Routine Comment: Consult: Plastic Surgery Routine Consulting Provider: Pranay Light Reason for Consult: left thumb osteo EMERGENT Consult: No Notified: Yes Date Notified: 02/13/25 Time Notified: 11:47 Method of Notification: ED Physician Initiated 02/14/25 08:04 Consult: Infectious Disease Routine Consulting Provider: Pranay Mi Reason for Consult: antibiotic recommendations EMERGENT Consult: No MD Notified: Yes Date Notified: 02/14/25 Time Notified: 08:04 Method of Notification: Text Reason For Visit: OSTEOMYELITIS OF THE THUMB Diagnosis Discharge Diagnosis (1) Osteomyelitis of finger of left hand: Status: Acute Code(s): M86.9 - Osteomyelitis, unspecified (2) Subungual hematoma of finger of left hand: Status: Acute Code(s): S60.10XA - Contusion of unspecified finger with damage to nail, initial encounter Medications at Discharge Home Medications albuterol sulfate 90 mcg/actuation aerosol inhaler 2 puff inhalation Q4H PRN copd 02/13/25 atorvastatin 40 mg tablet 40 mg PO QHS 02/13/25 fluticasone 250 mcg-salmeterol 50 mcg/dose blistr powdr for inhalation 1 ea inhalation BID 02/13/25 metoprolol succinate 50 mg tablet,extended release 24 hr 50 mg PO DAILY htn 02/13/25 omeprazole 40 mg capsule,delayed release 40 mg PO DAILY 02/13/25 sertraline 50 mg tablet 50 mg PO DAILY 02/13/25 tamsulosin 0.4 mg capsule 0.8 mg PO QHS 02/13/25 valsartan 320 mg-hydrochlorothiazide 25 mg tablet 1 tab PO DAILY 02/13/25 cefdinir 300 mg capsule 300 mg PO BID 40 days #80 caps 02/16/25 doxycycline monohydrate 100 mg capsule 100 mg PO BID 40 days #80 caps 02/16/25 Hospital Course Operations - ( 1) left thumb nail plate removal and debridement of underlying left thumb wound including debridement of distal phalanx necrotic bone (sequestrum) and drainage of surrounding fluid collection) Procedures None Summary of Care Provided Minutes Spent on Discharge: 36 Hospital Course: Per HPI:COREY NEVILLE, is a 64 M who presents approximately 1 month after hitting his left thumb with a hammer. He did have a cut on his hand and had a hematoma under his left nail. He went to his PCP who put him on Keflex and Bactrim 2 days ago. During that appointment he had an x-ray obtained which demonstrates bony destruction on his distal phalanx of his left thumb consistent with osteomyelitis. No leukocytosis or signs of sepsis however plastic surgery was consulted recommending an MRI with IV antibiotics for evaluation of possible debridement versus amputation. Hospital course: 1. Subungual hematoma with osteomyelitis of the left thumb status post left thumb nail removal and debridement on 02/14/2025???64-year-old male presents to the hospital after accidentally hitting his thumb with a hammer about a month ago. He went to his primary care doctor because of continued swelling and was given Keflex and Bactrim however an x-ray was also obtained at that time that showed distal destruction of his left thumb phalanx so he was admitted to the hospital for osteomyelitis. He underwent operative debridement and nail removal. Infectious disease evaluated him and recommended doxycycline 100 mg p.o. twice daily as well as cefdinir 300 mg p.o. twice daily for 40 days pending final cultures. He will need to follow-up with plastic surgery on Tuesday and with infectious disease in 2 weeks for monitoring and outpatient evaluation as well as medication adjustment. I discussed with him the plan for discharge and he expressed understanding of the risks and benefits of going home and would like to go home today. I recommended he follow-up with his PCP in 3 to 5 days for outpatient monitoring. 2. 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 His home medications were continued where appropriate Physical Exam Narrative General: Alert, Oriented x3, Cooperative, No apparent distress HEENT: Atraumatic, PERRLA, EOMI, Normocephalic Oral: Moist Mucosa Neck: Supple, No JVD Lungs: Clear to auscultation, Normal air movement, No rhonchi, No wheeze, No rales Cardiovascular: Regular rate, Regular Rhythm, Normal S1, Normal S2, No murmurs Abdomen: Soft, Non Tender, Non-Distended, No Hepato-splenomegaly Extremities: No edema, Capillary Refill Less than 3 Seconds Skin: No rashes, No break (more content not included)... [facility] 02-16-2025 Discharge summary Note Date/Time February 16, 2025 10:57am [facility] Medical Records Department [address] [place] [address] Instructions for Home/Discharge Instructions 02/16/25 1053 MR#: [id number] Acct: [id number] Name: COREY NEVILLE Rep #:[id number] : 1960 64 From: Eric echeverria MD PCP: Dr. Raul Patrick MD Status:ADM I N Discharge Instructions DC O2, CPAP, BIPAP needs Home O2 Discharge instructions: No Dressing / Incision Discharge Activity: Return to Normal Activity Dressing / Incision Call your doctor if your incision/area has: Continuous Slow Oozing and IncreasedRedness Call your doctor if you observe: Fever of 101 or Higher, Shortness of breath, Dizziness, Fainting spells, Swelling in the ankles, Chest pain and Increased palpitations (irregular heartbeat) Follow Up Care Test Results: Test results from this visit will be discussed in further detail at your follow-up appointment, if applicable. Discharge Plan Admission Admit Date/Time: 02/13/25 11:44 Attending Provider: Eric Nichols Primary Care Provider: Raul Patrick Chi Consulting Providers: Pranay Light; Pranay Mi Instructions Patient Instructions: Osteomyelitis Dc, ED Subungual Hematoma Additional Instructions / Restrictions: Follow-up with your primary care provider for continued IV antibiotics. Should you change your mind, you can return to the emergency department at any time. By signing out AGAINST MEDICAL ADVICE, you do risk further continued infection ofthe bone, loss of limb or life, permanent disability or . PLASTIC SURGERY DC instructions Operations Performed: Left Thumb Incision and Debridement Instructions for My Care at Home or Healthcare Facility The following instructions will help you know what to expect in the days following surgery. These are general instructions. Your surgeon and therapist may give you special instructions, which vary to some degree based on your specific procedure -- follow those as directed. Do not, however, hesitate to call if you have any questions or concerns. Splint Care/Dressing Care/Wound Care * Dressings - Continue the twice daily dressing changes over your thumb with the soaks (20 minutes in sterile water and soap) twice daily. Once piece of iodoform out, one piece in at each dressing change. * If the dressing feels too tight after you get home, it is ok to gently pull on the dressing to stretch it out/loosen it. * Avoid smoking or other tobacco products. Smoking tobacco impairs wound healing and increases the risks of post-operative complications. ? Activities * For the first 4 weeks after surgery, try to balance your activity, allowing time for rest. * Avoid lifting, pushing, or pulling anything over 5 pounds. * Do not drive or operate heavy machinery within 24 hrs of surgery or while taking narcotic pain medication.? Pain Control/Medications Make sure to take your antibiotic * If you received an anesthetic block, your hand or arm may be numb for several hours. You will be discharged to home with medications, including an oral pain medication (analgesic). Rest and elevation are still one of the most important factors for pain control. Take your pain medication as needed, but do not wait for the pain to become out of control. * For severe pain, you may take prescription pain medication as directed, but please note that this may also contain Tylenol (e.g. Percocet). Do not take more than 4000mg of Tylenol (acetaminophen) from all sources daily.? * Pain medication may cause some lethargy, nausea, and or constipation. You should not drive/operate dangerous machinery while taking these medications. If these or other symptoms become significantly problematic, please your surgeon's office. * If prescribed oral antibiotics (Keflex, Clindamycin, or others), please take prescription for full duration as instructed. You should not have any pills remaining once completed (refills are written for your convenience should the course need to be extended, but generally they are not required). Diet (what I can eat): Resume normal diet Follow up * You will be seen (most likely) 1 to 2 weeks after surgery depending on the procedure. Follow-up appointment reminders:? (A list of any scheduled appointments is at the end of this document)? At your earliest convenience, please call [phone] to confirm/schedule a follow-up appointment with me on Tuesday in clinic. When to call your surgeon: * If any signs of surgical site infection develop: redness, pus, pain, increased swelling or foul odor at the incision site, fever, cold and clammy skin, or confusion. * Consistent temperature above 101?F (38.3?C). * The affected area gets swollen or much more painful. * You have excessive bleeding from surgical site (soaking through). If you experience difficulty breathing and/or shortness of breath, seek immediate medical attention. If experiencing any of the above complications or if you have any questions, call [phone] Discharge Orders/Prescriptions Prescriptions: New doxycycline monohydrate 100 mg capsule 100 mg PO BID 40 Days Qty: 80 0RF cefdinir 300 mg capsule 300 mg PO BID 40 Days Qty: 80 0RF Continued atorvastatin 40 mg tablet 40 mg PO QHS fluticasone propion-salmeterol 250-50 mcg/dose blister with device 1 ea INHALATION BID metoprolol succinate 50 mg tablet extended release 24 hr 50 mg PO DAILY omeprazole 40 mg capsule,delayed release(DR/EC) 40 mg PO DAILY tamsulosin 0.4 mg capsule 0.8 mg PO QHS albuterol sulfate 90 mcg/actuation HFA aerosol inhaler 2 puff inhalation Q4H PRN (Reason: copd) sertraline 50 mg tablet 50 mg PO DAILY valsartan-hydrochlorothiazide 320-25 mg tablet 1 tab PO DAILY Discontinued sulfamethoxazole-trimethoprim 800-160 mg tablet 1 tab PO Q12.TCU cephalexin 500 mg capsule 500 mg PO TID Referrals / Follow Up: Pranay Mi MD [Med Staff - Active Staff] - Within 2 Weeks Pranay Light MD [Med Staff - Active Staff] - 02/19/25 Raul Patrick Chi, MD [Primary Care Provider] - As soon as possible Disposition Disposition (needs filled in before D/C Order can be placed): Home, Self Care 02/16/25 6067<Electronically signed by Eric Nichols MD>Eric Nichols MD CC: Dr. Pranay Mi MD; Dr. Pranay Light MD; Dr. Raul Patrick MD ~ Signed [facility] Work Phone: 1(666) 345-562208-30-2025 Discharge summary [facility] Medical Records Department [address] [place] [address] Instructions for Home/Discharge Instructions 02/16/25 1053 MR#: [id number] Acct: [id number] Name: COREY NEVILLE Rep #:[id number] : 1960 64 From: Eric echeverria MD PCP: Dr. Raul Patrick MD Status:ADM I N Discharge Instructions DC O2, CPAP, BIPAP needs Home O2 Discharge instructions: No Dressing / Incision Discharge Activity: Return to Normal Activity Dressing / Incision Call your doctor if your incision/area has: Continuous Slow Oozing and IncreasedRedness Call your doctor if you observe: Fever of 101 or Higher, Shortness of breath, Dizziness, Fainting spells, Swelling in the ankles, Chest pain and Increased palpitations (irregular heartbeat) Follow Up Care Test Results: Test results from this visit will be discussed in further detail at your follow- up appointment, if applicable. Discharge Plan Admission Admit Date/Time: 02/13/25 11:44 Attending Provider: Eric Nichols Primary Care Provider: Raul Patrick Chi Consulting Providers: Pranay Light; Prnaay Mi Instructions Patient Instructions: Osteomyelitis Dc, ED Subungual Hematoma Additional Instructions / Restrictions: Follow-up with your primary care provider for continued IV antibiotics. Should you change your mind, you can return to the emergency department at any time. By signing out AGAINST MEDICAL ADVICE, youdo risk further continued infection ofthe bone, loss of limb or life, permanent disability or . PLASTIC SURGERY DC instructions Operations Performed: Left Thumb Incision and Debridement Instructions for My Care at Home or Healthcare Facility The following instructions will help you know what to expect in the days following surgery. These are general instructions. Your surgeon and therapist may give you special instructions, which vary tosome degree based on your specific procedure -- follow those as directed. Do not, however, hesitateto call if you have any questions or concerns. Splint Care/Dressing Care/Wound Care * Dressings - Continue the twice daily dressing changes over your thumb with the soaks (20 minutes in sterile water and soap) twice daily. Once piece of iodoform out, one piece in at each dressing change. * If the dressing feels too tight after you get home, it is ok to gently pull on the dressing to stretch it out/loosen it. * Avoid smoking or other tobacco products. Smoking tobacco impairs wound healing and increases the risks of post-operative complications. ? Activities * For the first 4 weeks after surgery, try to balance your activity, allowing time for rest. * Avoid lifting, pushing, or pulling anything over 5 pounds. * Do not drive or operate heavy machinery within 24 hrs of surgery or while taking narcotic pain medication.? Pain Control/Medications Make sure to take your antibiotic * If you received an anesthetic block, your hand or arm may be numb for several hours. You will be discharged to home with medications, including an oral pain medication (analgesic). Rest and elevation are still one of the most important factors for pain control. Take your pain medication as needed, but do not wait for the pain to become out of control. * For severe pain, you may take prescription pain medication as directed, but please note that thismay also contain Tylenol (e.g. Percocet). Do not take more than 4000mg of Tylenol (acetaminophen) from all sources daily.? * Pain medication may cause some lethargy, nausea, and or constipation. You should not drive/operate dangerous machinery while taking these medications. If these or other symptoms become significantly problematic, please your surgeon's office. * If prescribed oral antibiotics (Keflex, Clindamycin, or others), please take prescription for full duration as instructed. You should not have any pills remaining once completed (refills are written for your convenience should the course need to be extended, but generally they are not required). Diet (what I can eat): Resume normal diet Follow up * You will be seen (most likely) 1 to 2 weeks after surgery depending on the procedure. Follow-up appointment reminders:? (A list of any scheduled appointments is at the end of this document)? At your earliest convenience, please call [phone] to confirm/schedule a follow-up appointment with me on Tuesday in clinic. When to call your surgeon: * If any signs of surgical site infection develop: redness, pus, pain, increased swelling or foul odor at the incision site, fever, cold and clammy skin, or confusion. * Consistent temperature above 101?F (38.3?C). * The affected area gets swollen or much more painful. * You have excessive bleeding from surgical site (soaking through). If you experience difficulty breathing and/or shortness of breath, seek immediate medical attention. If experiencing any of the above complications or if you have any questions, call [phone] Discharge Orders/Prescriptions Prescriptions: New doxycycline monohydrate 100 mg capsule 100 mg PO BID 40 Days Qty: 80 0RF cefdinir 300 mg capsule 300 mg PO BID 40 Days Qty: 80 0RF Continued atorvastatin 40 mg tablet 40 mg PO QHS fluticasone propion-salmeterol 250-50 mcg/dose blister with device 1 ea INHALATION BID metoprolol succinate 50 mg tablet extended release 24 hr 50 mg PO DAILY omeprazole 40 mg capsule,delayed release(DR/EC) 40 mg PO DAILY tamsulosin 0.4 mg capsule 0.8 mg PO QHS albuterol sulfate 90 mcg/actuation HFA aerosol inhaler 2 puff inhalation Q4H PRN (Reason: copd) sertraline 50 mg tablet 50 mg PO DAILY valsartan-hydrochlorothiazide 320-25 mg tablet 1 tab PO DAILY Discontinued sulfamethoxazole-trimethoprim 800-160 mg tablet 1 tab PO Q12.TCU cephalexin 500 mg capsule 500 mg PO TID Referrals / Follow Up: Pranay Mi MD [Med Staff - Active Staff] - Within 2 Weeks Pranay Light MD [Med Staff - Active Staff] - 02/19/25 Raul Patrick Chi, MD [Primary Care Provider] - As soon as possible Disposition Disposition (needs filled in before D/C Order can be placed): Home, Self Care 02/16/25 1057Eric Nichols MD CC: Dr. Pranay Mi MD; Dr. Pranay Light MD; Dr. Raul Patrick MD ~ Signed [facility]08-30-2025 Progress note Author Pranay Light [facility] Note Date/Time February 16, 2025 7: 37am [facility] Medical Records Department [address] [place] [address] Progress Note - Surgery 02/16/25 0734 MR#: [id number] Acct: [id number] Name: COREY NEVILLE Rep #:[id number] : 1960 64 From: Pranay Light MD PCP: Dr. Raul Patrick MD Status:ADM I N Location: [place] [address] Subjective Subjective Pain controlled. Endorses good dressing changes Objective Data Objective Data Vital Signs: Vital Signs Temp Pulse Resp BP Pulse Ox O2 Del Method 98.2 F 74 16 134/69 H 98 Room Air 02/16/25 03:00 02/16/25 03:00 02/16/25 03:00 02/16/25 03:00 02/16/25 03:00 02/16/25 03:00 Oxygen Delivery Method Room Air Weight: 374 lb 12.573 oz Body Mass Index (BMI) 55.3 Intake & Output: Intake and Output for Last 24 Hours 02/14/25 02/15/25 02/16/25 23:59 23:59 23:59 Intake Total 1440 / 1440 2470 / 2470 535 / 535 Output Total Balance 1430 / 1430 2470 / 2470 535 / 535 Lab / Micro Data 02/16/25 07:00 02/15/25 05:52 Labs: Laboratory Results - last 24 hr 02/16/25 07:00: WBC 5.1, RBC 4.69, Hgb 15.2, Hct 43.7, MCV 93.2, MCH 32.4 H, MCHC 34.8, RDW Std Deviation 38.9, RDW Coeff of Roseanna 11.4 L, Plt Count 191, MPV 8.3, Immature Gran % (Auto) 0.200, Neut % (Auto) 59.0, Lymph % (Auto) 24.1, Maries% (Auto) 9.8, Eos % (Auto) 5.7 H, Baso % (Auto) 1.2 H, Absolute Neuts (auto) 3.0, Absolute Lymphs (auto) 1.23, Nucleated RBC % 0 Micro: Microbiology 02/13/25 10:20 Blood Culture (Wb) - Arm Right Blood Culture - Preliminary No growth in 48 hours. 02/13/25 10:05 Blood Culture (Wb) - Left Forearm Blood Culture - Preliminary No growth in 48 hours. 02/14/25 Unknown Wound Abcess - Aerobic & Anaerobic Swabs Gram Stain - Final 02/14/25 Unknown Wound Abcess - Aerobic & Anaerobic Swabs Wound Culture - Preliminary 02/14/25 Unknown Bone - Hand Gram Stain - Final Radiography Diagnostic Testing: Radiology Impression Hand X-Ray 02/15/25 06:49 IMPRESSION: Marked interval worsened destructive changes of the mid to distal portions of the left thumb distal phalanx noted, highly concerning for osteomyelitis. Soft tissue gas is also seen, further supporting the presence of infection. Mild to moderate degenerative changes of the fingers are also noted Reading Location: [place] [address] Physical Exam Narrative Left thumb Sterile matrix wound s/p I&D. No drainage today. No signs of ascending infection. Started on a soak. No pain in the IP joint. Swelling is decreasing. Assessment & Plan Assessment/Plan (1) Osteomyelitis of finger of left hand: (2) Subungual hematoma of finger of left hand: PLAN: Plan I discussed the extent of osteomyelitis that was discovered in the OR (distal phalanx and shaft). I believe some of the base may be viable/IP joint is viable, and xray demonstrated some healthy bone at the base of the distal phalanx (obtained yesterday and reviewed). Only necrotic sequestrum was removed in the OR (discussed with the patient this morning). I talked to him about the need for revision amputation, but currently trying to salvage as much length as possible with wound care and antibiotics. Patient endorsed an understanding and agreed. We will continued twice daily dressing changes and soaks at home in order to swelling and allow for definitive reconstruction with a revision amputation once the acute infection is treated. OK for DC from PSU standpoint Elevate LUE F/u cultures Anticipate continued wound care and elevation for swelling reduction in anticipation of elective/scheduled revision amputation. 02/16/25 0737 <Electronically signed by Pranay Light MD> Cosigner Signature (if applicable): CC: ~ Signed [facility] Work Phone: 1(399) 375-960608-30-2025 Progress note [facility] Medical Records Department [address] [place] [address] Progress Note - Surgery 02/16/25 0734 MR#: [id number] Acct: [id number] Name: COREY NEVILLE Rep #:[id number] : 1960 64 From: Pranay Light MD PCP: Dr. Raul Patrick MD Status:ADM I N Location: [place] [address] Subjective Subjective Pain controlled. Endorses good dressing changes Objective Data Objective Data Vital Signs: Vital Signs Temp Pulse Resp BP Pulse Ox O2 Del Method 98.2 F 74 16 134/69 H 98 Room Air 02/16/25 03:00 02/16/25 03:00 02/16/25 03:00 02/16/25 03:00 02/16/25 03:00 02/16/25 03:00 Oxygen Delivery Method Room Air Weight: 374 lb 12.573 oz Body Mass Index (BMI) 55.3 Intake & Output: Intake and Output for Last 24 Hours 02/14/25 02/15/25 02/16/25 23:59 23:59 23:59 Intake Total 1440 / 1440 2470 / 2470 535 / 535 Output Total Balance 1430 / 1430 2470 / 2470 535 / 535 Lab / Micro Data 02/16/25 07:00 02/15/25 05:52 Labs: Laboratory Results - last 24 hr 02/16/25 07:00: WBC 5.1, RBC 4.69, Hgb 15.2, Hct 43.7, MCV 93.2, MCH 32.4 H, MCHC 34.8, RDW Std Deviation 38.9, RDW Coeff of Roseanna 11.4 L, Plt Count 191, MPV 8.3, Immature Gran % (Auto) 0.200, Neut % (Auto) 59.0, Lymph % (Auto) 24.1, Maries% (Auto) 9.8, Eos % (Auto) 5.7 H, Baso % (Auto) 1.2 H, AbsoluteNeuts (auto) 3.0, Absolute Lymphs (auto) 1.23, Nucleated RBC % 0 Micro: Microbiology 02/13/25 10:20 Blood Culture (Wb) - Arm Right Blood Culture - Preliminary No growth in 48 hours. 02/13/25 10:05 Blood Culture (Wb) - Left Forearm Blood Culture - Preliminary No growth in 48 hours. 02/14/25 Unknown Wound Abcess - Aerobic & Anaerobic Swabs Gram Stain - Final 02/14/25 Unknown Wound Abcess - Aerobic & Anaerobic Swabs Wound Culture - Preliminary 02/14/25 Unknown Bone - Hand Gram Stain - Final Radiography Diagnostic Testing: Radiology Impression Hand X-Ray 02/15/25 06:49 IMPRESSION: Marked interval worsened destructive changes of the mid to distal portions of the left thumb distalphalanx noted, highly concerning for osteomyelitis. Soft tissue gas is also seen, further supporting the presence of infection. Mild to moderate degenerative changes of the fingers are also noted Reading Location: [place] [address] Physical Exam Narrative Left thumb Sterile matrix wound s/p I&D. No drainage today. No signs of ascending infection. Started on a soak. No pain in the IP joint. Swelling is decreasing. Assessment & Plan Assessment/Plan (1) Osteomyelitis of finger of left hand: (2) Subungual hematoma of finger of left hand: PLAN: Plan I discussed the extent of osteomyelitis that was discovered in the OR (distal phalanx and shaft). Ibelieve some of the base may be viable/IP joint is viable, and xray demonstrated some healthy bone at the base of the distal phalanx (obtained yesterday and reviewed). Only necrotic sequestrum was removed in the OR (discussed with the patient this morning). I talked to him about the need for revision amputation, but currently trying to salvage as much length as possible with wound care and antibiotics. Patient endorsed an understanding and agreed. We will continued twice daily dressing changes and soaks at home in order to swelling and allow for definitive reconstruction with a revision amputation once the acute infection is treated. OK for DC from PSU standpoint Elevate LUE F/u cultures Anticipate continued wound care and elevation for swelling reduction in anticipation of elective/scheduled revision amputation. 02/16/25 0737 Cosigner Signature (if applicable): CC: ~ Signed [facility]08-29-2025 Progress note Author Pranay Mi [facility] Note Date/Time February 15, 2025 10 :14am [facility] Medical Records Department [address] [place] [address] Progress Note - Infect Disease 02/15/25 1012 MR#: [id number] Acct: [id number] Name: COREY NEVILLE Rep #:[id number] : 1960 64 From: Pranay sifuentes MD PCP: Dr. Raul Patrick MD Status:ADM I N Location: [address] Physical Exam Narrative Feeling ok, pain controlled, no fever, no n/v/d. Const alert and no apparent distress General Appearance: cooperative Resp normal air movement and clear to auscultation bilaterally Cardio regular rate and regular rhythm GI soft to palpation, non-tender and non-distended Skin Skin Narrative: L thumb wrapped ID ID: Route of nutrition/ use of supplements: [] Nutritional Intake: [] IV Site: [] Lugo Catheter: [] Assessment & Plan Assessment/Plan (1) Osteomyelitis of finger of left hand: PLAN: OR for I&D down to bone 02/14/[address] Light. On empiric vanc/ceftriaxone. Surg cx pending. If he leaves tomorrow and cxs still negative, would send with 40 days po doxy 100mg bid and cefdinir 300mg bid, ID followup in 2 weeks. Will follow, d/w rifle case repairer 02/15/25 1014 <Electronically signed by Pranay Mi MD> Cosigner Signature (if applicable): CC: ~ Signed [facility] Work Phone: 1(522) 963-337908-29-2025 Progress note Author Eric Nichols [facility] Note Date/Time February 15, 2025 9: 05am [facility] Medical Records Department [address] [place] [address] Progress Note - Hospitalist 02/15/25902 MR#: [id number] Acct: [id number] Name: COREY NEVILLE Rep #:[id number] : 1960 64 From: Eric echeverria MD PCP: Dr. Raul Patrick MD Status:ADM I N Location: [place] [address] Subjective Subjective Doing well, no issues overnight Objective Data Objective Data Vital Signs: Vital Signs Temp Pulse Resp BP Pulse Ox O2 Del Method 98.7 F 78 18 116/77 96 Room Air 02/15/25 07:00 02/15/25 07:00 02/15/25 07:00 02/15/25 07:00 02/15/25 07:00 02/15/25 07:56 Oxygen Delivery Method Room Air Weight: 374 lb 12.573 oz Body Mass Index (BMI) 55.3 Intake & Output: Intake and Output for Last 24 Hours 02/14/25 02/15/25 02/16/25 03:59 03:59 03:59 Intake Total 1145 / 1145 620 / 620 535 / 535 Output Total Balance 1145 / 1145 610 / 610 535 / 535 Lab / Micro Data 02/15/25 05:52 02/15/25 05:52 Labs: Laboratory Results - last 24 hr 02/14/25 22:31: Vancomycin Trough 10.2 02/15/25 05:52: WBC 6.2, RBC 4.30 L, Hgb 13.8, Hct 40.5, MCV 94.2 H, MCH 32.1 H,MCHC 34.1, RDW Std Deviation 39.8, RDW Coeff of Roseanna 11.5 L, Plt Count 183, MPV 8.5, Immature Gran % (Auto) 0.300, Neut % (Auto) 63.1, Lymph % (Auto) 21.4, Maries% (Auto) 9.4, Eos % (Auto) 5.2 H, Baso % (Auto) 0.6, Absolute Neuts (auto) 3.9, Absolute Lymphs (auto) 1.32, Nucleated RBC % 0, Sodium 138, Potassium 4.1, Chloride 103, Carbon Dioxide 23.9, Anion Gap 11, BUN 12, Creatinine 0.93, Estim Creat Clear Calc 123.68, Est GFR (MDRD) Non-Af 91, BUN/Creatinine Ratio 12.4, Glucose 128 H, Calcium 9.0 Radiography Diagnostic Testing: Radiology Impression Hand X-Ray 02/15/25 06:49 IMPRESSION: Marked interval worsened destructive changes of the mid to distal portions of the left thumb distal phalanx noted, highly concerning for osteomyelitis. Soft tissue gas is also seen, further supporting the presence of infection. Mild to moderate degenerative changes of the fingers are also noted Reading Location: [place] [address] Physical Exam Narrative General: Alert, Oriented x3, Cooperative, No apparent distress HEENT: Atraumatic, PERRLA, EOMI, Normocephalic Oral: Moist Mucosa Neck: Supple, No JVD Lungs: Clear to auscultation, Normal air movement, No rhonchi, No wheeze, No rales Cardiovascular: Regular rate, Regular Rhythm, Normal S1, Normal S2, No murmurs Abdomen: Soft, Non Tender, Non-Distended, No Hepato-splenomegaly Extremities: No edema, Capillary Refill Less than 3 Seconds Skin: No rashes, No breakdown Musculoskeletal: Left thumb is swollen and red, left thumbnail has been removed and surgery open to air Neurological: No focal neurological deficits, Motor Exam 5/5 strength throughout, Sensory exam intact to light touch and pain Psych/Mental Status: Normal Affect, Appropriate Assessment & Plan Assessment/Plan (1) Subungual hematoma of finger of left hand: (2) Osteomyelitis of finger of left hand: PLAN: Plan 1. Subungual hematoma with osteomyelitis of the left hand status post left thumb nail removal and debridement on 02/14/2025 ? MRI with osteomyelitis ? Appreciate plastic surgery's assistance ? Continue with IV Zosyn and vancomycin ? Appreciate ID's recommendations, will likely plan for prolonged antibiotic therapy given the osteomyelitis ? Repeat x-rays pending for today 2. Essential HTN/HLD ? Blood pressure stable ? Continue with his home blood pressure medications ? Will monitor and make adjustments as necessary ? Continue Lipitor 3. Anxiety/depression/alcohol abuse ? Stable ? Continue with his home medications ? Continue with CIWA protocol so far does not require medications and is not interested in quitting 4. GERD ? Stable ? 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 Continue with Flomax DVT: Lovenox Charges/Coding Visit Charges Inpatient E&M: 74107 Subs Hosp L2 02/15/25 0905 <Electronically signed by Eric Nichols MD> Cosigner Signature (if applicable): CC: ~ Signed [facility] Work Phone: 1(981) 238-348508-29-2025 Progress note [facility] Medical Records Department [address] [place] [address] Progress Note - Infect Disease 02/15/25 1012 MR#: [id number] Acct: [id number] Name: COREY NEVILLE Rep #:[id number] : 1960 64 From: Pranay sifuentes MD PCP: Dr. Raul Patrick MD Status:ADM I N Location: [place] [address] Physical Exam Narrative Feeling ok, pain controlled, no fever, no n/v/d. Const alert and no apparent distress General Appearance: cooperative Resp normal air movement and clear to auscultation bilaterally Cardio regular rate and regular rhythm GI soft to palpation, non-tender and non-distended Skin Skin Narrative: L thumb wrapped ID ID: Route of nutrition/ use of supplements: [] Nutritional Intake: [] IV Site: [] Lugo Catheter: [] Assessment & Plan Assessment/Plan (1) Osteomyelitis of finger of left hand: PLAN: OR for I&D down to bone 02/14/[address] Light. On empiric vanc/ceftriaxone. Surg cx pending. If he leaves tomorrow and cxs still negative, would send with 40 days po doxy 100mg bid and cefdinir 300mg bid, ID followup in 2 weeks. Will follow, d/w rifle case repairer 02/15/25 1014 Cosigner Signature (if applicable): CC: ~ Signed [facility]08-29-2025 Progress note Author Pranay [facility] Note Date/Time February 15, 2025 7: 38am [facility] Medical Records Department [address] [place] [address] Progress Note - Surgery 02/15/25 0733 MR#: [id number] Acct: [id number] Name: COREY NEVILLE Ariel Rep #:[id number] : 1960 64 From: Pranay Light MD PCP: Dr. Raul Patrick MD Status:ADM I N Location: [place] [address] Subjective Subjective Pain on rounds this morning. Improved with pain medications. Dressings removed and started a soak. Objective Data Objective Data Vital Signs: Vital Signs Temp Pulse Resp BP Pulse Ox O2 Del Method 97.8 F 65 16 149/79 H 97 Room Air 02/15/25 03:00 02/15/25 03:00 02/15/25 03:00 02/15/25 03:00 02/15/25 03:00 02/15/25 04:00 Oxygen Delivery Method Room Air Weight: 374 lb 12.573 oz Body Mass Index (BMI) 55.3 Intake & Output: Intake and Output for Last 24 Hours 02/13/25 02/14/25 02/15/25 23:59 23:59 23:59 Intake Total 325 / 825 1440 / 1440 535 / 535 Output Total Balance 325 / 825 1430 / 1430 535 / 535 Lab / Micro Data 02/15/25 05:52 02/15/25 05:52 Labs: Laboratory Results - last 24 hr 02/14/25 06:01: Sodium 136, Potassium 4.2, Chloride 102, Carbon Dioxide 22.5, Anion Gap 12, BUN 13, Creatinine 1.02, Estim Creat Clear Calc 72.20, Est GFR (MDRD) Non-Af 82, BUN/Creatinine Ratio 13.1, Glucose 140 H, Calcium 9.3 02/14/25 22:31: Vancomycin Trough 10.2 02/15/25 05:52: WBC 6.2, RBC 4.30 L, Hgb 13.8, Hct 40.5, MCV 94.2 H, MCH 32.1 H,MCHC 34.1, RDW Std Deviation 39.8, RDW Coeff of Roseanna 11.5 L, Plt Count 183, MPV 8.5, Immature Gran % (Auto) 0.300, Neut % (Auto) 63.1, Lymph % (Auto) 21.4, Maries% (Auto) 9.4, Eos % (Auto) 5.2 H, Baso % (Auto) 0.6, Absolute Neuts (auto) 3.9, Absolute Lymphs (auto) 1.32, Nucleated RBC % 0, Sodium 138, Potassium 4.1, Chloride 103, Carbon Dioxide 23.9, Anion Gap 11, BUN 12, Creatinine 0.93, Estim Creat Clear Calc 123.68, Est GFR (MDRD) Non-Af 91, BUN/Creatinine Ratio 12.4, Glucose 128 H, Calcium 9.0 Physical Exam Narrative Left thumb Sterile matrix wound s/p I&D. No drainage today. No signs of ascending infection. Started on a soak Assessment & Plan Assessment/Plan (1) Osteomyelitis of finger of left hand: (2) Subungual hematoma of finger of left hand: PLAN: Plan I discussed the extent of osteomyelitis that was discovered in the OR yesterday (distal phalanx and shaft). I believe some of the base may be viable/IP joint is viable, but xray will be obtained today. Only necrotic sequestrum was removed in the OR yesterday (discussed with the patient this morning). I talked to him about the need for revision amputation, but currently trying to salvage as much length as possible with wound care and antibiotics. Patient endorsed an understanding and agreed. F/u X-ray Continue TID Dial soap soaks and iodoform gauze changes Elevate LUE F/u cultures Anticipate continued wound care and elevation for swelling reduction in anticipation of elective/scheduled revision amputation. Charges/Coding Procedures Integumentary 111xxx-113xx: 52139 Global Visit 02/15/25 07 <Electronically signed by Pranay Light MD> Cosigner Signature (if applicable): CC: ~ Signed [facility] Work Phone: 1(344) 283-529708-29-2025 Progress note [facility] Medical Records Department [address] [place] [address] Progress Note - Hospitalist 02/15/25902 MR#: [id number] Acct: [id number] Name: COREY NEVILLE Rep #:[id number] : 1960 64 From: Eric echeverria MD PCP: Dr. Raul Patrick MD Status:ADM I N Location: [place] [address] Subjective Subjective Doing well, no issues overnight Objective Data Objective Data Vital Signs: Vital Signs Temp Pulse Resp BP Pulse Ox O2 Del Method 98.7 F 78 18 116/77 96 Room Air 02/15/25 07:00 02/15/25 07:00 02/15/25 07:00 02/15/25 07:00 02/15/25 07:00 02/15/25 07:56 Oxygen Delivery Method Room Air Weight: 374 lb 12.573 oz Body Mass Index (BMI) 55.3 Intake & Output: Intake and Output for Last 24 Hours 02/14/25 02/15/25 02/16/25 03:59 03:59 03:59 Intake Total 1145 / 1145 620 / 620 535 / 535 Output Total Balance 1145 / 1145 610 / 610 535 / 535 Lab / Micro Data 02/15/25 05:52 02/15/25 05:52 Labs: Laboratory Results - last 24 hr 02/14/25 22:31: Vancomycin Trough 10.2 02/15/25 05:52: WBC 6.2, RBC 4.30 L, Hgb 13.8, Hct 40.5, MCV 94.2 H, MCH 32.1 H,MCHC 34.1, RDW Std Deviation 39.8, RDW Coeff of Roseanna 11.5 L, Plt Count 183, MPV 8.5, Immature Gran % (Auto) 0.300, Neut % (Auto) 63.1, Lymph % (Auto) 21.4, Maries% (Auto) 9.4, Eos % (Auto) 5.2 H, Baso % (Auto) 0.6, Absolute Neuts (auto) 3.9, Absolute Lymphs (auto) 1.32, Nucleated RBC % 0, Sodium 138, Potassium 4.1, Chloride 103, Carbon Dioxide 23.9, Anion Gap 11, BUN 12, Creatinine 0.93, Estim Creat Clear Calc 123.68, Est GFR (MDRD) Non-Af 91, BUN/Creatinine Ratio 12.4, Glucose 128 H, Calcium 9.0 Radiography Diagnostic Testing: Radiology Impression Hand X-Ray 02/15/25 06:49 IMPRESSION: Marked interval worsened destructive changes of the mid to distal portions of the left thumb distalphalanx noted, highly concerning for osteomyelitis. Soft tissue gas is also seen, further supporting the presence of infection. Mild to moderate degenerative changes of the fingers are also noted Reading Location: [place] [address] Physical Exam Narrative General: Alert, Oriented x3, Cooperative, No apparent distress HEENT: Atraumatic, PERRLA, EOMI, Normocephalic Oral: Moist Mucosa Neck: Supple, No JVD Lungs: Clear to auscultation, Normal air movement, No rhonchi, No wheeze, No rales Cardiovascular: Regular rate, Regular Rhythm, Normal S1, Normal S2, No murmurs Abdomen: Soft, Non Tender, Non-Distended, No Hepato-splenomegaly Extremities: No edema, Capillary Refill Less than 3 Seconds Skin: No rashes, No breakdown Musculoskeletal: Left thumb is swollen and red, left thumbnail has been removed and surgery open toair Neurological: No focal neurological deficits, Motor Exam 5/5 strength throughout, Sensory exam intact to light touch and pain Psych/Mental Status: Normal Affect, Appropriate Assessment & Plan Assessment/Plan (1) Subungual hematoma of finger of left hand: (2) Osteomyelitis of finger of left hand: PLAN: Plan 1. Subungual hematoma with osteomyelitis of the left hand status post left thumb nail removal and debridement on 02/14/2025 ? MRI with osteomyelitis ? Appreciate plastic surgery's assistance ? Continue with IV Zosyn and vancomycin ? Appreciate ID's recommendations, will likely plan for prolonged antibiotic therapy given the osteomyelitis ? Repeat x-rays pending for today 2. Essential HTN/HLD ? Blood pressure stable ? Continue with his home blood pressure medications ? Will monitor and make adjustments as necessary ? Continue Lipitor 3. Anxiety/depression/alcohol abuse ? Stable ? Continue with his home medications ? Continue with CIWA protocol so far does not require medications and is not interested in quitting 4. GERD ? Stable ? 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 Continue with Flomax DVT: Lovenox Charges/Coding Visit Charges Inpatient E&M: 48713 Subs Hosp L2 02/15/25 0905 Cosigner Signature (if applicable): CC: ~ Signed [facility]08-29-2025 Radiology Diagnostic study note [facility] Imaging Services [address] [place] [address] Hand Min 3 Views MR#: [id number] Acct: [id number] Name: COREY NEVILLE Rep #: [id number] : 1960 M 64 From: Lucho Wolf MD PCP: Dr. Raul Patrick MD Status: ADM I N Study:Hand Min 3 Views Date of Exam: Exam# [id number] Ordering Dr: Stephany Light MD PROCEDURE: HAND MIN 3 VIEWS 02/15/2025 REASON FOR EXAM: L THUMB WOUND TECHNIQUE: HAND MIN 3 VIEWS Laterality: Left COMPARISON: Left thumb examination of 02/11/2025. RAD/Hand Min 3 Views IMPRESSION: Marked interval worsened destructive changes of the mid to distal portions of the left thumb distalphalanx noted, highly concerning for osteomyelitis. Soft tissue gas is also seen, further supporting the presence of infection. Mild to moderate degenerative changes of the fingers are also noted Reading Location: [place] [address] CC: Dr. Pranay Light MD; Dr. Raul Patrick MD ~ Jewel Bearing Broacher: Signed [facility]08-29-2025 Progress note [facility] Medical Records Department [address] [place] [address] Progress Note - Surgery 02/15/25732 MR#: [id number] Acct: [id number] Name: COREY NEVILLE Rep #:[id number] : 1960 64 From: Pranay Light MD PCP: Dr. Raul Patrick MD Status:ADM I N Location: [place] [address] Subjective Subjective Pain on rounds this morning. Improved with pain medications. Dressings removed and started a soak. Objective Data Objective Data Vital Signs: Vital Signs Temp Pulse Resp BP Pulse Ox O2 Del Method 97.8 F 65 16 149/79 H 97 Room Air 02/15/25 03:00 02/15/25 03:00 02/15/25 03:00 02/15/25 03:00 02/15/25 03:00 02/15/25 04:00 Oxygen Delivery Method Room Air Weight: 374 lb 12.573 oz Body Mass Index (BMI) 55.3 Intake & Output: Intake and Output for Last 24 Hours 02/13/25 02/14/25 02/15/25 23:59 23:59 23:59 Intake Total 325 / 825 1440 / 1440 535 / 535 Output Total Balance 325 / 825 1430 / 1430 535 / 535 Lab / Micro Data 02/15/25 05:52 02/15/25 05:52 Labs: Laboratory Results - last 24 hr 02/14/25 06:01: Sodium 136, Potassium 4.2, Chloride 102, Carbon Dioxide 22.5, Anion Gap 12, BUN 13,Creatinine 1.02, Estim Creat Clear Calc 72.20, Est GFR (MDRD) Non-Af 82, BUN/Creatinine Ratio 13.1,Glucose 140 H, Calcium 9.3 02/14/25 22:31: Vancomycin Trough 10.2 02/15/25 05:52: WBC 6.2, RBC 4.30 L, Hgb 13.8, Hct 40.5, MCV 94.2 H, MCH 32.1 H,MCHC 34.1, RDW Std Deviation 39.8, RDW Coeff of Roseanna 11.5 L, Plt Count 183, MPV 8.5, Immature Gran % (Auto) 0.300, Neut % (Auto) 63.1, Lymph % (Auto) 21.4, Maries% (Auto) 9.4, Eos % (Auto) 5.2 H, Baso % (Auto) 0.6, Absolute Neuts (auto) 3.9, Absolute Lymphs (auto) 1.32, Nucleated RBC % 0, Sodium 138, Potassium 4.1, Chloride 103, Carbon Dioxide 23.9, Anion Gap 11, BUN 12, Creatinine 0.93, Estim Creat Clear Calc 123.68, Est GFR (MDRD) Non-Af 91, BUN/Creatinine Ratio 12.4, Glucose 128 H, Calcium 9.0 Physical Exam Narrative Left thumb Sterile matrix wound s/p I&D. No drainage today. No signs of ascending infection. Started on a soak Assessment & Plan Assessment/Plan (1) Osteomyelitis of finger of left hand: (2) Subungual hematoma of finger of left hand: PLAN: Plan I discussed the extent of osteomyelitis that was discovered in the OR yesterday (distal phalanx andshaft). I believe some of the base may be viable/IP joint is viable, but xray will be obtained today. Only necrotic sequestrum was removed in the OR yesterday (discussed with the patient this morning). I talked to him about the need for revision amputation, but currently trying to salvage as much length as possible with wound care and antibiotics. Patient endorsed an understanding and agreed. F/u X-ray Continue TID Dial soap soaks and iodoform gauze changes Elevate LUE F/u cultures Anticipate continued wound care and elevation for swelling reduction in anticipation of elective/scheduled revision amputation. Charges/Coding Procedures Integumentary 111xxx-113xx: 29530 Global Visit 02/15/25 0770 Cosigner Signature (if applicable): CC: ~ Signed [facility]08-29-2025 Consult note Author Yaw Rolon [facility] Note Date/Time February 15, 2025 12 :31am [facility] Medical Records Department [address] [place] [address] Pharmacokinetic/Renal -Consult 02/15/25 0026 MR#: [id number] Acct: [id number] Name: COREY NEVILLE Rep #:[id number] : 1960 64 From: Yaw Rolon PCP: Dr. Raul Patrick MD Status:ADM I N Y Location: [place] [address] Consult Antibiotic Management Pharmacy has been consulted to manage selected antibiotic: Vancomycin Type of Intervention Type of Consult: Follow-up Suspected Infection Suspected Infection: Osteomyelitis Labs Labs: Sodium 136 mmol/L (133-145) 02/14/25 06:01 Potassium 4.2 mmol/L (3.3-5.1) 02/14/25 06:01 Chloride 102 mmol/L (98-108) 02/14/25 06:01 Carbon Dioxide 22.5 mmol/L (21.0-32.0) 02/14/25 06:01 Anion Gap 12 (5-15) 02/14/25 06:01 BUN 13 mg/dL (4-19) 02/14/25 06:01 Creatinine 1.02 mg/dL (0.70-1.20) 02/14/25 06:01 Est GFR (MDRD) Non-Af 82 (>60) 02/14/25 06:01 BUN/Creatinine Ratio 13.1 RATIO (10-20) 02/14/25 06:01 Glucose 140 mg/dL (70-99) H 02/14/25 06:01 Vancomycin Trough 10.2 ug/mL (5.0-15.0) 02/14/25 22:31 Dosing Weight Weight used for dosin.9 kg Estimated Creatinine Clearance Estimated Creatinine Clearance: 72 Goal Trough Goal Trough: 15-20 mcg/mL Pharmacy Plan for Drug Dosing Pharmacy Plan for Drug Dosing: Vancomycin trough level of 10.2, drawn 12hrs post-dose, was below the target range of 15-20. Will increase dose to 1750mg q12h, and will draw another trough level prior to the fourth dose of the new regimen. Pharmacy Service will continue to monitor and adjust dosing as required. Follow-Up Labs Follow-Up Labs: Trough: Vancomycin Date/Time Labs Ordered Labs to be done on [date and time ordered]: 02/16/25 @1200 02/15/25 0031 <Electronically signed by Yaw de> Date _ Yaw Rolon Cosigner Signature (if applicable): Date CC: ~ Signed [facility] Work Phone: 1(787) 526-566908-29-2025 Consult note [facility] Medical Records Department [address] [place] [address] [place] [address] Pharmacokinetic/Renal -Consult 02/15/25 0026 MR#: [id number] Acct: [id number] Name: COREY NEVILLE Rep #:[id number] : 1960 64 From: Yaw Rolon PCP: Dr. Raul Patrick MD Status:ADM I N Y Location: [place] [address] Consult Antibiotic Management Pharmacy has been consulted to manage selected antibiotic: Vancomycin Type of Intervention Type of Consult: Follow-up Suspected Infection Suspected Infection: Osteomyelitis Labs Labs: Sodium 136 mmol/L (133-145) 02/14/25 06:01 Potassium 4.2 mmol/L (3.3-5.1) 02/14/25 06:01 Chloride 102 mmol/L (98-108) 02/14/25 06:01 Carbon Dioxide 22.5 mmol/L (21.0-32.0) 02/14/25 06:01 Anion Gap 12 (5-15) 02/14/25 06:01 BUN 13 mg/dL (4-19) 02/14/25 06:01 Creatinine 1.02 mg/dL (0.70-1.20) 02/14/25 06:01 Est GFR (MDRD) Non-Af 82 (>60) 02/14/25 06:01 BUN/Creatinine Ratio 13.1 RATIO (10-20) 02/14/25 06:01 Glucose 140 mg/dL (70-99) H 02/14/25 06:01 Vancomycin Trough 10.2 ug/mL (5.0-15.0) 02/14/25 22:31 Dosing Weight Weight used for dosin.9 kg Estimated Creatinine Clearance Estimated Creatinine Clearance: 72 Goal Trough Goal Trough: 15-20 mcg/mL Pharmacy Plan for Drug Dosing Pharmacy Plan for Drug Dosing: Vancomycin trough level of 10.2, drawn 12hrs post-dose, was below the target range of 15-20. Will increase dose to 1750mg q12h, and will draw another trough level prior to the fourth dose of the new regimen. Pharmacy Service will continue to monitor and adjust dosing as required. Follow-Up Labs Follow-Up Labs: Trough: Vancomycin Date/Time Labs Ordered Labs to be done on [date and time ordered]: 02/16/25 @1200 02/15/25 0031 ds> Date _ Yaw Simmons Signature (if applicable): Date CC: ~ Signed [facility]08-28-2025 Consult note Author Wing Pierre [facility] Note Date/Time February 14, 2025 8: 59pm [facility] Medical Records Department [address] [place] [address] Anesthesia Postop Eval II 02/14/252057 MR#: [id number] Acct: [id number] Name: COREY NEVILLE Ariel Rep #:[id number] : 1960 64 From: Wing Pierre MD PCP: Dr. Raul Patrick MD Status:ADM I N Y Race: C Location: [facility] MS320 -1 Anesthesia Postop Eval I Sum Postop Eval Completion status Anesthesia document: Postop Eval 1 completed: Yes Anesthesia Postop Eval I Summary Anesthesia Postop Eval I Summary: Anesthesia Postop Eval I: Assessment Summary Airway patent Yes 02/14/25 14:49 SUPERVISOR CASE [email or web address] Spontaneous unlabored Yes 02/14/25 14:49 SUPERVISOR [email or web address] respirations Mental status Awake,Calm 02/14/25 14:49 SUPERVISOR [employer]AD[employer].PKEL nausea No 02/14/25 14:49 SUPERVISOR [employer]AD[employer].[email or web address] Vomiting No 02/14/25 14:49 SUPERVISOR CASE LOADING.[email or web address] Anesthesia Postop Eval I: Fluid Summary Crystalloid volume administer 800 02/14/25 14:49 SUPERVISOR [employer] LOADING.PKEL (ml) Colloids volume administered ( ml) Blood Product volume administered (ml) Total IV fluid infused 800 02/14/25 14:49 SUPERVISOR CASE LOADING.[email or web address] Anesthesia Postop Eval I: Summary Notes Anesthesia Complication No 02/14/25 14:49 SUPERVISOR CASE [email or web address].[email or web address] Anesthesia Complication Comment: Post-operative progress note Anesthesia: Postop Eval II Evaluation Mental status: Awake and Calm Pain Level: 1 nausea: No Vomiting: No Complications Anesthesia Complication: No 02/14/252058 <Electronically signed by Wing clayton MD> Date _ Wing Pierre MD Cosigner Signature: Date CC: ~ Signed [facility] Work Phone: 1(406) 733-138308-28-2025 Consult note [facility] Medical Records Department [address] [place] [address] Anesthesia Postop Eval II 02/14/252057 MR#: [id number] Acct: [id number] Name: STACYEricCOREY Rep #:[id number] : 1960 64 From: Wing Pierre MD PCP: Dr. Raul Patrick MD Status:ADM I N Y Race: C Location: [place] [address] Anesthesia Postop Eval I Sum Postop Eval Completion status Anesthesia document: Postop Eval 1 completed: Yes Anesthesia Postop Eval I Summary Anesthesia Postop Eval I Summary: Anesthesia Postop Eval I: Assessment Summary Airway patent Yes 02/14/25 14:49 SUPERVISOR [email or web address] Spontaneous unlabored Yes 02/14/25 14:49 SUPERVISOR [employer] [email or web address].PKEL respirations Mental status Awake,Calm 02/14/25 14:49 SUPERVISOR CASE LOADING.PKEL nausea No 02/14/25 14:49 SUPERVISOR CASE LOADING.PKEL Vomiting No 02/14/25 14:49 SUPERVISOR CASE LOADING.PKEL Anesthesia Postop Eval I: Fluid Summary Crystalloid volume administer 800 02/14/25 14:49 SUPERVISOR CASE LOADING.PKEL (ml) Colloids volume administered ( ml) Blood Product volume administered (ml) Total IV fluid infused 800 02/14/25 14:49 SUPERVISOR CASE LOADING.PKEL Anesthesia Postop Eval I: Summary Notes Anesthesia Complication No 02/14/25 14:49 SUPERVISOR CASE LOADING.[email or web address] Anesthesia Complication Comment: Post-operative progress note Anesthesia: Postop Eval II Evaluation Mental status: Awake and Calm Pain Level: 1 nausea: No Vomiting: No Complications Anesthesia Complication: No 02/14/252058 forrest MORGAN> Date _ Wing Pierre MD Cosigner Signature: Date CC: ~ Signed [facility]08-28-2025 Consult note Author Kike Salinas [facility] Note Date/Time February 14, 2025 2: 49pm [facility] Medical Records Department [address] [place] [address] Anesthesia Postop Eval I 02/14/25 1448 MR#: [id number] Acct: [id number] Name: STACYEricCOREY Rep #:[id number] : 1960 64 From: Kike Salinas CRNA PCP: Dr. Raul Patrick MD Status:ADM I N Y Race: C Location: [place] [address] Anesthesia: Postop Eval I Current Vital Signs Temperature: 97.5 F Pulse Rate: 69 Blood Pressure: 136/67 Respiratory Rate: 20 Pulse Ox: 95 Oxygen Delivery Method: Room Air Assessment Airway patent: Yes Spontaneous unlabored respirations: Yes Mental status: Awake and Calm nausea: No Vomiting: No Anesthesia Complication: No Fluid Hydration Crystalloid volume administer (ml): 800 Total IV fluid infused: 800 Progress Note Anesthesia document: Postop Eval 1 completed: Yes 02/14/25 1449 <Electronically signed by Kike marquez CRNA> Date _ Kike Salinas SUPERVIS[employer]ADING Cosigner Signature: Date CC: ~ Signed [facility] Work Phone: 1(499) 165-209208-28-2025 Procedure note [facility] Medical Records Department [address] [place] [address] Operative Report 02/14/25 1537 MR#: [id number] Acct: [id number] Name: COREY NEVILLE Ariel Rep #:[id number] : 1960 64 From: Pranay Light MD PCP: Dr. Raul Patrick MD Status:ADM I N Location: [place] [address] Operative Report (Standard) Operative Information Date of Procedure: 02/14/25 Pre-Operative Diagnosis: Left thumb distal phalanx osteomyelitis Post-Operative Diagnosis: Same Surgery/Procedure Performed: 1) left thumb nail plate removal and debridement ofunderlying left thumb wound including debridement of distal phalanx necrotic bone (sequestrum) and drainage of surrounding fluid collection lumber cutter: Yes Crew Dispatcher: Raiza Sanchez Tasks completed by research assistant professor: Retracting Type of Anesthesia: Local MAC (10 cc of a 50-50 mixture of 1% lidocaine and quarter percent Marcaine) RN Documented Start/Stop Times: Operation Date: 02/14/25 13:30 Case Time Into Pre-Op 02/14/25 12:25 Out of Pre-Op 02/14/25 13:44 Anesthesia Start 02/14/25 13:46 Into Room 02/14/25 13:46 Procedure Start 02/14/25 14:18 Procedure End 02/14/25 14:39 Anesthesia End 02/14/25 14:42 Out of Room 02/14/25 14:42 Into Recovery 02/14/25 14:45 Out of Recovery 02/14/25 15:10 Procedure Start Time: 14:18 Procedure Stop Time: 14:39 Select all DRAINS/GRAFTS/IMPLANTS that apply: None (Just packing) Estimated Blood Loss: Minimal Specimen collected: Yes Description of specimen(s) removed: Left thumb distal phalanx culture, leftthumb distal phalanx specimen, culture swabs Description of surgery: Indications: Patient is delightful 64-year-old male with left thumb osteomyelitis demonstrated on MRI. He had aninjury about a month ago and did not seek medical attention and developed a swollen left thumb witha sinus tract underneath the nail down to the bone. He presents today for nail plate removal and I&D. I talked to him extensively about debridement of any underlying , infected bone, and he was in agreement. Procedure details: Patient was correct identified in preoperative holding and taken back to the operating room where he was administered sedation and local anesthesia as noted above. He was prepped and draped in sterile fashion all proper timeouts were performed. Tourniquet was insufflated on the left arm. The left thumb nail plate was atraumatically removed with tenotomy scissors and a [place] elevator. Purulence was encountered through a sinus tract within the sterile matrix with underlying necrotic, soft tuft and shaft. There was no viable (firm) tuft or shaft, all of the bone was sequestrum. This was debrided with a rongeur. The thumb base felt firm, and therefore no debridement was continued proximally as this was considered to be viable bone. Cultures were obtained and bone samples were obtained. The wound was irrigated with Irrisept and 3 L normal saline. The tourniquet was let down and the wound was packed with iodoform gauze, Kerlix wrap and Coban wrap loosely. Patient tolerated theproc edure well. Postoperative plan: Continue IV antibiotics on the floor and follow-up wound cultures. Plan for dressing change in the morning and we will get an x-ray of the thumb to assess the extent of residual healthy bone. I talked to the patient about potential need for revision amputation and at this point I believe his distalthumb needs to be shortened, but we should hopefully be able to salvage the thumb IP joint and the base of the distal phalanx. Surgical Findings: Purulence underlying the nailbed with a sinus tract to the bone with underlying necrotic distal phalanx of the left thumb. The entire tuft and shaft of the left thumb distal phalanx was soft, mushy bone (sequestrum)' Thumb sinus tract with underlying necrotic bone (after nail platewas atraumatically removed) Complications Complications: No 02/14/25 1544 Cosigner Signature (if applicable): CC: Dr. Pranay Mi MD; Dr. Pranay Light MD; Dr. Raul Patrick MD~ Signed [facility]08-28-2025 History and physical note Author [facility]anay [facility] Note Date/Time February 14, 2025 1: 20pm [facility] [facility] Medical Records Department [address] [place] [address] H&P Exam - Surgical 02/14/25 1318 MR#: [id number] Acct: [id number] Name: COREY NEVILLE Rep #:[id number] : 1960 64 From: Pranay Light MD PCP: Dr. Raul Patrick MD Status:ADM I N Location: [place] 889300-1 HPI - General General Date of Admission: 02/13/25 HPI Narrative COREY NEVILLE, is a 64 M who presents with thumb osteomyelitis left thumb Current Encounter (DATE OF SURGERY H&P UPDATE): I saw and examined the patient this morning in pre-operative holding. We discussed risks and benefits of today's surgery and they would like to proceed. NO CHANGE in health history since last seen and evaluated. Ready to proceed with surgery. [facility] Medical History (Updated 02/14/25 @ 13:[address] Wing Pierre MD) COPD (chronic obstructive pulmonary disease) HTN (hypertension) Home Medications ?Medication ?Instructions ?Recorded ?Last Taken ?Type albuterol sulfate 90 mcg/actuation 2 puff inhalation Q 4H PRN copd 02/13/25 Unknown History aerosol inhaler atorvastatin 40 mg tablet 40 mg PO QHS 02/13/25 Unknow n History cephalexin 500 mg capsule 500 mg PO TID 02/13/25 Unkno wn History fluticasone 250 mcg-salmeterol 50 1 ea inhalation BID 02/13/25 Unknown History mcg/dose blistr powdr for inhalation metoprolol succinate 50 mg 50 mg PO DAILY htn 02/13/25 02/14/25 History tablet,extended release 24 hr omeprazole 40 [...] No Known Allergies Allergy Verified 02/13/25 09:56 Family History Other Diabetes Surgical History History of back surgery Social History Smoking Status: Current every day smoker tobacco type: cigarettes alcohol intake: current alcohol intake frequency: 3 or more drinks per day Alcohol type: beer Vital Signs Vital Signs Vital Signs: 02/13/25 15:54 02/13/25 21:05 02/13/25 21:19 Temperature 98 F 98.3 F Temperature Source Oral Oral Pulse Rate 80 74 Respiratory Rate 18 18 Respiratory Effort Normal Non-Labored Blood Pressure 152/86 H 148/71 H Blood Pressure Mean 108 96 Blood Pressure Source Monitor Monitor Blood Pressure Position Semi-Fowlers Right Lateral Blood Pressure Location Right Arm Left Arm Pulse Ox 94 96 Oxygen Delivery Method Room Air Room Air Room Air 02/14/25 00:06 02/14/25 04:41 02/14/25 08:44 Temperature 97.8 F 98.1 F 98.3 F Temperature Source Oral Oral Oral Pulse Rate 62 78 81 Respiratory Rate 18 20 H 18 Respiratory Effort Blood Pressure 127/75 H 149/74 H 137/81 H Blood Pressure Mean 92 99 99 Blood Pressure Source Monitor Monitor Monitor Blood Pressure Position Semi-Fowlers Semi-Fowlers Semi-Fowlers Blood Pressure Location Right Arm Right Arm Right Arm Pulse Ox 97 99 97 Oxygen Delivery Method Room Air Room Air Room Air 02/14/25 08:47 02/14/25 08:52 02/14/25 12:35 Temperature 98.5 F Temperature Source Temporal Pulse Rate 81 64 Respiratory Rate 16 Respiratory Effort Normal Non-Labored Blood Pressure 140/92 H Blood Pressure Mean 108 Blood Pressure Source Monitor Blood Pressure Position Semi-Fowlers Blood Pressure Location Left Arm Pulse Ox 94 Oxygen Delivery Method Room Air Room Air 02/14/25 13:05 Temperature 98.5 F Temperature Source Pulse Rate 64 Respiratory Rate 16 Respiratory Effort Blood Pressure 140/92 H Blood Pressure Mean Blood Pressure Source Blood Pressure Position Blood Pressure Location Pulse Ox 94 Oxygen Delivery Method Room Air Weight Weight: 374 lb 12.573 oz Body Mass Index (BMI) 55.3 Physical Exam Narrative Swollen left thumb with subungual hematoma Results Lab / Micro Data 02/14/25 06:01 02/14/25 06:01 Labs: Laboratory Results - last 24 hr 02/14/25 06:01: WBC 6.1, RBC 4.60, Hgb 14.7, Hct 43.0, MCV 93.5, MCH 32.0, MCHC 34.2, RDW Std Deviation 39.9, RDW Coeff of Roseanna 11.6, Plt Count 211, MPV 8.9, Immature Gran % (Auto) 0.200, Neut % (Auto) 61.8, Lymph % (Auto) 22.8, Maries % (Auto) 9.6, Eos % (Auto) 4.8, Baso % (Auto) 0.8, Absolute Neuts (auto) 3.8, Absolute Lymphs (auto) 1.38, Nucleated RBC % 0, Sodium 136, Potassium 4.2, Chloride 102, Carbon Dioxide 22.5, Anion Gap 12, BUN 13, Creatinine 1.02, Estim Creat Clear Calc 72.20, Est GFR (MDRD) Non-Af 82, BUN/Creatinine Ratio 13.1, Glucose 140 H, Calcium 9.3 Imaging Radiology Impression Upper Extremity MRI 02/13/25 12:48 IMPRESSION: Findings concerning for osteomyelitis of the left thumb distal phalanx. Reading Location: [place] [address] Assessment & Plan Assessment/Plan (1) Osteomyelitis of finger of left hand: (2) Subungual hematoma of finger of left hand: PLAN: Plan I talked to the patient on rounds this morning about removal of the thumbnail and debridement of any necrotic wound bed underneath the nail plate. This wouldinclude bone cultures. Patient is in agreement. He understands the risks, benefits, and alternatives of the operation. He understands that there is a significant risk that he loses some of his thumb secondary to extensive osteomyelitis and bony destruction. He understands that debridement today may assist with treatment but definitive treatment will certainly require long-term IV antibiotics but also potential for revision amputation. Patient understands the risk of bleeding, the risk of infection, damage to surrounding structures, problems with anesthesia, as well as the likelihood of a wound requiring wound care postoperatively. I talked to the patient extensively about the risks of surgery, including bleeding, infection, damage to surrounding structures, poor scaring, surgical site dehiscence and wound formation, need for wound care, need for repeat operations, failure to obtain the desired result, and the risks of anesthesia. The benefits and alternatives of this surgery were also discussed. All of their questions were answered, and they agreed to proceed with surgery. 02/14/25 1320 <Electronically signed by Pranay Light MD> Cosigner Signature (if applicable): CC: Dr. Pranay Light MD; Dr. Raul Patrick MD~ Signed [facility] Work Phone: [phone] Consult note Author Wing Pierre [facility] Note Date/Time February 14, 2025 1: 05pm [facility] Medical Records Department [address] [place] [address] Pre-Anesthesia Evaluation 02/14/25 1256 MR#: [id number] Acct: [id number] Name: COREY NEVILLE Ariel Rep #:[id number] : 1960 64 From: Wing Pierre MD PCP: Dr. Raul Patrick MD Status:ADM I N Y Race: C Location: [facility] -1 ASA Classification* ASA Classification ASA Classification: 3 Assessment & Plan Anesthesia* Anesthesia Assessment Anesthesia Assessment: Discussed sedation and/or anesthesia options, risks, benefits, and alternatives with patient/parents/legal guardian/POA. Questions invited. The patient/parents/legal guardian/POA seems to understand and agrees to proceedwith anesthesia plan. Reviewed the physical assessment, medical history, allergy history and patient home medications list prior to surgery/procedure/anesthetic and documented any changes. Performed airway and anesthesia risk assessments. Anesthesia Type Anesthesia Type: MAC History Source History Obtained from:: Patient and Chart Anesthesia Focused Assessment* Temperature: 98.5 F Pulse Rate: 64 Blood Pressure: 140/92 Respiratory Rate: 16 Pulse Ox: 94 Oxygen Delivery Method: Room Air Airway Assessment Mouth opens: >3 cm Mallampati Score: I Teeth Condition: Dentures (Patient has full upper plate. It will come out.) Neck Range of motion (ROM): Limited ROM (Somewhat Decreased) Labs Anesthesia Preop lab: CBC WBC 6.1 K/mm3 (4.4-11.0) 02/14/25 06:01 02/14/25 RBC 4.60 M/mm3 (4.6-6.2) 02/14/25 06:01 02/14/25 Hgb 14.7 g/dL (13.0-16.5) 02/14/25 06:01 02/14/25 Hct 43.0 % (40-54) 02/14/25 06:01 02/14/25 Plt Count 211 K/mm3 (150-450) 02/14/25 06:01 02/14/25 CHEMISTRY Potassium 4.2 mmol/L (3.3-5.1) 02/14/25 06:01 02/14/25 Sodium 136 mmol/L (133-145) 02/14/25 06:01 02/14/25 BUN 13 mg/dL (4-19) 02/14/25 06:01 02/14/25 Creatinine 1.02 mg/dL (0.70-1.20) 02/14/25 06:01 02/14/25 Glucose 140 mg/dL (70-99) H 02/14/25 06:01 02/14/25 TSH 1.660 uIU/mL (0.300-4.200) 12/19/24 10:20 0708/14 COAG Pre-Assessment Diagnosis/Proposed Procedure Planned Operative Procedure(s): Incision and drainage of left thumb. 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 When Was Last Pacemaker Check QUESTION #4 FULL TEXT: You/Your Family Experience fever (hyperthermia) with Anesthesia Last Oral Intake Last Oral intake: Last Oral Intake NPO since 20:00 02/14/25 12:35 Meds taken in AM with sips of No 02/14/25 12:35 water? Meds patient instructed to take am of surgery Any additional information?: Yes Meds taken in AM with sips of water?: Yes Meds patient instructed to take am of surgery: Metoprolol, Tylenol PONV PONV - neon sign servicer: PONV - neon sign servicer Female HX of Motion Sickness HX of N/V After Surgery Non-Smoker Duration of Surgery greater than 60 minutes Number of Risk Factors PONV Score Height & Weight Height & Weight: Anesthesia: Height & Weight Height 5 ft 9 in 02/14/25 12:35 Weight: 170 kg 02/14/25 12:35 Body Mass Index (BMI) 55.3 02/14/25 12:35 Respiratory Assessment Respiratory Assessment - neon sign servicer: Respiratory Tract Infection Hx - neon sign servicer Hx Respiratory Tract Infection No 02/13/25 19:50 STOP Sleep Apnea STOP Sleep Apnea - neon sign servicer: STOP Sleep Apnea - neon sign servicer Hx Hypertension Yes 02/13/25 12:45 Hx Sleep Apnea No 02/13/25 12:45 CPAP BIPAP Do you snore loudly (louder No 02/13/25 12:45 than talking or can be heard Do you often feel tired/ No 02/13/25 12:45 fatigued/ sleepy during daytime? Has anyone observed you stop Yes 02/13/25 12:45 breathing during sleep? STOP Results Positive 02/13/25 12:45 QUESTION #5 FULL TEXT : Do you snore loudly (louder than talking or can be heard through closed doors)? 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 Specify any problems Hx of Preganancy in last 3 N/A 02/13/25 12:45 Months Nurse Filling Out Transfusion KMESSENGE 02/13/25 12:45 & Questions: Date: 02/13/25 02/13/25 12:45 Time: 12:57 02/13/25 12:45 Patient unable to answer at this time (ie. confused, unrespo /Reproduction History /Reproductive History - neon sign servicer: /Reproductive Hx- neon sign servicer Hx Now No 02/13/25 19:50 Gestational Age (in weeks): EDC: Hx Hx Para Hx Section SAB No 02/13/25 19:50 Active Medications Active Medications: Current Medications Generic Name Dose Route Start Last Admin Trade Name Freq PRN Reason Stop Dose Admin Acetaminophen 650 mg 02/13/25 19:39 02/13/25 21:11 Acetaminophen 325 Mg Tablet PO 650 mg Q6H PRN PRN Administration Pain Score 1-5 Atorvastatin Calcium 40 mg 02/13/25 22:00 02/13/25 21:11 Atorvastatin Calcium 40 Mg Tablet PO 40 mg QHS CANDY Administration Enoxaparin Sodium 40 mg 02/14/25 10:00 02/14/25 08:50 Enoxaparin 40 Mg/0.4 Ml Syringe SC Not Given DAILY CANDY Hydrochlorothiazide 25 mg 02/14/25 10:00 02/14/25 08:50 Hydrochlorothiazide 25 Mg Tablet PO Not Given DAILY CANDY Vancomycin IV-PHARMACY TO DOSE 500 mls @ 250 mls/hr 02/13/25 12:48 1 each/ Sodium Chloride IV X1 PRN Rx to Dose Protocol Sodium Chloride 250 mls @ 15 mls/hr 02/13/25 12:55 02/13/25 21:12 IV 15 mls/hr .[id number] PRN Administration Saline Flush Sodium Chloride 250 mls @ 15 mls/hr 02/13/25 12:55 IV .[id number] PRN Additional IVPB Infusion Vancomycin HCl 1,000 mg/ 270 mls @ 250 mls/hr 02/13/25 23:00 02/14/25 11:34 Sodium Chloride IV Infused Q12H CANDY Infusion Ceftriaxone Sodium 2 gm/ 50 mls @ 100 mls/hr 02/14/25 11:00 02/14/25 11:47 Sodium Chloride IV Infused Q24 CANDY Infusion Losartan Potassium 100 mg 02/14/25 10:00 02/14/25 08:50 Losartan Potassium 100 Mg Tablet PO Not Given DAILY CANDY Metoprolol Succinate 50 mg 02/14/25 10:00 02/14/25 08:52 Metoprolol(Xl)Succ 50 Mg Tablet PO 50 mg DAILY CANDY Administration Protocol Oxycodone HCl 5 mg 02/13/25 19:44 Oxycodone 5 Mg Tablet PO Q6H PRN PRN Pain Score 6-10 Pantoprazole Sodium 40 mg 02/14/25 10:00 02/14/25 08:51 Pantoprazole Sodium 40 Mg Tablet PO Not Given DAILY CANDY Sertraline HCl 50 mg 02/14/25 10:00 02/14/25 08:51 Sertraline 50 Mg Tablet PO Not Given DAILY CANDY Sodium Chloride 10 - 40 ml 02/13/25 12:55 02/13/25 21:11 0.9% Saline Lock 10 Ml Syringe IV 10 ml UD PRN Administration SALINE FLUSH Tamsulosin HCl 0.8 mg 02/13/25 22:00 02/13/25 21:13 Tamsulosin Hcl 0.4 Mg Capsule PO 0.8 mg QHS CANDY Administration Vancomycin Protocol 1 lab 02/14/25 21:30 Vancomycin Trough/Random Due MC 02/14/25 23:30 DAILY CANDY PFSH Medical History (Updated 02/14/25 @ 13:[address] Wing Pierre MD) COPD (chronic obstructive pulmonary disease) HTN (hypertension) Home Medications ?Medication ?Instructions ?Recorded ?Last Taken ?Type albuterol sulfate 90 mcg/actuation 2 puff inhalation Q 4H PRN copd 02/13/25 Unknown History aerosol inhaler atorvastatin 40 mg tablet 40 mg PO QHS 02/13/25 Unknow n History cephalexin 500 mg capsule 500 mg PO TID 02/13/25 Unkno wn History fluticasone 250 mcg-salmeterol 50 1 ea inhalation BID 02/13/25 Unknown History mcg/dose blistr powdr for inhalation metoprolol succinate 50 mg 50 mg PO DAILY htn 02/13/25 02/14/25 History tablet,extended release 24 hr omeprazole 40 [...] No Known Allergies Allergy Verified 02/13/25 09:56 Family History Other Diabetes Surgical History History of back surgery Social History Smoking Status: Current every day smoker tobacco type: cigarettes alcohol intake: current alcohol intake frequency: 3 or more drinks per day Alcohol type: beer Review of Systems (Anesthesia) ROS Narrative System reviewed and no additional complaints, except as documented. 02/14/25 1305 <Electronically signed by Wing clayton MD> Date _ Wing Pierre MD Cosigner Signature: Date CC: ~ Signed [facility] Work Phone: 1(570) 236-992608-28-2025 Consult note [facility] Medical Records Department [address] [place] [address] Anesthesia Postop Eval I 02/14/25 1448 MR#: [id number] Acct: [id number] Name: STACYEricCOREY D Rep #:[id number] : 1960 64 From: Kike Salinas CRNA PCP: Dr. Raul Patrick MD Status:ADM I N Y Race: C Location: [place] [address] Anesthesia: Postop Eval I Current Vital Signs Temperature: 97.5 F Pulse Rate: 69 Blood Pressure: 136/67 Respiratory Rate: 20 Pulse Ox: 95 Oxygen Delivery Method: Room Air Assessment Airway patent: Yes Spontaneous unlabored respirations: Yes Mental status: Awake and Calm nausea: No Vomiting: No Anesthesia Complication: No Fluid Hydration Crystalloid volume administer (ml): 800 Total IV fluid infused: 800 Progress Note Anesthesia document: Postop Eval 1 completed: Yes 02/14/25 1449 y [employer]PER[employer]> Date _ Kike aSlinas [employer]PER[employer] Cosigner Signature: Date CC: ~ Signed [facility]08-28-2025 History and physical note [facility] Medical Records Department [address] [place] [address] H&P Exam - Surgical 02/14/25 1318 MR#: [id number] Acct: [id number] Name: STACYEricCOREY D Rep #:[id number] : 1960 64 From: Pranay Light MD PCP: Dr. Raul Patrick MD Status:ADM I N Location: MS3 BE718-0 HPI - General General Date of Admission: 02/13/25 HPI Narrative COREY NEVILLE, is a 64 M who presents with thumb osteomyelitis left thumb Current Encounter (DATE OF SURGERY H&P UPDATE): I saw and examined the patient this morning in pre-operative holding. We discussed risks and benefits of today's surgery and they would like to proceed. NO CHANGE in health history since last seen and evaluated. Ready to proceed with surgery. [facility] Medical History (Updated 02/14/25 @ 13:[address] Wing Pierre MD) COPD (chronic obstructive pulmonary disease) HTN (hypertension) Home Medications ?Medication ?Instructions ?Recorded ?Last Taken ?Type albuterol sulfate 90 mcg/actuation 2 puff inhalation Q 4H PRN copd 02/13/25 Unknown History aerosol inhaler atorvastatin 40 mg tablet 40 mg PO QHS 02/13/25 Unknow n History cephalexin 500 mg capsule 500 mg PO TID 02/13/25 Unkno wn History fluticasone 250 mcg-salmeterol 50 1 ea inhalation BID 02/13/25 Unknown History mcg/dose blistr powdr for inhalation metoprolol succinate 50 mg 50 mg PO DAILY htn 02/13/25 02/14/25 History tablet,extended release 24 hr omeprazole 40 [...] No Known Allergies Allergy Verified 02/13/25 09:56 Family History Other Diabetes Surgical History History of back surgery Social History Smoking Status: Current every day smoker tobacco type: cigarettes alcohol intake: current alcohol intake frequency: 3 or more drinks per day Alcohol type: beer Vital Signs Vital Signs Vital Signs: 02/13/25 15:54 02/13/25 21:05 02/13/25 21:19 Temperature 98 F 98.3 F Temperature Source Oral Oral Pulse Rate 80 74 Respiratory Rate 18 18 Respiratory Effort Normal Non-Labored Blood Pressure 152/86 H 148/71 H Blood Pressure Mean 108 96 Blood Pressure Source Monitor Monitor Blood Pressure Position Semi-Fowlers Right Lateral Blood Pressure Location Right Arm Left Arm Pulse Ox 94 96 Oxygen Delivery Method Room Air Room Air Room Air 02/14/25 00:06 02/14/25 04:41 02/14/25 08:44 Temperature 97.8 F 98.1 F 98.3 F Temperature Source Oral Oral Oral Pulse Rate 62 78 81 Respiratory Rate 18 20 H 18 Respiratory Effort Blood Pressure 127/75 H 149/74 H 137/81 H Blood Pressure Mean 92 99 99 Blood Pressure Source Monitor Monitor Monitor Blood Pressure Position Semi-Fowlers Semi-Fowlers Semi-Fowlers Blood Pressure Location Right Arm Right Arm Right Arm Pulse Ox 97 99 97 Oxygen Delivery Method Room Air Room Air Room Air 02/14/25 08:47 02/14/25 08:52 02/14/25 12:35 Temperature 98.5 F Temperature Source Temporal Pulse Rate 81 64 Respiratory Rate 16 Respiratory Effort Normal Non-Labored Blood Pressure 140/92 H Blood Pressure Mean 108 Blood Pressure Source Monitor Blood Pressure Position Semi-Fowlers Blood Pressure Location Left Arm Pulse Ox 94 Oxygen Delivery Method Room Air Room Air 02/14/25 13:05 Temperature 98.5 F Temperature Source Pulse Rate 64 Respiratory Rate 16 Respiratory Effort Blood Pressure 140/92 H Blood Pressure Mean Blood Pressure Source Blood Pressure Position Blood Pressure Location Pulse Ox 94 Oxygen Delivery Method Room Air Weight Weight: 374 lb 12.573 oz Body Mass Index (BMI) 55.3 Physical Exam Narrative Swollen left thumb with subungual hematoma Results Lab / Micro Data 02/14/25 06:01 02/14/25 06:01 Labs: Laboratory Results - last 24 hr 02/14/25 06:01: WBC 6.1, RBC 4.60, Hgb 14.7, Hct 43.0, MCV 93.5, MCH 32.0, MCHC 34.2, RDW Std Deviation 39.9, RDW Coeff of Roseanna 11.6, Plt Count 211, MPV 8.9, Immature Gran % (Auto) 0.200, Neut % (Auto) 61.8, Lymph % (Auto) 22.8, Maries % (Auto) 9.6, Eos % (Auto) 4.8, Baso % (Auto) 0.8, Absolute Neuts (auto) 3.8, Absolute Lymphs (auto) 1.38, Nucleated RBC % 0, Sodium 136, Potassium 4.2, Chloride 102,Carbon Dioxide 22.5, Anion Gap 12, BUN 13, Creatinine 1.02, Estim Creat Clear Calc 72.20, Est GFR (MDRD) Non-Af 82, BUN/Creatinine Ratio 13.1, Glucose 140 H, Calcium 9.3 Imaging Radiology Impression Upper Extremity MRI 02/13/25 12:48 IMPRESSION: Findings concerning for osteomyelitis of the left thumb distal phalanx. Reading Location: [place] [address] Assessment & Plan Assessment/Plan (1) Osteomyelitis of finger of left hand: (2) Subungual hematoma of finger of left hand: PLAN: Plan I talked to the patient on rounds this morning about removal of the thumbnail and debridement of any necrotic wound bed underneath the nail plate. This wouldinclude bone cultures. Patient is in agreement. He understands the risks, benefits, and alternatives of the operation. He understands that there is a significant risk that he loses some of his thumb secondary to extensive osteomyelitis and bony destruction. He understands that debridement today may assist with treatment but definitive treatment will certainly require long-term IV antibiotics but also potential for revision amputation. Patient understands the risk of bleeding, the risk of infection, damage to surrounding structures, problems with anesthesia, as well as the likelihood of a wound requiring wound care postoperatively. I talked to the patient extensively about the risks of surgery, including bleeding, infection, damage to surrounding structures, poor scaring, surgical site dehiscence and wound formation, need for wound care, need for repeat operations, failure to obtain the desired result, and the risks of anesthesia. The benefits and alternatives of this surgery were also discussed. All of their questions wereanswered, and they agreed to proceed with surgery. 02/14/25 1320 Cosigner Signature (if applicable): CC: Dr. Pranay Light MD; Dr. Raul Patrick MD~ Signed [facility]08-28-2025 Consult note [facility] Medical Records Department [address] [place] [address] Pre-Anesthesia Evaluation 02/14/25 1256 MR#: [id number] Acct: [id number] Name: COREY NEVILLE Rep #:[id number] : 1960 64 From: Wing Pierre MD PCP: Dr. Raul Patrick MD Status:ADM I N Y Race: C Location: [facility] MS320 -1 ASA Classification* ASA Classification ASA Classification: 3 Assessment & Plan Anesthesia* Anesthesia Assessment Anesthesia Assessment: Discussed sedation and/or anesthesia options, risks, benefits, and alternatives with patient/parents/legal guardian/POA. Questions invited. The patient/parents/legal guardian/POA seems to understand and agrees to proceedwith anesthesia plan. Reviewed the physical assessment, medical history, allergy history and patient home medications list prior to surgery/procedure/anesthetic and documented any changes. Performed airway and anesthesia risk assessments. Anesthesia Type Anesthesia Type: MAC History Source History Obtained from:: Patient and Chart Anesthesia Focused Assessment* Temperature: 98.5 F Pulse Rate: 64 Blood Pressure: 140/92 Respiratory Rate: 16 Pulse Ox: 94 Oxygen Delivery Method: Room Air Airway Assessment Mouth opens: >3 cm Mallampati Score: I Teeth Condition: Dentures (Patient has full upper plate. It will come out.) Neck Range of motion (ROM): Limited ROM (Somewhat Decreased) Labs Anesthesia Preop lab: CBC WBC 6.1 K/mm3 (4.4-11.0) 02/14/25 06:01 02/14/25 RBC 4.60 M/mm3 (4.6-6.2) 02/14/25 06:01 02/14/25 Hgb 14.7 g/dL (13.0-16.5) 02/14/25 06:01 02/14/25 Hct 43.0 % (40-54) 02/14/25 06:01 02/14/25 Plt Count 211 K/mm3 (150-450) 02/14/25 06:01 02/14/25 CHEMISTRY Potassium 4.2 mmol/L (3.3-5.1) 02/14/25 06:01 02/14/25 Sodium 136 mmol/L (133-145) 02/14/25 06:01 02/14/25 BUN 13 mg/dL (4-19) 02/14/25 06:01 02/14/25 Creatinine 1.02 mg/dL (0.70-1.20) 02/14/25 06:01 02/14/25 Glucose 140 mg/dL (70-99) H 02/14/25 06:01 02/14/25 TSH 1.660 uIU/mL (0.300-4.200) 12/19/24 10:20 07/08/14 COAG Pre-Assessment Diagnosis/Proposed Procedure Planned Operative Procedure(s): Incision and drainage of left thumb. 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 When Was Last Pacemaker Check QUESTION #4 FULL TEXT: You/Your Family Experience fever (hyperthermia) with Anesthesia Last Oral Intake Last Oral intake: Last Oral Intake NPO since 20:00 02/14/25 12:35 Meds taken in AM with sips of No 02/14/25 12:35 water? Meds patient instructed to take am of surgery Any additional information?: Yes Meds taken in AM with sips of water?: Yes Meds patient instructed to take am of surgery: Metoprolol, Tylenol PONV PONV - neon sign servicer: PONV - neon sign servicer Female HX of Motion Sickness HX of N/V After Surgery Non-Smoker Duration of Surgery greater than 60 minutes Number of Risk Factors PONV Score Height & Weight Height & Weight: Anesthesia: Height & Weight Height 5 ft 9 in 02/14/25 12:35 Weight: 170 kg 02/14/25 12:35 Body Mass Index (BMI) 55.3 02/14/25 12:35 Respiratory Assessment Respiratory Assessment - neon sign servicer: Respiratory Tract Infection Hx - neon sign servicer Hx Respiratory Tract Infection No 02/13/25 19:50 STOP Sleep Apnea STOP Sleep Apnea - neon sign servicer: STOP Sleep Apnea - neon sign servicer Hx Hypertension Yes 02/13/25 12:45 Hx Sleep Apnea No 02/13/25 12:45 CPAP BIPAP Do you snore loudly (louder No 02/13/25 12:45 than talking or can be heard Do you often feel tired/ No 02/13/25 12:45 fatigued/ sleepy during daytime? Has anyone observed you stop Yes 02/13/25 12:45 breathing during sleep? STOP Results Positive 02/13/25 12:45 QUESTION #5 FULL TEXT : Do you snore loudly (louder than talking or can be heard through closeddoors)? 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 Specify any problems Hx of Preganancy in last 3 N/A 02/13/25 12:45 Months Nurse Filling Out Transfusion KMESSENGE 02/13/25 12:45 & Questions: Date: 02/13/25 02/13/25 12:45 Time: 12:57 02/13/25 12:45 Patient unable to answer at this time (ie. confused, unrespo /Reproduction History /Reproductive History - neon sign servicer: /Reproductive Hx- neon sign servicer Hx Now No 02/13/25 19:50 Gestational Age (in weeks): EDC: Hx Hx Para Hx Section SAB No 02/13/25 19:50 Active Medications Active Medications: Current Medications Generic Name Dose Route Start Last Admin Trade Name Freq PRN Reason Stop Dose Admin Acetaminophen 650 mg 02/13/25 19:39 02/13/25 21:11 Acetaminophen 325 Mg Tablet PO 650 mg Q6H PRN PRN Administration Pain Score 1-5 Atorvastatin Calcium 40 mg 02/13/25 22:00 02/13/25 21:11 Atorvastatin Calcium 40 Mg Tablet PO 40 mg QHS CANDY Administration Enoxaparin Sodium 40 mg 02/14/25 10:00 02/14/25 08:50 Enoxaparin 40 Mg/0.4 Ml Syringe SC Not Given DAILY CANDY Hydrochlorothiazide 25 mg 02/14/25 10:00 02/14/25 08:50 Hydrochlorothiazide 25 Mg Tablet PO Not Given DAILY CANDY Vancomycin IV-PHARMACY TO DOSE 500 mls @ 250 mls/hr 02/13/25 12:48 1 each/ Sodium Chloride IV X1 PRN Rx to Dose Protocol Sodium Chloride 250 mls @ 15 mls/hr 02/13/25 12:55 02/13/25 21:12 IV 15 mls/hr .[id number] PRN Administration Saline Flush Sodium Chloride 250 mls @ 15 mls/hr 02/13/25 12:55 IV .[id number] PRN Additional IVPB Infusion Vancomycin HCl 1,000 mg/ 270 mls @ 250 mls/hr 02/13/25 23:00 02/14/25 11:34 Sodium Chloride IV Infused Q12H CANDY Infusion Ceftriaxone Sodium 2 gm/ 50 mls @ 100 mls/hr 02/14/25 11:00 02/14/25 11:47 Sodium Chloride IV Infused Q24 CANDY Infusion Losartan Potassium 100 mg 02/14/25 10:00 02/14/25 08:50 Losartan Potassium 100 Mg Tablet PO Not Given DAILY CANDY Metoprolol Succinate 50 mg 02/14/25 10:00 02/14/25 08:52 Metoprolol(Xl)Succ 50 Mg Tablet PO 50 mg DAILY CANDY Administration Protocol Oxycodone HCl 5 mg 02/13/25 19:44 Oxycodone 5 Mg Tablet PO Q6H PRN PRN Pain Score 6-10 Pantoprazole Sodium 40 mg 02/14/25 10:00 02/14/25 08:51 Pantoprazole Sodium 40 Mg Tablet PO Not Given DAILY CANDY Sertraline HCl 50 mg 02/14/25 10:00 02/14/25 08:51 Sertraline 50 Mg Tablet PO Not Given DAILY CANDY Sodium Chloride 10 - 40 ml 02/13/25 12:55 02/13/25 21:11 0.9% Saline Lock 10 Ml Syringe IV 10 ml UD PRN Administration SALINE FLUSH Tamsulosin HCl 0.8 mg 02/13/25 22:00 02/13/25 21:13 Tamsulosin Hcl 0.4 Mg Capsule PO 0.8 mg QHS CANDY Administration Vancomycin Protocol 1 lab 02/14/25 21:30 Vancomycin Trough/Random Due 02/14/25 23:30 DAILY [facility] Medical History (Updated 02/14/25 @ 13:[address] Wing Pierre MD) COPD (chronic obstructive pulmonary disease) HTN (hypertension) Home Medications ?Medication ?Instructions ?Recorded ?Last Taken ?Type albuterol sulfate 90 mcg/actuation 2 puff inhalation Q 4H PRN copd 02/13/25 Unknown History aerosol inhaler atorvastatin 40 mg tablet 40 mg PO QHS 02/13/25 Unknow n History cephalexin 500 mg capsule 500 mg PO TID 02/13/25 Unkno wn History fluticasone 250 mcg-salmeterol 50 1 ea inhalation BID 02/13/25 Unknown History mcg/dose blistr powdr for inhalation metoprolol succinate 50 mg 50 mg PO DAILY htn 02/13/25 02/14/25 History tablet,extended release 24 hr omeprazole 40 [...] No Known Allergies Allergy Verified 02/13/25 09:56 Family History Other Diabetes Surgical History History of back surgery Social History Smoking Status: Current every day smoker tobacco type: cigarettes alcohol intake: current alcohol intake frequency: 3 or more drinks per day Alcohol type: beer Review of Systems (Anesthesia) ROS Narrative System reviewed and no additional complaints, except as documented. 02/14/25 1305 forrest MORGAN> Date _ Wing Pierre MD Cosignvidya Signature: Date CC: ~ Signed [facility]08-28-2025 Consult note Author Pranay Mi [facility] Note Date/Time February 14, 2025 10 :15am [facility] Medical Records Department [address] [place] [address] Consultation - Infectious Dx 02/14/25 1012 MR#: [id number] Acct: [id number] Name: COREY NEVILLE Rep #:[id number] : 1960 64 From: Pranay sifuentes MD PCP: Dr. aRul Patrick MD Status:ADM I N Location: [place] [id number] Assessment & Plan Assessment/Plan (1) Osteomyelitis of finger of left hand: PLAN: OR planned for today with Dr. Light. On empiric vanc/zosyn. Will narrow to vanc/ceftriaxone. Will follow, thank you HPI Consult Data Date of Consult: 02/14/25 HPI Narrative Reason for Consultation: osteo HPI Narrative: COREY NEVILLE, is a 64 M who hit L thumb with a hammer about a month ago. Developed subungual hematoma, progressive pain and swelling over past two weeks. Saw PCP, started on bactrim and keflex, took for about 2.5 days, then came to ED 02/13. Admitted on vanc/zosyn, now OR planned. No drainage, no fever. He isR handed. Full ROS performed and neg except as noted above. [facility] Medical History HTN (hypertension) Home Medications ?Medication ?Instructions ?Recorded ?Last Taken ?Type albuterol sulfate 90 mcg/actuation 2 puff inhalation Q 4H PRN copd 02/13/25 Unknown History aerosol inhaler atorvastatin 40 [...] No Known Allergies Allergy Verified 02/13/25 09:56 Family History (Updated 02/13/25 @ 13:[address] Eric Nichols MD) Other Diabetes Surgical History (Updated 02/13/25 @ 13:[address] Eric Nichols MD) History of back surgery Social History (Updated 02/13/25 @ 13:[address] Eric Nichols MD) Smoking Status: Current every day smoker tobacco type: cigarettes alcohol intake: current alcohol intake frequency: 3 or more drinks per day Alcohol type: beer Physical Exam Const alert, oriented x3 and no apparent distress General Appearance: cooperative HEENT normocephalic and head/scalp atraumatic Eyes PERRL and EOMs intact bilaterally Neck supple and No nodes Resp normal air movement and clear to auscultation bilaterally Cardio regular rate and regular rhythm GI soft to palpation, non-tender and non-distended Extremity General Extremity: Negative for edema Skin Skin Narrative: L thumb with swelling, limited ROM, dark subungual hematoma Neuro CN's II-XII intact bilaterally Lab / Micro Data Attestation: I reviewed the patient's lab results. 02/14/25 06:01 02/14/25 06:01 Labs: Laboratory Results - last 24 hr 02/13/25 10:05: WBC 6.6, RBC 4.97, Hgb 16.0, Hct 45.7, MCV 92.0, MCH 32.2 H, MCHC 35.0, RDW Std Deviation 39.0, RDW Coeff of Roseanna 11.5 L, Plt Count 211, MPV 8.3, Immature Gran % (Auto) 0.300, Neut % (Auto) 64.6, Lymph % (Auto) 22.3, Maries% (Auto) 9.3, Eos % (Auto) 2.7, Baso [...] Albumin 4.5, Globulin 3.4, Albumin/Globulin Ratio 1.3 02/14/25 06:01: WBC 6.1, RBC 4.60, Hgb 14.7, Hct 43.0, MCV 93.5, MCH 32.0, MCHC 34.2, RDW Std Deviation 39.9, RDW Coeff of Roseanna 11.6, Plt Count 211, MPV 8.9, Immature Gran % (Auto) 0.200, Neut % (Auto) 61.8, Lymph % (Auto) 22.8, Maries % (Auto) 9.6, Eos % (Auto) 4.8, Baso % (Auto) 0.8, Absolute Neuts (auto) 3.8, Absolute Lymphs (auto) 1.38, Nucleated RBC % 0, Sodium 136, Potassium 4.2, Chloride 102, Carbon Dioxide 22.5, Anion Gap 12, BUN 13, Creatinine 1.02, Estim Creat Clear Calc 72.20, Est GFR (MDRD) Non-Af 82, BUN/Creatinine Ratio 13.1, Glucose 140 H, Calcium 9.3 Imaging Radiology Impression Upper Extremity MRI 02/13/25 12:48 IMPRESSION: Findings concerning for osteomyelitis of the left thumb distal phalanx. Reading Location: [place] [address] 02/14/25 1015 <Electronically signed by Pranay Mi MD> Cosigner Signature (if applicable): CC: Dr. Raul Patrick MD~ Signed [facility] Work Phone: 1(176) 180-269608-28-2025 Progress note Author Eric Nichols [facility] Note Date/Time February 14, 2025 8: 50am [facility] Medical Records Department [address] [place] [address] Progress Note - Hospitalist 02/14/2548 MR#: [id number] Acct: [id number] Name: STACYEricCOREY Rep #:[id number] : 1960 64 From: Eric echeverria MD PCP: Dr. Raul Patrick MD Status:ADM I N Location: [facility] HH116-8 Subjective Subjective Doing well, no issues overnight. MRI is positive for distal phalanx osteomyelitis, plan for surgery today Objective Data Objective Data Vital Signs: Vital Signs Temp Pulse Resp BP Pulse Ox O2 Del Method 98.3 F 81 18 137/81 H 97 Room Air 02/14/25 08:44 02/14/25 08:44 02/14/25 08:44 02/14/25 08:44 02/14/25 08:44 02/14/25 08:44 Oxygen Delivery Method Room Air Weight: 165 lb 3.2 oz Body Mass Index (BMI) 24.3 Intake & Output: Intake and Output for Last 24 Hours 02/13/25 02/14/25 02/15/25 03:59 03:59 03:59 Intake Total 1145 / 1145 Balance 1145 / 1145 Lab / Micro Data 02/14/25 06:01 02/14/25 06:01 Labs: Laboratory Results - last 24 hr 02/13/25 10:05: WBC 6.6, RBC 4.97, Hgb 16.0, Hct 45.7, MCV 92.0, MCH 32.2 H, MCHC 35.0, RDW Std Deviation 39.0, RDW Coeff of Roseanna 11.5 L, Plt Count 211, MPV 8.3, Immature Gran % (Auto) 0.300, Neut % (Auto) 64.6, Lymph % (Auto) 22.3, Maries% (Auto) 9.3, Eos % (Auto) 2.7, Baso [...] Albumin 4.5, Globulin 3.4, Albumin/Globulin Ratio 1.3 02/14/25 06:01: WBC 6.1, RBC 4.60, Hgb 14.7, Hct 43.0, MCV 93.5, MCH 32.0, MCHC 34.2, RDW Std Deviation 39.9, RDW Coeff of Rosaenna 11.6, Plt Count 211, MPV 8.9, Immature Gran % (Auto) 0.200, Neut % (Auto) 61.8, Lymph % (Auto) 22.8, Maries % (Auto) 9.6, Eos % (Auto) 4.8, Baso % (Auto) 0.8, Absolute Neuts (auto) 3.8, Absolute Lymphs (auto) 1.38, Nucleated RBC % 0, Sodium 136, Potassium 4.2, Chloride 102, Carbon Dioxide 22.5, Anion Gap 12, BUN 13, Creatinine 1.02, Estim Creat Clear Calc 72.20, Est GFR (MDRD) Non-Af 82, BUN/Creatinine Ratio 13.1, Glucose 140 H, Calcium 9.3 Radiography Diagnostic Testing: Radiology Impression Upper Extremity MRI 02/13/25 12:48 IMPRESSION: Findings concerning for osteomyelitis of the left thumb distal phalanx. Reading Location: [place] [address] Physical Exam Narrative General: Alert, Oriented x3, Cooperative, No apparent distress HEENT: Atraumatic, PERRLA, EOMI, Normocephalic Oral: Moist Mucosa Neck: Supple, No JVD Lungs: Clear to auscultation, Normal air movement, No rhonchi, No wheeze, No rales Cardiovascular: Regular rate, Regular Rhythm, Normal S1, Normal S2, No murmurs Abdomen: Soft, Non Tender, Non-Distended, No Hepato-splenomegaly Extremities: No edema, Capillary Refill Less than 3 Seconds Skin: No rashes, No breakdown Musculoskeletal: Left thumb is swollen and red with subungual hematoma Neurological: No focal neurological deficits, Motor Exam 5/5 strength throughout, Sensory exam intact to light touch and pain Psych/Mental Status: Normal Affect, Appropriate Assessment & Plan Assessment/Plan (1) Subungual hematoma of finger of left hand: (2) Osteomyelitis of finger of left hand: PLAN: Plan 1. Subungual hematoma with osteomyelitis of the left hand ? MRI with osteomyelitis ? Appreciate plastic surgery's assistance ? Continue with IV Zosyn and vancomycin ? Given osteomyelitis on the MRI plan for surgery today will consult ID for outpatient antibiotic recommendations 2. Essential HTN/HLD ? Blood pressure stable ? Continue with his home blood pressure medications ? Will monitor and make adjustments as necessary ? Continue Lipitor 3. Anxiety/depression/alcohol abuse ? Stable ? Continue with his home medications ? Continue with CIWA protocol so far does not require medications and is not interested in quitting 4. GERD ? Stable ? 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 Continue with Flomax DVT: Lovenox Charges/Coding Visit Charges Inpatient E&M: 68654 Subs Hosp L2 02/14/25 0850 <Electronically signed by Eric Nichols MD> Noaher Signature (if applicable): CC: ~ Signed [facility] Work Phone: 1(874) 456-689108-28-2025 Progress note Author Pranay Light [facility] Note Date/Time February 14, 2025 8: 31am [facility] Medical Records Department [address] [place] [address] [place] [address] Progress Note - Surgery 02/14/25827 MR#: [id number] Acct: [id number] Name: COREY NEVILLE Rep #:[id number] : 1960 64 From: Pranay Light MD PCP: Dr. Raul Patrick MD Status:ADM I N Location: [place] [address]-1 Subjective Subjective Doing about the same this morning. Persistent pain. MRI confirming osteomyelitis extensively on the distal phalanx. Objective Data Objective Data Vital Signs: Vital Signs Temp Pulse Resp BP Pulse Ox O2 Del Method 98.1 F 78 20 H 149/74 H 99 Room Air 02/14/25 04:41 02/14/25 04:41 02/14/25 04:41 02/14/25 04:41 02/14/25 04:41 02/14/25 04:41 Oxygen Delivery Method Room Air Weight: 165 lb 3.2 oz Body Mass Index (BMI) 24.3 Intake & Output: Intake and Output for Last 24 Hours 02/12/25 02/13/25 02/14/25 23:59 23:59 23:59 Intake Total 325 / 825 820 / 820 Balance 325 / 825 820 / 820 Lab / Micro Data 02/14/25 06:01 02/14/25 06:01 Labs: Laboratory Results - last 24 hr 02/13/25 10:05: WBC 6.6, RBC 4.97, Hgb 16.0, Hct 45.7, MCV 92.0, MCH 32.2 H, MCHC 35.0, RDW Std Deviation 39.0, RDW Coeff of Roseanna 11.5 L, Plt Count 211, MPV 8.3, Immature Gran % (Auto) 0.300, Neut % (Auto) 64.6, Lymph % (Auto) 22.3, Maries% (Auto) 9.3, Eos % (Auto) 2.7, Baso [...] Albumin 4.5, Globulin 3.4, Albumin/Globulin Ratio 1.3 02/14/25 06:01: WBC 6.1, RBC 4.60, Hgb 14.7, Hct 43.0, MCV 93.5, MCH 32.0, MCHC 34.2, RDW Std Deviation 39.9, RDW Coeff of Roseanna 11.6, Plt Count 211, MPV 8.9, Immature Gran % (Auto) 0.200, Neut % (Auto) 61.8, Lymph % (Auto) 22.8, Maries % (Auto) 9.6, Eos % (Auto) 4.8, Baso % (Auto) 0.8, Absolute Neuts (auto) 3.8, Absolute Lymphs (auto) 1.38, Nucleated RBC % 0, Sodium 136, Potassium 4.2, Chloride 102, Carbon Dioxide 22.5, Anion Gap 12, BUN 13, Creatinine 1.02, Estim Creat Clear Calc 72.20, Est GFR (MDRD) Non-Af 82, BUN/Creatinine Ratio 13.1, Glucose 140 H, Calcium 9.3 Radiography Diagnostic Testing: Radiology Impression Upper Extremity MRI 02/13/25 12:48 IMPRESSION: Findings concerning for osteomyelitis of the left thumb distal phalanx. Reading Location: [place] [address] Physical Exam Narrative Left upper Extremity Inspection: [...] well perfused with <2 second capillary refill. Assessment & Plan Assessment/Plan (1) Subungual hematoma of finger of left hand: (2) Osteomyelitis of finger of left hand: PLAN: Plan Agree with broad-spectrum antibiotics and ID consultation I talked to the patient on rounds this morning about removal of the thumbnail and debridement of any necrotic wound bed underneath the nail plate. This wouldinclude bone cultures. Patient is in agreement. He understands the risks, benefits, and alternatives of the operation. He understands that there is a significant risk that he loses some of his thumb secondary to extensive osteomyelitis and bony destruction. He understands that debridement today may assist with treatment but definitive treatment will certainly require long-term IV antibiotics but also potential for revision amputation. Patient understands the risk of bleeding, the risk of infection, damage to surrounding structures, problems with anesthesia, as well as the likelihood of a wound requiring wound care postoperatively. Continue n.p.o. Plan for MAC local thumb I&D today Plastics will follow 02/14/25830 <Electronically signed by Pranay Light MD> Cosigner Signature (if applicable): CC: ~ Signed [facility] Work Phone: 1(266) 195-771708-28-2025 Consult note [facility] Medical Records Department [address] [place] [address] Consultation - Infectious Dx 02/14/25 1012 MR#: [id number] Acct: [id number] Name: COREY NEVILLE Rep #:[id number] : 1960 64 From: Pranay sifuentes MD PCP: Dr. Raul Patrick MD Status:ADM I N Location: [place] [address] Assessment & Plan Assessment/Plan (1) Osteomyelitis of finger of left hand: PLAN: OR planned for today with Dr. Light. On empiric vanc/zosyn. Will narrow to vanc/ceftriaxone. Will follow, thank you HPI Consult Data Date of Consult: 02/14/25 HPI Narrative Reason for Consultation: osteo HPI Narrative: COREY NEVILLE, is a 64 M who hit L thumb with a hammer about a month ago. Developed subungual hematoma, progressive pain and swelling over past two weeks. Saw PCP, started on bactrim and keflex, took for about 2.5 days, then came to ED 02/13. Admitted on vanc/zosyn, now OR planned. No drainage, no fever. He isR handed. Full ROS performed and neg except as noted above. [facility] Medical History HTN (hypertension) Home Medications ?Medication ?Instructions ?Recorded ?Last Taken ?Type albuterol sulfate 90 mcg/actuation 2 puff inhalation Q 4H PRN copd 02/13/25 Unknown History aerosol inhaler atorvastatin 40 [...] No Known Allergies Allergy Verified 02/13/25 09:56 Family History (Updated 02/13/25 @ 13:[address] Eric Nichols MD) Other Diabetes Surgical History (Updated 02/13/25 @ 13:[address] Eric Nichols MD) History of back surgery Social History (Updated 02/13/25 @ 13:[address] Eric Nichols MD) Smoking Status: Current every day smoker tobacco type: cigarettes alcohol intake: current alcohol intake frequency: 3 or more drinks per day Alcohol type: beer Physical Exam Const alert, oriented x3 and no apparent distress General Appearance: cooperative HEENT normocephalic and head/scalp atraumatic Eyes PERRL and EOMs intact bilaterally Neck supple and No nodes Resp normal air movement and clear to auscultation bilaterally Cardio regular rate and regular rhythm GI soft to palpation, non-tender and non-distended Extremity General Extremity: Negative for edema Skin Skin Narrative: L thumb with swelling, limited ROM, dark subungual hematoma Neuro CN's II-XII intact bilaterally Lab / Micro Data Attestation: I reviewed the patient's lab results. 02/14/25 06:01 02/14/25 06:01 Labs: Laboratory Results - last 24 hr 02/13/25 10:05: WBC 6.6, RBC 4.97, Hgb 16.0, Hct 45.7, MCV 92.0, MCH 32.2 H, MCHC 35.0, RDW Std Deviation 39.0, RDW Coeff of Roseanna 11.5 L, Plt Count 211, MPV 8.3, Immature Gran % (Auto) 0.300, Neut % (Auto) 64.6, Lymph % (Auto) 22.3, Maries% (Auto) 9.3, Eos % (Auto) 2.7, Baso % (Auto) 0.8, Absolute Neuts (auto) 4.3, Absolute Lymphs (auto) 1.47, Nucleated RBC % 0, Sodium 134, Potassium 4.1, Chloride 98, Carbon Dioxide 22.1, Anion Gap 14, BUN 12, Creatinine 1.07, Estim Creat Clear Calc 68.83, Est GFR(MDRD) Non-Af 77, BUN/Creatinine Ratio 11.6, Glucose 129 H, Lactic Acid 1.5, Calcium 10.0, Total Bilirubin 0.72, AST 29, ALT 30, Alkaline Phosphatase 130 H, Total Protein 7.9, Albumin 4.5, Globulin 3.4, Albumin/Globulin Ratio 1.3 02/14/25 06:01: WBC 6.1, RBC 4.60, Hgb 14.7, Hct 43.0, MCV 93.5, MCH 32.0, MCHC 34.2, RDW Std Deviation 39.9, RDW Coeff of Roseanna 11.6, Plt Count 211, MPV 8.9, Immature Gran % (Auto) 0.200, Neut % (Auto) 61.8, Lymph % (Auto) 22.8, Maries % (Auto) 9.6, Eos % (Auto) 4.8, Baso % (Auto) 0.8, Absolute Neuts (auto) 3.8, Absolute Lymphs (auto) 1.38, Nucleated RBC % 0, Sodium 136, Potassium 4.2, Chloride 102,Carbon Dioxide 22.5, Anion Gap 12, BUN 13, Creatinine 1.02, Estim Creat Clear Calc 72.20, Est GFR (MDRD) Non-Af 82, BUN/Creatinine Ratio 13.1, Glucose 140 H, Calcium 9.3 Imaging Radiology Impression Upper Extremity MRI 02/13/25 12:48 IMPRESSION: Findings concerning for osteomyelitis of the left thumb distal phalanx. Reading Location: [place] [address] 02/14/25 1015 Cosigner Signature (if applicable): CC: Dr. Raul Patrick MD~ Signed [facility]08-28-2025 Progress note [facility] Medical Records Department [address] [place] [address] Progress Note - Hospitalist 02/14/2548 MR#: [id number] Acct: [id number] Name: COREY NEVILLE Rep #:[id number] : 1960 64 From: Eric echeverria MD PCP: Dr. Raul Patrick MD Status:ADM I N Location: [facility] CL768-5 Subjective Subjective Doing well, no issues overnight. MRI is positive for distal phalanx osteomyelitis, plan for surgerytoday Objective Data Objective Data Vital Signs: Vital Signs Temp Pulse Resp BP Pulse Ox O2 Del Method 98.3 F 81 18 137/81 H 97 Room Air 02/14/25 08:44 02/14/25 08:44 02/14/25 08:44 02/14/25 08:44 02/14/25 08:44 02/14/25 08:44 Oxygen Delivery Method Room Air Weight: 165 lb 3.2 oz Body Mass Index (BMI) 24.3 Intake & Output: Intake and Output for Last 24 Hours 02/13/25 02/14/25 02/15/25 03:59 03:59 03:59 Intake Total 1145 / 1145 Balance 1145 / 1145 Lab / Micro Data 02/14/25 06:01 02/14/25 06:01 Labs: Laboratory Results - last 24 hr 02/13/25 10:05: WBC 6.6, RBC 4.97, Hgb 16.0, Hct 45.7, MCV 92.0, MCH 32.2 H, MCHC 35.0, RDW Std Deviation 39.0, RDW Coeff of Roseanna 11.5 L, Plt Count 211, MPV 8.3, Immature Gran % (Auto) 0.300, Neut % (Auto) 64.6, Lymph % (Auto) 22.3, Maries% (Auto) 9.3, Eos % (Auto) 2.7, Baso % (Auto) 0.8, Absolute Neuts (auto) 4.3, Absolute Lymphs (auto) 1.47, Nucleated RBC % 0, Sodium 134, Potassium 4.1, Chloride 98, Carbon Dioxide 22.1, Anion Gap 14, BUN 12, Creatinine 1.07, Estim Creat Clear Calc 68.83, Est GFR(MDRD) Non-Af 77, BUN/Creatinine Ratio 11.6, Glucose 129 H, Lactic Acid 1.5, Calcium 10.0, Total Bilirubin 0.72, AST 29, ALT 30, Alkaline Phosphatase 130 H, Total Protein 7.9, Albumin 4.5, Globulin 3.4, Albumin/Globulin Ratio 1.3 02/14/25 06:01: WBC 6.1, RBC 4.60, Hgb 14.7, Hct 43.0, MCV 93.5, MCH 32.0, MCHC 34.2, RDW Std Deviation 39.9, RDW Coeff of Roseanna 11.6, Plt Count 211, MPV 8.9, Immature Gran % (Auto) 0.200, Neut % (Auto) 61.8, Lymph % (Auto) 22.8, Maries % (Auto) 9.6, Eos % (Auto) 4.8, Baso % (Auto) 0.8, Absolute Neuts (auto) 3.8, Absolute Lymphs (auto) 1.38, Nucleated RBC % 0, Sodium 136, Potassium 4.2, Chloride 102,Carbon Dioxide 22.5, Anion Gap 12, BUN 13, Creatinine 1.02, Estim Creat Clear Calc 72.20, Est GFR (MDRD) Non-Af 82, BUN/Creatinine Ratio 13.1, Glucose 140 H, Calcium 9.3 Radiography Diagnostic Testing: Radiology Impression Upper Extremity MRI 02/13/25 12:48 IMPRESSION: Findings concerning for osteomyelitis of the left thumb distal phalanx. Reading Location: [place] [address] Physical Exam Narrative General: Alert, Oriented x3, Cooperative, No apparent distress HEENT: Atraumatic, PERRLA, EOMI, Normocephalic Oral: Moist Mucosa Neck: Supple, No JVD Lungs: Clear to auscultation, Normal air movement, No rhonchi, No wheeze, No rales Cardiovascular: Regular rate, Regular Rhythm, Normal S1, Normal S2, No murmurs Abdomen: Soft, Non Tender, Non-Distended, No Hepato-splenomegaly Extremities: No edema, Capillary Refill Less than 3 Seconds Skin: No rashes, No breakdown Musculoskeletal: Left thumb is swollen and red with subungual hematoma Neurological: No focal neurological deficits, Motor Exam 5/5 strength throughout, Sensory exam intact to light touch and pain Psych/Mental Status: Normal Affect, Appropriate Assessment & Plan Assessment/Plan (1) Subungual hematoma of finger of left hand: (2) Osteomyelitis of finger of left hand: PLAN: Plan 1. Subungual hematoma with osteomyelitis of the left hand ? MRI with osteomyelitis ? Appreciate plastic surgery's assistance ? Continue with IV Zosyn and vancomycin ? Given osteomyelitis on the MRI plan for surgery today will consult ID for outpatient antibiotic recommendations 2. Essential HTN/HLD ? Blood pressure stable ? Continue with his home blood pressure medications ? Will monitor and make adjustments as necessary ? Continue Lipitor 3. Anxiety/depression/alcohol abuse ? Stable ? Continue with his home medications ? Continue with CIWA protocol so far does not require medications and is not interested in quitting 4. GERD ? Stable ? 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 Continue with Flomax DVT: Lovenox Charges/Coding Visit Charges Inpatient E&M: 26111 Subs Hosp L2 02/14/25 0850 Cosigner Signature (if applicable): CC: ~ Signed [facility]08-28-2025 Progress note [facility] Medical Records Department [address] [place] [address] Progress Note - Surgery 02/14/25827 MR#: [id number] Acct: [id number] Name: COREY NEVILLE Rep #:[id number] : 1960 64 From: Pranay Light MD PCP: Dr. Raul Chi Darnell, MD Status:ADM I N Location: MS3 TJ833-6 Subjective Subjective Doing about the same this morning. Persistent pain. MRI confirming osteomyelitis extensively on the distal phalanx. Objective Data Objective Data Vital Signs: Vital Signs Temp Pulse Resp BP Pulse Ox O2 Del Method 98.1 F 78 20 H 149/74 H 99 Room Air 02/14/25 04:41 02/14/25 04:41 02/14/25 04:41 02/14/25 04:41 02/14/25 04:41 02/14/25 04:41 Oxygen Delivery Method Room Air Weight: 165 lb 3.2 oz Body Mass Index (BMI) 24.3 Intake & Output: Intake and Output for Last 24 Hours 02/12/25 02/13/25 02/14/25 23:59 23:59 23:59 Intake Total 325 / 825 820 / 820 Balance 325 / 825 820 / 820 Lab / Micro Data 02/14/25 06:01 02/14/25 06:01 Labs: Laboratory Results - last 24 hr 02/13/25 10:05: WBC 6.6, RBC 4.97, Hgb 16.0, Hct 45.7, MCV 92.0, MCH 32.2 H, MCHC 35.0, RDW Std Deviation 39.0, RDW Coeff of Roseanna 11.5 L, Plt Count 211, MPV 8.3, Immature Gran % (Auto) 0.300, Neut % (Auto) 64.6, Lymph % (Auto) 22.3, Maries% (Auto) 9.3, Eos % (Auto) 2.7, Baso % (Auto) 0.8, Absolute Neuts (auto) 4.3, Absolute Lymphs (auto) 1.47, Nucleated RBC % 0, Sodium 134, Potassium 4.1, Chloride 98, Carbon Dioxide 22.1, Anion Gap 14, BUN 12, Creatinine 1.07, Estim Creat Clear Calc 68.83, Est GFR(MDRD) Non-Af 77, BUN/Creatinine Ratio 11.6, Glucose 129 H, Lactic Acid 1.5, Calcium 10.0, Total Bilirubin 0.72, AST 29, ALT 30, Alkaline Phosphatase 130 H, Total Protein 7.9, Albumin 4.5, Globulin 3.4, Albumin/Globulin Ratio 1.3 02/14/25 06:01: WBC 6.1, RBC 4.60, Hgb 14.7, Hct 43.0, MCV 93.5, MCH 32.0, MCHC 34.2, RDW Std Deviation 39.9, RDW Coeff of Roseanna 11.6, Plt Count 211, MPV 8.9, Immature Gran % (Auto) 0.200, Neut % (Auto) 61.8, Lymph % (Auto) 22.8, Maries % (Auto) 9.6, Eos % (Auto) 4.8, Baso % (Auto) 0.8, Absolute Neuts (auto) 3.8, Absolute Lymphs (auto) 1.38, Nucleated RBC % 0, Sodium 136, Potassium 4.2, Chloride 102,Carbon Dioxide 22.5, Anion Gap 12, BUN 13, Creatinine 1.02, Estim Creat Clear Calc 72.20, Est GFR (MDRD) Non-Af 82, BUN/Creatinine Ratio 13.1, Glucose 140 H, Calcium 9.3 Radiography Diagnostic Testing: Radiology Impression Upper Extremity MRI 02/13/25 12:48 IMPRESSION: Findings concerning for osteomyelitis of the left thumb distal phalanx. Reading Location: [place] [address] Physical Exam Narrative Left upper Extremity Inspection: Subungual hematoma. Distal finger swelling but no fluid collection within the fingertippulp (there is no felon) . There is [...] well perfused with <2 second capillary refill. Assessment & Plan Assessment/Plan (1) Subungual hematoma of finger of left hand: (2) Osteomyelitis of finger of left hand: PLAN: Plan Agree with broad-spectrum antibiotics and ID consultation I talked to the patient on rounds this morning about removal of the thumbnail and debridement of any necrotic wound bed underneath the nail plate. This wouldinclude bone cultures. Patient is in agreement. He understands the risks, benefits, and alternatives of the operation. He understands that there is a significant risk that he loses some of his thumb secondary to extensive osteomyelitis and bony destruction. He understands that debridement today may assist with treatment but definitive treatment will certainly require long-term IV antibiotics but also potential for revision amputation. Patient understands the risk of bleeding, the risk of infection, damage to surrounding structures, problems with anesthesia, as well as the likelihood of a wound requiring wound care postoperatively. Continue n.p.o. Plan for MAC local thumb I&D today Plastics will follow 02/14/25 0831 Cosigner Signature (if applicable): CC: ~ Signed [facility]08-27-2025 Consult note Author Otoniel Saha [facility] Note Date/Time February 13, 2025 1: 47pm [facility] Medical Records Department [address] [place] [address] Pharmacokinetic/Renal -Consult 02/13/25 1319 MR#: [id number] Acct: [id number] Name: COREY NEVILLE Rep #:[id number] : 1960 64 From: Otoniel holbrook PCP: Dr. Raul Patrick MD Status:ADM I N Y Location: [place] [address] Consult Antibiotic Management Pharmacy has been consulted to manage selected antibiotic: Vancomycin Type of Intervention Type of Consult: New start Suspected Infection Suspected Infection: Osteomyelitis Prior Doses of Antibiotics Prior Doses of Antibiotics Received/Current Regimen: received vanc 1250mg IV x1 in E.R. today starting at 11:01 Labs Labs: Sodium 134 mmol/L (133-145) 02/13/25 10:05 Potassium 4.1 mmol/L (3.3-5.1) 02/13/25 10:05 Chloride 98 mmol/L (98-108) 02/13/25 10:05 Carbon Dioxide 22.1 mmol/L (21.0-32.0) 02/13/25 10:05 Anion Gap 14 (5-15) 02/13/25 10:05 BUN 12 mg/dL (4-19) 02/13/25 10:05 Creatinine 1.07 mg/dL (0.70-1.20) 02/13/25 10:05 Est GFR (MDRD) Non-Af 77 (>60) 02/13/25 10:05 BUN/Creatinine Ratio 11.6 RATIO (10-20) 02/13/25 10:05 Glucose 129 mg/dL (70-99) H 02/13/25 10:05 Dosing Weight Weight used for dosin lb 5.547 oz Estimated Creatinine Clearance Estimated Creatinine Clearance: 69ml/min Goal Trough Goal Trough: 15-20 mcg/mL Pharmacy Plan for Drug Dosing Pharmacy Plan for Drug Dosing: Starting 12 hours after the E.R. dose, continue with vanc 1000mg IV q12h per WCHdosing protocol. Check a trough before the 4th overall dose tomorrow night. Pharmacy Service will continue to monitor and adjust dosing as required. Follow-Up Labs Follow-Up Labs: Trough: Vancomycin Date/Time Labs Ordered Labs to be done on [date and time ordered]: 02/14/25 22:30 02/13/25 1322 <Electronically signed by Otoniel faria> Date _ Otoniel Saha 02/13/25 1347 <Electronically signed by Eric zamarripa MD> Cosigner Signature (if applicable): Date Eric Nichols MD CC: ~ Signed [facility] Work Phone: 1(785) 847-921308-27-2025 History and physical note Author Eric Nichols [facility] Note Date/Time February 13, 2025 1: 47pm [facility] Medical Records Department [address] [place] [address] H&P Exam - Hospitalist 02/13/25 1247 MR#: [id number] Acct: [id number] Name: COREY NEVILLE Rep #:[id number] : 1960 64 From: Eric echeverria MD PCP: Dr. Raul Patrick MD Status:ADM I N Location: [facility] ZZ076-3 HPI - General General Date of Admission: 02/13/25 HPI Narrative CORYE NEVILLE, is a 64 M who presents approximately 1 month after hitting his left thumb with a hammer. He did have a cut on his hand and had a hematoma under his left nail. He went to his PCP who put him on Keflex and Bactrim 2 days ago. During that appointment he had an x-ray obtained which demonstrates bony destruction on his distal phalanx of his left thumb consistent with osteomyelitis. No leukocytosis or signs of sepsis however plastic surgery was consulted recommending an MRI with IV antibiotics for evaluation of possible debridement versus amputation. [facility] Medical History (Updated 02/13/25 @ 11:46 by Shad Lancaster MD) HTN (hypertension) Home Medications ?Medication ?Instructions ?Recorded ?Last Taken ?Type albuterol sulfate 90 mcg/actuation 2 puff inhalation Q 4H PRN copd 02/13/25 Unknown History aerosol inhaler atorvastatin 40 [...] No Known Allergies Allergy Verified 02/13/25 09:56 Family History (Updated 02/13/25 @ 13:[address] Eric Nichols MD) Other Diabetes Surgical History (Updated 02/13/25 @ 13:[address] Eric Nichols MD) History of back surgery Social History (Updated 02/13/25 @ 13:[address] Eric Nichols MD) Smoking Status: Current every day smoker tobacco type: cigarettes alcohol intake: current alcohol intake frequency: 3 or more drinks per day Alcohol type: beer ROS Constitutional Constitutional: Denies chills, fatigue, fever(s) or malaise Eyes Eyes: Denies blurry vision ENT HEENT: Denies headache(s) or nasal discharge Cardiovascular Cardiovascular: Denies chest pain, dyspnea on exertion or syncope Respiratory/Chest Respiratory/Chest: Denies cough, shortness of breath at rest or shortness of breath with exertion Gastrointestinal Gastrointestinal: Denies constipation, diarrhea, nausea or vomiting Genitourinary Genitourinary: Denies dysuria Musculoskeletal Musculoskeletal: Reports other Details: Left thumb swelling Neurologic Neurologic: Denies focal weakness, numbness or tremor(s) Psychiatric Psychiatric: Denies anxiety or depression Vital Signs Vital Signs Vital Signs: 02/13/25 09:55 02/13/25 09:59 02/13/25 11:04 Temperature 96.8 F L 96.8 F L 97 F L Temperature Source Temporal Temporal Temporal Pulse Rate 80 80 72 Respiratory Rate 17 17 18 Blood Pressure 173/83 H 173/83 H 161/75 H Blood Pressure Mean 113 113 103 Pulse Ox 99 99 96 Oxygen Delivery Method Room Air Room Air 02/13/25 11:33 Temperature 98.1 F Temperature Source Pulse Rate 78 Respiratory Rate 16 Blood Pressure 152/75 H Blood Pressure Mean 100 Pulse Ox 100 Oxygen Delivery Method Weight Weight: 166 lb Body Mass Index (BMI) 24.1 Physical Exam Narrative General: Alert, Oriented x3, Cooperative, No apparent distress HEENT: Atraumatic, PERRLA, EOMI, Normocephalic Oral: Moist Mucosa Neck: Supple, No JVD Lungs: Clear to auscultation, Normal air movement, No rhonchi, No wheeze, No rales Cardiovascular: Regular rate, Regular Rhythm, Normal S1, Normal S2, No murmurs Abdomen: Soft, Non Tender, Non-Distended, No Hepato-splenomegaly Extremities: No edema, Capillary Refill Less than 3 Seconds Skin: No rashes, No breakdown Musculoskeletal: Left thumb is swollen and red with subungual hematoma Neurological: No focal neurological deficits, Motor Exam 5/5 strength throughout, Sensory exam intact to light touch and pain Psych/Mental Status: Normal Affect, Appropriate Results Lab / Micro Data 02/13/25 10:05 02/13/25 10:05 Labs: Laboratory Results - last 24 hr 02/13/25 10:05: WBC 6.6, RBC 4.97, Hgb 16.0, Hct 45.7, MCV 92.0, MCH 32.2 H, MCHC 35.0, RDW Std Deviation 39.0, RDW Coeff of Roseanna 11.5 L, Plt Count 211, MPV 8.3, Immature Gran % (Auto) 0.300, Neut % (Auto) 64.6, Lymph % (Auto) 22.3, Maries% (Auto) 9.3, Eos % (Auto) 2.7, Baso [...] Albumin 4.5, Globulin 3.4, Albumin/Globulin Ratio 1.3 Assessment & Plan Assessment/Plan (1) Subungual hematoma of finger of left hand: (2) Osteomyelitis of finger of left hand: PLAN: Plan 1. Subungual hematoma with osteomyelitis of the left hand ? Will get an MRI to confirm osteomyelitis ? Appreciate plastic surgery's assistance ? Continue with IV Zosyn and vancomycin ? If it demonstrates osteomyelitis on the MRI then will obtain consultation by infectious disease for outpatient antibiotics if necessary 2. Essential HTN/HLD ? Blood pressure stable?continue with his home blood pressure medications ? Will monitor and make adjustments as necessary?continue Lipitor 3. Anxiety/depression ? Stable ? Continue with his home medications 4. GERD ? Stable ? 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 Continue with Flomax DVT: Lovenox 75 minutes was spent on direct patient care, including documentation as well as chart review and collaboration with colleagues Charges/Coding Visit Charges Inpatient E&M: 74826 Init Hosp L3 02/13/25 1347 <Electronically signed by Eric Nichols MD> Cosigner Signature (if applicable): CC: Dr. Eric Nichols MD; Dr. Raul Patrick MD~ Signed [facility] Work Phone: 1(842) 737-674508-27-2025 Consult note Author Pranay Light [facility] Note Date/Time February 13, 2025 12 :24pm [facility] Medical Records Department [address] [place] [address] Consultation - Surgical 02/13/25 1219 MR#: [id number] Acct: [id number] Name: COREY NEVILLE Rep #:[id number] : 1960 64 From: Pranay Light MD PCP: Dr. Raul Patrick MD Status:ADM I N Location: [facility] CW025-6 Assessment & Plan Assessment/Plan (1) Subungual hematoma [...] HPI Narrative: COREY NEVILLE is a 64-year-old [id number] male who presents to the emergency department [...] was relayed to the emergency department physician). PFSH Medical History HTN (hypertension) Home Medications ?Medication [...] % (Auto) 64.6, Lymph % (Auto) 22.3, Maries% (Auto) 9.3, Eos % (Auto) 2.7, Baso [...] Charges/Coding Visit Charges Office Visits / Consults: 40223 OV L3 New 30min 02/13/25 1224 <Electronically signed by Pranay Light MD> Cosigner Signature (if applicable): CC: Dr. Raul Patrick MD~ Signed [facility] Work Phone: 1(751) 717-304508-27-2025 Consult note [facility] Medical Records Department [address] [place] [address] Pharmacokinetic/Renal -Consult 02/13/25 1319 MR#: [id number] Acct: [id number] Name: COREY NEVILLE Rep #:[id number] : 1960 64 From: Otoniel holbrook PCP: Dr. Raul Patrick MD Status:ADM I N Y Location: [place] [address] Consult Antibiotic Management Pharmacy has been consulted to manage selected antibiotic: Vancomycin Type of Intervention Type of Consult: New start Suspected Infection Suspected Infection: Osteomyelitis Prior Doses of Antibiotics Prior Doses of Antibiotics Received/Current Regimen: received vanc 1250mg IV x1 in E.R. today starting at 11:01 Labs Labs: Sodium 134 mmol/L (133-145) 02/13/25 10:05 Potassium 4.1 mmol/L (3.3-5.1) 02/13/25 10:05 Chloride 98 mmol/L (98-108) 02/13/25 10:05 Carbon Dioxide 22.1 mmol/L (21.0-32.0) 02/13/25 10:05 Anion Gap 14 (5-15) 02/13/25 10:05 BUN 12 mg/dL (4-19) 02/13/25 10:05 Creatinine 1.07 mg/dL (0.70-1.20) 02/13/25 10:05 Est GFR (MDRD) Non-Af 77 (>60) 02/13/25 10:05 BUN/Creatinine Ratio 11.6 RATIO (10-20) 02/13/25 10:05 Glucose 129 mg/dL (70-99) H 02/13/25 10:05 Dosing Weight Weight used for dosin lb 5.547 oz Estimated Creatinine Clearance Estimated Creatinine Clearance: 69ml/min Goal Trough Goal Trough: 15-20 mcg/mL Pharmacy Plan for Drug Dosing Pharmacy Plan for Drug Dosing: Starting 12 hours after the E.R. dose, continue with vanc 1000mg IV q12h per WCHdosing protocol. Check a trough before the 4th overall dose tomorrow night. Pharmacy Service will continue to monitor and adjust dosing as required. Follow-Up Labs Follow-Up Labs: Trough: Vancomycin Date/Time Labs Ordered Labs to be done on [date and time ordered]: 02/14/25 22:30 02/13/25 1322 erg> Date _ Otoniel Saha 02/13/25 1347 dallin MORGAN> Cosigner Signature (if applicable): Date Eric Nichols MD CC: ~ Signed [facility]08-27-2025 History and physical note [facility] Medical Records Department [address] [place] [address] H&P Exam - Hospitalist 02/13/25 1247 MR#: [id number] Acct: [id number] Name: COREY NEVILLE Rep #:[id number] : 1960 64 From: Eric echeverria MD PCP: Dr. Raul Patrick MD Status:ADM I N Location: [facility] RC425-1 HPI - General General Date of Admission: 02/13/25 HPI Narrative COREY NEVILLE, is a 64 M who presents approximately 1 month after hitting his left thumb with a hammer. He did have a cut on his hand and had a hematoma under his left nail. He went to his PCP who puthim on Keflex and Bactrim 2 days ago. During that appointment he had an x-ray obtained which demonstrates bony destruction on his distal phalanx of his left thumb consistent with osteomyelitis. No leukocytosis or signs of sepsis however plastic surgery was consulted recommending an MRI with IV antibiotics for evaluation of possible debridement versus amputation. [facility] Medical History (Updated 02/13/25 @ 11:46 by Shad Lancaster MD) HTN (hypertension) Home Medications ?Medication ?Instructions ?Recorded ?Last Taken ?Type albuterol sulfate 90 mcg/actuation 2 puff inhalation Q 4H PRN copd 02/13/25 Unknown History aerosol inhaler atorvastatin 40 [...] No Known Allergies Allergy Verified 02/13/25 09:56 Family History (Updated 02/13/25 @ 13:[address] Eric Nichols MD) Other Diabetes Surgical History (Updated 02/13/25 @ 13:[address] Eric Nichols MD) History of back surgery Social History (Updated 02/13/25 @ 13:[address] Eric Nichols MD) Smoking Status: Current every day smoker tobacco type: cigarettes alcohol intake: current alcohol intake frequency: 3 or more drinks per day Alcohol type: beer ROS Constitutional Constitutional: Denies chills, fatigue, fever(s) or malaise Eyes Eyes: Denies blurry vision ENT HEENT: Denies headache(s) or nasal discharge Cardiovascular Cardiovascular: Denies chest pain, dyspnea on exertion or syncope Respiratory/Chest Respiratory/Chest: Denies cough, shortness of breath at rest or shortness of breath with exertion Gastrointestinal Gastrointestinal: Denies constipation, diarrhea, nausea or vomiting Genitourinary Genitourinary: Denies dysuria Musculoskeletal Musculoskeletal: Reports other Details: Left thumb swelling Neurologic Neurologic: Denies focal weakness, numbness or tremor(s) Psychiatric Psychiatric: Denies anxiety or depression Vital Signs Vital Signs Vital Signs: 02/13/25 09:55 02/13/25 09:59 02/13/25 11:04 Temperature 96.8 F L 96.8 F L 97 F L Temperature Source Temporal Temporal Temporal Pulse Rate 80 80 72 Respiratory Rate 17 17 18 Blood Pressure 173/83 H 173/83 H 161/75 H Blood Pressure Mean 113 113 103 Pulse Ox 99 99 96 Oxygen Delivery Method Room Air Room Air 02/13/25 11:33 Temperature 98.1 F Temperature Source Pulse Rate 78 Respiratory Rate 16 Blood Pressure 152/75 H Blood Pressure Mean 100 Pulse Ox 100 Oxygen Delivery Method Weight Weight: 166 lb Body Mass Index (BMI) 24.1 Physical Exam Narrative General: Alert, Oriented x3, Cooperative, No apparent distress HEENT: Atraumatic, PERRLA, EOMI, Normocephalic Oral: Moist Mucosa Neck: Supple, No JVD Lungs: Clear to auscultation, Normal air movement, No rhonchi, No wheeze, No rales Cardiovascular: Regular rate, Regular Rhythm, Normal S1, Normal S2, No murmurs Abdomen: Soft, Non Tender, Non-Distended, No Hepato-splenomegaly Extremities: No edema, Capillary Refill Less than 3 Seconds Skin: No rashes, No breakdown Musculoskeletal: Left thumb is swollen and red with subungual hematoma Neurological: No focal neurological deficits, Motor Exam 5/5 strength throughout, Sensory exam intact to light touch and pain Psych/Mental Status: Normal Affect, Appropriate Results Lab / Micro Data 02/13/25 10:05 02/13/25 10:05 Labs: Laboratory Results - last 24 hr 02/13/25 10:05: WBC 6.6, RBC 4.97, Hgb 16.0, Hct 45.7, MCV 92.0, MCH 32.2 H, MCHC 35.0, RDW Std Deviation 39.0, RDW Coeff of Roseanna 11.5 L, Plt Count 211, MPV 8.3, Immature Gran % (Auto) 0.300, Neut % (Auto) 64.6, Lymph % (Auto) 22.3, Maries% (Auto) 9.3, Eos % (Auto) 2.7, Baso % (Auto) 0.8, Absolute Neuts (auto) 4.3, Absolute Lymphs (auto) 1.47, Nucleated RBC % 0, Sodium 134, Potassium 4.1, Chloride 98, Carbon Dioxide 22.1, Anion Gap 14, BUN 12, Creatinine 1.07, Estim Creat Clear Calc 68.83, Est GFR(MDRD) Non-Af 77, BUN/Creatinine Ratio 11.6, Glucose 129 H, Lactic Acid 1.5, Calcium 10.0, Total Bilirubin 0.72, AST 29, ALT 30, Alkaline Phosphatase 130 H, Total Protein 7.9, Albumin 4.5, Globulin 3.4, Albumin/Globulin Ratio 1.3 Assessment & Plan Assessment/Plan (1) Subungual hematoma of finger of left hand: (2) Osteomyelitis of finger of left hand: PLAN: Plan 1. Subungual hematoma with osteomyelitis of the left hand ? Will get an MRI to confirm osteomyelitis ? Appreciate plastic surgery's assistance ? Continue with IV Zosyn and vancomycin ? If it demonstrates osteomyelitis on the MRI then will obtain consultation by infectious disease for outpatient antibiotics if necessary 2. Essential HTN/HLD ? Blood pressure stable?continue with his home blood pressure medications ? Will monitor and make adjustments as necessary?continue Lipitor 3. Anxiety/depression ? Stable ? Continue with his home medications 4. GERD ? Stable ? 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 Continue with Flomax DVT: Lovenox 75 minutes was spent on direct patient care, including documentation as well as chart review and collaboration with colleagues Charges/Coding Visit Charges Inpatient E&M: 65276 Init Hosp L3 02/13/25 1347 Cosigner Signature (if applicable): CC: Dr. Eric Nichols MD; Dr. Raul Patrick MD~ Signed [facility]08-27-2025 Discharge summary Author [facility]ad [facility] Note Date/Time February 13, 2025 11 :46am [facility] Medical Records Department [address] [place] [address] Emergency Department Summary 02/13/25 MR#: [id number] Acct: [id number] Name: COREY NEVILLE Rep #:[id number] : 1960 64 From: Shad Lancaster MD PCP: Dr. Raul Patrick MD Status:REG E R Location: ED HPI History of Present Illness Chief Complaint: Upper Extremity Injury Narrative Narrative: 64-year-old male past medical history of hypertension, [id number], states that he hit his left thumb [...] cometo the emergency department for IV antibiotics. [facility] Medical History HTN (hypertension) Home [...] w/another healthcare provider: Hospitalist (Dr. Nichols) and Volunteer Services Supervisor (Dr. Light, Plastics/Hand) Discharge Plan Dx/Rx/DC Orders Clinical Impression: Osteomyelitis of finger of left hand, Subungual hematoma of finger of left hand, Hypertension Disposition Disposition: Acute Care Hospital [facility] What to do if you have Problems For any increased pain, shortness of breath, bleeding, nausea or vomiting, chestpain, or any unexpected problems, contact your Primary Care Provider. Call [facility] ([phone]) or report to the closest Emergency Room. Call 911 if necessary. 02/13/25 1146 <Electronically signed by Shad Lancaster MD> Cosigner Signature (if applicable): CC: Dr. Raul Patrick MD ~ Signed [facility] Work Phone: 1(201) 990-299808-27-2025 Evaluation note* Diagnosis Onset Date Resolution Status Admit Date Osteomyelitis of finger of l eft hand acute February 13 11:44am Subungual hematoma of finger of left hand acute February 13 11:44am Hypertension chronic February 13, 2025 11:44am [facility] Work Phone: 1(323) 972-127108-27-2025 Consult note [facility] Medical Records Department [address] [place] [address] Consultation - Surgical 02/13/25 1219 MR#: [id number] Acct: [id number] Name: COREY NEVILLE Rep #:[id number] : 1960 64 From: Pranay Light MD PCP: Dr. Raul Patrick MD Status:ADM I N Location: [place] 889300-1 Assessment & Plan Assessment/Plan (1) Subungual hematoma [...] HPI Narrative: COREY NEVILLE is a 64-year-old suogs-crvo-yknubrzz male who presents to the emergency department after being referred by Dr. Patrick out of concern for osteomyelitis of the left thumb. Patient reports that he hit his left thumb approximately 1 month ago with a hammer and did not seek medical attention.He subsequently developed a subungual hematoma. He presented to Dr. Patrick's office a few days ago for thumb pain and swelling up to 2 weeks duration, and the x- raywas performed as an outpatient. He was placed [...] and also drinks beer heavily (this information wasrelayed to the emergency department physician). [facility] Medical History HTN (hypertension) Home Medications ?Medication [...] swelling but no fluid collection within the fingertippulp (there is no felon) . There is [...] % (Auto) 64.6, Lymph % (Auto) 22.3, Maries% (Auto) 9.3, Eos % (Auto) 2.7, Baso % (Auto) 0.8, Absolute Neuts (auto) 4.3, Absolute Lymphs (auto) 1.47, Nucleated RBC % 0, Sodium 134, Potassium 4.1, Chloride 98, Carbon Dioxide 22.1, Anion Gap 14, BUN 12, Creatinine 1.07, Estim Creat Clear Calc 68.83, Est GFR(MDRD) Non-Af 77, BUN/Creatinine Ratio 11.6, Glucose 129 H, Lactic Acid 1.5, Calcium 10.0, Total Bilirubin 0.72, AST 29, ALT 30, Alkaline Phosphatase 130 H, Total Protein 7.9, Albumin 4.5, Globulin 3.4, Albumin/Globulin Ratio 1.3 Imaging X-ray of the thumb reviewed and demonstrates lytic distal tuft lesion underneaththe zone of injury consistent with osteomyelitis Charges/Coding Visit Charges Office Visits / Consults: 60603 OV L3 New 30min 02/13/25 1224 Cosigner Signature (if applicable): CC: Dr. Raul Patrick MD~ Signed [facility]08-27-2025 Discharge summary [facility] Medical Records Department [address] [place] [address] Emergency Department Summary 02/13/25 MR#: [id number] Acct: [id number] Name: COREY NEVILLE Ariel Rep #:[id number] : 1960 64 From: Shad Lancaster MD PCP: Dr. Raul Patrick MD Status:REG E R Location: ED HPI History of Present Illness Chief Complaint: Upper Extremity Injury Narrative Narrative: 64-year-old male past medical history of hypertension, lnsyy-hfsv-szzcsiln, states that he hit his left thumb with a hammer approximately 1 month ago. He had a cut on his hand and underneath his nailthat he never had evaluated. It healed, but he states that the tip of his left thumb is swollen, and whenever hehits it on something, he gets pain. He denies any fevers or chills, no nausea or vomiting, no other symptoms. 2 days ago he saw his primary care provider, Dr. Susi Patrick, who put him on2 antibiotics, and had an x-ray performed as anoutpatient. He was called with the results today stating that he needed to cometo the emergency department for IV antibiotics. [facility] Medical History HTN (hypertension) Home [...] pain with palpation. No fevers or chills, nopurulent drainage, denies other symptoms. EXAM Physical Exam [...] erythema. Minimal tenderness on the thumb pad. Patientstates that with palpation it is more numb. [...] the patient regarding admission for IV antibiotics aswell as need for possible/probable amputation because of the osteomyelitis. Patient states that hiswife is to have a colonoscopy later today. He is agreeable to workup and IV antibiotics, however hestates he cannot be admitted today and wishes to sign out AGAINST MEDICAL ADVICE. I do feel he has t he capacity to make this decision. He was told of the risk of permanent disability and as well as other endorgan failure from sepsis andloss of limb or life. He acknowledges an understanding. Idid order blood workand blood cultures as well [...] agrees with admission for IV antibiotics, MRI, andneed for OR surgery. Disposition is admitted to the medical surgical floor in stable condition. History & Record Review Discussion w/independent historian: Patient Management Discussion w/another healthcare provider: Hospitalist (Dr. Nichols) and Volunteer Services Supervisor (Dr. Light, Plastics/Hand) Discharge Plan Dx/Rx/DC Orders Clinical Impression: Osteomyelitis of finger of left hand, Subungual hematoma of finger of left hand, Hypertension Disposition Disposition: Acute Care [facility] What to do if you have Problems For any increased pain, shortness of breath, bleeding, nausea or vomiting, chestpain, or any unexpected problems, contact your Primary Care Provider. Call [facility] ([phone]) or report tothe closest Emergency Room. Call 911 if necessary. 02/13/25 1146 Cosigner Signature (if applicable): CC: Dr. Raul Patrick MD ~ Signed [facility]08-25-2025 Radiology Diagnostic study note [facility] Imaging Services [address] [place] [address] Finger(s) Min 2 Views MR#: [id number] Acct: [id number] Name: COREY NEVILLE Rep #: [id number] : 1960 M 64 From: Orlin Haas MD PCP: Dr. Raul Patrick MD Status: REG C SUZETTE Study:Finger(s) Min 2 Views Date of Exam: 02/11/25 Exam# [id number] Ordering Dr: Raul Patrick MD PROCEDURE: FINGER(S) MIN 2 VIEWS 02/11/2025 REASON FOR EXAM: PAIN IN LEFT THUMB TECHNIQUE: FINGER(S) MIN 2 VIEWS Laterality: Left thumb COMPARISON: None FINDINGS: Bones: There is evidence of bony destruction of the distal portion of the distalphalanx of the thumb. Joints: Normal alignment. Soft tissues: Soft tissue swelling overlying the thumb. Other: RAD/Finger(s) Min 2 Views IMPRESSION: Bony destruction of the distal portion of the distal phalanx of the thumb with overlying soft tissue swelling. Osteomyelitis should be ruled out. Reading Location: [id number] CC: Dr. Raul Patrick MD ~ Jewel Bearing Broacher: Signed [facility]07-31-2023 Miscellaneous Notes* Telephone Encounter - Ave Mckinney LEATHA - 01/17/2023 8:30 AM EDT Patient has been identified by name and date of : Yes Requested Prescriptions Pending Prescriptions Disp Refills SITagliptin phosphate (JANUVIA) 25 mg tablet 90 tablet 0 Sig: Take 1 tablet by mouth once daily. RX INSTRUCTIONS: Mychart request Message sent to schedule follow up. Ave Mckinney LPN [facility] [place] Miscellaneous Notes* Telephone Encounter - Ave Mckinney LPN - 12/02/2022 10:40 AM EDT Patient has been identified by name and date of : Yes Requested Prescriptions Pending Prescriptions Disp Refills metoprolol succinate ER (TOPROL XL) 50 mg 24 hr tablet 30 tablet 5 Sig: Take 1 tablet by mouth once daily. RX INSTRUCTIONS: Patient aware RX will be sent to pharmacy. No need to notify patient. Ave Mckinney LPN documented in this encounterSelect [facility] [place]-31-2023 Miscellaneous Notes* Telephone Encounter - Agus Benavidez LPN - 11/17/2022 10:27 AM EDT Patient phones requesting refills as follows: Requested Prescriptions Pending Prescriptions Disp Refills lisinopril-hydroCHLOROthiazide (ZESTORETIC) 20-25 mg per tablet 30 tablet 5 Sig: Take 1 tablet by mouth once daily. ALEXSANDER 02/01/22 NOV no upcoming appt Please review and advise. Agus Benavidez LPN documented in this encounterSelect [facility] [place]-16-2023 Miscellaneous Notes* Telephone Encounter - Estephania Kapadia - 11/02/2022 9:21 AM EDT Patient has been identified by name and [...] please assist and advise. documented in this encounterSelect [facility] [place]-15-2023 Miscellaneous Notes* Telephone Encounter - Kadie Mckeon - 08/04/2022 9:39 AM EST Patient has been identified by name and [...] and advise. Kadie Mckeon documented in this encounterSelect [facility] [place]-19-2023 Miscellaneous Notes* Telephone Encounter - Lorie Tian Ma - 07/08/2022 11:23 AM EST PA approved and patient notified Lorie Tian Ma * Telephone Encounter - Lorie Tian Ma - 07/08/2022 11:18 AM EST Electronic PA generated for Silver Tian Ma documented in this encounterSelect [facility] [place]12-12-2022 Miscellaneous Notes* Telephone Encounter - Sherice Orlando Ma - 05/31/2022 5:03 PM EST Patient notified of new prescription * Telephone Encounter - Carine Canales PA-C - 05/31/2022 12:54 PM EST The following approved medication requests have been transmitted electronically. Requested Prescriptions Signed Prescriptions Disp Refills SITagliptin phosphate (JANUVIA) 25 mg tablet 90 tablet 1 Sig: Take 1 tablet by mouth once daily. Authorizing Provider: Carine CANALES PA-C * Telephone Encounter - Marisol Thornton RN - 05/31/2022 11:22 AM EST Patient calls and is asking if there is something else other than glipizide he can take. Patient reports that he had episodes where he would get hot and his legs would get weak and shaky. This would last for half hour. Patient reports that he quit taking glipizide 5 days ago and these episodes havestopped. Please review and advise, Marisol Thornton RN documented in this encounterSelect [facility]11-02-2022 Miscellaneous Notes* Telephone Encounter - Little Núñez Pss - 04/21/2022 9:11 AM EDT Patient has been identified by name and [...] and advise. Little Yates documented in this encounterSelect [facility] [place]10-20-2022 Miscellaneous Notes* Telephone Encounter - Kenyetta España LPN - 04/08/2022 9:39 AM EDT Patient notified. Verbalized understanding. * Telephone Encounter - Carine Canales PA-C - 04/08/2022 9:10 AM EDT Top metformin Start glipizide Update progress in 4 weeks if not improving. Glipizide can cause hypoglycemia Notify if any problems. Thanks, Marko Canales PA-C * Telephone Encounter - Myesha Peng Ma - 04/07/2022 10:03 AM EDT Call to pt and notified him of message below. Pt verbalized understanding. Pt notes he's not happy with the Metformin and causing GI issues/diarrhea. Reports he had an US that showed gallstones. Having cramping frequently. Unsure if related to medication or gallstones. Wants this to go away. Please advise. Myesha Peng Ma * Telephone Encounter - Myesha Peng Ma - 04/07/2022 10:02 AM EDT ----- Message from Carine Canales PA-C sent [...] Thanks, Marko Canales PA-C documented in this encounterSelect [facility] [place]08-22-2022 Miscellaneous Notes* Telephone Encounter - Marisol Thornton RN - 02/08/2022 12:32 PM EDT Patient notified of results. Patient verbalizes understanding. Marisol Thornton RN * Telephone Encounter - Sherice Orlando Ma - 02/08/2022 11:53 AM EDT Attempted to reach pt, no answer and no voicemail. Sherice Orlando Ma * Telephone Encounter - Sherice Orlando Ma - 02/08/2022 11:49 AM EDT ----- Message from Carine Canales PA-C sent at 02/07/2022 9:25 PM EDT ----- Please advise GB US shows fatty liver, possible gallbladder sludge though stones not ruled out. Thanks, Marko Canales PA-C documented in this encounterSelect [facility] [place]08-19-2022 NoteHNO ID: [id number] Author: Madeline Garcia RDMS Service: ? Author Type: Assistant Film Editor Type: Progress Notes Filed: 02/05/2022 9:33 AM [...] Garcia RDMS RVT February 05, 2022 9:32 [facility]08-19-2022 History of Present illness Narrative* Madeline Garcia RDMS - 02/05/2022 7:30 AM EDT Radiology Service Progress Note PATIENT NAME: Mrako Neville DATE OF SERVICE: February 05, 2022 TIME: 9:32 AM PATIENT IDENTITY VERIFICATION COMPLETED USING TWO (2) IDENTIFIERS: Name and Date of confirmedby patient verbally. FALL SCREENING: Has the patient [...] 05, 2022 9:32 AM documented in this encounterSelect [facility] [place]08-15-2022 NoteHNO ID: [id number] Author: Carine Canales PA-C Service: ? Author Type: Physician Film Inspector Type: Progress Notes Filed: 02/01/2022 1:15 PM [...] with chronic bronchitis (hcc) Pulmonary nodule, left Benzene Operator: none. Interval history: no new testing. Current [...] Maternal Grandmother PAST M (more content not included)...[facility]08-15-2022 Instructions* Patient Instructions* M Corey Canales PA-C - 02/01/2022 11:13 AM EDT [...] own. It's carried by special proteins. Combinations ofcholesterol and protein carriers are called lipoproteins. There are two types of lipoproteins: Low-density lipoproteins (LDLs, or bad cholesterol) High-density lipoproteins (HDLs, or good cholesterol) Think of LDLs as delivery trucks and HDLs as garbage trucks. LDLs order picker/assembler cholesterol from the liver and deliver it to cells. HDLs remove excess cholesterol from the blood and take it to the liver. Jason's total cholesterol level is a combination of [...] to form plaque. Plaque is a thick, harddeposit in the blood vessel. The name for build-up of plaque in the arteries is atherosclerosis, orhardening of the arteries. Plaque can narrow the [...] learn more? National Heart, Lung, and Blood [place] NHL[employer] Health Information Center Attention: Web Site [address] [address] [place] [address] TTY e-mail: For all correspondence, please indicate that your request results from your visit to the NHLBI website, www.nhlbi.nih.gov/health. Copyright 8280-1172 [facility] [place]. All rights reserved. This information is provided by the [facility] and is not intended to replace the medical advice of your doctor or health care provider. Please consult your health care provider for advice about a specific medical condition. For additional written health information, please contact the HealthInformation Center at the [facility] or toll-free extension [phone]. This document was last reviewed on: 2003 [...] drink alcohol, drink in moderation. Follow the [place] [employer] recommendations when you eat out. Read the nutrition facts label and ingredients list. Adapted from the [place] [employer]: www.americanheart.org Guidelines for low cholesterol, low triglyceride diets FOODS TO USE MEATS/FISH - Choose lean meats (chicken, turkey, veal, and nonfatty cuts of beef with excess fat trimmed; one serving = 3 oz. of cooked meat). Also, fresh or frozen fish, canned fish packed in water,and shellfish (lobster, crab, shrimp, oysters). Limit use [...] but they may be boiled, strained, or braisedwith polyunsaturated vegetable oil (see below). BEANS - Dried peas or beans (1 serving = 1/2 cup) may be used as a bread substitute. NUTS - Almonds, walnuts, and peanuts may be used sparingly (1 serving = 1 tablespoon). Use pumpkin,sesame, or sunflower seeds. BREADS/GRAINS - One roll [...] sugar substitutes. Choose high fiber grains, such asoats and whole wheat. CEREALS - Use 1/2 [...] drinks with sugar substitutes; club soda, preferably salt- free; cocoa made with skim milk or nonfat dried milk and water (sugar substitute added, if desired); clear broth. Alcohol - limit to two servings per day (see Foods to Avoid). MISCELLANEOUS - You may use the following freely: vinegar; spices; herbs; nonfat bouillon; mustard;Worcestershire sauce; soy sauce; flavoring essence. FOODS TO [...] milk. Avoid sweet rolls, doughnuts, breakfast pastries (Greenlandic), and sweetened packaged cereals (the added sugar [...] of alcohol per day). documented in this encounterSelect [facility] [place]-2022 History of Present illness Narrative* Carine Canales PA-C - 02/01/2022 10:20 AM EDT 61 year old male with c/o: Current [...] with chronic bronchitis (hcc) Pulmonary nodule, left Benzene Operator: none. Interval history: no new testing. Current [...] Laterality Date COLONOSCOP W/ OR W/O [facility] SPEC Colonoscopy [facility] COLONOSCOP W/ OR W/O [facility] SPEC 12/26/2017 Colonoscopy EGD W/O OR W/BRUSH/WASH [...] 1 tablet by mouth once daily. 30 tablet5 lisinopril-hydroCHLOROthiazide (PRINZIDE, ZESTORETIC) 20-25 mg per tablet [...] history context and comparison. documented in this encounterSelect [facility] [place]08-01-2022 Miscellaneous Notes* Telephone Encounter - Agus Benavidez LPN - 01/18/2022 5:01 PM EDT Pt notified. He verbalized understanding. Agus Benavidez LPN * Telephone Encounter - Ivis Pope APRN.CNP - 01/18/2022 4:55 PM EDT Orders placed for fasting labs. Can please let patient know and close encounter. Ivis Pope APRN.MARIE * Telephone Encounter - Carine Esquivel RN - 01/18/2022 11:57 AM EDT Patient scheduled appt with pcp for 8-15. Asking a provider to please place lab orders and let patient know when they are ordered. Pended the requested labs. documented in this encounterSelect [facility] [place]07-25-2022 Miscellaneous Notes* Telephone Encounter - Susi Mathews MA - 01/11/2022 8:18 AM EDT Patient has been identified by name and [...] 02/2021 Nov appointment scheduled Last refill: 02/2021 * Telephone Encounter - Sandra Yates - 01/11/2022 8:07 AM EDT Patient has been identified by name and [...] patient. Sandra Almeida Pss documented in this encounterSelect [facility]04-28-2022 Miscellaneous Notes* Telephone Encounter - Naya Hodgson LPN - 10/15/2021 2:12 PM EDT Tried to reach pt and spouse by phone no mailboxes set up. Letter sent with information below. Medication sent to the pharmacy. Naya Hodgson LPN * Telephone Encounter - Kadie Covington Pss - 10/15/2021 9:05 AM EDT Patient stated he originally had wanted to go off of med, but after weaning feels the effects and would like to restart. * Telephone Encounter - Kadie Covington Pss - 10/15/2021 8:53 AM EDT Pharmacy verified in [facility] Patient has been identified by name [...] advise. Kadie Covington Pss [facility] Author Pranay Light [facility] Note Date/Time February 13, 2025 12 :24pm [facility] Medical Records Department [address] [place] [address] Consultation - Surgical 02/13/25 1219 MR#: [id number] Acct: [id number] Name: COREY NEVILLE Rep #:[id number] : 1960 64 From: Pranay Light MD PCP: Dr. Raul Patrick MD Status:ADM I N Location: [facility] XV202-3 Assessment & Plan Assessment/Plan (1) Subungual hematoma [...] HPI Narrative: COREY NEVILLE is a 64-year-old bavrk-rznn-zbhrwoib male who presents to the emergency department [...] was relayed to the emergency department physician). [facility] Medical History HTN (hypertension) Home Medications ?Medication [...] % (Auto) 64.6, Lymph % (Auto) 22.3, Maries% (Auto) 9.3, Eos % (Auto) 2.7, Baso [...] Charges/Coding Visit Charges Office Visits / Consults: 74992 OV L3 New 30min 02/13/25 1224 <Electronically signed by Pranay Light MD> Cosigner Signature (if applicable): CC: Dr. Raul Patrick MD~ Signed [facility] Work Phone: Discharge summary Author Shad Lancaster [facility] Note Date/Time February 13, 2025 11 :46am [facility] Medical Records Department [address] [place] [address] Emergency Department Summary 02/13/25 MR#: [id number] Acct: [id number] Name: COREY NEVILLE Rep #:[id number] : 1960 64 From: Shad Lancaster MD PCP: Dr. Raul Patrick MD Status:REG E R Location: ED HPI History of Present Illness Chief Complaint: Upper Extremity Injury Narrative Narrative: 64-year-old male past medical history of hypertension, pbtmg-xswx-malfcljg, states that he hit his left thumb [...] cometo the emergency department for IV antibiotics. [facility] Medical History HTN (hypertension) Home [...] w/another healthcare provider: Hospitalist (Dr. Nichols) and Volunteer Services Supervisor (Dr. Light, Plastics/Hand) Discharge Plan Dx/Rx/DC Orders Clinical Impression: Osteomyelitis of finger of left hand, Subungual hematoma of finger of left hand, Hypertension Disposition Disposition: Acute Care [facility] What to do if you have Problems For any increased pain, shortness of breath, bleeding, nausea or vomiting, chestpain, or any unexpected problems, contact your Primary Care Provider. Call [facility] ([phone]) or report to the closest Emergency Room. Call 911 if necessary. 02/13/25 1146 <Electronically signed by Shad Lancaster MD> Cosigner Signature (if applicable): CC: Dr. Raul Patrick MD ~ Signed [facility] Work Phone: Discharge summary Author Eric Nichols [facility] Note Date/Time February 16, 2025 1: 49pm [facility] Medical Records Department [address] [place] [address] Discharge Summary 02/16/25 1340 MR#: [id number] Acct: [id number] Name: COREY NEVILLE Ariel Rep #:[id number] : 1960 64 From: Eric echeverria MD PCP: Dr. Raul Patrick MD Status:ADM I N Location: [place] [address] Providers Date of Admission: 02/13/25 Primary Care Physician: Dr. Raul Patrick MD Consultations 02/13/25 12:48 Consult: Onc/Wound/silk screen cutter Routine Comment: Consult: Plastic Surgery Routine Consulting Provider: Pranay Light Reason for Consult: left thumb osteo EMERGENT Consult: No Notified: Yes Date Notified: 02/13/25 Time Notified: 11:47 Method of Notification: ED Physician Initiated 02/14/25 08:04 Consult: Infectious Disease Routine Consulting Provider: Pranay Mi Reason for Consult: antibiotic recommendations EMERGENT Consult: No Notified: Yes Date Notified: 02/14/25 Time Notified: 08:04 Method of Notification: Text Reason For Visit: OSTEOMYELITIS OF THE THUMB Diagnosis Discharge Diagnosis (1) Osteomyelitis of finger of left hand: Status: Acute Code(s): M86.9 - Osteomyelitis, unspecified (2) Subungual hematoma of finger of left hand: Status: Acute Code(s): S60.10XA - Contusion of unspecified finger with damage to nail, initial encounter Medications at Discharge Home Medications albuterol sulfate 90 mcg/actuation aerosol inhaler 2 puff inhalation Q4H PRN copd 02/13/25 atorvastatin 40 mg tablet 40 mg PO QHS 02/13/25 fluticasone 250 mcg-salmeterol 50 mcg/dose blistr powdr for inhalation 1 ea inhalation BID 02/13/25 metoprolol succinate 50 mg tablet,extended release 24 hr 50 mg PO DAILY htn 02/13/25 omeprazole 40 mg capsule,delayed release 40 mg PO DAILY 02/13/25 sertraline 50 mg tablet 50 mg PO DAILY 02/13/25 tamsulosin 0.4 mg capsule 0.8 mg PO QHS 02/13/25 valsartan 320 mg-hydrochlorothiazide 25 mg tablet 1 tab PO DAILY 02/13/25 cefdinir 300 mg capsule 300 mg PO BID 40 days #80 caps 02/16/25 doxycycline monohydrate 100 mg capsule 100 mg PO BID 40 days #80 caps 02/16/25 Hospital Course Operations - ( 1) left thumb nail plate removal and debridement of underlying left thumb wound including debridement of distal phalanx necrotic bone (sequestrum) and drainage of surrounding fluid collection) Procedures None Summary of Care Provided Minutes Spent on Discharge: 36 Hospital Course: Per HPI:COREY NEVILLE, is a 64 M who presents approximately 1 month after hittinghis left thumb with a hammer. He did have a cut on his hand and had a hematoma under his left nail. He went to his PCP who put him on Keflex and Bactrim 2 days ago. During that appointment he had an x-ray obtained which demonstrates bony destruction on his distal phalanx of his left thumb consistent with osteomyelitis. No leukocytosis or signs of sepsis however plastic surgery was consulted recommending an MRI with IV antibiotics for evaluation of possible debridement versus amputation. Hospital course: 1. Subungual hematoma with osteomyelitis of the left thumb status post left thumb nail removal and debridement on 02/14/2025?64[facility] thumb with a hammer about a month ago. He went to his primary care doctor because of continued swelling and was given Keflex and Bactrim however an x-ray was also obtained at that time that showed distal destruction of his left thumb phalanx so he was admitted to the hospital for osteomyelitis. He underwent operative debridement and nail removal. Infectious disease evaluated him and recommended doxycycline 100 mg p.o. twice daily as well as cefdinir 300 mg p.o. twice daily for 40 days pending final cultures. He will need to follow-up with plastic surgery on Tuesday and with infectious disease in 2 weeks for monitoring and outpatient evaluation as well as medication adjustment. I discussed with him the plan for discharge and he expressed understanding of the risks and benefits of going home and would like to go home today. I recommended he follow-up with his PCP in 3 to 5 days for outpatient monitoring. 2. 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 His home medications were continued where appropriate Physical Exam Narrative General: Alert, Oriented x3, Cooperative, No apparent distress HEENT: Atraumatic, PERRLA, EOMI, Normocephalic Oral: Moist Mucosa Neck: Supple, No JVD Lungs: Clear to auscultation, Normal air movement, No rhonchi, No wheeze, No rales Cardiovascular: Regular rate, Regular Rhythm, Normal S1, Normal S2, No murmurs Abdomen: Soft, Non Tender, Non-Distended, No Hepato-splenomegaly Extremities: No edema, Capillary Refill Less than 3 Seconds Skin: No rashes, No breakdown Musculoskeletal: Left thumb is swollen and red, left thumbnail has been removed,currently dressed Neurological: No focal neurological deficits, Motor Exam 5/5 strength throughout, Sensory exam intact to light touch and pain Psych/Mental Status: Normal Affect, Appropriate Weight / BMI Weight Weight: 374 lb 12.573 oz Body Mass Index (BMI) 55.3 ABG / Lab / Microbiology Data 02/16/25 07:00 02/16/25 07:00 Laboratory: Laboratory Results - last 24 hr 02/16/25 07:00: WBC 5.1, RBC 4.69, Hgb 15.2, Hct 43.7, MCV 93.2, MCH 32.4 H, MCHC 34.8, RDW Std Deviation 38.9, RDW Coeff of Roseanna 11.4 L, Plt Count 191, MPV 8.3, Immature Gran % (Auto) 0.200, Neut % (Auto) 59.0, Lymph % (Auto) 24.1, Maries% (Auto) 9.8, Eos % (Auto) 5.7 H, Baso % (Auto) 1.2 H, Absolute Neuts (auto) 3.0, Absolute Lymphs (auto) 1.23, Nucleated RBC % 0, Sodium 138, Potassium 4.1, Chloride 102, Carbon Dioxide 26.3, Anion Gap 9, BUN 13, Creatinine 0.86, Estim Creat Clear Calc 133.75, Est GFR (MDRD) Non-Af 96, BUN/Creatinine Ratio 14.9, Glucose 124 H, Calcium 9.2 Microbiology: Microbiology 02/14/25 Unknown Bone - Hand Gram Stain - Final 02/14/25 Unknown Bone - Hand Wound Culture - Preliminary Beta streptococcus Gram negative paradise 02/14/25 Unknown Bone - Hand Anaerobic Culture - Preliminary Checking for anaerobes, further studies to follow. 02/14/25 Unknown Wound Abcess - Aerobic & Anaerobic Swabs Gram Stain - Final 02/14/25 Unknown Wound Abcess - Aerobic & Anaerobic Swabs Wound Culture - Preliminary GNR lactose water inspector GNR lactose water inspector#2 Beta streptococcus 02/13/25 10:20 Blood Culture (Wb) - Arm Right Blood Culture - Preliminary No growth in 48 hours. 02/13/25 10:05 Blood Culture (Wb) - Left Forearm Blood Culture - Preliminary No growth in 48 hours. D/C Instructions Call your doctor if your incision/area has: Continuous Slow Oozing and IncreasedRedness Call your doctor if you observe: Fever of 101 or Higher, Shortness of breath, Dizziness, Fainting spells, Swelling in the ankles, Chest pain and Increased palpitations (irregular heartbeat) DC O2, CPAP, BIPAP Needs Home O2 Discharge instructions: No Meaningful Use Info Meaningful Use Meaningful Use Diagnoses (Choose all that apply): None applicable Discharge Plan Admission Admit Date/Time: 02/13/25 11:44 Attending Provider: Eric Nichols Primary Care Provider: Raul Patrick Chi Consulting Providers: Pranay Light; Pranay Mi Instructions Patient Instructions: Osteomyelitis Dc, ED Subungual Hematoma Additional Instructions / Restrictions: Follow-up with your primary care provider for continued IV antibiotics. Should you change your mind, you can return to the emergency department at any time. By signing out AGAINST MEDICAL ADVICE, you do risk further continued infection of the bone, loss of limb or life, permanent disability or . PLASTIC SURGERY DC instructions Operations Performed: Left Thumb Incision and Debridement Instructions for My Care at Home or Healthcare Facility The following instructions will help you know what to expect in the days following surgery. These are general instructions. Your surgeon and therapist may give you special instructions, which vary to some degree based on your specific procedure -- follow those as directed. Do not, however, hesitate to call if you have any questions or concerns. Splint Care/Dressing Care/Wound Care * Dressings - Continue the twice daily dressing changes over your thumb with the soaks (20 minutes in sterile water and soap) twice daily. Once piece of iodoform out, one piece in at each dressing change. * If the dressing feels too tight after you get home, it is ok to gently pull on the dressing to stretch it out/loosen it. * Avoid smoking or other tobacco products. Smoking tobacco impairs wound healing and increases the risks of post-operative complications. ? Activities * For the first 4 weeks after surgery, try to balance your activity, allowing time for rest. * Avoid lifting, pushing, or pulling anything over 5 pounds. * Do not drive or operate heavy machinery within 24 hrs of surgery or while taking narcotic pain medication.? Pain Control/Medications Make sure to take your antibiotic * If you received an anesthetic block, your hand or arm may be numb for several hours. You will be discharged to home with medications, including an oral pain medication (analgesic). Rest and elevation are still one of the most important factors for pain control. Take your pain medication as needed, but do not wait for the pain to become out of control. * For severe pain, you may take prescription pain medication as directed, but please note that this may also contain Tylenol (e.g. Percocet). Do not take more than 4000mg of Tylenol (acetaminophen) from all sources daily.? * Pain medication may cause some lethargy, nausea, and or constipation. You should not drive/operate dangerous machinery while taking these medications. If these or other symptoms become significantly problematic, please your surgeon's office. * If prescribed oral antibiotics (Keflex, Clindamycin, or others), please take prescription for full duration as instructed. You should not have any pills remaining once completed (refills are written for your convenience should the course need to be extended, but generally they are not required). Diet (what I can eat): Resume normal diet Follow up * You will be seen (most likely) 1 to 2 weeks after surgery depending on the procedure. Follow-up appointment reminders:? (A list of any scheduled appointments is at the end of this document)? At your earliest convenience, please call [phone] to confirm/schedule a follow-up appointment with me on Tuesday in clinic. When to call your surgeon: * If any signs of surgical site infection develop: redness, pus, pain, increased swelling or foul odor at the incision site, fever, cold and clammy skin, or confusion. * Consistent temperature above 101?F (38.3?C). * The affected area gets swollen or much more painful. * You have excessive bleeding from surgical site (soaking through). If you experience difficulty breathing and/or shortness of breath, seek immediate medical attention. If experiencing any of the above complications or if you have any questions, call [phone] Discharge Orders/Prescriptions Prescriptions: New doxycycline monohydrate 100 mg capsule 100 mg PO BID 40 Days Qty: 80 0RF cefdinir 300 mg capsule 300 mg PO BID 40 Days Qty: 80 0RF Continued atorvastatin 40 mg tablet 40 mg PO QHS fluticasone propion-salmeterol 250-50 mcg/dose blister with device 1 ea INHALATION BID metoprolol succinate 50 mg tablet extended release 24 hr 50 mg PO DAILY omeprazole 40 mg capsule,delayed release(DR/EC) 40 mg PO DAILY tamsulosin 0.4 mg capsule 0.8 mg PO QHS albuterol sulfate 90 mcg/actuation HFA aerosol inhaler 2 puff inhalation Q4H PRN (Reason: copd) sertraline 50 mg tablet 50 mg PO DAILY valsartan-hydrochlorothiazide 320-25 mg tablet 1 tab PO DAILY Discontinued sulfamethoxazole-trimethoprim 800-160 mg tablet 1 tab PO Q12.TCU cephalexin 500 mg capsule 500 mg PO TID Referrals / Follow Up: Pranay Mi MD [Med Staff - Active Staff] - Within 2 Weeks Pranay Light MD [Med Staff - Active Staff] - 02/19/25 Raul Patrick Chi, MD [Primary Care Provider] - As soon as possible Disposition Disposition (needs filled in before D/C Order can be placed): Home, Self Care Charges/Coding Visit Charges Inpatient E&M: 15812 Disch Hosp >30min 02/16/25 1349 <Electronically signed by Eric Nichols MD> Cosigner Signature (if applicable): CC: Dr. Eric Nichols MD; Dr. Raul Patrick MD~ Signed [facility] Work Phone: Evaluation note* Diagnosis Adjustment disorder with other symptom documented in this encounter [facility] note* Diagnosis Essential hypertension Unspecified essential hypertension COPD with chronic bronchitis (HCC) Obstructive chronic bronchitis without exacerbation Adjustment disorder with other symptom documented in this encounter [facility]* Diagnosis Essential hypertension- Primary Unspecified essential hypertension Elevated blood sugar Other abnormal glucose Current use of proton pump inhibitor Encounter for long-term (current) use of other medications Hyperlipidemia, mixed Mixed hyperlipidemia Prediabetes Other abnormal glucose documented in this encounter [facility]* Diagnosis Essential hypertension- Primary Unspecified essential [...] of right shoulder documented in this encounter [facility]* Diagnosis Alcohol abuse Alcohol abuse, unspecified Elevated liver enzymes Other nonspecific abnormal serum enzyme levels documented in this encounter [facility]* Diagnosis Adjustment disorder with other symptom documented in this encounter [facility] note* Diagnosis Essential hypertension Unspecified essential hypertension documented in this encounter [facility] noteNo assessment information availableWCleveland [facility] Foundation Work Phone: Evaluation note* Diagnosis Onset Date Resolution Status Admit Date Osteomyelitis of finger of l eft hand acute February 13 11:44am Subungual hematoma of finger of left hand acute February 13 11:44am Hypertension chronic February 13, 2025 11:44am [facility] Work Phone: Hospital Discharge instructionsAdditional Instructions Follow-up with your primary care provider for continued IV antibiotics. Should you change your mind, you can return to the emergency department at any time. By signing out AGAINST MEDICAL ADVICE, you do risk further continued infection of the bone, loss of limb or life, permanent disability or .[facility] Work Phone: Hospital Discharge instructionsAdditional Instructions Follow-up with your primary care provider for continued IV antibiotics. Should you change your mind, you can return to the emergency department at any time. By signing out AGAINST MEDICAL ADVICE, you do risk further continued infection of the bone, loss of limb or life, permanent disability or . PLASTIC SURGERY DC instructions Operations Performed: Left Thumb Incision and Debridement Instructions for My Care at Home or Healthcare Facility The following instructions will help you know what to expect in the days following surgery. These are general instructions. Your surgeon and therapist may give you special instructions, which vary to some degree based on your specific procedure -- follow those as directed. Do not, however, hesitate to call if you have any questions or concerns. Splint Care/Dressing Care/Wound Care Dressings - Continue the twice daily dressing changes over your thumb with the soaks (20 minutes in sterile water and soap) twice daily. Once piece of iodoform out, one piece in at each dressing change. If the dressing feels too tight after you get home, it is ok to gently pull on the dressing to stretch it out/loosen it. Avoid smoking or other tobacco products. Smoking tobacco impairs wound healing and increases the risks of post-operative complications. Activities For the first 4 weeks after surgery, try to balance your activity, allowing time for rest. Avoid lifting, pushing, or pulling anything over [address] or operate heavy machinery within 24 hrs of surgery or while taking narcotic pain medication. Pain Control/Medications Make sure to take your antibiotic If you received an anesthetic block, your hand or arm may be numb for several hours. You will be discharged to home with medications, including an oral pain medication (analgesic). Rest and elevation are still one of the most important factors for pain control. Take your pain medication as needed, but do not wait for the pain to become out of control. For severe pain, you may take prescription pain medication as directed, but please note that this may also contain Tylenol (e.g. Percocet). Do not take more than 4000mg of Tylenol (acetaminophen) from all sources daily. Pain medication may cause some lethargy, nausea, and or constipation. You should not drive/operate dangerous machinery while taking these medications. If these or other symptoms become significantly problematic, please your surgeon's office. If prescribed oral antibiotics (Keflex, Clindamycin, or others), please take prescription for full duration as instructed. You should not have any pills remaining once completed (refills are written for your convenience should the course need to be extended, but generally they are not required). Diet (what I can eat): Resume normal diet Follow up You will be seen (most likely) 1 to 2 weeks after surgery depending on the procedure. Follow-up appointment reminders: (A list of any scheduled appointments is at the end of this document) At your earliest convenience, please call [phone] to confirm/schedule a follow-up appointment with me on Tuesday in clinic. When to call your surgeon: If any signs of surgical site infection develop: redness, pus, pain, increased swelling or foul odor at the incision site, fever, cold and clammy skin, or confusion. Consistent temperature above 101 F (38.3 C). The affected area gets swollen or much more painful. You have excessive bleeding from surgical site (soaking through). If you experience difficulty breathing and/or shortness of breath, seek immediate medical attention. If experiencing any of the above complications or if you have any questions, call [phone] Work Phone: Reason for referral (narrative)* Diagnostic Procedure Only (Routine) - Pending Review Specialty Diagnoses / Procedures Referred By Kushal patel Referred To Contact XR IMAGING Diagnoses Acute pain of right shoulder Procedures XR SHOULDER GENERAL 3V OR MORE AP/TRUE AP/OTHER RIGHT RADEX SHOULDER COMPLETE MINIMUM 2 VIEWS Carine Canales PA-C [address] [place] [address] Xr Imaging Referral ID Status Reason Start Date Expiration Date Visits Requested Visits Authorized [id number] Pending Review Auto-Generat ed Referral 02/01/2022 03/03/2023 1 1 * Diagnostic Procedure Only (Routine) - Authorized Specialty Diagnoses / Procedures Referred By Contac t Referred To Contact US IMAGING Diagnoses Alcohol abuse Elevated liver enzymes Procedures US ABD RT UPPER QUADRANT US ABDOMINAL REAL TIME W/IMAGE LIMITED Carine Canales PA-C [address] [place] [address] Us Imaging Referral ID Status Reason Start Date Expiration Date Visits Requested Visits Authorized [id number] Authorized Auto-Generat ed Referral 02/01/2022 03/03/2023 1 1 [facility] for referral (narrative)* Diagnostic Procedure Only (Routine) - Closed Specialty Diagnoses / Procedures Referred By Kushal t Referred To Contact US IMAGING Diagnoses Alcohol abuse Elevated liver enzymes Procedures US ABD RT UPPER QUADRANT US ABDOMINAL REAL TIME W/IMAGE LIMITED Carine Canales PA-C [address] [place] [address] Us Imaging Referral ID Status Reason Start Date Expiration Date V isits Requested Visits Authorized [id number] Closed Auto-Generate d Referral 02/01/2022 03/03/2023 1 1 [facility] for referral (narrative)No reason for referral information availableWCleveland Clinic Foundation Work Phone: Advance Directives No Advanced Directives Records FoundDocuments on File Type Date Recorded Patient Pumper Helper Expl anation Advance Directive(s) 12/26/2017 2:01 PM Advance Directive(s) 12/20/2017 8:47 AM Documents on File Type Date Recorded Patient Pumper Helper Expl anation Advance Directive(s) 12/26/2017 2:01 PM Advance Directive(s) 12/20/2017 8:47 AM Advance Directive Response Recorded Date/ Time Do you have a Healthcare Power of Business Reporting Developer? No February 13, 2025 10:09am Advance Directive Response Recorded Date/ Time Do you have a Healthcare Power of Business Reporting Developer? No February 13, 2025 12:45pm Reason for Referral Specialty Diagnoses / Procedures Referred By Contac t Referred To Contact Diagnoses COPD with chronic bronchitis (HCC) Dexter Lassiter MD [address] [place] [address] Referral ID Status Reason Start Date Expiration Date Visits Re quested Visits Authorized [id number] Closed 1 1 Summary Purpose Family History No Family History Records Found Relationship Condition Age at Onset Recorded Date/T judah Not Specified Diabetes mellitus Unknown Chief Complaint and Reason for Visit Chief Complaint Type 2 diabetes papito itus with hyperglycemia Chief Complaint Admit Date OSTEOMYELITIS OF THE THUMB February 13, 2025 11:44am OSTEOMYELITIS OF THE THUMB February 13, 2025 12:19pm Reason for Visit Admit Date Osteomyelitis of finger of left hand Jan ust 2024 11:44am Subungual hematoma of finger of left jensen d February 13, 2025 11:44am Hypertension February 13, 2025 11 :44am Chief Complaint Admit Date OSTEOMYELITIS OF THE THUMB February 13, 2025 11:44am OSTEOMYELITIS OF THE THUMB February 13, 2025 12:19pm OSTEOMYELITIS OF THE THUMB February 13, 2025 12:47pm OSTEOMYELITIS OF THE THUMB February 14, 2025 8:28am OSTEOMYELITIS OF THE THUMB February 14, 2025 8:48am OSTEOMYELITIS OF THE THUMB February 15, 2025 7:33am OSTEOMYELITIS OF THE THUMB February 15, 2025 9:03am Chief Complaint Admit Date OSTEOMYELITIS OF THE THUMB February 13, 2025 11:44am OSTEOMYELITIS OF THE THUMB February 13, 2025 12:19pm OSTEOMYELITIS OF THE THUMB February 13, 2025 12:47pm OSTEOMYELITIS OF THE THUMB February 14, 2025 8:28am OSTEOMYELITIS OF THE THUMB February 14, 2025 8:48am OSTEOMYELITIS OF THE THUMB February 15, 2025 7:33am OSTEOMYELITIS OF THE THUMB February 15, 2025 9:03am OSTEOMYELITIS OF THE THUMB February 16, 2025 7:34am OSTEOMYELITIS OF THE THUMB February 16, 2025 1:40pm Chief Complaint Admit Date OSTEOMYELITIS OF THE THUMB February 13, 2025 11:44am OSTEOMYELITIS OF THE THUMB February 13, 2025 12:19pm OSTEOMYELITIS OF THE THUMB February 13, 2025 12:47pm OSTEOMYELITIS OF THE THUMB February 14, 2025 8:28am OSTEOMYELITIS OF THE THUMB February 14, 2025 8:48am OSTEOMYELITIS OF THE THUMB February 15, 2025 7:33am OSTEOMYELITIS OF THE THUMB February 15, 2025 9:03am OSTEOMYELITIS OF THE THUMB February 16, 2025 7:34am OSTEOMYELITIS OF THE THUMB February 16, 2025 1:40pm follow up 2025 10:00am Additional Source Comments Source Comments (unrecognize d section and content) In the event this informatio n is protected by the Federal Confidentiality of Alcohol and Drug Abuse Patient Records regulations: The Federal rules restrict any use of the information to criminally investigate or prosecute any alcohol or drug abuse patient.[facility] the event this information is protected by the Federal Confidentiality of Alcohol and Drug Abuse Patient Records regulations: The Federal rules restrict any use of the information to criminally investigate or prosecute any alcohol or drug abuse patient.[facility] the event this information is protected by the Federal Confidentiality of Alcohol and Drug Abuse Patient Records regulations: The Federal rules restrict any use of the information to criminally investigate or prosecute any alcohol or drug abuse patient.[facility] the event this information is protected by the Federal Confidentiality of Alcohol and Drug Abuse Patient Records regulations: The Federal rules restrict any use of the information to criminally investigate or prosecute any alcohol or drug abuse patient.[facility] the event this information is protected by the Federal Confidentiality of Alcohol and Drug Abuse Patient Records regulations: The Federal rules restrict any use of the information to criminally investigate or prosecute any alcohol or drug abuse patient.[facility] the event this information is protected by the Federal Confidentiality of Alcohol and Drug Abuse Patient Records regulations: The Federal rules restrict any use of the information to criminally investigate or prosecute any alcohol or drug abuse patient.[facility] the event this information is protected by the Federal Confidentiality of Alcohol and Drug Abuse Patient Records regulations: The Federal rules restrict any use of the information to criminally investigate or prosecute any alcohol or drug abuse patient.[facility] the event this information is protected by the Federal Confidentiality of Alcohol and Drug Abuse Patient Records regulations: The Federal rules restrict any use of the information to criminally investigate or prosecute any alcohol or drug abuse patient.[facility] the event this information is protected by the Federal Confidentiality of Alcohol and Drug Abuse Patient Records regulations: The Federal rules restrict any use of the information to criminally investigate or prosecute any alcohol or drug abuse patient.[facility] the event this information is protected by the Federal Confidentiality of Alcohol and Drug Abuse Patient Records regulations: The Federal rules restrict any use of the information to criminally investigate or prosecute any alcohol or drug abuse patient.[facility] the event this information is protected by the Federal Confidentiality of Alcohol and Drug Abuse Patient Records regulations: The Federal rules restrict any use of the information to criminally investigate or prosecute any alcohol or drug abuse patient.[facility] the event this information is protected by the Federal Confidentiality of Alcohol and Drug Abuse Patient Records regulations: The Federal rules restrict any use of the information to criminally investigate or prosecute any alcohol or drug abuse patient.[facility] the event this information is protected by the Federal Confidentiality of Alcohol and Drug Abuse Patient Records regulations: The Federal rules restrict any use of the information to criminally investigate or prosecute any alcohol or drug abuse patient.[facility] the event this information is protected by the Federal Confidentiality of Alcohol and Drug Abuse Patient Records regulations: The Federal rules restrict any use of the information to criminally investigate or prosecute any alcohol or drug abuse patient.[facility] the event this information is protected by the Federal Confidentiality of Alcohol and Drug Abuse Patient Records regulations: The Federal rules restrict any use of the information to criminally investigate or prosecute any alcohol or drug abuse patient.[facility] Reason for Visit (unrecogniz ed section and [...] REAL TIME W/IMAGE LIMITED Carine Canales PA-C [address] [place] [address] Us Imaging Referral ID Status Reason Start Date Expiration Date V isits Requested Visits Authorized [id number] Closed Auto-Generate d Referral 02/01/2022 03/03/2023 1 [...] Care Teams (unrecognized sec tion and content) Drupal Developer Relationship Specialty Start Date End Date Carine Canales PA-C [address] [place], [place] [id number] PCP - General Family Practice 04/04/17 Drupal Developer Relationship Specialty Start Date End Date Carine Canales PA-C [address] [place], [place] [phone] PCP - General Family Practice 04/04/17 Drupal Developer Relationship Specialty Start Date End Date Carine Canales PA-C [address] [place], [place] [phone] PCP - General Family Practice 04/04/17 Drupal Developer Relationship Specialty Start Date End Date Carine Canales PA-C [address] [place] [address] PCP - General Family Practice 04/04/17 Drupal Developer Relationship Specialty Start Date End Date Carine Canales PA-C [address] [place] [address] PCP - General Family Practice 04/04/17 Drupal Developer Relationship Specialty Start Date End Date Carine Canales PA-C [address] [place] [address] PCP - General Family Practice 04/04/17 Drupal Developer Relationship Specialty Start Date End Date Carine Canales PA-C [address] [place] [address] PCP - General Family Medicine 04/04/17 Drupal Developer Relationship Specialty Start Date End Date Carine Canales PA-C [address] [place] [address] PCP - General Family Medicine 04/04/17 Drupal Developer Relationship Specialty Start Date End Date Carine Canales PA-C [address] [place] [address] PCP - General Family Medicine 04/04/17 Drupal Developer Relationship Specialty Start Date End Date Carine Canales PA-C [address] [place] [address] PCP - General Family Medicine 04/04/17 Team [...] Active Start: February 13, 2025 Team Status: Inactive Member Role/Relationship Status Dates Dr. Raul Patrick MD Primary Care Provider Active Start: February 11, 2025 End: February 11, 2025 Dr. Raul Patrick MD Attending Provider Active Start: February 11, 2025 End: February 11, 2025 Dr. Raul Patrick MD Referring Provider Active Start: February 11, 2025 End: February 11, 2025 Team Status: Active Member Role/Relationship Status Dates Dr. Raul Patrick MD Primary Care Provider Active Start: February 13, 2025 Shad Lancaster MD Emergency Provider Active Star t: February 13, 2025 Dr. Eric Nichols MD Admit Provider Active Start: February 13, 2025 Dr. Eric Nichols MD Attending Provider Active Start: February 13, 2025 Dr. Pranay Light MD Other Provider Active Star t: February 13, 2025 Dr. Pranay Mi MD Other Provider Active Start: February 13, 2025 Team Status: Active Member Role/Relationship Status Dates Dr. Raul Patrick MD Primary Care Provider Active Start: February 13, 2025 Shad Lancaster MD Emergency Provider Active Star t: February 13, 2025 Dr. Eric Nichols MD Admit Provider Active Start: February 13, 2025 Dr. Eric Nichols MD Attending Provider Active Start: February 13, 2025 Dr. Eric Nichols MD Other Provider Active Start: February 13, 2025 Dr. Pranay Light MD Other Provider Active Star t: February 13, 2025 Team Status: Active Member Role/Relationship Status Dates Dr. Raul Patrick MD Primary Care Provider Active Start: February 14, 2025 Shad Lancaster MD Emergency Provider Active Star t: February 14, 2025 Dr. Eric Nichols MD Admit Provider Active Start: February 14, 2025 Dr. Eric Nichols MD Other Provider Active Start: February 14, 2025 Dr. Pranay Light MD Attending Provider Active Start: February 14, 2025 Dr. Pranay Light MD Other Provider Active Star t: February 14, 2025 Dr. Pranay Mi MD Other Provider Active Start: February 14, 2025 Team Status: Active Member Role/Relationship Status Dates Dr. Raul Patrick MD Primary Care Provider Active Start: February 14, 2025 Shad Lancaster MD Emergency Provider Active Star t: February 14, 2025 Dr. Eric Nichols MD Admit Provider Active Start: February 14, 2025 Dr. Eric Nichols MD Attending Provider Active Start: February 14, 2025 Dr. Eric Nichols MD Other Provider Active Start: February 14, 2025 Dr. Pranay Light MD Other Provider Active Star t: February 14, 2025 Dr. Pranay Mi MD Other Provider Active Start: February 14, 2025 Team Status: Active Member Role/Relationship Status Dates Dr. Raul Patrick MD Primary Care Provider Active Start: February 15, 2025 Shad Lancaster MD Emergency Provider Active Star t: February 15, 2025 Dr. Eric Nichols MD Admit Provider Active Start: February 15, 2025 Dr. Eric Nichols MD Other Provider Active Start: February 15, 2025 Dr. Pranay Light MD Attending Provider Active Start: February 15, 2025 Dr. Pranay Light MD Other Provider Active Star t: February 15, 2025 Dr. Pranay Mi MD Other Provider Active Start: February 15, 2025 Team Status: Active Member Role/Relationship Status Dates Dr. Raul Patrick MD Primary Care Provider Active Start: February 15, 2025 Shad Lancaster MD Emergency Provider Active Star t: February 15, 2025 Dr. Eric Nichols MD Admit Provider Active Start: February 15, 2025 Dr. Eric Nichols MD Attending Provider Active Start: February 15, 2025 Dr. Eric Nichols MD Other Provider Active Start: February 15, 2025 Dr. Pranay Light MD Other Provider Active Star t: February 15, 2025 Dr. Pranay Mi MD Other Provider Active Start: February 15, 2025 Team Status: Inactive Member Role/Relationship Status Dates Dr. Raul Patrick MD Primary Care Provider Active Start: February 13, 2025 End: February 16, 2025 Shad Lancaster MD Emergency Provider Active Star t: February 13, 2025 End: February 16, 2025 Dr. Eric Nichols MD Admit Provider Active Start: February 13, 2025 End: February 16, 2025 Dr. Eric Nichols MD Attending Provider Active Start: February 13, 2025 End: February 16, 2025 Dr. Pranay Light MD Other Provider Active Star t: February 13, 2025 End: February 16, 2025 Dr. Pranay Mi MD Other Provider Active Start: February 13, 2025 End: February 16, 2025 Team Status: Active Member Role/Relationship Status Dates Dr. Raul Patrick MD Primary Care Provider Active Start: February 16, 2025 Shad Lancaster MD Emergency Provider Active Star t: February 16, 2025 Dr. Eric Nichols MD Admit Provider Active Start: February 16, 2025 Dr. Eric Nichols MD Other Provider Active Start: February 16, 2025 Dr. Pranay Light MD Attending Provider Active Start: February 16, 2025 Dr. Pranay Light MD Other Provider Active Star t: February 16, 2025 Dr. Pranay Mi MD Other Provider Active Start: February 16, 2025 Team Status: Active Member Role/Relationship Status Dates Dr. Raul Patrick MD Primary Care Provider Active Start: February 16, 2025 Shad Lancaster MD Emergency Provider Active Star t: February 16, 2025 Dr. Eric Nichols MD Admit Provider Active Start: February 16, 2025 Dr. Eric Nichols MD Attending Provider Active Start: February 16, 2025 Dr. Eric Nichols MD Other Provider Active Start: February 16, 2025 Dr. Pranay Light MD Other Provider Active Star t: February 16, 2025 Dr. Pranay Mi MD Other Provider Active Start: February 16, 2025 Team Status: Inactive Member Role/Relationship Status Dates Dr. Raul Patrick MD Primary Care Provider Active Start: 2025 End: 2025 Dr. Raul Patrick MD Referring Provider Active Start: 2025 End: 2025 Dr. Pranay Light MD Attending Provider Active Start: 2025 End: 2025 (unrecognized sect ion and content) No Status Records FoundNo Status Records Found INFORMATION SOURCE (unrecogn ized section and content) DATE CREATED AUTHOR 11/26/2022 [facility] DATE CREATED AUTHOR AUTHOR'S СЕРГЕЙIZ ATION 02/26/2025 [facility] Goals (unrecognized section and content) Goals [...] BE BASED ON THE PRIMARY CLINICAL RECORDS. [facility] [employer] [facility]. provides no warranty or guarantee of the accuracy or completeness of information in this document.
[2025-02-26] MEDS: Lactated Ringers 1,000 ML 15 ML IV (06:37)
--- NOTE | 2025-02-26 07:12 | PRE.ANES_ITS ---
ASA Classification* ASA Classification ASA Classification: 3 Assessment & Plan Anesthesia* Anesthesia Assessment Anesthesia Assessment: Discussed sedation and/or anesthesia options, risks, benefits, and alternatives with patient/parents/legal guardian/POA. Questions invited. The patient/parents/legal guardian/POA seems to understand and agrees to proceed with anesthesia plan. Reviewed the physical assessment, medical history, allergy history and patient home medications list prior to surgery/procedure/anesthetic and documented any changes. Performed airway and anesthesia risk assessments. Anesthesia Type Anesthesia Type: MAC History Source History Obtained from:: Patient and Chart Anesthesia Focused Assessment* Temperature: 98.1 F Pulse Rate: 75 Blood Pressure: 159/83 Respiratory Rate: 18 Pulse Ox: 99 Oxygen Delivery Method: Room Air Airway Assessment Mouth opens: >3 cm Mallampati Score: I Teeth Condition: Dentures (Patient has a full upper plate.) and Missing (Patient is edentulous on the bottom.) Neck Range of motion (ROM): Limited ROM (Somewhat Decreased) Labs Anesthesia Preop lab: CBC WBC 5.1 K/mm3 (4.4-11.0) 02/16/25 07:00 02/16/25 RBC 4.69 M/mm3 (4.6-6.2) 02/16/25 07:00 02/16/25 Hgb 15.2 g/dL (13.0-16.5) 02/16/25 07:00 02/16/25 Hct 43.7 % (40-54) 02/16/25 07:00 02/16/25 Plt Count 191 K/mm3 (150-450) 02/16/25 07:00 02/16/25 CHEMISTRY Potassium 4.1 mmol/L (3.3-5.1) 02/16/25 07:00 02/16/25 Sodium 138 mmol/L (133-145) 02/16/25 07:00 02/16/25 BUN 13 mg/dL (4-19) 02/16/25 07:00 02/16/25 Creatinine 0.86 mg/dL (0.70-1.20) 02/16/25 07:00 02/16/25 Glucose 124 mg/dL (70-99) H 02/16/25 07:00 02/16/25 TSH 1.660 uIU/mL (0.300-4.200) 12/19/24 10:20 07/0 08/14 COAG Pre-Assessment Diagnosis/Proposed Procedure Planned Operative Procedure(s): REVISION LEFT THUMB AMPUTATION Anesthesia History Anesthesia History - mud jack nozzleman: Anesthesia History - mud jack nozzleman Hx Hospitalization No 02/22/25 08:36 Any Problems With Anesthesia No 02/22/25 08:36 Cholinesterase deficiency No 02/22/25 08:36 You/Your Family Experience No 02/22/25 08:36 fever (hyperthermia) with Relationship Recent Exposure to Contagious No 02/26/25 06:32 Disease Does patient have nerve No 02/22/25 08:36 stimulator Patient instructed to have device shut off --Does patient have Pacemaker No 02/26/25 06:32 or ICD? When Was Last Pacemaker Check QUESTION #4 FULL TEXT: You/Your Family Experience fever (hyperthermia) with Anesthesia Last Oral Intake Last Oral intake: Last Oral Intake NPO since 05:00 02/26/25 06:32 Meds taken in AM with sips of Yes 02/26/25 06:32 water? Meds patient instructed to omeprazole, metoprolol, 02/26/25 06:32 take am of surgery advair Any additional information?: Yes Meds taken in AM with sips of water?: Yes PONV PONV - mud jack nozzleman: PONV - mud jack nozzleman Female No 02/22/25 08:36 HX of Motion Sickness Yes 02/22/25 08:36 HX of N/V After Surgery No 02/22/25 08:36 Non-Smoker Yes 02/22/25 08:36 Duration of Surgery greater Yes 02/22/25 08:36 than 60 minutes Number of Risk Factors 3 02/22/25 08:36 PONV Score Moderate Risk 02/22/25 08:36 Height & Weight Height & Weight: Anesthesia: Height & Weight Height 5 ft 10 in 02/26/25 06:32 Weight: 76.1 kg 02/26/25 06:32 Body Mass Index (BMI) 24.0 02/26/25 06:32 Respiratory Assessment Respiratory Assessment - mud jack nozzleman: Respiratory Tract Infection Hx - mud jack nozzleman Hx Respiratory Tract Infection No 02/22/25 08:36 STOP Sleep Apnea STOP Sleep Apnea - mud jack nozzleman: STOP Sleep Apnea - mud jack nozzleman Hx Hypertension Yes: CONTROLLED WITH MED 02/22/25 08:36 Hx Sleep Apnea No 02/22/25 08:36 CPAP BIPAP Do you snore loudly (louder Yes 02/22/25 08:36 than talking or can be heard Do you often feel tired/ No 02/22/25 08:36 fatigued/ sleepy during daytime? Has anyone observed you stop No 02/22/25 08:36 breathing during sleep? STOP Results Positive 02/22/25 08:36 QUESTION #5 FULL TEXT : Do you snore loudly (louder than talking or can be heard through closed doors)? Tobacco Use History Tobacco Use History - mud jack nozzleman: Tobacco Use History - mud jack nozzleman Tobacco Use Smoking Status Current every day smoker 02/22/25 08:36 Hx Tobacco Use Yes 02/22/25 08:36 Years Smoking Packs Smoked per Day Smoking Cessation Date was within the last 15 years Hx Smoking Cessation Date Hx Smoking Cessation Counseling Any additional information?: Yes Smoking Status: Current every day smoker (Patient did not smoke today.) Hematologic Medial History Hematologic Hx - mud jack nozzleman: Hematologic Medical Hx - transcription manager Hx of Blood Transfusion No 02/22/25 08:36 Hx of Transfusion in last 3 No 02/22/25 08:36 Months Date of Last Transfusion (if within last 3 months) Ever experience any problems No 02/22/25 08:36 with transfusion(s)? Specify any problems Hx of Preganancy in last 3 N/A 02/22/25 08:36 Months Nurse Filling Out Transfusion DSCHRIBER 02/22/25 08:36 & Questions: Date: 02/22/25 02/22/25 08:36 Time: 08:37 02/22/25 08:36 Patient unable to answer at this time (ie. confused, unrespo /Reproduction History /Reproductive History - mud jack nozzleman: /Reproductive Hx- mud jack nozzleman Hx Now No 02/22/25 08:36 Gestational Age (in weeks): EDC: Hx Hx Para Hx Section SAB No 02/22/25 08:36 Active Medications Active Medications: Current Medications Generic Name Dose Route Start Last Admin Trade Name Freq PRN Reason Stop Dose Admin Cefazolin Sodium 2 gm/ Sodium 110 mls @ 200 mls/hr 02/26/25 07:30 Chloride IV 02/26/25 08:02 INTRAOP ONE Lactated Ringer's 1,000 mls @ 15 mls/hr 02/26/25 06:15 02/26/25 06:37 IV 15 mls/hr .Q48H CANDY Administration PFSH Medical History Wears hearing aid Wears dentures Depression Marijuana use Alcohol use Arthritis Bladder disease High cholesterol Blackout Gastric reflux Smoker Shortness of breath on exertion Leg cramps COPD (chronic obstructive pulmonary disease) HTN (hypertension) Home Medications ?Medication ?Instructions ?Recorded ?Last Taken ?Type albuterol sulfate 90 mcg/actuation 2 puff inhalation Q 4H PRN copd 02/13/25 Unknown History aerosol inhaler atorvastatin 40 mg tablet 40 mg PO QHS 02/13/25 Unknow n History fluticasone 250 mcg-salmeterol 50 1 ea inhalation BID 02/13/25 02/26/25 05:00 History mcg/dose blistr powdr for inhalation metoprolol succinate 50 mg 50 mg PO DAILY htn 02/13/25 02/26/25 05:00 History tablet,extended release 24 hr omeprazole 40 mg capsule,delayed 40 mg PO DAILY 02/26/25 05:00 History release sertraline 50 mg tablet 50 mg PO DAILY 02/13/25 Unkn own History tamsulosin 0.4 mg capsule 0.8 mg PO QHS 02/13/25 Unkno wn History valsartan 320 1 tab PO DAILY 02/13/25 Unkn own History mg-hydrochlorothiazide 25 mg tablet cefdinir 300 mg capsule 300 mg PO BID 40 days #80 ca ps 02/16/25 Unknown Rx doxycycline monohydrate 100 mg 100 mg PO BID 02/19/25 Unknown History tablet Allergy/AdvReac Type Severity Reaction Status Date / Time No Known Allergies Allergy Verified 02/26/25 06:30 Family History Other Diabetes Surgical History History of esophagogastroduodenoscopy (EGD) Hx of colonoscopy History of incision and drainage History of back surgery Social History Smoking Status: Current every day smoker tobacco type: cigarettes alcohol intake: current alcohol intake frequency: 3 or more drinks per day Alcohol type: beer substance use type: marijuana additional social history: pt denies vaping, denies edibles, pt denies blood clots history Review of Systems (Anesthesia) ROS Narrative System reviewed and no additional complaints, except as documented.
--- NOTE | 2025-02-26 07:30 | AMP_PTH ---
PATIENT: COREY TIRADO LOC: [facility] U#:[id number] AGE/SX: 65/M ROOM: RE02/26/[address]: Dr. Pranay Light MD : 1960 BED: DIS: 02/26/2025 SPEC #: [id number] RECD: 02/26/25 09:07 STATUS: MAGGIE REDax #: [id number] FRANKLYN: 02/26/25 07:[address]: Pranay Light DEPT: SURGICAL PATHOLOGY RECD BY: Ruben Bobo ENTERED: 02/26/25 10:31 SP TYPE: Amputation OTHR DR: Dr. Raul Patrick MD Tissues: A - Skin of finger, NOS B - Thumb, NOS Procedures: Decalcification bone/plaque Surgery Specimen Level IV HEADER OPERATION: Revision amputation, thumb PRE-OP DIAGNOSIS: Osteomyelitis of finger of left hand TISSUE SUBMITTED: A- Left thumb, B- Left thumb bone MICROSCOPIC DIAGNOSIS A. Skin and soft tissue, left thumb, revision amputation: - Cutaneous ulcer with dermal granulation tissue. - Chronic osteomyelitis with bone destruction. B. Bone, left thumb, revision amputation: - Trabecular bone with osteomyelitis. MICROSCOPIC DESCRIPTION Slides are reviewed. GROSS DESCRIPTION Received in 2 formalin containers labeled with the patient's name and date of . Designated as: A. Left thumb are 3 askew-pink soft tissue fragments, 0.6 x 0.4 x 0.2 cm to 1.8 x 0.8 x 0.5 cm and a 2.9 x 2.9 x 0.7 cm slightly irregular, ovoid portion of skin devoid of orientation. There is a 2.8 x 1.8 cm ulcerative lesion comprising >50% of the epidermal surface and located 0.3 cm from the peripheral edge; the resection margin is inked black. No bone is identified. Trouble Shooting Mechanic sections are submitted in 2 cassettes. B. Left thumb bone are 3 askew-pink irregular bone fragments, 0.2 cm to 0.3 cm. Entirely submitted in 1 cassette, following decalcification. AL 02/26/2025 CPT:88958g6,03037
--- NOTE | 2025-02-26 07:34 | PCM.HP.STD ---
HPI - General HPI Narrative Mr. Neville is a 65-year-old male who sustained a fracture of the left thumb distal phalanx who subsequently osteomyelitis who presents today for revision amputation to remove infected tissue and possible tissue preservation. His injury occurred about six weeks ago, the when he accidentally struck his left thumb with a hammer, resulting in a fracture of the distal phalanx. Initially, the patient did not seek medical attention however it became infected leading to osteomyelitis, which was confirmed on MRI showing destruction of the bone at the tip of the thumb and damage to nail bed. The patient underwent debridement and is currently on oral antibiotics, cefdinir and doxycycline. He was seen in clinic by Dr. Light yesterday and his thumb remains non-functional due to the lack of bone support and his swelling has decreased. He is seen in preop room accompanied by his spouse today. He reports no changes. Dr. Light met with them and discussed risks, benefits and wishes to proceed. [facility], LAT[facility] Medical History Wears hearing aid Wears dentures Depression Marijuana use Alcohol use Arthritis Bladder disease High cholesterol Blackout Gastric reflux Smoker Shortness of breath on exertion Leg cramps COPD (chronic obstructive pulmonary disease) HTN (hypertension) Home Medications ?Medication ?Instructions ?Recorded ?Last Taken ?Type albuterol sulfate 90 mcg/actuation 2 puff inhalation Q4H PRN copd 02/13/25 Unknown History aerosol inhaler atorvastatin 40 mg tablet 40 mg PO QHS 02/13/25 Unknown History fluticasone 250 mcg-salmeterol 50 1 ea inhalation BID 02/13/25 02/26/25 05:00 History mcg/dose blistr powdr for inhalation metoprolol succinate 50 mg 50 mg PO DAILY htn 02/13/25 02/26/25 05:00 History tablet,extended release 24 hr omeprazole 40 mg capsule,delayed 40 mg PO DAILY 02/13/25 02/26/25 05:00 History release sertraline 50 mg tablet 50 mg PO DAILY 02/13/25 Unknown History tamsulosin 0.4 mg capsule 0.8 mg PO QHS 02/13/25 Unknown History valsartan 320 1 tab PO DAILY 02/13/25 Unknown History mg-hydrochlorothiazide 25 mg tablet cefdinir 300 mg capsule 300 mg PO BID 40 days #80 caps 02/16/25 Unknown Rx doxycycline monohydrate 100 mg 100 mg PO BID 02/19/25 Unknown History tablet Allergy/AdvReac Type Severity Reaction Status Date / Time No Known Allergies Allergy Verified 02/26/25 06:30 Family History Other Diabetes Surgical History History of esophagogastroduodenoscopy (EGD) Hx of colonoscopy History of incision and drainage History of back surgery Social History Smoking Status: Current every day smoker (Patient did not smoke today.) tobacco type: cigarettes alcohol intake: current alcohol intake frequency: 3 or more drinks per day Alcohol type: beer substance use type: marijuana additional social history: pt denies vaping, denies edibles, pt denies blood clots history ROS Constitutional Constitutional: Denies anorexia, chills, fatigue, fever(s), headache(s), weight gain or weight loss ENT HEENT: Reports systems reviewed and no addt'l complaints, except as documented Cardiovascular Cardiovascular: Reports systems reviewed and no addt'l complaints, except as documented Respiratory/Chest Respiratory/Chest: Reports systems reviewed and no addt'l complaints, except as documented Vital Signs Vital Signs Vital Signs: 02/26/25 06:32 02/26/25 06:32 02/26/25 07:20 Temperature 98.1 F 98.1 F Temperature Source Temporal Pulse Rate 75 75 Respiratory Rate 18 18 Respiratory Pattern Normal Blood Pressure 159/83 H 159/83 H Blood Pressure Mean 108 Blood Pressure Source Monitor Blood Pressure Position Sitting Blood Pressure Location Left Arm Pulse Ox 99 99 Oxygen Delivery Method Room Air Room Air Weight Weight: 167 lb 12.348 oz Body Mass Index (BMI) 24.0 Physical Exam Narrative Alert and oriented. Comfortable in bed No wheezing with expiration, no respiratory distress Abdomen is nondistended and soft Left thumb slightly edematous without erythema, scant clear yellow drainage at nail puncture site Able to adduct, abduct and oppose thumb. Decreased sensation of distal tip of thumb. Assessment & Plan Assessment/Plan (1) Osteomyelitis of finger of left hand: PLAN: Revision amputation today with Dr. Light
[2025-02-26] MEDS: Midazolam 2 MG/2 ML Syringe IV (07:47)
[2025-02-26] MEDS: Lactated Ringers 1,000 ML 1000 ML IV (07:47)
[2025-02-26] MEDS: Lidocaine 1% (5 ml sdv) 5 ML Vial IV (07:55)
[2025-02-26] MEDS: Cefazolin 1 GM/5 ML Vial 2 GM IV (07:55)
[2025-02-26] MEDS: Lidocaine 1% (20 ml mdv) 20 ML Vial (08:39)
--- NOTE | 2025-02-26 08:54 | PCM.POST.ANE ---
Anesthesia: Postop Eval I Current Vital Signs Temperature: 97.6 F Pulse Rate: 73 Blood Pressure: 131/75 Respiratory Rate: 20 Pulse Ox: 96 Oxygen Delivery Method: Room Air Assessment Airway patent: Yes Spontaneous unlabored respirations: Yes Mental status: Awake and Calm nausea: No Vomiting: No Anesthesia Complication: No Fluid Hydration Crystalloid volume administer (ml): 700 Total IV fluid infused: 700 Progress Note Anesthesia document: Postop Eval 1 completed: Yes
--- NOTE | 2025-02-26 09:26 | OP.PCM_ITS ---
Operative Report (Standard) Operative Information Date of Procedure: 02/26/25 Pre-Operative Diagnosis: Left thumb osteomyelitis Post-Operative Diagnosis: Same Surgery/Procedure Performed: Revision amputation of the left thumb dry sand molder: No Type of Anesthesia: Local MAC (15 cc of 50-50 mixture of 1% lidocaine and quarter percent Marcaine) RN Documented Start/Stop Times: Operation Date: 02/26/25 07:30 Case Time Into Pre-Op 02/26/25 06:08 Out of Pre-Op 02/26/25 07:45 Anesthesia Start 02/26/25 07:47 Into Room 02/26/25 07:47 Procedure Start 02/26/25 08:12 Procedure End 02/26/25 08:44 Anesthesia End 02/26/25 08:49 Out of Room 02/26/25 08:49 Into Recovery 02/26/25 08:51 Out of Recovery 02/26/25 09:06 Into Phase II Recovery 02/26/25 09:07 Procedure Start Time: 08:12 Procedure Stop Time: 08:44 Select all DRAINS/GRAFTS/IMPLANTS that apply: None Estimated Blood Loss: Minimal Specimen collected: Yes Description of specimen(s) removed: Bone cultures and zi ne pathology from remaining distal phalanx Description of surgery: Indications: Patient is a delightful 65-year-old male with left thumb osteomyelitis resulting in distal phalanx tuft and distal phalanx shaft destruction. The base remains viable (x-ray demonstrates likely viability and appears clinically viable). I discussed with the patient the procedure which is revision amputation to the level of the base of the distal phalanx and he was in agreement. We talked about the risks, benefits, and alternatives and he elected to proceed. Procedure details: Patient was clearly identified in preoperative holding and marked. He was taken back to the operating room he was administered sedation and the above-noted local anesthesia. A turnicot was used in the left thumb and care was taken to remove the turnicot at the end of the case. He was prepped and draped in sterile fashion. Proper timeout was performed. A 15 blade scalpel was used to excise the sterile matrix, germinal matrix and eponychium as well as any residual distal phalanx tuft or shaft bone or periosteum. Care was taken to obliterate the entire germinal matrix using the 15 blade, followed by bipolar electrocautery after excision. The proximal portion of the distal phalanx (the base) appeared viable and a rongeur was used to debride any residual nonviable bone. A clean rongeur was then used to take a bone sample of the clinically healthy bone for culture and pathologic examination. The wound bed was then irrigated with copious amounts normal saline and a bottle of Irrisept. The turnicot was then removed and hemostasis obtained with bipolar electrocautery. The volar fingertip pulp was then rotated dorsally to cover the distal phalanx base at the base of the wound, and it was sutured into place with a 3-0 Chromic Gut suture loosely. Traction neurectomies were deferred as there was no volar surface disruption. Patient tolerated the procedure well. He was awakened and taken the PACU in stable condition after being dressed with Xeroform Maliha and Coban loosely. Postoperative plan: Leave the dressing in place and do not use the left thumb until follow-up in clinic on , 28 February 2025, for wound check. Shear Grinder Operator Helper: DOMI Pena This qualified assistant general manager was necessary for retraction of the thumb, as well as assistance with closure. Surgical Findings: Robust bone at the base of the distal phalanx (no signs of sequestrum/osteomyelitis) and no signs of residual infection. Complications Complications: No
--- NOTE | 2025-02-26 12:23 | POSTOPAN2_ITS ---
Anesthesia Postop Eval I Sum Postop Eval Completion status Anesthesia document: Postop Eval 1 completed: Yes Anesthesia Postop Eval I Summary Anesthesia Postop Eval I Summary: Anesthesia Postop Eval I: Assessment Summary Airway patent Yes 02/26/25 08:55 [email or web address] Spontaneous unlabored Yes 02/26/25 08:55 [email or web address] respirations Mental status Awake,Calm 02/26/25 08:55 [email or web address] nausea No 02/26/25 08:55 [email or web address] Vomiting No 02/26/25 08:55 [email or web address] Anesthesia Postop Eval I: Fluid Summary Crystalloid volume administer 700 02/26/25 08:55 [email or web address] (ml) Colloids volume administered ( ml) Blood Product volume administered (ml) Total IV fluid infused 700 02/26/25 08:55 [email or web address] Anesthesia Postop Eval I: Summary Notes Anesthesia Complication No 02/26/25 08:55 [email or web address] Anesthesia Complication Comment: Post-operative progress note Anesthesia: Postop Eval II Evaluation Mental status: Awake and Calm Pain Level: 0 nausea: No Vomiting: No Complications Anesthesia Complication: No
--- NOTE | 2025-02-26 12:23 | PCM.POSTANE2 ---
Anesthesia Postop Eval I Sum Postop Eval Completion status Anesthesia document: Postop Eval 1 completed: Yes Anesthesia Postop Eval I Summary Anesthesia Postop Eval I Summary: Anesthesia Postop Eval I: Assessment Summary Airway patent Yes 02/26/25 08:55 [email or web address] Spontaneous unlabored Yes 02/26/25 08:55 [email or web address] respirations Mental status Awake,Calm 02/26/25 08:55 [email or web address] nausea No 02/26/25 08:55 [email or web address] Vomiting No 02/26/25 08:55 [email or web address] Anesthesia Postop Eval I: Fluid Summary Crystalloid volume administer 700 02/26/25 08:55 [email or web address] (ml) Colloids volume administered ( ml) Blood Product volume administered (ml) Total IV fluid infused 700 02/26/25 08:55 [email or web address] Anesthesia Postop Eval I: Summary Notes Anesthesia Complication No 02/26/25 08:55 [email or web address] Anesthesia Complication Comment: Post-operative progress note Anesthesia: Postop Eval II Evaluation Mental status: Awake and Calm Pain Level: 0 nausea: No Vomiting: No Complications Anesthesia Complication: No
== END 2025-02-26 09:36 | disposition home or self-care (01) ==
LOC: SDC 06:06 → AC 06:08
PROVIDERS: PCP Family Medicine Geriatric Medicine; Referring Provider Surgery Plastic and Reconstructive Surgery; Visit Provider Surgery Plastic and Reconstructive Surgery
PROC: (CPT 26951; principal; 2025-02-26 07:15)
DX: M86.642 Other chronic osteomyelitis, left hand (principal); J44.9 Chronic obstructive pulmonary disease, unspecified; S62.522S Displaced fracture of distal phalanx of left thumb, sequela; W22.8XXS Striking against or struck by other objects, sequela; I10 Essential (primary) hypertension; E78.00 Pure hypercholesterolemia, unspecified; K21.9 Gastro-esophageal reflux disease without esophagitis; F17.210 Nicotine dependence, cigarettes, uncomplicated; Z79.51 Long term (current) use of inhaled steroids; Z79.899 Other long term (current) drug therapy
CPT/HCPCS: 26951; 01830; 87015; 87070; 87075; 87102; 87116; 87176; 87205; 87206; 88305; 88311; J2405

== ENCOUNTER 2025-03-11 08:15 | Outpatient (RCR) | payer MEDICARE, SELFPAY ==
[2025-02-25 13:40] VITALS: BP 151/87; PULSE 89; RESP 16; TEMP 36.3; BMI 24.5
--- NOTE | 2025-02-25 14:27 | PCM.WC.PN ---
History of Present Illness Date of Service: 02/25/25 Chief Complaint: Operative Information Date of Procedure: 02/14/25 Pre-Operative Diagnosis: Left thumb distal phalanx osteomyelitis Post-Operative Diagnosis: Same Surgery/Procedure Performed: 1) left thumb nail plate removal and debridement of underlying left thumb wound including debridement of distal phalanx necrotic bone (sequestrum) and drainage of surrounding fluid collection Subjective Subjective The patient is a 65-year-old male presenting with osteomyelitis and fracture of the left thumb distal phalanx. Approximately six weeks ago, the patient accidentally struck his left thumb with a hammer, resulting in a fracture of the distal phalanx. Initially, the patient did not seek medical attention, believing it was not serious. Subsequently, the fracture became infected, leading to osteomyelitis, as confirmed by MRI. The patient underwent debridement and is currently on oral antibiotics, cefdinir and doxycycline. The infection has resulted in the destruction of the bone at the tip of the thumb and damage to the nail bed. The patient reports that the swelling has decreased, but the thumb remains non-functional due to the lack of bone support. The patient is scheduled for a revision amputation to remove the infected tissue and preserve as much of the thumb as possible. ROS: - Musculoskeletal: Reports decreased swelling in the left thumb. Denies any new pain or discomfort. Attestation: Documentation on this patient encounter was supported using ambient scribe technology/ voice AI technology. The patient consented to recording for the purpose of documenting the encounter. Provider reviewed content of the generated note prior to signature. Objective Data Objective Data Vital Signs: Vital Signs Temp Pulse Resp BP 97.3 F L 89 16 151/87 H 02/25/25 13:40 02/25/25 13:40 02/25/25 13:40 02/25/25 13:40 Weight: 166 lb Body Mass Index (BMI) 24.5 Charges/Coding Procedures Integumentary [id number]: [id number] Global Visit Physical Exam Narrative Left Upper Extremity Inspection: Thumb distal phalanx shows signs of previous debridement with no visible purulence, improved swelling. The nail bed appears significantly damaged, and there is a noticeable absence of bone at the tip of the thumb. Palpation: The thumb is tender to touch, with a mushy consistency noted in the distal phalanx area secondary to no bony support. Motor: Able to bend and extend all MP, PIP, and DIP joints, except for the left thumb, which shows limited movement due to swelling and previous injury. Sensory: Intact to light touch on the radial and ulnar borders. Vascular: Finger tips are warm and well perfused with greater than 2 second capillary refill. Thumb tip soft tissue warm and viable. Debridement Note Debridement Note Post-Debridement Measurements and Additional Note: Post-Debridement Measurements/Treatment WILLIAM - Nurse 1 - General Ulcer Assessment Start: 02/25/25 13:40 Freq: Status: Active Protocol: JOSE FRANCISCO Activity Type Activity Date Activity User E-sign Co-sign Detail Recorded Client Recorded Date Recorded By Document 02/25/25 13:40 JOSE R [id number] 02/25/25 13:45 JOSE R 02/25/25 13:40 - Today's Visit Information Type of service Initial Visit Arrival Mode Ambulatory Patient Identification Verified (Name & Yes ) Patient Requires Transmission-Based No Precautions Height and Weight Height 5 ft 9 in Weight 166 lb Weight in Pounds 166.0 lbs Weight Measurement Method Estimated by Patient Body Mass Index (BMI) 24.5 BMI Classification Normal Vital Signs Temperature (97.8 F-99.1 F) 97.3 F L Temperature Source Temporal Pulse Rate (60-100) 89 Pulse Location Monitor Respiratory Rate (12-18) 16 Respiratory rate source Observation Blood Pressure (90/60-120/80) 151/87 H Blood Pressure Mean (mm Hg) 108 Source Monitor Position Semi-Fowlers Blood Pressure Location Left Arm History Since Last Visit- (Skip if this is Patient's initial visit) Left Footwear Regular Shoe Right Footwear Regular Shoe Pain Scale: 0-10 Numeric Is Patient Pain Free? Yes left thumb -Description Aching -Intensity 3 -Duration (hours) Acute -Pain Aggravating Factors Surgery -Alleviating Factors/Interventions None -Effectiveness of Alleviating Factor/ Completely Intervention effective Communication Assessment Preferred language [place] Call Center Nurse Required No Able to Read Yes Able to Write Yes Communication Tools None Right Hearing Abillity Normal Left Hearing Abillity Normal Visual Assistive Devices Glasses Teaching Assessment Preferences Verbal,Written, Audio/Visual, Demonstration Barriers to Learning None Readiness To Learn Excellent Willingness to Engage in Self Management High Activies Readiness to Engage in Self Management High Activities Anxiety Level Anxious Cooperation Cooperative Perception Coherent Interest in Health Problem Asks Questions Education Importance Acknowledges Need Does Patient Smoke tobacco or other No substances Smoking Status Current every day smoker Is Patient Diabetic No Functional Assessment Recent Decline in Ability to Perform Denies Any Declines Assistive Device With Patient N/A Culture/Methodist/Vamp Maker Cultural/Methodist Needs that may affect No Treatment Plan Would you allow our hospital sludge mill operator to No meet you for the purpose of spiritual/ emotional support? Vamp Maker to contact place of zoroastrianism No Teaching: Wound Center *Debridement -Person Taught Patient -Teaching Method Discussion, Demonstration -Response to teaching Return Demonstration, Verbalize Understanding - Nurse 1 - General Ulcer Measurement Start: 02/25/25 13:40 Freq: Status: Active Protocol: Activity Type Activity Date Activity User E-sign Co-sign Detail Recorded Client Recorded Date Recorded By Document 02/25/25 13:40 [id number] 02/25/25 13:45 02/25/25 13:40 Wound Center Nurse 1 1-left thumb -Combined with other wound No -Current Size (cm) - Length 0.4 -Current Size (cm) - Width 0.3 -Current Size (cm) - Depth 0.5 -Total Square Cm 0.12 -Photo Taken Yes -Epithelialization Small 1-33% -Tunneling No -Undermining/Tunneling No -Circular Undermining No -Classification - Thickness Full Thickness without Exposed Support Structure -Exudate Amt Medium -Wound Margin Flat & Intact -Granulation Amt Medium (34-66%) -Granulation Quality [place] -Slough/Fibrin Yes -Necrosis Amt Small (1-33%) -Necrotic Tissue Type Adherent Slough -Structure Exposed N/A -Texture (Lin-wound Skin Appearance) Assessed -Moisture (Lin-wound Skin Appearance) Assessed,Dry/ Scaly -Color (Lin-wound Skin Appearance) Assessed -Temperature (Lin-wound Skin No Abnormality Appearance) (Pt Warm) -Tenderness on Palpation (Lin-wound No Skin Appearance) -Ulcer Cleansing Rinsed/ Irrigated with Saline -Foul Odor after Cleansing No -Anesthetic Used 5% Lidocaine Gel Lower Limb Edema Present NA - Nurse 2 - General Ulcer CM Notes Start: 02/25/25 13:40 Freq: Status: Active Protocol: Activity Type Activity Date Activity User E-sign Co-sign Detail Recorded Client Recorded Date Recorded By Document 02/25/25 14:00 [email or web address] [id number] 02/25/25 14:10 02/25/25 14:00 Wound Center Nurse 2 1-left thumb -Time 14:04 -Correct Patient Yes -Correct Side, Site, Position No -Correct Procedure No -Procedure Performed No -Wound/Ulcer Outcome Amputation Anticipated -Treatment Response Procedure Tolerated Well Pain Scale: 0-10 Numeric Is Patient Pain Free? Yes - Nurse 3 - General Ulcer D/C NN Start: 02/25/25 13:40 Freq: Status: Active Protocol: Activity Type Activity Date Activity User E-sign Co-sign Detail Recorded Client Recorded Date Recorded By Document 02/25/25 14:23 [id number] 02/25/25 14:23 02/25/25 14:23 Wound Care Center Nurse 3 1-left thumb -Primary Dressing Covered/Secured with Dry Gauze & Roll Gauze, Secured with Tape Pain Scale: 0-10 Numeric Is Patient Pain Free? Yes WC - Visit Discharge Discharge Condition Stable Ambulatory Status Ambulatory Transportation Private Auto Accompanied by Medication Reconcilliation completed & Yes provided to patient/care provider Clinical Summary of Care Provided Yes Assessment/Plan Assessment/Plan (1) Osteomyelitis of finger of left hand: CODE(S): M86.9 - Osteomyelitis, unspecified PLAN: Plan Assessment and Plan 65-year-old male with a history of osteomyelitis and fracture of the left thumb distal phalanx presenting with ongoing infection and structural compromise of the thumb. The patient sustained a fracture to the distal phalanx of the left thumb approximately six weeks ago, which subsequently developed into osteomyelitis. Despite initial conservative management with oral antibiotics, the infection has led to significant bone loss and nail bed damage, necessitating surgical intervention. The planned revision amputation aims to remove infected tissue while preserving as much of the thumb as possible to maintain functionality (thumb base should be robust/solid and viable). 1. Osteomyelitis Of The Left Thumb Distal Phalanx The patient will undergo a revision amputation to remove infected tissue and preserve thumb functionality. The procedure will involve the removal of the sterile and germinal matrix to prevent further infection and structural instability. Post-operative care will include monitoring for signs of recurrent infection and ensuring proper wound healing. Continue antibiotics per infectious disease consultation Continue follow-up with infectious disease 2. Fracture Of The Left Thumb Distal Phalanx The fracture has resulted in significant bone loss, necessitating surgical intervention to stabilize the thumb. The revision amputation will address the structural compromise and aim to maintain as much thumb length as possible. Follow-up care will focus on rehabilitation to restore hand function and prevent further complications. - Keep the thumb dry and covered until the follow-up appointment. - Avoid heavy lifting and strenuous activities with the affected hand. - Attend all scheduled follow-up appointments for monitoring and care. I talked to the patient extensively about the risks of surgery, including bleeding, infection, failure to remove all of the osteomyelitic bone and repeat infections subsequently (which is a distinct possibility as we are trying to salvage bone and may leave some infected bone behind), damage to surrounding structures, poor scaring, surgical site dehiscence and wound formation, need for wound care, need for repeat operations, failure to obtain the desired result, DVT/PE, and the risks of anesthesia including , including stroke (from low blood pressure/ischemia or clot). The benefits and alternatives of this surgery were also discussed. All of their questions were answered, and they agreed to proceed with surgery (amputation of the thumb tip to an appropriate level). Plan for revision amputation with [facility] [place]. Talked the patient about a potential thumb IP joint level amputation if the thumb base bone appears necrotic and nonviable, however we will attempt to salvage the length and keep the thumb distal phalanx base as this did not clinically appear to be involved in any severe osteomyelitis (in contrast to the subacute osteomyelitis that was seen on the distal phalanx of the shaft requiring debridement in the OR at the last operation). Patient understands that the nail plate would not be supported as the bone has been eaten away by the infection distally. He understands why we are obliterating the germinal and sterile matrices and performing a revision amputation and is in agreement with this plan. 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 He is accepting of this and would like to proceed.
--- NOTE | 2025-02-27 09:44 | WC ---
PHOTO-LEFT THUMB 02/25/25
[2025-03-11 08:19] VITALS: BP 154/84; RESP 14; TEMP 36.6; BMI 24.5
--- NOTE | 2025-03-12 09:20 | PCM.PROGNOTE ---
Subjective Subjective Doing well overall almost 2 weeks postop from revision amputation of the left thumb to the level of the distal phalanx base. Patient reports significant improvements in swelling. No fevers chills or drainage Objective Data Objective Data Vital Signs: Vital Signs Temp Pulse Resp BP 97.8 F 89 14 154/84 H 03/11/25 08:19 02/25/25 13:40 03/11/25 08:19 03/11/25 08:19 Weight: 166 lb Body Mass Index (BMI) 24.5 Physical Exam Narrative Left thumb examined and incision line intact with healthy granulation tissue. Incision loosely approximated and reforming. Assessment & Plan Assessment/Plan (1) Osteomyelitis of finger of left hand: PLAN: Status post revision amputation on 26 February 2025 Expected course thus far Continue Neosporin and a Band-Aid along the suture line Follow-up in 1 week Charges/Coding Procedures Integumentary 111xxx-113xx: [id number] Global Visit
== END 2025-03-19 23:59 | disposition home or self-care (01) ==
LOC: WC 08:15
PROVIDERS: PCP Family Medicine Geriatric Medicine; Referring Provider Surgery Plastic and Reconstructive Surgery; Visit Provider Surgery Plastic and Reconstructive Surgery
DX: M86.8X4 Other osteomyelitis, hand (principal); S62.522A Displaced fracture of distal phalanx of left thumb, initial encounter for closed fracture; W22.8XXA Striking against or struck by other objects, initial encounter
CPT/HCPCS: 99213; 99214; G0463

== ENCOUNTER 2025-03-25 08:08 | Outpatient (RCR) | payer MEDICARE, SELFPAY ==
[2025-03-25 08:13] VITALS: BP 155/82; PULSE 72; RESP 16; TEMP 36
--- NOTE | 2025-03-25 08:49 | PCM.PN.SRG ---
Subjective Subjective Doing well overall almost 4 weeks postop from revision amputation of the left thumb to the level of the distal phalanx base. Infectious disease planning to DC antibiotics today. PSU in agreement. Patient reports significant improvements in swelling. No fevers chills or drainage Objective Data Objective Data Vital Signs: Vital Signs Temp Pulse Resp BP O2 Del Method 96.8 F L 72 16 155/82 H Room Air 03/25/25 08:13 03/25/25 08:13 03/25/25 08:13 03/25/25 08:13 03/25/25 08:13 Oxygen Delivery Method Room Air Physical Exam Narrative Left thumb examined Incision healed. Able to oppose thumb IP joint bending and extending. No drainage/swelling. Assessment & Plan Assessment/Plan (1) Osteomyelitis of finger of left hand: PLAN: Status post revision amputation on 26 February 2025 Expected course thus far F/u in 6 weeks to check progress. Patient declined offer for hand therapy referral today (for desensitization and ROM). Charges/Coding Procedures Integumentary 111xxx-113xx: [id number] Global Visit
--- NOTE | 2025-03-26 11:23 | WC ---
PHOTO-LEFT THUMB 03/25/25
== END 2025-03-25 08:39 | disposition home or self-care (01) ==
LOC: WC 08:08
PROVIDERS: PCP Family Medicine Geriatric Medicine; Referring Provider Surgery Plastic and Reconstructive Surgery; Visit Provider Surgery Plastic and Reconstructive Surgery
DX: M86.8X4 Other osteomyelitis, hand (principal)
CPT/HCPCS: 99212; G0463

== ENCOUNTER → 2025-06-19 | Outpatient (CLI) | payer MEDICARE, SELFPAY ==
[2025-06-19 09:27] LABS: Hematocrit 47.0 % (40-54); Hemoglobin 16.1 g/dL (13.0-16.5); Immature Granulocytes Count 0.030 X10^3/uL (0.0-0.0); Mean Corp Hgb Conc 34.3 g/dL (32-36); Mean Corpuscular Volume 94.0 fL (80-94); Mean Platelet Vol. 8.3 fl (6.2-12.0); NRBC Flagged by Analyzer 0 % (0-5); Platelet Count 163 K/mm3 (150-450); RBC Distribution Width CV 11.7 % (11.6-14.6); RBC Distribution Width SD 39.5 fl (35.1-43.9); Red Blood Count 5.00 M/mm3 (4.6-6.2); White Blood Count 6.2 K/mm3 (4.4-11.0)
[2025-06-19 10:10] LABS: AST(SGOT) 32 U/L (<=37); Alanine Aminotransfer ALT/SGPT 42 U/L (<=46); Albumin, Serum 4.7 g/dL (3.4-4.8); Alkaline Phosphatase 111 U/L (40-129); Anion Gap 9 (7-18); BUN 15 mg/dL (4-19); BUN/Creat Ratio 15.5 RATIO (10-20); Calcium,Total 9.7 mg/dL (7.6-11.0); Carbon Dioxide 28.7 mmol/L (20.0-29.0); Chloride 98 mmol/L (96-106); Globulin 3.1 g/dL (2.2-4.2); Glucose 140 mg/dL (70-99); PSA,Total - Annual Screen 2.28 ng/mL (0.02-4.00); Potassium 4.7 mmol/L (3.5-5.1); Vitamin D,25 Hydroxy 23.2 ng/mL (30-100)
[2025-06-19 17:15] LABS: Xtra Tube Kwok EXTRA TUBE
== END | disposition home or self-care (01) ==
LOC: POLAB3 09:15
PROVIDERS: PCP Family Medicine Geriatric Medicine; Visit Provider Family Medicine Geriatric Medicine
DX: E55.9 Vitamin D deficiency, unspecified (principal); I10 Essential (primary) hypertension; Z12.5 Encounter for screening for malignant neoplasm of prostate
CPT/HCPCS: 36415; 80053; 82306; 84153; 84443; 85025; G0103